=== PATIENT | female | born 1950 | race Caucasian/White ===

== ENCOUNTER 2016-09-15 14:55 | Inpatient (IN) ==
[2016-09-15 16:11] LABS: Basophils % 0.4 %; Eosinophils # 0.4 K/mcL (0.0-0.6); Eosinophils % 5.5 %; Hematocrit 28.3 % (35.3-44.9); Hemoglobin 8.9 g/dL (11.5-15.4); Immature Granulocytes % 0.3 % (0-4); Lymphocytes # 0.9 K/mcL (0.6-4.6); Lymphocytes % 12.8 %; Mean Corpuscular HGB Conc 31.4 g/dL (31.6-35.5); Mean Corpuscular Hemoglobin 27.2 pg (28.0-33.3); Mean Corpuscular Volume 86.5 fL (83.0-100.0); Mean Platelet Volume 11.2 fL (9.4-12.4); Monocytes # 0.7 K/mcL (0.0-1.3); Monocytes % 10.1 %; Platelet Count 203 K/mcL (140-400); Red Blood Count 3.27 M/mcL (3.82-4.97); Red Cell Distribution Width 15.4 % (11.5-14.5); Segmented Neutrophils % 70.9 %
[2016-09-15 16:25] LABS: Albumin 3.4 g/dL (3.5-5.0); Bilirubin,Total 0.7 mg/dL (0.2-1.2); Calcium 9.6 mg/dL (8.6-10.8); Globulin 3.4 g/dL (2.4-3.5); Potassium 5.5 mEq/L (3.5-4.5); Total Protein 6.8 g/dL (6.0-8.3)
--- NOTE | 2016-09-15 17:26 | Emergency Department Note ---
Disposition Clinical Impression: Acute renal insufficiency CHF (congestive heart failure) Qualifiers: Congestive heart failure type: diastolic Congestive heart failure chronicity: acute Qualified Code(s): I50.31 - Acute diastolic (congestive) heart failure Disposition: Admitted As Inpatient Condition: Fair Referrals: NO,PCP [Primary Care Provider] - Forms: ED Satisfaction Letter Time of Disposition: 17:54 Recheck wound or abnormal lab - General Chief Complaint: ED Recheck/Abnormal Lab/Rx Stated Complaint: pcp sent abnormal labs Time Seen by Provider: 09/15/16 16:42 Source: patient Limitations: no limitations Nursing Notes Reviewed: Yes Vital Signs Reviewed: Yes - Related Data Home Medications Medication Instructions Recorded Confirmed Aspirin 81 mg PO DAILY 08/02/15 08/02/15 Furosemide [Lasix] 20 mg PO DAILY PRN 08/02/15 08/02/15 Insulin ASPART [NovoLOG] 32 unit SQ TIDWM 08/02/15 08/02/15 Insulin Glargine,Hum.rec.anlog 45 unit SQ DAILY 08/02/15 08/02/15 [Lantus Solostar] Previous Rx's Medication Instructions Recorded Carvedilol [Coreg] 6.25 mg PO BIDWM #60 tablet 08/02/15 Losartan [Cozaar] 50 mg PO DAILY #30 tablet 08/02/15 Potassium Chloride [K-Tab ER] 10 meq PO DAILY #30 tablet.er 08/02/15 Allergies Allergy/AdvReac Type Severity Reaction Status Date / Time No Known Allergies Allergy Unverified 09/15/16 15:28 Past Medical History - Past Medical History Medical history: Reports: diabetes, hyperlipidemia, hypertension, kidney stones , renal disease Surgical history: Reports: cataract, cholecystectomy Psychiatric history: Reports: no psych history NURSING PROGRAM DIRECTOR history: Reports: no NURSING PROGRAM DIRECTOR history - Social History Smoking Status: Never smoker Smokeless Tobacco Status: No Alcohol use: Reports: none Drug use: Reports: none Physical Exam - General Limitations: no limitations General appearance: alert Course - Reevaluation(s) Reevaluation #1: 66-year-old female who comes in for abnormal labs. Patient's had exertional dyspnea. Workup included a worsening creatinine up to the mid fours. Potassium is 5.5. Her chest x-ray did show CHF. Consultation obtained with nephrology who recommends Lasix and possibly dialysis. Patient will be admitted for further evaluation. Time: 17:53 - Consultations Consultation #1: Discussed with , admit. Time: 17:49 Consultation #2: Discussed with Frieda Sage nurse practitioner, admit Time: 17:50 Vital Signs Temperature 98.2 F 09/15/16 15:28 Pulse Rate 58 09/15/16 15:28 Respiratory Rate 20 09/15/16 15:28 Blood Pressure 138/77 09/15/16 15:28 O2 Sat by Pulse Oximetry 95 09/15/16 15:28 Temperature 98.2 F 09/15/16 15:28 Pulse Rate 58 09/15/16 15:28 Respiratory Rate 20 09/15/16 15:28 Blood Pressure 138/77 09/15/16 15:28 O2 Sat by Pulse Oximetry 95 09/15/16 15:28 Oxygen Delivery Oxygen Delivery Room Air Recheck wound or abnormal lab - Lab Data Result diagrams: 09/15/16 16:03 09/15/16 16:03 Lab Results 09/15/16 09/15/16 Range/Units 16:03 16:03 WBC 7.1 (4.3-11.1) K/mcL RBC 3.27 L (3.82-4.97) M/mcL Hgb 8.9 L (11.5-15.4) g/dL Hct 28.3 L (35.3-44.9) % MCV 86.5 (83.0-100.0) fL MCH 27.2 L (28.0-33.3) pg MCHC 31.4 L (31.6-35.5) g/dL RDW 15.4 H (11.5-14.5) % Plt Count 203 (140-400) K/mcL MPV 11.2 (9.4-12.4) fL Immature Gran % 0.3 (0-4) % Seg Neutrophils % 70.9 % Lymphocytes % 12.8 % Monocytes % 10.1 % Eosinophils % 5.5 % Basophils % 0.4 % Neutrophils # 5.0 (1.6-8.9) K/mcL Lymphocytes # 0.9 (0.6-4.6) K/mcL Monocytes # 0.7 (0.0-1.3) K/mcL Eosinophils # 0.4 (0.0-0.6) K/mcL Basophils # 0.0 (0.0-0.2) K/mcL Sodium 139 (136-145) mEq/L Potassium 5.5 H (3.5-4.5) mEq/L Chloride 112 H (98-109) mEq/L Carbon Dioxide 20 (19-29) mEq/L BUN 71 H (7-20) mg/dL Creatinine 4.52 H (0.57-1.11) mg/dL Est GFR ( Amer) 12 L (> 60) Est GFR (Non-Af Amer) 10 L (> 60) BUN/Creatinine Ratio 16 (6-26) Glucose 173 H (70-99) mg/dL Calculated Osmolality 313 H (280-300) Calcium 9.6 (8.6-10.8) mg/dL Total Bilirubin 0.7 (0.2-1.2) mg/dL AST 12 (5-34) Units/L ALT 8 (0-55) Units/L Alkaline Phosphatase 109 (38-126) Units/L Serum Total Protein 6.8 (6.0-8.3) g/dL Albumin 3.4 L (3.5-5.0) g/dL Globulin 3.4 (2.4-3.5) g/dL Albumin/Globulin Ratio 1.0 L (1.1-2.2) Amylase 43 (25-125) Units/L Lipase 34 (8-78) Units/L
[2016-09-15] MEDS ORDERED: Furosemide 40 MG/4 ML VIAL IVP ONE ×2 (17:28→20:31)
[2016-09-15 17:57] LABS: Bilirubin,Urine Negative (Negative); Blood,Urine Negative (Negative); Clarity,Urine Clear (Clear); Color,Urine Yellow (Yellow); Glucose,Urine (UA) Normal (Normal); Ketones,Urine Negative (Negative); Leukocyte Esterase,Urine Small (Negative); Nitrite,Urine Negative (Negative); PH,Urine 5.5 pH Units (5.0-8.0); Protein,Urine >=300 mg/dL (Neg-Trace); Specific Gravity,Urine 1.016 (1.010-1.025); Urobilinogen,Urine Normal (Normal)
[2016-09-15 17:59] LABS: Bacteria,Urine None Seen per hpf (None-Few); Hyaline Casts,Urine None Seen per lpf (None-Few); Squamous Epithelial Cell,Urine Many per lpf (None-Few)
--- NOTE | 2016-09-15 19:50 | Internal Med History&Physical ---
Date of Encounter: 09/15/16 Time of Encounter: 19:48 Assessment and Plan (1) Acute on chronic congestive heart failure Current visit: Yes Status: Acute Patient has known diastolic heart failure with preserved ejection fraction. Last echocardiogram demonstrated LVEF of 55%, mild diastolic dysfunction, mild pulmonary hypertension mild mitral regurg. Patient clinically presents with diastolic heart failure exacerbation with pulmonary edema, bilateral lower extremity 2+ edema, cough, mild JVD. Supporting factor BNP of over 400. Chest x-ray with bilateral pulmonary congestion - Despite the patient increasing her home Lasix dose the patient presents with acute congestive heart failure in the setting of worsening renal function. This exacerbation is likely secondary to worsening of her end-stage renal disease. Plan: - 80 mg IV Lasix once tonight - 40 mg IV Lasix twice a day - Strict intake and output monitoring - Daily weights - 1.5 L fluid restrictions - 2 g sodium restriction - Discontinue patient's home potassium. Qualifiers: Qualified Code(s): I50.9 - Heart failure, unspecified (2) Scwks-sv-hrjszmy renal failure Current visit: Yes Status: Acute Patient presents with acute on chronic stage for kidney disease. Patient's creatinine is 4.52 with a GFR 10. Patient's GFR has steadily decreased over the past 3 months after chart review. Concerning factors: Hypertension, heart failure, diabetes. - Patient was taking 40 mg Lasix twice a day, fluid restricting and sodium restricting at home. - Presents with congestive heart failure exacerbation, hyperkalemia and acute on chronic any disease Plan: - 80 mg IV Lasix once this evening - 40 mg IV Lasix twice a day - As discussed above. - Consult to nephrology Qualifiers: Chronic kidney disease stage: stage 5, not on chronic dialysis Qualified Code(s): N17.9 - Acute kidney failure, unspecified; N18.5 - Chronic kidney disease, stage 5 (3) Hyperkalemia Current visit: Yes Status: Acute Patient presents with a potassium of 5.5, this is roughly her potassium for the past 3 months. She also has been taking oral potassium at home. EKG stable. Plan: - Hold oral potassium - Should improve with IV Lasix - No improvement with a.m. labs may require Kayexalate - Patient clinically stable. (4) Normocytic anemia Current visit: Yes Status: Acute Normocytic anemia with hemoglobin of 8.9, this has been her hemoglobin since May and appears to be stable. Likely secondary to chronic stage IV renal failure. Plan: - Monitor with a.m. labs (5) Diabetes Current visit: Yes Status: Acute Patient is insulin-dependent diabetic, glucose is slightly elevated. Plan: -Before meals at bedtime glucose checks - Subcutaneous insulin low-dose sliding scale and adjust up as necessary. Qualifiers: Qualified Code(s): E11.9 - Type 2 diabetes mellitus without complications (6) DVT prophylaxis Current visit: Yes Status: Acute Subcutaneous heparin Internal Medicine - H&P: HPI Chief complaint: abnormal labs Admitted From: Emergency Dept Plans for Post Hospital Care: Home History of present illness: Ms. Becerril is a 66 year old female with endstage renal disease, diastolic heart failure and chronic normocytic anemia was sent to the emergency department by her radial saw operator for worsening of laboratory results. Mrs. Becerril so that she has been treated for declining renal function for multiple years now and in the last several weeks has had a drop in her renal function. She says that she has been fatigued, very short of breath with light activity and sleepy. She is also had a cough more recently without production. She denies any fevers, chills, sweating, nausea vomiting diarrhea constipation. She does have feeling of GERD. She is also had increased swelling in bilateral lower extremities despite increasing her Lasix dose. She mentions that she has been taking 40 of Lasix twice a day up from her previous 60 of Lasix daily. She has also been taking oral potassium with the Lasix. In further discussion she understands that she may need dialysis was told she may require dialysis in the next 6 months. She understands that if she cannot diuresis enough fluid off she may require dialysis. She has no other questions at this time. Past Med Surg Social Fam HX - Past Medical History Medical history: diabetes, hyperlipidemia, hypertension, kidney stones, renal disease Psychiatric history: no psych history - Past Surgical History Surgical History: cataract, cholecystectomy - Social History Smoking Status: Never smoker Smokeless Tobacco Status: No Alcohol use: none Drug use: none Internal Medicine - H&P: Meds Aspirin 81 mg PO DAILY 08/02/15 [History] Carvedilol [Coreg] 6.25 mg PO BIDWM #60 tablet 08/02/15 [Rx] Furosemide [Lasix] 20 mg PO BID PRN 08/02/15 [History] Insulin ASPART [NovoLOG] 15 unit SQ TIDWM 08/02/15 [History] Insulin Glargine,Hum.rec.anlog [Lantus Solostar] 38 unit SQ HS 08/02/15 [History ] Losartan [Cozaar] 50 mg PO DAILY #30 tablet 08/02/15 [Rx] Brimonidine 0.2% [Alphagan] 1 drop OP BID 09/15/16 [History] Ergocalciferol (VITAMIN D2) [Vitamin D2] 50,000 unit PO QWEEK 09/15/16 [History] NIFEdipine [Nifedipine ER] 60 mg PO DAILY 09/15/16 [History] Potassium Chloride [K-Tab ER] 10 meq PO BID 09/15/16 [History] Timolol Maleate 0.5% [Timolol Maleate 0.5%] 1 drop OP BID 09/15/16 [History] Allergies No Known Allergies Allergy (Unverified 09/15/16 15:28) All Systems PM: A 10-system review of systems was performed and is negative for pertinent findings except as documented above in the HPI. - Constitutional Constitutional: fatigue, lethargy, no chills, no excessive sweating, no fever(s) , no night sweats - EENT Eyes: no change in vision, no discharge, no pain, no photophobia Ears: no ear discharge, no ear pain, no tinnitus Nose, mouth and throat: no dysphagia, no nasal discharge, no neck pain, no sore throat - Cardiovascular Cardiovascular ROS IM: dyspnea, dyspnea on exertion, edema, orthopnea, no chest pain, no diaphoresis, no lightheadedness, no palpitations, no syncope - Respiratory Respiratory: cough (Nonproductive), dyspnea, dyspnea on exertion, no wheezing, no excessive phlegm production - Gastrointestinal Gastrointestinal: no abdominal pain, no diarrhea, no hematemesis, no hematochezia, no melena, no nausea, no vomiting - Genitourinary Genitourinary: no change in urinary stream, no dysuria, no flank pain, no hematuria - Musculoskeletal Musculoskeletal ROS IM: no numbness, no tingling - Integumentary Integumentary IM: no rash, no unusual bruising - Neurological Neurological ROS: no confusion, no convulsions, no focal weakness, no numbness, no tingling, no tremor(s) - Hematologic/Lymphatic Hematologic/Lymphatic: no easy bruising - Constitutional Vitals: Temp Pulse Resp BP Pulse Ox 97.4 F L 62 15 136/67 93 09/15/16 19:40 09/15/16 19:40 09/15/16 19:40 09/15/16 19:40 09/15/16 19:40 General appearance: Present: A&O X 3 Exam: General: Patient alert, awake, oriented 3, interactive, in no acute distress HEENT: Normocephalic, atraumatic, pupils equal reactive to light, nasal cavity patent and open septum median position, oral mucosa moist, uvula midline, neck supple trachea midline no palpable lymphadenopathy, no thyromegaly. Mild JVD. Chest: Symmetric bilateral correlating with respiratory effort, effort nonlabored. Cardiac: Regular rate and rhythm, positive S1 and S2. no bruits appreciated bilateral carotids, Radial pulses 2+ bilateral, posterior tibial and dorsal pedal pulses 2+ bilateral. Respiratory: Inspiratory and expiratory crackles in the bilateral lung bases, clear to auscultation all lung awan. Abdomen: Soft, nontender, positive bowel sounds, no palpable masses appreciated on examination Extremities: Symmetric bilateral, bilateral lower extremities with 2+ pitting edema patient moving all 4 extremities spontaneously. Neurologic: No focal deficits appreciated on examination. Face symmetric, muscle strength symmetric bilateral upper and lower extremities. Internal Med - H&P Results - Labs CBC & Chem 7: 09/15/16 16:03 09/15/16 16:03
[2016-09-15] MEDS ORDERED: Ondansetron ODT 4 MG TAB.RAPDIS SL PRN (20:31)
[2016-09-15] MEDS ORDERED: Naloxone 0.4 MG/ML INJ IVP PRN (20:31)
[2016-09-15] MEDS ORDERED: *HR* Dextrose 50 % in Water (Syg) 50 ML SYRINGE IVP PRN (20:35)
[2016-09-15] MEDS ORDERED: Dextrose Gel 15 GM PO PRN ×2 (20:35)
[2016-09-15] MEDS ORDERED: D5% in Water 1,000 ML IVC PRN (20:35)
[2016-09-15] MEDS: Insulin LISPRO 300 UNITS/3 ML VIAL SQ SCH (21:18)
[2016-09-16 06:25] LABS: Basophils % 0.5 %; Eosinophils # 0.4 K/mcL (0.0-0.6); Eosinophils % 7.1 %; Hematocrit 25.5 % (35.3-44.9); Hemoglobin 7.8 g/dL (11.5-15.4); Immature Granulocytes % 0.4 % (0-4); Lymphocytes # 0.7 K/mcL (0.6-4.6); Lymphocytes % 12.9 %; Mean Corpuscular HGB Conc 30.6 g/dL (31.6-35.5); Mean Corpuscular Hemoglobin 26.5 pg (28.0-33.3); Mean Corpuscular Volume 86.7 fL (83.0-100.0); Mean Platelet Volume 11.3 fL (9.4-12.4); Monocytes # 0.5 K/mcL (0.0-1.3); Monocytes % 9.2 %; Platelet Count 174 K/mcL (140-400); Red Blood Count 2.94 M/mcL (3.82-4.97); Red Cell Distribution Width 15.4 % (11.5-14.5); Segmented Neutrophils % 69.9 %
[2016-09-16] MEDS: *HR* Heparin 5,000 UNIT/ML VIAL SQ SCH ×2 (06:35→17:25)
[2016-09-16 06:38] LABS: Calcium 8.9 mg/dL (8.6-10.8); Magnesium 1.7 mg/dL (1.6-2.6); Potassium 4.5 mEq/L (3.5-4.5)
[2016-09-16] MEDS: Insulin LISPRO 300 UNITS/3 ML VIAL SQ SCH ×4 (08:05→21:51)
[2016-09-16] MEDS: Aspirin 81 MG TAB.CHEW PO SCH (08:35)
[2016-09-16] MEDS: Furosemide 40 MG/4 ML VIAL IVP SCH ×2 (08:35→21:52)
[2016-09-16] MEDS: NIFEdipine XL (24 HR) 60 MG TAB.ER.24 PO SCH (08:36)
[2016-09-16 12:25] LABS: Creatinine,Urine 31 mg/dL; Microalbum/Creatinine Ratio,Ur 1039 (0-30); Microalbumin,Urine 322 mg/L
--- NOTE | 2016-09-16 19:55 | Internal Med Progress Note ---
Date of Encounter: 09/16/16 Time of Encounter: 10:45 - Assessment and plan (1) Acute respiratory failure with hypoxia Current Visit: Yes Status: Acute Assessment and plan: Secondary to acute diastolic heart failure exacerbation in the setting of CkD stage V. Chest x-ray showed pulmonary vascular congestion. 1+ lower extremity edema bilateral. Continue IV Lasix. Fluid restriction. close monitor of urine output. (2) Acute on chronic congestive heart failure Current Visit: Yes Status: Acute Assessment and plan: Acute diastolic heart failure. Plan as above. Qualifiers: Congestive heart failure type: diastolic Qualified Code(s): I50.33 - Acute on chronic diastolic (congestive) heart failure (3) Uglve-hp-wmjafcj renal failure Current Visit: Yes Status: Acute Assessment and plan: Appreciate nephrology input. Continue IV Lasix. Avoid nephrotoxic agents as possible. Qualifiers: Chronic kidney disease stage: stage 5, not on chronic dialysis Qualified Code(s): N17.9 - Acute kidney failure, unspecified; N18.5 - Chronic kidney disease, stage 5 (4) Diabetes Current Visit: Yes Status: Acute Assessment and plan: Glucose leves are adequate. Continue iss Diabetic diet. 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 Dry cough. - Constitutional Vitals: Temp Pulse Resp BP Pulse Ox 97.5 F L 65 17 124/64 93 09/16/16 19:21 09/16/16 19:21 09/16/16 19:21 09/16/16 19:21 09/16/16 19:21 General appearance: Present: cooperative, A&O X 3, pleasant, no acute distress, answers questions appropriately - Neck Neck exam general surgery: Present: supple, trachea midline. Absent: lymphadenopathy - Respiratory Respiratory exam: Present: wheezes - Cardiovascular Cardiovascular exam: Present: RRR - GI/Abdominal GI/Abdominal exam: Present: normal bowel sounds, soft. Absent: distended, tenderness - Extremities Exam Extremities exam: Present: pedal edema (1+ Le edema) - Back Exam Back exam: Absent: CVA tenderness (L), CVA tenderness (R) - Neurological Exam Neurological exam: Present: alert, oriented X3, no focal deficits, strengths equal and symetr throughout. Absent: facial droop, speech deficit - Skin Skin exam: Absent: rash Internal Medicine: Result - Labs CBC & Chem 7: 09/16/16 06:01 09/16/16 06:01 Labs: Short CBC 09/16/16 Range/Units 06:01 WBC 5.7 (4.3-11.1) K/mcL Hgb 7.8 L (11.5-15.4) g/dL Hct 25.5 L (35.3-44.9) % Plt Count 174 (140-400) K/mcL Neutrophils # 4.0 (1.6-8.9) K/mcL BMP 09/16/16 06:01 Sodium 139 Potassium 4.5 D Chloride 112 H Carbon Dioxide 20 BUN 70 H Creatinine 4.10 H Glucose 115 H Calcium 8.9 Consult Discharge Plan - Plan Referrals: NO,PCP [Primary Care Provider] -
[2016-09-17 06:22] LABS: Calcium 9.1 mg/dL (8.6-10.8); Potassium 4.3 mEq/L (3.5-4.5)
[2016-09-17 06:52] LABS: Hematocrit 28.2 % (35.3-44.9); Hemoglobin 8.9 g/dL (11.5-15.4); Mean Corpuscular HGB Conc 31.6 g/dL (31.6-35.5); Mean Corpuscular Hemoglobin 27.5 pg (28.0-33.3); Platelet Count 205 K/mcL (140-400); Red Blood Count 3.24 M/mcL (3.82-4.97); Red Cell Distribution Width 15.5 % (11.5-14.5)
[2016-09-17] MEDS: NIFEdipine XL (24 HR) 60 MG TAB.ER.24 PO SCH (08:14)
[2016-09-17] MEDS: Aspirin 81 MG TAB.CHEW PO SCH (08:14)
[2016-09-17] MEDS: Furosemide 40 MG/4 ML VIAL IVP SCH ×2 (08:15→20:48)
[2016-09-17] MEDS: Insulin LISPRO 300 UNITS/3 ML VIAL SQ SCH ×4 (08:24→20:48)
--- NOTE | 2016-09-17 08:35 | Nephrology Consult Note ---
Date of Encounter: 09/16/16 Time of Encounter: 10:28 Assessment and Plan (1) [id number] renal failure Current Visit: Yes Status: Acute Baseline scr 2.99 with gfr 16. presented with scr 4.52 and gfr 10. Reported decreased urine production. hx of diabetes and diastolic congestive HF K+ 5.5 on admission HgA1c 7.3 Patient is fluid overloaded but appears to have low intravascular volume. This is likely due to acute diastolic CHF. Patient is third spacing fluid which is refractory to home dose of lasix. SHe had a good response overnight with lasix with improvement in urinary frequency and Scr. She also has proteinuria. Potassium improved as well to 4.5. Plan: Continue lasix which will improve renal perfusion and therfore renal function and increase urinary output. If fluid overload, renal function does not improve she will need dialysis. Will order urine microalbumin, urine protein, and urine creatinine to identify if she has nephrotic syndrome. Urine sodium and urine urea. Strict I/O Continue renal conservative and protective strategy Avoid nephrotoxins: NSAIDs and contrast discontinue potassium. Qualifiers: Acute renal failure type: unspecified Chronic kidney disease stage: stage 5 , not on chronic dialysis Qualified Code(s): N17.9 - Acute kidney failure, unspecified; N18.5 - Chronic kidney disease, stage 5 (2) Acute on chronic congestive heart failure Current Visit: Yes Status: Acute as per primary. 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 Bourne that her kidney function is worsening. Baseline GFR 16. Patient presented with GFR 11. COmpained of worsening lower extremity edema refractory to lasix. SHe tried to increase her lasix dose from 40mg to 60mg but this did not help. This was accompanied by hyperkalemia as well. SHe also had sob with exertion, and nonproductive cough. Patient was given 40mg of IV lasix in ER and 80mg lasix on admission which overnight improve her sob, cough, hyperkalemia, renal function and lower extremity edema. Urinalysis showed signification protienuria. She did indicate decrease in urinary frequency but denies dysuria. Past Med Surg Social Fam HX - Past Medical History Medical history: diabetes, hyperlipidemia, hypertension, kidney stones, renal disease Psychiatric history: no psych history - Past Surgical History Surgical History: cataract, cholecystectomy - Social History Smoking Status: Never smoker Smokeless Tobacco Status: No Alcohol use: none Drug use: none Medications and Allergies Aspirin 81 mg PO DAILY 08/02/15 [History] Carvedilol [Coreg] 6.25 mg PO BIDWM #60 tablet 08/02/15 [Rx] Furosemide [Lasix] 20 mg PO BID PRN 08/02/15 [History] Insulin ASPART [NovoLOG] 15 unit SQ TIDWM 08/02/15 [History] Insulin Glargine,Hum.rec.anlog [Lantus Solostar] 38 unit SQ HS 08/02/15 [History ] Losartan [Cozaar] 50 mg PO DAILY #30 tablet 08/02/15 [Rx] Brimonidine 0.2% [Alphagan] 1 drop OP BID 09/15/16 [History] Ergocalciferol (VITAMIN D2) [Vitamin D2] 50,000 unit PO QWEEK 09/15/16 [History] NIFEdipine [Nifedipine ER] 60 mg PO DAILY 09/15/16 [History] Potassium Chloride [K-Tab ER] 10 meq PO BID 09/15/16 [History] Timolol Maleate 0.5% [Timolol Maleate 0.5%] 1 drop OP BID 09/15/16 [History] Allergies No Known Allergies Allergy (Unverified 09/15/16 15:28) Review of Systems All Systems review (narrative): Constitutional: Denies fever, chills HEENT: Denies headache, vision changes, neck pain, sore throat, rhinorrhea Heart: Denies chest pain palpitations Lungs: Reprots sob and cough Abdomen: Denies abdominal pain nausea vomiting. reports diarrhea. Back: Denies back pain Kidney: Denies dysuria, hematuria. reports decreased urinary frequency Extremities: significant lower extremity swelling Neuro: Denies numbness, and tingling Exam - Vital Signs Vital signs: Initial Vital Signs Temp Pulse Resp BP Pulse Ox 98.2 F 58 20 138/77 95 09/15/16 15:28 09/15/16 15:28 09/15/16 15:28 09/15/16 15:28 09/15/16 15:28 Vital Signs - Last 8 Hours Temp Pulse Resp BP Pulse Ox 09/17/16 07:56 97.9 F 67 18 142/78 90 Intake and Output 09/16/16 09/17/16 09/17/16 23:59 07:59 15:59 Output Total 400 / 400 400 / 400 Balance -400 / -400 -400 / -400 Output: Urine 400 / 400 400 / 400 Other: # Voids 1 Weight 87.3 kg Blood Glucose* 203 151 Patient Weight 09/17/16 23:59 Weight 87.3 kg - General Appearance General appearance: appears started age, moderate distress EENT: PERRL, mucous membranes moist Neck: no JVD, supple Additional Comments: b/l basilar crackles. Cardiology: edema (2+), regular rate, normal S1, normal S2 Gastrointestinal: normoactive bowel sounds, no tenderness Integumentary: no rash, warm and dry Neurologic: no focal deficit, no asterixis, alert and oriented x3 Musculoskeletal: no deformities, no erythema, no cyanosis, no clubbing Psychiatric: mood/affect appropriate, cooperative Results - Lab Results 09/17/16 04:35 09/17/16 04:35 Most recent lab results Calcium 9.1 mg/dL (8.6-10.8) 09/17/16 04:35 Phosphorus 5.0 mg/dL (2.3-4.7) H 09/16/16 06:01 Magnesium 1.7 mg/dL (1.6-2.6) 09/16/16 06:01 Urine Creatinine 31 mg/dL 09/16/16 11:46 Urine Sodium 83.0 mEq/L 09/16/16 11:46 Urine Total Protein 45 mg/dL (1-14) H 09/16/16 11:46 Consult Discharge Plan - Plan Referrals: NO,PCP [Primary Care Provider] -
--- NOTE | 2016-09-17 09:01 | Nephrology Progress Note ---
Date of Encounter: 09/17/16 Time of Encounter: 08:59 - Assessment and Plan (1) Hcvhc-zd-amsybut renal failure Current Visit: Yes Status: Acute Renal function improving. Scr 4.52>>4.1>>3.74 UOP 1500 cc in last 24 hours Urine microalbumin to creatinine ratio elevated FeUrea 38.4% 07/23 renal labs: LOREN not detected, C3 and C4 WNL, immunoelectropheresis WNL. albumin 3.4 Plan: Patients renal function is improving with lasix, with improved urine output. Continue lasix Cause of renal function multifactorial: CHF, DM II but she also has elevated urine microalbumin and FEUrea of 38.4 that points toward intrinsic renal disease. Protienuria is primarity albumin. as her urine protein is 24. She also has RBC casts in her urinalysis. However, glomerulonephritis was ruled out previously. This is likkley 2nd to acute diastolic CHF and diabetic nephropathy. In the last two years patient's diabetes was not controlled. Qualifiers: Acute renal failure type: unspecified Chronic kidney disease stage: stage 5 , not on chronic dialysis Qualified Code(s): N17.9 - Acute kidney failure, unspecified; N18.5 - Chronic kidney disease, stage 5 (2) Acute on chronic congestive heart failure Current Visit: Yes Status: Acute Qualifiers: Congestive heart failure type: diastolic Qualified Code(s): I50.33 - Acute on chronic diastolic (congestive) heart failure (3) Diabetes Current Visit: Yes Status: Acute Qualifiers: Diabetes mellitus type: type 2 Diabetes mellitus complication status: with hyperglycemia Diabetes mellitus mcc insulin use: with ad terminal makeup operator use Qualified Code(s): E11.65 - Type 2 diabetes mellitus with hyperglycemia; 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 Denies N/ V. Patient states she has chronic diarrhea/IBS that has been going on for about 4 years. Objective - Vital Signs Vital signs: Vital Signs Temp Pulse Resp BP Pulse Ox 09/17/16 07:56 97.9 F 67 18 142/78 90 09/16/16 23:14 97.6 F 67 19 125/69 92 09/16/16 19:21 97.5 F L 65 17 124/64 93 09/16/16 17:02 97.4 F L 64 18 152/79 92 09/16/16 11:29 97.3 F L 65 18 144/74 90 Intake and Output 09/16/16 09/17/16 09/17/16 23:59 07:59 15:59 Output Total 400 / 400 400 / 400 Balance -400 / -400 -400 / -400 Output: Urine 400 / 400 400 / 400 Other: # Voids 1 Weight 87.3 kg Blood Glucose* 203 151 Patient Weight 09/17/16 23:59 Weight 87.3 kg - General Appearance General appearance: Present: appears started age, obese EENT: Present: mucous membranes moist Neck: Present: no JVD, supple Additional Comments: bibasilar crackles Cardiology: Present: edema (2+), normal S1, normal S2 Gastrointestinal: Present: normoactive bowel sounds, no tenderness Integumentary: Present: no rash, warm and dry Neurologic: Present: no focal deficit, no asterixis, alert and oriented x3 Musculoskeletal: Present: no deformities, no erythema, no cyanosis, no clubbing Psychiatric: Present: mood/affect appropriate, cooperative - Lab 09/17/16 04:35 09/17/16 04:35 Most recent lab results Calcium 9.1 mg/dL (8.6-10.8) 09/17/16 04:35 Phosphorus 5.0 mg/dL (2.3-4.7) H 09/16/16 06:01 Magnesium 1.7 mg/dL (1.6-2.6) 09/16/16 06:01 Urine Creatinine 31 mg/dL 09/16/16 11:46 Urine Sodium 83.0 mEq/L 09/16/16 11:46 Urine Total Protein 45 mg/dL (1-14) H 09/16/16 11:46 Consult Discharge Plan - Plan Referrals: Abelardo Bowen MD [Partnered Physician] - NO,PCP [Primary Care Provider] -
[2016-09-17] MEDS: *HR* Heparin 5,000 UNIT/ML VIAL SQ SCH ×2 (12:23→17:09)
--- NOTE | 2016-09-17 17:47 | Internal Med Progress Note ---
Date of Encounter: 09/17/16 Time of Encounter: 14:00 - Assessment and plan (1) Acute respiratory failure with hypoxia Current Visit: Yes Status: Acute Assessment and plan: Secondary to acute diastolic heart failure exacerbation in the setting of CkD stage V. Chest x-ray showed pulmonary vascular congestion. clinically slowly improving. Continue IV Lasix. Fluid restriction. close monitor of urine output. (2) Acute on chronic congestive heart failure Current Visit: Yes Status: Acute Assessment and plan: Acute diastolic heart failure. Plan as above. Qualifiers: Congestive heart failure type: diastolic Qualified Code(s): I50.33 - Acute on chronic diastolic (congestive) heart failure (3) Czuwg-sc-qdfhfyz renal failure Current Visit: Yes Status: Acute Assessment and plan: Appreciate nephrology input. Continue IV Lasix. Avoid nephrotoxic agents as possible. Qualifiers: Acute renal failure type: unspecified Chronic kidney disease stage: stage 5 , not on chronic dialysis Qualified Code(s): N17.9 - Acute kidney failure, unspecified; N18.5 - Chronic kidney disease, stage 5 (4) Diabetes Current Visit: Yes Status: Acute Assessment and plan: Glucose leves are adequate. Continue iss Diabetic diet. 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 Dry cough. - Constitutional Vitals: Temp Pulse Resp BP Pulse Ox 97.5 F L 64 18 166/74 92 09/17/16 16:21 09/17/16 16:21 09/17/16 16:21 09/17/16 16:21 09/17/16 16:21 General appearance: Present: cooperative, A&O X 3, pleasant, no acute distress, answers questions appropriately - Neck Neck exam general surgery: Present: supple, trachea midline. Absent: lymphadenopathy - Respiratory Respiratory exam: Present: CTAB - Cardiovascular Cardiovascular exam: Present: RRR - GI/Abdominal GI/Abdominal exam: Present: normal bowel sounds, soft. Absent: distended, tenderness - Extremities Exam Extremities exam: Present: pedal edema - Neurological Exam Neurological exam: Present: alert, oriented X3, no focal deficits, strengths equal and symetr throughout. Absent: facial droop, speech deficit - Skin Skin exam: Absent: rash Internal Medicine: Result - Labs CBC & Chem 7: 09/17/16 04:35 09/17/16 04:35 Labs: Short CBC 09/17/16 Range/Units 04:35 WBC 7.3 (4.3-11.1) K/mcL Hgb 8.9 L (11.5-15.4) g/dL Hct 28.2 L (35.3-44.9) % Plt Count 205 (140-400) K/mcL [facility] 09/17/16 04:35 Sodium 140 Potassium 4.3 Chloride 110 H Carbon Dioxide 19 BUN 68 H Creatinine 3.74 H Glucose 153 H Calcium 9.1 Consult Discharge Plan - Plan Referrals: Abelardo Bowen MD [Partnered Physician] - NO,PCP [Primary Care Provider] -
[2016-09-17] MEDS: Acetaminophen 325 MG TABLET PO PRN (20:48)
[2016-09-18] MEDS: *HR* Heparin 5,000 UNIT/ML VIAL SQ SCH ×2 (06:00→17:13)
[2016-09-18 06:50] LABS: Basophils % 0.6 %; Eosinophils # 0.3 K/mcL (0.0-0.6); Eosinophils % 6.2 %; Hematocrit 26.2 % (35.3-44.9); Hemoglobin 8.1 g/dL (11.5-15.4); Immature Granulocytes % 0.2 % (0-4); Lymphocytes # 0.6 K/mcL (0.6-4.6); Lymphocytes % 12.2 %; Mean Corpuscular HGB Conc 30.9 g/dL (31.6-35.5); Mean Corpuscular Hemoglobin 26.7 pg (28.0-33.3); Mean Corpuscular Volume 86.5 fL (83.0-100.0); Mean Platelet Volume 11.2 fL (9.4-12.4); Monocytes # 0.6 K/mcL (0.0-1.3); Monocytes % 11.1 %; Neutrophils # 3.6 K/mcL (1.6-8.9); Platelet Count 178 K/mcL (140-400); Red Blood Count 3.03 M/mcL (3.82-4.97); Red Cell Distribution Width 15.4 % (11.5-14.5); Segmented Neutrophils % 69.7 %
[2016-09-18 06:51] LABS: Calcium 8.8 mg/dL (8.6-10.8); Magnesium 1.5 mg/dL (1.6-2.6); Potassium 4.1 mEq/L (3.5-4.5)
--- NOTE | 2016-09-18 07:11 | Nephrology Progress Note ---
Date of Encounter: 09/18/16 Time of Encounter: 08:51 - Assessment and Plan (1) Nexgt-us-ewkgshr renal failure Current Visit: Yes Status: Acute Renal function continues to improve Scr 4.52>>4.1>>3.74>>3.43 UOP 1025 cc in last 24 hours Plan: Cause of renal function multifactorial: CHF, DM II but she also has elevated urine microalbumin and FEUrea of 38.4 that points toward intrinsic renal disease. Protienuria is primarily albumin. as her urine protein is 24. She also has RBC casts in her urinalysis. However, glomerulonephritis was ruled out previously. This is likely 2nd to acute diastolic CHF and diabetic nephropathy. In the last two years patient's diabetes was not controlled. Patients renal function is improving with lasix, with improved urine output. Continue lasix Important patient on renal and diabetic diet and fluid restriction. Will need to follow up with Dr. Bourne outpatient one week after discharge. Also discharge on lasixs 40mg BID. Qualifiers: Acute renal failure type: unspecified Chronic kidney disease stage: stage 5 , not on chronic dialysis Qualified Code(s): N17.9 - Acute kidney failure, unspecified; N18.5 - Chronic kidney disease, stage 5 (2) Acute on chronic congestive heart failure Current Visit: Yes Status: Acute Qualifiers: Congestive heart failure type: diastolic Qualified Code(s): I50.33 - Acute on chronic diastolic (congestive) heart failure (3) Diabetes Current Visit: Yes Status: Acute Qualifiers: Diabetes mellitus type: type 2 Diabetes mellitus complication status: with hyperglycemia Diabetes mellitus nursing home insulin use: with nursing home use Qualified Code(s): E11.65 - Type 2 diabetes mellitus with hyperglycemia; Z79.4 - [facility] (current) use of insulin (4) Hyperkalemia Current Visit: Yes Status: Resolved Subjective Principal diagnosis: acute CHF/acute on chronic renal failure Interval history: sob continues. Requiring increase O2, up from 2.5L to 3.5. However, states she feels much better. Denies N/V. Had extensive conversation yesterday on low potassium, low-sodium, diabetic diet. Objective - Vital Signs Vital signs: Vital Signs Temp Pulse Resp BP Pulse Ox 09/18/16 05:21 97.5 F L 67 16 131/64 89 09/17/16 23:25 97.7 F 98 16 125/72 88 09/17/16 20:50 94 09/17/16 20:44 97.5 F L 57 16 136/90 90 09/17/16 16:21 97.5 F L 64 18 166/74 92 09/17/16 16:19 97.5 F L 64 18 125/75 91 09/17/16 12:09 97.4 F L 64 20 166/74 91 09/17/16 10:49 90 09/17/16 08:15 97.9 F 67 18 142/78 90 09/17/16 07:56 97.9 F 67 18 142/78 90 Intake and Output 09/17/16 09/17/16 09/18/16 15:59 23:59 07:59 Intake Total 250 / 250 140 / 140 Output Total 900 / 900 125 / 125 Balance -650 / -650 Intake: Oral 250 / 250 0 / 0 Tube Feeding 140 / 140 Output: Urine 900 / 900 125 / 125 Other: Meal Breakfast Lunch Percent of Meal Consumed 95% 100% Weight 85.956 kg Blood Glucose* 231 128 Patient Weight 09/18/16 23:59 Weight 85.956 kg - General Appearance General appearance: Present: well-developed, well-nourished, appears started age Neck: Present: no JVD, supple Additional Comments: Diminished breath sounds, fine crackles at the bases. Cardiology: Present: no murmurs, no rub, no gallops, edema (3+), regular rate, regular rhythm, normal S1, normal S2 Gastrointestinal: Present: normoactive bowel sounds, no tenderness Integumentary: Present: no rash, warm and dry Neurologic: Present: no focal deficit, no asterixis, alert and oriented x3 Musculoskeletal: Present: no deformities, no erythema, no cyanosis, no clubbing Psychiatric: Present: mood/affect appropriate, cooperative - Lab 09/18/16 06:12 09/18/16 06:12 Most recent lab results Calcium 8.8 mg/dL (8.6-10.8) 09/18/16 06:12 Phosphorus 5.0 mg/dL (2.3-4.7) H 09/16/16 06:01 Magnesium 1.5 mg/dL (1.6-2.6) L 09/18/16 06:12 Urine Creatinine 31 mg/dL 09/16/16 11:46 Urine Sodium 83.0 mEq/L 09/16/16 11:46 Urine Total Protein 45 mg/dL (1-14) H 09/16/16 11:46 Consult Discharge Plan - Plan Referrals: Abelardo Bowen MD [Partnered Physician] - NO,PCP [Primary Care Provider] -
[2016-09-18] MEDS: Furosemide 40 MG/4 ML VIAL IVP SCH ×2 (09:25→20:57)
[2016-09-18] MEDS: Aspirin 81 MG TAB.CHEW PO SCH (09:25)
[2016-09-18] MEDS: NIFEdipine XL (24 HR) 60 MG TAB.ER.24 PO SCH (09:25)
[2016-09-18] MEDS: Insulin LISPRO 300 UNITS/3 ML VIAL SQ SCH ×4 (09:26→20:46)
--- NOTE | 2016-09-18 11:37 | Internal Med Progress Note ---
Date of Encounter: 09/18/16 Time of Encounter: 11:37 - Assessment and plan (1) Acute respiratory failure with hypoxia Current Visit: Yes Status: Acute Assessment and plan: Secondary to acute diastolic heart failure exacerbation in the setting of CkD stage V. 09/15: Chest x-ray showed pulmonary vascular congestion. Oxygen supplementation was increased overnight, she is now requiring 3.5 L NC. Upon questioning to the patient, she is not aware of any fluid limitation. I explained to her that she is on fluid restriction 1.5 liters per day, she understood. Continue IV Lasix. repeat CXR. (2) Acute on chronic congestive heart failure Current Visit: Yes Status: Acute Assessment and plan: Acute diastolic heart failure. Plan as above. Qualifiers: Congestive heart failure type: diastolic Qualified Code(s): I50.33 - Acute on chronic diastolic (congestive) heart failure (3) Zjnub-iq-yrzylrz renal failure Current Visit: Yes Status: Acute Assessment and plan: Appreciate nephrology input. Continue IV Lasix. Avoid nephrotoxic agents as possible. Qualifiers: Acute renal failure type: unspecified Chronic kidney disease stage: stage 5 , not on chronic dialysis Qualified Code(s): N17.9 - Acute kidney failure, unspecified; N18.5 - Chronic kidney disease, stage 5 (4) Diabetes Current Visit: Yes Status: Acute Assessment and plan: Glucose levels are adequate. Continue is Diabetic diet. 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 positive dry cough and leg swelling - Constitutional Vitals: Temp Pulse Resp BP Pulse Ox 97.8 F 66 20 145/63 92 09/18/16 08:27 09/18/16 08:27 09/18/16 08:27 09/18/16 08:27 09/18/16 08:27 General appearance: Present: cooperative, A&O X 3, pleasant, no acute distress, answers questions appropriately - Neck Neck exam general surgery: Present: supple, trachea midline. Absent: lymphadenopathy - Respiratory Respiratory exam: Present: CTAB - Cardiovascular Cardiovascular exam: Present: RRR - GI/Abdominal GI/Abdominal exam: Present: normal bowel sounds, soft. Absent: distended, tenderness - Extremities Exam Extremities exam: Present: pedal edema (1+Le edema) - Back Exam Back exam: Absent: CVA tenderness (L), CVA tenderness (R) - Neurological Exam Neurological exam: Present: alert, oriented X3, no focal deficits, strengths equal and symetr throughout. Absent: facial droop, speech deficit - Skin Skin exam: Absent: rash Internal Medicine: Result - Labs CBC & Chem 7: 09/18/16 06:12 09/18/16 06:12 Labs: Short CBC 09/18/16 Range/Units 06:12 WBC 5.2 (4.3-11.1) K/mcL Hgb 8.1 L (11.5-15.4) g/dL Hct 26.2 L (35.3-44.9) % Plt Count 178 (140-400) K/mcL Neutrophils # 3.6 (1.6-8.9) K/mcL BMP 09/18/16 06:12 Sodium 140 Potassium 4.1 Chloride 110 H Carbon Dioxide 20 BUN 62 H Creatinine 3.43 H Glucose 149 H Calcium 8.8 Consult Discharge Plan - Plan Referrals: Abelardo Bowen MD [Partnered Physician] - NO,PCP [Primary Care Provider] -
[2016-09-18] MEDS ORDERED: Magnesium Sulfate 1 GM in D5% in Water 100 ML IVPB ONE (15:23)
[2016-09-18] MEDS: Acetaminophen 325 MG TABLET PO PRN (20:56)
[2016-09-18] MEDS: Magnesium Oxide 400 MG TABLET PO SCH (20:56)
[2016-09-19] MEDS: *HR* Heparin 5,000 UNIT/ML VIAL SQ SCH ×2 (05:55→17:14)
[2016-09-19 07:00] LABS: Basophils % 0.5 %; Eosinophils # 0.3 K/mcL (0.0-0.6); Hematocrit 26.7 % (35.3-44.9); Hemoglobin 8.4 g/dL (11.5-15.4); Immature Granulocytes % 0.2 % (0-4); Lymphocytes # 0.7 K/mcL (0.6-4.6); Lymphocytes % 13.4 %; Mean Corpuscular HGB Conc 31.5 g/dL (31.6-35.5); Mean Corpuscular Hemoglobin 27.1 pg (28.0-33.3); Mean Corpuscular Volume 86.1 fL (83.0-100.0); Mean Platelet Volume 11.2 fL (9.4-12.4); Monocytes # 0.7 K/mcL (0.0-1.3); Neutrophils # 3.7 K/mcL (1.6-8.9); Platelet Count 184 K/mcL (140-400); Red Cell Distribution Width 15.7 % (11.5-14.5); Segmented Neutrophils % 67.9 %
[2016-09-19 07:03] LABS: Calcium 8.9 mg/dL (8.6-10.8); Magnesium 1.9 mg/dL (1.6-2.6); Phosphorous 5.7 mg/dL (2.3-4.7)
[2016-09-19] MEDS: NIFEdipine XL (24 HR) 60 MG TAB.ER.24 PO SCH (09:34)
[2016-09-19] MEDS: Furosemide 40 MG/4 ML VIAL IVP SCH ×3 (09:34→17:15)
[2016-09-19] MEDS: Aspirin 81 MG TAB.CHEW PO SCH (09:34)
[2016-09-19] MEDS: Magnesium Oxide 400 MG TABLET PO SCH ×2 (09:34→21:41)
[2016-09-19] MEDS: Insulin LISPRO 300 UNITS/3 ML VIAL SQ SCH ×4 (09:35→21:41)
--- NOTE | 2016-09-19 10:02 | Nephrology Progress Note ---
Date of Encounter: 09/19/16 Time of Encounter: 10:00 - Assessment and Plan (1) Acute on chronic congestive heart failure Current Visit: Yes Status: Acute Continue with iv furosemide. Need accurate Is and Os. Qualifiers: Congestive heart failure type: diastolic Qualified Code(s): I50.33 - Acute on chronic diastolic (congestive) heart failure (2) Ldwnf-av-coufkzb renal failure Current Visit: Yes Status: Acute Renal function improving in the face of diuresis. Consult python engineer for DASH diet. Qualifiers: Acute renal failure type: unspecified Chronic kidney disease stage: stage 5 , not on chronic dialysis Qualified Code(s): N17.9 - Acute kidney failure, unspecified; N18.5 - Chronic kidney disease, stage 5 (3) Normocytic anemia Current Visit: Yes Status: Acute Monitor hemoglobin. (4) Hyperphosphatemia Current Visit: Yes Status: Acute Mild. Follow. May need a phosphate binder. Subjective Principal diagnosis: acute CHF/acute on chronic renal failure Interval history: Patient feeling better overnight with increase in furosemide. She has no new complaints, but lots of questions. She and her want to know about a CKD friendly diet. Objective - Vital Signs Vital signs: Vital Signs Temp Pulse Resp BP Pulse Ox 09/19/16 09:25 94 09/19/16 06:43 97.4 F L 63 20 160/87 94 09/19/16 03:39 97.6 F 60 20 146/63 93 09/19/16 00:02 98.4 F 63 20 144/71 90 09/18/16 20:08 97.6 F 64 22 144/76 93 09/18/16 16:50 97.4 F L 60 18 140/62 93 09/18/16 15:58 93 09/18/16 12:25 97.4 F L 61 22 131/73 93 Intake and Output 09/18/16 09/19/16 09/19/16 23:59 07:59 15:59 Intake Total 100 / 100 100 / 100 240 / 240 Output Total 100 / 100 300 / 300 Balance 0 / 0 -200 / -200 240 / 240 Intake: Oral 100 / 100 100 / 100 240 / 240 Output: Urine 100 / 100 300 / 300 Other: Meal Breakfast Percent of Meal Consumed 90% Weight 86.001 kg Blood Glucose* 189 139 Patient Weight 09/19/16 23:59 Weight 86.001 kg - General Appearance General appearance: Present: well-developed, well-nourished EENT: Present: ATNC Neck: Present: supple Additional Comments: respirations are unlabored. Cardiology: Present: edema (2-3+ bilateral lower extremities. ), regular rate Neurologic: Present: alert and oriented x3 Psychiatric: Present: mood/affect appropriate - Lab 09/19/16 06:27 09/19/16 06:27 Most recent lab results Calcium 8.9 mg/dL (8.6-10.8) 09/19/16 06:27 Phosphorus 5.7 mg/dL (2.3-4.7) H 09/19/16 06:27 Magnesium 1.9 mg/dL (1.6-2.6) 09/19/16 06:27 Urine Creatinine 31 mg/dL 09/16/16 11:46 Urine Sodium 83.0 mEq/L 09/16/16 11:46 Urine Total Protein 45 mg/dL (1-14) H 09/16/16 11:46 Consult Discharge Plan - Plan Referrals: Abelardo Bowen MD [Partnered Physician] - 09/29/16 1:15 pm (web request 2016)
--- NOTE | 2016-09-19 13:07 | Internal Med Progress Note ---
Date of Encounter: 09/19/16 Time of Encounter: 10:00 - Assessment and plan (1) Acute respiratory failure with hypoxia Current Visit: Yes Status: Acute Assessment and plan: Secondary to acute diastolic heart failure exacerbation in the setting of CkD stage V. 09/15: Chest x-ray showed pulmonary vascular congestion. 09/18: cxr showed persistent pulmonary vascular congestion. patient continues to require 3.5 L of oxygen via NC and feel short of breath on exertion. Increase IV lasix to tid. continue fluid restriction 1.5 liters per day, low salt diet. (2) Acute on chronic congestive heart failure Current Visit: Yes Status: Acute Assessment and plan: Acute diastolic heart failure. Plan as above. Qualifiers: Congestive heart failure type: diastolic Qualified Code(s): I50.33 - Acute on chronic diastolic (congestive) heart failure (3) Rmebq-pe-bssfvru renal failure Current Visit: Yes Status: Acute Assessment and plan: cardiorenal due to CHF. Appreciate nephrology input. kidney function at baseline now. Continue IV Lasix. close monitor. Avoid nephrotoxic agents as possible. Qualifiers: Acute renal failure type: unspecified Chronic kidney disease stage: stage 5 , not on chronic dialysis Qualified Code(s): N17.9 - Acute kidney failure, unspecified; N18.5 - Chronic kidney disease, stage 5 (4) Diabetes Current Visit: Yes Status: Acute Assessment and plan: Glucose levels are adequate. fasting glucose is 139. Continue ISS and Diabetic diet. Qualifiers: Diabetes mellitus type: type 2 Diabetes mellitus complication status: with hyperglycemia Diabetes mellitus buttermaker insulin use: with buttermaker use Qualified Code(s): E11.65 - Type 2 diabetes mellitus with hyperglycemia; Z79.4 - group home (current) use of insulin (5) Hyperkalemia Current Visit: Yes Status: Resolved - Subjective Interval history: patient reports her shortness of breath has slightly improved compared to admission. - Constitutional Vitals: Temp Pulse Resp BP Pulse Ox 97.5 F L 64 18 152/70 96 09/19/16 10:53 09/19/16 10:53 09/19/16 10:53 09/19/16 10:53 09/19/16 10:53 General appearance: Present: cooperative, A&O X 3, pleasant, no acute distress, answers questions appropriately - Neck Neck exam general surgery: Present: supple, trachea midline. Absent: lymphadenopathy - Respiratory Respiratory exam: Present: rales (bibasal crackles L>R) - Cardiovascular Cardiovascular exam: Present: RRR - GI/Abdominal GI/Abdominal exam: Present: normal bowel sounds, soft. Absent: distended, tenderness - Extremities Exam Extremities exam: Present: pedal edema (2+ Le edema) - Back Exam Back exam: Absent: CVA tenderness (L), CVA tenderness (R) - Neurological Exam Neurological exam: Present: alert, oriented X3, no focal deficits, strengths equal and symetr throughout. Absent: facial droop, speech deficit - Skin Skin exam: Absent: rash Internal Medicine: Result - Labs CBC & Chem 7: 09/19/16 06:27 09/19/16 06:27 Labs: Short CBC 09/19/16 Range/Units 06:27 WBC 5.5 (4.3-11.1) K/mcL Hgb 8.4 L (11.5-15.4) g/dL Hct 26.7 L (35.3-44.9) % Plt Count 184 (140-400) K/mcL Neutrophils # 3.7 (1.6-8.9) K/mcL BMP 09/19/16 06:27 Sodium 141 Potassium 4.0 Chloride 109 Carbon Dioxide 21 BUN 59 H Creatinine 3.21 H Glucose 148 H Calcium 8.9 - Impressions Impressions Chest X-Ray 09/18/16 11:41 IMPRESSION: Findings suggest congestive heart failure. The findings were sent to the [facility]iology Results [facility] at 3:09 pm on 09/18/2016to be communicated to a licensed caregiver. D/ / 09/18/2016 15:43:44 Jean Carlos Villalpando MD / [email or web address] Interpreting Provider: Jean Carlos Villalpando MD Consult Discharge Plan - Plan Referrals: Abelardo Bowen MD [Partnered Physician] - 09/29/16 1:15 pm (web request 2016)
[2016-09-19 17:49] LABS: Protein/Creatinine Ratio,Urine 2.2 mg/mg (0-0.20)
[2016-09-19] MEDS: Acetaminophen 325 MG TABLET PO PRN (21:41)
[2016-09-20 06:14] LABS: Basophils % 0.6 %; Eosinophils # 0.3 K/mcL (0.0-0.6); Hematocrit 25.3 % (35.3-44.9); Immature Granulocytes % 0.2 % (0-4); Lymphocytes # 0.7 K/mcL (0.6-4.6); Lymphocytes % 13.8 %; Mean Corpuscular HGB Conc 31.6 g/dL (31.6-35.5); Mean Corpuscular Hemoglobin 27.3 pg (28.0-33.3); Mean Corpuscular Volume 86.3 fL (83.0-100.0); Mean Platelet Volume 11.9 fL (9.4-12.4); Monocytes # 0.7 K/mcL (0.0-1.3); Monocytes % 12.7 %; Neutrophils # 3.5 K/mcL (1.6-8.9); Platelet Count 164 K/mcL (140-400); Red Blood Count 2.93 M/mcL (3.82-4.97); Red Cell Distribution Width 15.7 % (11.5-14.5); Segmented Neutrophils % 67.7 %
[2016-09-20] MEDS: *HR* Heparin 5,000 UNIT/ML VIAL SQ SCH ×2 (06:15→17:28)
[2016-09-20 06:32] LABS: Calcium 8.8 mg/dL (8.6-10.8); Phosphorous 5.5 mg/dL (2.3-4.7)
[2016-09-20] MEDS ORDERED: Furosemide 40 MG/4 ML VIAL IVP ONE (09:44)
[2016-09-20] MEDS: Insulin LISPRO 300 UNITS/3 ML VIAL SQ SCH ×4 (10:00→21:08)
--- NOTE | 2016-09-20 10:19 | Nephrology Progress Note ---
Date of Encounter: 09/20/16 Time of Encounter: 10:16 - Assessment and Plan (1) Acute on chronic congestive heart failure Current Visit: Yes Status: Acute Continue with iv furosemide. Need accurate Is and Os. Will increase her AM lasix to 80mg and assess for improved diuresis and decreased oxygen requirement. May need repeat limited echocardiogram. Qualifiers: Congestive heart failure type: diastolic Qualified Code(s): I50.33 - Acute on chronic diastolic (congestive) heart failure (2) Hovgc-yu-iosmlzn renal failure Current Visit: Yes Status: Acute Renal function improving in the face of diuresis. Consult dba manager for DASH diet. Qualifiers: Acute renal failure type: unspecified Chronic kidney disease stage: stage 5 , not on chronic dialysis Qualified Code(s): N17.9 - Acute kidney failure, unspecified; N18.5 - Chronic kidney disease, stage 5 (3) Normocytic anemia Current Visit: Yes Status: Acute Monitor hemoglobin. (4) Hyperphosphatemia Current Visit: Yes Status: Acute Mild. Follow. May need a phosphate binder. Subjective Principal diagnosis: acute CHF/acute on chronic renal failure Interval history: Patient with no complaint. She has no new complaints, but lots of questions. No change in dyspnea. Objective - Vital Signs Vital signs: Vital Signs Temp Pulse Resp BP Pulse Ox 09/20/16 06:53 97.6 F 57 18 159/81 91 09/20/16 03:48 97.4 F L 60 18 124/75 90 09/20/16 00:24 97.6 F 63 16 134/57 90 09/19/16 19:28 97.4 F L 61 20 131/79 94 09/19/16 15:56 97.6 F 64 18 148/78 93 09/19/16 10:53 97.5 F L 64 18 152/70 96 Intake and Output 09/19/16 09/20/16 09/20/16 23:59 07:59 15:59 Intake Total 120 / 120 240 / 240 Output Total 325 / 325 250 / 250 Balance -205 / -205 -250 / -250 240 / 240 Intake: Oral 120 / 120 240 / 240 Output: Urine 325 / 325 250 / 250 Other: Meal Breakfast Percent of Meal Consumed 100% # Voids 1 1 Weight 85.7 kg Blood Glucose* 146 140 Patient Weight 09/20/16 23:59 Weight 85.7 kg - General Appearance General appearance: Present: well-developed, well-nourished Neck: Present: supple Respiratory: Present: rales (mostly in right base.) Cardiology: Present: edema (2-3+ bilateral lower extremities), regular rate, regular rhythm Integumentary: Present: warm and dry Neurologic: Present: alert and oriented x3 Musculoskeletal: Present: no cyanosis Psychiatric: Present: mood/affect appropriate - Lab 09/20/16 05:35 09/20/16 05:35 Most recent lab results Calcium 8.8 mg/dL (8.6-10.8) 09/20/16 05:35 Phosphorus 5.5 mg/dL (2.3-4.7) H 09/20/16 05:35 Magnesium 2.0 mg/dL (1.6-2.6) 09/20/16 05:35 Urine Creatinine 51 mg/dL 09/19/16 17:28 Urine Sodium 83.0 mEq/L 09/16/16 11:46 Urine Total Protein 112 mg/dL (1-14) H 09/19/16 17:28 Consult Discharge Plan - Plan Referrals: Abelardo Bowen MD [Partnered Physician] - 09/29/16 1:15 pm (web request 2016)
[2016-09-20] MEDS: Magnesium Oxide 400 MG TABLET PO SCH ×2 (11:10→20:36)
[2016-09-20] MEDS: NIFEdipine XL (24 HR) 60 MG TAB.ER.24 PO SCH (11:10)
[2016-09-20] MEDS: Furosemide 40 MG/4 ML VIAL IVP SCH ×3 (11:10→17:29)
[2016-09-20] MEDS: Aspirin 81 MG TAB.CHEW PO SCH (11:10)
--- NOTE | 2016-09-20 12:29 | Internal Med Progress Note ---
Date of Encounter: 09/20/16 Time of Encounter: 12:25 - Assessment and plan (1) Acute respiratory failure with hypoxia Current Visit: Yes Status: Acute Assessment and plan: Secondary to acute diastolic heart failure exacerbation in the setting of CkD stage V. 09/15: Chest x-ray showed pulmonary vascular congestion. 09/18: cxr showed persistent pulmonary vascular congestion. patient is requiring 2.5 L of oxygen via NC and feels short of breath on exertion. bnp up to 600s. minimal clinical improvement. Appreciate nephrology input, I discussed case with dr bonilla, will Increase IV lasix to 80 and decrease fluid restriction 1.2 liters per day. continue low salt diet. (2) Acute on chronic congestive heart failure Current Visit: Yes Status: Acute Assessment and plan: Acute diastolic heart failure. Plan as above. Qualifiers: Congestive heart failure type: diastolic Qualified Code(s): I50.33 - Acute on chronic diastolic (congestive) heart failure (3) Uisai-cc-xzfhrsd renal failure Current Visit: Yes Status: Acute Assessment and plan: cardiorenal due to CHF. improved. Appreciate nephrology input. kidney function at baseline now. close monitor. Avoid nephrotoxic agents as possible. Qualifiers: Acute renal failure type: unspecified Chronic kidney disease stage: stage 5 , not on chronic dialysis Qualified Code(s): N17.9 - Acute kidney failure, unspecified; N18.5 - Chronic kidney disease, stage 5 (4) Diabetes Current Visit: Yes Status: Acute Assessment and plan: fasting glucose is 140. Continue ISS and Diabetic diet. Qualifiers: Diabetes mellitus type: type 2 Diabetes mellitus complication status: with hyperglycemia Diabetes mellitus group home insulin use: with group home use Qualified Code(s): E11.65 - Type 2 diabetes mellitus with hyperglycemia; Z79.4 - [facility] (current) use of insulin (5) Hyperkalemia Current Visit: Yes Status: Resolved - Subjective Interval history: still short of breath on exertion. - Constitutional Vitals: Temp Pulse Resp BP Pulse Ox 97.6 F 65 18 145/76 94 09/20/16 10:50 09/20/16 10:50 09/20/16 10:50 09/20/16 10:50 09/20/16 12:12 General appearance: Present: cooperative, A&O X 3, pleasant, no acute distress, answers questions appropriately - Eye Eye exam: Present: PERRL, sclera anicteric - Neck Neck exam general surgery: Present: supple, trachea midline. Absent: lymphadenopathy - Respiratory Respiratory exam: Present: rales (at lung bases) - Cardiovascular Cardiovascular exam: Present: RRR - GI/Abdominal GI/Abdominal exam: Present: normal bowel sounds, soft. Absent: distended, tenderness - Extremities Exam Extremities exam: Present: pedal edema (2+ Le edema) - Back Exam Back exam: Absent: CVA tenderness (L), CVA tenderness (R) - Neurological Exam Neurological exam: Present: alert, oriented X3, no focal deficits, strengths equal and symetr throughout. Absent: facial droop, speech deficit - Skin Skin exam: Absent: rash Internal Medicine: Result - Labs CBC & Chem 7: 09/20/16 05:35 09/20/16 05:35 Labs: Short CBC 09/20/16 Range/Units 05:35 WBC 5.2 (4.3-11.1) K/mcL Hgb 8.0 L (11.5-15.4) g/dL Hct 25.3 L (35.3-44.9) % Plt Count 164 (140-400) K/mcL Neutrophils # 3.5 (1.6-8.9) K/mcL BMP 09/20/16 05:35 Sodium 141 Potassium 4.0 Chloride 110 H Carbon Dioxide 24 BUN 61 H Creatinine 3.05 H Glucose 146 H Calcium 8.8 Consult Discharge Plan - Plan Referrals: Abelardo Bowen MD [Partnered Physician] - 09/29/16 1:15 pm (web request 2016)
[2016-09-20] MEDS: Acetaminophen 325 MG TABLET PO PRN (20:35)
[2016-09-21] MEDS: *HR* Heparin 5,000 UNIT/ML VIAL SQ SCH ×2 (06:38→17:03)
[2016-09-21] MEDS: Aspirin 81 MG TAB.CHEW PO SCH (07:45)
[2016-09-21] MEDS: NIFEdipine XL (24 HR) 60 MG TAB.ER.24 PO SCH (07:45)
[2016-09-21] MEDS: Furosemide 40 MG/4 ML VIAL IVP SCH ×2 (07:45→17:03)
[2016-09-21] MEDS: Magnesium Oxide 400 MG TABLET PO SCH ×2 (07:45→21:13)
[2016-09-21] MEDS: Insulin LISPRO 300 UNITS/3 ML VIAL SQ SCH ×4 (07:45→21:12)
--- NOTE | 2016-09-21 09:13 | Nephrology Progress Note ---
Date of Encounter: 09/21/16 Time of Encounter: 09:08 - Assessment and Plan (1) Avwow-sz-tblifjf renal failure Current Visit: Yes Status: Acute Renal function continues to improve Scr increased from yesterday. Decrease O2 from 4L to 3L Lung exam: improved. Less crackles This is likely 2nd to acute diastolic CHF and diabetic nephropathy. In the last two years patient's diabetes was not controlled. Plan: Decrease lasix dose to 40mg BID. Patient states she is making less urine. Kidney function worse. Improved respiratory status. requiring less O2. Strict I/Os Continue fluid restriction diet, low salt, diabetic diet Avoid nephrotoxins: nsaids and contrast. Qualifiers: Acute renal failure type: unspecified Chronic kidney disease stage: stage 5 , not on chronic dialysis Qualified Code(s): N17.9 - Acute kidney failure, unspecified; N18.5 - Chronic kidney disease, stage 5 (2) Acute on chronic congestive heart failure Current Visit: Yes Status: Acute Qualifiers: Congestive heart failure type: diastolic Qualified Code(s): I50.33 - Acute on chronic diastolic (congestive) heart failure (3) Diabetes Current Visit: Yes Status: Acute Qualifiers: Diabetes mellitus type: type 2 Diabetes mellitus complication status: with hyperglycemia Diabetes mellitus terminal superintendent insulin use: with terminal superintendent use Qualified Code(s): E11.65 - Type 2 diabetes mellitus with hyperglycemia; Z79.4 - [facility] (current) use of insulin (4) Hyperkalemia Current Visit: Yes Status: Resolved Subjective Principal diagnosis: acute CHF/acute on chronic renal failure Interval history: no problems overnight. Denies N/V/D. Continues to use 4L O2 with some improvement in sob. States urine output has decreased over the weekend and lasix is not working as well. Objective - Vital Signs Vital signs: Vital Signs Temp Pulse Resp BP Pulse Ox 09/21/16 08:10 92 09/21/16 07:00 97.4 F L 64 22 127/65 92 09/21/16 03:47 97.5 F L 65 18 129/81 93 09/21/16 00:11 97.6 F 60 20 131/84 89 09/20/16 21:06 97.3 F L 67 18 155/69 91 09/20/16 16:17 97.6 F 67 18 150/76 92 09/20/16 12:12 94 09/20/16 10:50 97.6 F 65 18 145/76 94 Intake and Output 09/20/16 09/21/16 09/21/16 23:59 07:59 15:59 Intake Total 360 / 360 Output Total 250 / 250 250 / 250 Balance 110 / 110 -250 / -250 Intake: Oral 360 / 360 Output: Urine 250 / 250 250 / 250 Other: Meal Dinner Percent of Meal Consumed 50% # Voids 1 1 Weight 85.8 kg Blood Glucose* 221 148 Patient Weight 09/21/16 23:59 Weight 85.8 kg - General Appearance General appearance: Present: well-developed, well-nourished, appears started age Neck: Present: no JVD, supple Additional Comments: mild bibasilar crackles. Cardiology: Present: no murmurs, no rub, no gallops, edema (2+), regular rate, regular rhythm, normal S1, normal S2 Gastrointestinal: Present: normoactive bowel sounds, no tenderness Integumentary: Present: no rash, warm and dry Neurologic: Present: no focal deficit, no asterixis, alert and oriented x3 Musculoskeletal: Present: no deformities, no erythema, no cyanosis, no clubbing Psychiatric: Present: mood/affect appropriate, cooperative - Lab 09/20/16 05:35 09/21/16 09:51 Most recent lab results Calcium 8.8 mg/dL (8.6-10.8) 09/20/16 05:35 Phosphorus 5.5 mg/dL (2.3-4.7) H 09/20/16 05:35 Magnesium 2.0 mg/dL (1.6-2.6) 09/20/16 05:35 Urine Creatinine 51 mg/dL 09/19/16 17:28 Urine Sodium 83.0 mEq/L 09/16/16 11:46 Urine Total Protein 112 mg/dL (1-14) H 09/19/16 17:28 Consult Discharge Plan - Plan Referrals: Abelardo Bowen MD [Partnered Physician] - 09/29/16 1:15 pm (web request 2016)
[2016-09-21 10:20] LABS: Calcium 9.1 mg/dL (8.6-10.8); Potassium 4.2 mEq/L (3.5-4.5)
[2016-09-21] MEDS ORDERED: Furosemide 40 MG/4 ML VIAL IVP ONE (10:55)
[2016-09-21] MEDS ORDERED: Furosemide 80 MG in 0.9 % Sodium Chloride 50 ML IVPB SCH (17:00)
--- NOTE | 2016-09-21 17:40 | Internal Med Progress Note ---
Date of Encounter: 09/21/16 Time of Encounter: 13:30 - Assessment and plan (1) Acute respiratory failure with hypoxia Current Visit: Yes Status: Acute Assessment and plan: Secondary to acute diastolic heart failure exacerbation in the setting of CkD stage V. 09/15: Chest x-ray showed pulmonary vascular congestion. 09/18: cxr showed persistent pulmonary vascular congestion. patient is requiring 3 L of oxygen via NC and feels short of breath on exertion. bnp up to 600s. minimal clinical improvement. Appreciate nephrology input. Patient received an extra dose of 80 mg IV Lasix yesterday at 11 AM with no significant improvement of urine output and worsening of kidney function. Continue 40 mg IV Lasix twice a day. Fluid restriction. (2) Acute on chronic congestive heart failure Current Visit: Yes Status: Acute Assessment and plan: Acute diastolic heart failure. Plan as above. Qualifiers: Congestive heart failure type: diastolic Qualified Code(s): I50.33 - Acute on chronic diastolic (congestive) heart failure (3) Hildo-zx-mltqxkr renal failure Current Visit: Yes Status: Acute Assessment and plan: cardiorenal due to CHF. sLight increase in creatinine and BUN. Appreciate nephrology input. Will continue Lasix at 40 mg IV twice a day. close monitor. Avoid nephrotoxic agents as possible. Qualifiers: Acute renal failure type: unspecified Chronic kidney disease stage: stage 5 , not on chronic dialysis Qualified Code(s): N17.9 - Acute kidney failure, unspecified; N18.5 - Chronic kidney disease, stage 5 (4) Diabetes Current Visit: Yes Status: Acute Assessment and plan: fasting glucose is 148. Continue ISS and Diabetic diet. 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 No chest pain. - Constitutional Vitals: Temp Pulse Resp BP Pulse Ox 97.7 F 68 18 137/83 95 09/21/16 17:16 09/21/16 17:16 09/21/16 17:16 09/21/16 17:16 09/21/16 17:16 General appearance: Present: cooperative, A&O X 3, pleasant, no acute distress, answers questions appropriately - Neck Neck exam general surgery: Present: supple, trachea midline. Absent: lymphadenopathy - Respiratory Respiratory exam: Present: CTAB - Cardiovascular Cardiovascular exam: Present: RRR - GI/Abdominal GI/Abdominal exam: Present: normal bowel sounds, soft. Absent: distended, tenderness - Extremities Exam Extremities exam: Present: pedal edema (2+ lower extremity edema) - Back Exam Back exam: Absent: CVA tenderness (L), CVA tenderness (R) - Neurological Exam Neurological exam: Present: alert, oriented X3, no focal deficits, strengths equal and symetr throughout. Absent: facial droop, speech deficit - Skin Skin exam: Absent: rash Internal Medicine: Result - Labs CBC & Chem 7: 09/20/16 05:35 09/21/16 09:51 Labs: BMP 09/21/16 09:51 Sodium 140 Potassium 4.2 Chloride 108 Carbon Dioxide 22 BUN 66 H Creatinine 3.43 H Glucose 173 H Calcium 9.1 Consult Discharge Plan - Plan Referrals: Abelardo Bowen MD [Partnered Physician] - 09/29/16 1:15 pm (web request 2016)
[2016-09-21] MEDS ORDERED: metOLazone 2.5 MG TABLET PO SCH (18:00)
[2016-09-21] MEDS ORDERED: Furosemide 40 MG in 0.9 % Sodium Chloride 50 ML IVPB SCH (18:00)
[2016-09-22 05:07] LABS: Basophils % 0.4 %; Eosinophils # 0.3 K/mcL (0.0-0.6); Eosinophils % 4.6 %; Hematocrit 24.9 % (35.3-44.9); Hemoglobin 7.8 g/dL (11.5-15.4); Immature Granulocytes % 0.6 % (0-4); Lymphocytes # 0.7 K/mcL (0.6-4.6); Lymphocytes % 12.1 %; Mean Corpuscular HGB Conc 31.3 g/dL (31.6-35.5); Mean Corpuscular Volume 86.2 fL (83.0-100.0); Mean Platelet Volume 10.7 fL (9.4-12.4); Monocytes # 0.7 K/mcL (0.0-1.3); Monocytes % 11.9 %; Neutrophils # 3.8 K/mcL (1.6-8.9); Platelet Count 156 K/mcL (140-400); Red Blood Count 2.89 M/mcL (3.82-4.97); Red Cell Distribution Width 15.5 % (11.5-14.5); Segmented Neutrophils % 70.4 %
[2016-09-22 05:20] LABS: Magnesium 2.2 mg/dL (1.6-2.6)
[2016-09-22] MEDS: *HR* Heparin 5,000 UNIT/ML VIAL SQ SCH ×2 (06:14→17:51)
[2016-09-22] MEDS: Furosemide 40 MG/4 ML VIAL IVP SCH ×2 (08:17→16:27)
[2016-09-22] MEDS: Aspirin 81 MG TAB.CHEW PO SCH (08:18)
[2016-09-22] MEDS: NIFEdipine XL (24 HR) 60 MG TAB.ER.24 PO SCH (08:18)
[2016-09-22] MEDS: Magnesium Oxide 400 MG TABLET PO SCH ×2 (08:18→21:06)
[2016-09-22] MEDS: Insulin LISPRO 300 UNITS/3 ML VIAL SQ SCH ×4 (08:19→21:07)
[2016-09-22] MEDS ORDERED: Furosemide 80 MG in 0.9 % Sodium Chloride 50 ML IVPB SCH (09:00)
--- NOTE | 2016-09-22 12:46 | Nephrology Progress Note ---
Date of Encounter: 09/22/16 Time of Encounter: 12:44 - Assessment and Plan (1) Acute on chronic congestive heart failure Current Visit: Yes Status: Acute Continue with iv furosemide. Need accurate Is and Os. Added metolazone with increased UOP. Will continue bid metolazone. May need repeat limited echocardiogram. Qualifiers: Congestive heart failure type: diastolic Qualified Code(s): I50.33 - Acute on chronic diastolic (congestive) heart failure (2) Sszvu-hh-akpbulp renal failure Current Visit: Yes Status: Acute Renal function improving in the face of diuresis. Qualifiers: Acute renal failure type: unspecified Chronic kidney disease stage: stage 5 , not on chronic dialysis Qualified Code(s): N17.9 - Acute kidney failure, unspecified; N18.5 - Chronic kidney disease, stage 5 (3) Normocytic anemia Current Visit: Yes Status: Acute Monitor hemoglobin. (4) Hyperphosphatemia Current Visit: Yes Status: Acute Mild. Follow. May need a phosphate binder. Subjective Principal diagnosis: acute CHF/acute on chronic renal failure Interval history: Patient with no complaint. She has no new complaints, No change in dyspnea. She is preparing to shower at the time I enter the room. Objective - Vital Signs Vital signs: Vital Signs Temp Pulse Resp BP Pulse Ox 09/22/16 07:21 97.5 F L 67 18 138/80 92 09/22/16 03:08 97.5 F L 68 18 147/63 94 09/21/16 23:15 97.8 F 75 18 135/74 91 09/21/16 21:15 93 09/21/16 20:36 97.7 F 67 15 118/66 93 09/21/16 17:16 97.7 F 68 18 137/83 95 Intake and Output 09/21/16 09/22/16 09/22/16 23:59 07:59 15:59 Intake Total 120 / 120 220 / 220 Output Total 900 / 900 Balance 120 / 120 -900 / -900 220 / 220 Intake: Oral 120 / 120 220 / 220 Output: Urine 900 / 900 Other: Meal Dinner Breakfast Percent of Meal Consumed 100% 50% Weight 85.3 kg Blood Glucose* 191 174 Patient Weight 09/22/16 23:59 Weight 85.3 kg - General Appearance General appearance: Present: well-developed, well-nourished EENT: Present: ATNC Neck: Present: supple Cardiology: Present: regular rate Neurologic: Present: alert and oriented x3 - Lab 09/22/16 04:57 09/22/16 04:57 Most recent lab results Calcium 9.0 mg/dL (8.6-10.8) 09/22/16 04:57 Phosphorus 5.5 mg/dL (2.3-4.7) H 09/20/16 05:35 Magnesium 2.2 mg/dL (1.6-2.6) 09/22/16 04:57 Urine Creatinine 51 mg/dL 09/19/16 17:28 Urine Sodium 83.0 mEq/L 09/16/16 11:46 Urine Total Protein 112 mg/dL (1-14) H 09/19/16 17:28 Consult Discharge Plan - Plan Referrals: Abelardo Bowen MD [Partnered Physician] - 09/29/16 1:15 pm (web request 2016)
--- NOTE | 2016-09-22 16:23 | Internal Med Progress Note ---
Date of Encounter: 09/22/16 Time of Encounter: 15:00 - Assessment and plan (1) Acute respiratory failure with hypoxia Current Visit: Yes Status: Acute Assessment and plan: Secondary to acute diastolic heart failure exacerbation in the setting of CkD stage V. 09/15: Chest x-ray showed pulmonary vascular congestion. 09/18: cxr showed persistent pulmonary vascular congestion. patient is still requiring 3 L of oxygen via NC and feels short of breath on exertion. bnp up to 600s. minimal clinical improvement. Appreciate nephrology input. Urine output has increased after starting Zaroxolyn. Continue IV Lasix and Zaroxolyn. (2) Acute on chronic congestive heart failure Current Visit: Yes Status: Acute Assessment and plan: Acute diastolic heart failure. Plan as above. Qualifiers: Congestive heart failure type: diastolic Qualified Code(s): I50.33 - Acute on chronic diastolic (congestive) heart failure (3) Osddt-og-ctiulyb renal failure Current Visit: Yes Status: Acute Assessment and plan: cardiorenal due to CHF. Creatinine and BUN has trended down mildly. Appreciate nephrology input. Will continue Lasix at 40 mg IV twice a day. close monitor. Avoid nephrotoxic agents as possible. Qualifiers: Acute renal failure type: unspecified Chronic kidney disease stage: stage 5 , not on chronic dialysis Qualified Code(s): N17.9 - Acute kidney failure, unspecified; N18.5 - Chronic kidney disease, stage 5 (4) Diabetes Current Visit: Yes Status: Acute Assessment and plan: fasting glucose is 148. Continue ISS and Diabetic diet. Qualifiers: Diabetes mellitus type: type 2 Diabetes mellitus complication status: with hyperglycemia Diabetes mellitus residential insulin use: with residential use Qualified Code(s): E11.65 - Type 2 diabetes mellitus with hyperglycemia; Z79.4 - nursing home (current) use of insulin (5) Hyperkalemia Current Visit: Yes Status: Resolved - Subjective Interval history: Patient denies any chest pain. She has shortness of breath only on exertion. - Constitutional Vitals: Temp Pulse Resp BP Pulse Ox 97.5 F L 59 16 144/65 96 09/22/16 13:09 09/22/16 13:09 09/22/16 13:09 09/22/16 13:09 09/22/16 13:09 General appearance: Present: cooperative, A&O X 3, pleasant, no acute distress, answers questions appropriately - Neck Neck exam general surgery: Present: supple, trachea midline. Absent: lymphadenopathy - Respiratory Respiratory exam: Present: rales (At the lower lung bases.) - Cardiovascular Cardiovascular exam: Present: RRR - GI/Abdominal GI/Abdominal exam: Present: normal bowel sounds, soft. Absent: distended, tenderness - Extremities Exam Extremities exam: Present: pedal edema (2+ lower extremity edema) - Neurological Exam Neurological exam: Present: alert, oriented X3, no focal deficits, strengths equal and symetr throughout. Absent: facial droop, speech deficit Internal Medicine: Result - Labs CBC & Chem 7: 09/22/16 04:57 09/22/16 04:57 Labs: Short CBC 09/22/16 Range/Units 04:57 WBC 5.5 (4.3-11.1) K/mcL Hgb 7.8 L (11.5-15.4) g/dL Hct 24.9 L (35.3-44.9) % Plt Count 156 (140-400) K/mcL Neutrophils # 3.8 (1.6-8.9) K/mcL BMP 09/22/16 04:57 Sodium 140 Potassium 4.0 Chloride 107 Carbon Dioxide 25 BUN 64 H Creatinine 3.06 H Glucose 179 H Calcium 9.0 Consult Discharge Plan - Plan Referrals: Abelardo Bowen MD [Partnered Physician] - 09/29/16 1:15 pm (web request 2016)
[2016-09-22] MEDS: metOLazone 2.5 MG TABLET PO SCH (16:27)
[2016-09-22] MEDS ORDERED: metOLazone 2.5 MG TABLET PO SCH ×2 (16:30→21:00)
[2016-09-23 04:26] LABS: Basophils % 0.4 %; Eosinophils # 0.2 K/mcL (0.0-0.6); Eosinophils % 4.7 %; Hematocrit 20.4 % (35.3-44.9); Hemoglobin 6.4 g/dL (11.5-15.4); Immature Granulocytes % 0.4 % (0-4); Lymphocytes # 0.5 K/mcL (0.6-4.6); Lymphocytes % 10.3 %; Mean Corpuscular HGB Conc 31.4 g/dL (31.6-35.5); Mean Corpuscular Hemoglobin 27.2 pg (28.0-33.3); Mean Corpuscular Volume 86.8 fL (83.0-100.0); Mean Platelet Volume 11.2 fL (9.4-12.4); Monocytes # 0.6 K/mcL (0.0-1.3); Monocytes % 13.4 %; Neutrophils # 3.2 K/mcL (1.6-8.9); Platelet Count 128 K/mcL (140-400); Red Blood Count 2.35 M/mcL (3.82-4.97); Red Cell Distribution Width 15.5 % (11.5-14.5); Segmented Neutrophils % 70.8 %
[2016-09-23 04:40] LABS: Calcium 8.9 mg/dL (8.6-10.8); Magnesium 2.2 mg/dL (1.6-2.6); Potassium 3.8 mEq/L (3.5-4.5)
[2016-09-23] MEDS: *HR* Heparin 5,000 UNIT/ML VIAL SQ SCH ×2 (05:40→17:14)
[2016-09-23] MEDS: metOLazone 2.5 MG TABLET PO SCH ×2 (08:26→17:14)
[2016-09-23] MEDS: Magnesium Oxide 400 MG TABLET PO SCH ×2 (08:26→20:27)
[2016-09-23] MEDS: Insulin LISPRO 300 UNITS/3 ML VIAL SQ SCH ×4 (08:26→20:29)
[2016-09-23] MEDS: Furosemide 40 MG/4 ML VIAL IVP SCH ×2 (08:26→17:13)
[2016-09-23] MEDS: Aspirin 81 MG TAB.CHEW PO SCH (08:27)
[2016-09-23] MEDS: NIFEdipine XL (24 HR) 60 MG TAB.ER.24 PO SCH (08:27)
--- NOTE | 2016-09-23 09:18 | Nephrology Progress Note ---
Date of Encounter: 09/23/16 Time of Encounter: 09:18 - Assessment and Plan (1) Ndnin-ac-wypsbon renal failure Current Visit: Yes Status: Acute Renal function stable at scr 3.03 which is her baseline Lung exam: still has bibasilar crackles This is likely 2nd to acute diastolic CHF and diabetic nephropathy. In the last two years patient's diabetes was not controlled. volume overloaded: 2+ LE pitting edema improved UOp of 1300/24hr drop in hgb was noted this morning but repeat was 7.8 (lab error?) Plan: continue metalozone and lasix continue hgb monitoring Strict I/Os Continue fluid restriction diet, low salt, diabetic diet Avoid nephrotoxins: nsaids and contrast. Qualifiers: Acute renal failure type: unspecified Chronic kidney disease stage: stage 5 , not on chronic dialysis Qualified Code(s): N17.9 - Acute kidney failure, unspecified; N18.5 - Chronic kidney disease, stage 5 (2) Acute on chronic congestive heart failure Current Visit: Yes Status: Acute Qualifiers: Congestive heart failure type: diastolic Qualified Code(s): I50.33 - Acute on chronic diastolic (congestive) heart failure (3) Diabetes Current Visit: Yes Status: Acute Qualifiers: Diabetes mellitus type: type 2 Diabetes mellitus complication status: with hyperglycemia Diabetes mellitus fdc insulin use: with fdc use Qualified Code(s): E11.65 - Type 2 diabetes mellitus with hyperglycemia; Z79.4 - skilled nursing (current) use of insulin (4) Hyperkalemia Current Visit: Yes Status: Resolved Subjective Principal diagnosis: acute CHF/acute on chronic renal failure Interval history: no problems overnight. Denies N/V. Has diarrhea yesterday. On 3L O2 with improvement in sob. Reports increased urination. Objective - Vital Signs Vital signs: Vital Signs Temp Pulse Resp BP Pulse Ox 09/23/16 06:59 97.8 F 67 20 137/70 92 09/23/16 04:46 97.8 F 67 16 135/73 94 09/23/16 01:20 97.8 F 68 16 123/77 85 09/22/16 20:52 97.6 F 53 16 144/85 93 09/22/16 16:39 97.4 F L 68 16 134/72 95 09/22/16 13:09 97.5 F L 59 16 144/65 96 Intake and Output 07/18/17 07/19/17 07/19/17 23:59 07:59 15:59 Intake Total 200 / 200 Output Total 400 / 400 400 / 400 Balance -400 / -400 -200 / -200 Intake: Oral 200 / 200 Output: Urine 400 / 400 400 / 400 Other: Weight 86.4 kg Blood Glucose* 195 183 Patient Weight 09/23/16 23:59 Weight 86.4 kg - General Appearance General appearance: Present: obese EENT: Present: mucous membranes moist Neck: Present: no JVD Additional Comments: fine bibasilar crackles. Cardiology: Present: edema (2+), regular rate, regular rhythm, normal S1, normal S2 Gastrointestinal: Present: normoactive bowel sounds, no tenderness Integumentary: Present: no rash, warm and dry Neurologic: Present: no focal deficit, no asterixis, alert and oriented x3 Musculoskeletal: Present: no deformities, no erythema, no cyanosis, no clubbing Psychiatric: Present: mood/affect appropriate, cooperative - Lab 09/23/16 10:10 09/23/16 04:00 Most recent lab results Calcium 8.9 mg/dL (8.6-10.8) 09/23/16 04:00 Phosphorus 5.5 mg/dL (2.3-4.7) H 09/20/16 05:35 Magnesium 2.2 mg/dL (1.6-2.6) 09/23/16 04:00 Urine Creatinine 51 mg/dL 09/19/16 17:28 Urine Sodium 83.0 mEq/L 09/16/16 11:46 Urine Total Protein 112 mg/dL (1-14) H 09/19/16 17:28 Consult Discharge Plan - Plan Referrals: Abelardo Bowen MD [Partnered Physician] - 09/29/16 1:15 pm (web request 2016)
[2016-09-23] MEDS: Pantoprazole 40 MG VIAL IVP SCH (10:25)
[2016-09-23 10:40] LABS: Hemoglobin 7.8 g/dL (11.5-15.4)
[2016-09-23 17:37] LABS: Hematocrit 23.8 % (35.3-44.9); Hemoglobin 7.8 g/dL (11.5-15.4)
--- NOTE | 2016-09-23 18:41 | Internal Med Progress Note ---
Date of Encounter: 09/23/16 Time of Encounter: 13:00 - Assessment and plan (1) Anemia Current Visit: Yes Status: Acute Assessment and plan: acute drop in hgb to 6.7. repeat hgb is 7.8. never had a colonoscopy. repeat hgb at 5pm. close monitor. patient denies any bleeding. check FOBT. Qualifiers: Anemia type: unspecified type Qualified Code(s): D64.9 - Anemia, unspecified (2) Acute respiratory failure with hypoxia Current Visit: Yes Status: Acute Assessment and plan: Secondary to acute diastolic heart failure exacerbation in the setting of CkD stage V. 09/15: Chest x-ray showed pulmonary vascular congestion. 09/18: cxr showed persistent pulmonary vascular congestion. patient is still requiring 3 L of oxygen via NC and feels short of breath on exertion. minimal clinical improvement. Appreciate nephrology input. Urine output has increased after starting Zaroxolyn. Continue IV Lasix and Zaroxolyn. strict FR. (3) Acute on chronic congestive heart failure Current Visit: Yes Status: Acute Assessment and plan: Acute diastolic heart failure. Plan as above. Qualifiers: Congestive heart failure type: diastolic Qualified Code(s): I50.33 - Acute on chronic diastolic (congestive) heart failure (4) Blaab-ld-hcjdnsa renal failure Current Visit: Yes Status: Acute Assessment and plan: cardiorenal due to CHF. Creatinine and BUN has trended down mildly. Appreciate nephrology input. Will continue Lasix at 40 mg IV twice a day and zaroxolyn. close monitor. Avoid nephrotoxic agents as possible. Qualifiers: Acute renal failure type: unspecified Chronic kidney disease stage: stage 5 , not on chronic dialysis Qualified Code(s): N17.9 - Acute kidney failure, unspecified; N18.5 - Chronic kidney disease, stage 5 (5) Diabetes Current Visit: Yes Status: Acute Assessment and plan: fasting glucose is 201. Continue ISS and Diabetic diet. Qualifiers: Diabetes mellitus type: type 2 Diabetes mellitus complication status: with hyperglycemia Diabetes mellitus intermodal customer service insulin use: with intermodal customer service use Qualified Code(s): E11.65 - Type 2 diabetes mellitus with hyperglycemia; Z79.4 - [facility] (current) use of insulin (6) Hyperkalemia Current Visit: Yes Status: Resolved - Subjective Interval history: no bleeding. never had a colonoscopy. no chest pain. She has shortness of breath only on exertion. - Constitutional Vitals: Temp Pulse Resp BP Pulse Ox 97.6 F 72 16 148/79 95 09/23/16 16:51 09/23/16 16:51 09/23/16 16:51 09/23/16 16:51 09/23/16 16:51 General appearance: Present: cooperative, A&O X 3, pleasant, no acute distress, answers questions appropriately - Neck Neck exam general surgery: Present: supple, trachea midline. Absent: lymphadenopathy - Respiratory Respiratory exam: Present: rales - Cardiovascular Cardiovascular exam: Present: RRR - GI/Abdominal GI/Abdominal exam: Present: normal bowel sounds, soft. Absent: distended, tenderness - Extremities Exam Extremities exam: Present: pedal edema (1+ le edema) - Back Exam Back exam: Absent: CVA tenderness (L), CVA tenderness (R) - Neurological Exam Neurological exam: Present: alert, oriented X3, no focal deficits, strengths equal and symetr throughout. Absent: facial droop, speech deficit Internal Medicine: Result - Labs CBC & Chem 7: 09/23/16 17:15 09/23/16 04:00 Labs: Short CBC 09/23/16 09/23/16 09/23/16 Range/Units 04:00 10:10 17:15 WBC 4.5 (4.3-11.1) K/mcL Hgb 6.4 L 7.8 L 7.8 L (11.5-15.4) g/dL Hct 20.4 L 25.0 L 23.8 L (35.3-44.9) % Plt Count 128 L (140-400) K/mcL Neutrophils # 3.2 (1.6-8.9) K/mcL BMP 09/23/16 04:00 Sodium 138 Potassium 3.8 Chloride 106 Carbon Dioxide 26 BUN 68 H Creatinine 3.03 H Glucose 201 H Calcium 8.9 Consult Discharge Plan - Plan Referrals: Abelardo Bowen MD [Partnered Physician] - 09/29/16 1:15 pm (web request 2016)
[2016-09-24] MEDS: *HR* Heparin 5,000 UNIT/ML VIAL SQ SCH (05:26)
[2016-09-24 05:57] LABS: Basophils % 0.5 %; Calcium 8.9 mg/dL (8.6-10.8); Eosinophils # 0.3 K/mcL (0.0-0.6); Eosinophils % 4.9 %; Hemoglobin 7.6 g/dL (11.5-15.4); Immature Granulocytes % 0.2 % (0-4); Lymphocytes # 0.7 K/mcL (0.6-4.6); Lymphocytes % 12.3 %; Magnesium 2.4 mg/dL (1.6-2.6); Mean Corpuscular HGB Conc 31.7 g/dL (31.6-35.5); Mean Corpuscular Hemoglobin 27.4 pg (28.0-33.3); Mean Corpuscular Volume 86.6 fL (83.0-100.0); Mean Platelet Volume 11.7 fL (9.4-12.4); Monocytes # 0.7 K/mcL (0.0-1.3); Monocytes % 12.7 %; Phosphorous 4.9 mg/dL (2.3-4.7); Platelet Count 158 K/mcL (140-400); Red Blood Count 2.77 M/mcL (3.82-4.97); Red Cell Distribution Width 15.4 % (11.5-14.5); Segmented Neutrophils % 69.4 %
[2016-09-24] MEDS: Aspirin 81 MG TAB.CHEW PO SCH (08:17)
[2016-09-24] MEDS: NIFEdipine XL (24 HR) 60 MG TAB.ER.24 PO SCH (08:17)
[2016-09-24] MEDS: Magnesium Oxide 400 MG TABLET PO SCH (08:17)
[2016-09-24] MEDS: Insulin LISPRO 300 UNITS/3 ML VIAL SQ SCH ×2 (08:18→12:40)
[2016-09-24] MEDS: Pantoprazole 40 MG VIAL IVP SCH (08:19)
[2016-09-24] MEDS: metOLazone 2.5 MG TABLET PO SCH (08:19)
--- NOTE | 2016-09-24 09:49 | Nephrology Progress Note ---
Date of Encounter: 09/24/16 Time of Encounter: 09:45 - Assessment and Plan (1) Gtanz-io-veuxkbm renal failure Current Visit: Yes Status: Acute Renal function stable Lung exam: still has bibasilar crackles This is likely 2nd to acute diastolic CHF and diabetic nephropathy. In the last two years patient's diabetes was not controlled. volume overloaded: 2+ LE pitting edema improved UOp of 1700/24hr drop in hgb was noted this morning but repeat was 7.8 (lab error?) Plan: continue metalozone and change IV lasix to 40mg PO BID. If needed this can be titrated up to 80mg BID. hgb stable Strict I/Os Continue fluid restriction diet, low salt, diabetic diet Avoid nephrotoxins: nsaids and contrast. Renal function stable with adequate UOP. Will sign off. OK to be discharged from Kidney standpoint. Follow up with Dr. Bourne 1 week post discharge. 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 Denies N/V. On 3L O2 with improvement in sob. Objective - Vital Signs Vital signs: Vital Signs Temp Pulse Resp BP Pulse Ox 09/24/16 07:30 98.2 F 68 24 136/75 94 09/24/16 05:19 98.3 F 75 16 137/65 93 09/24/16 00:37 98.2 F 71 16 135/62 94 09/23/16 20:12 98.4 F 70 16 147/72 92 09/23/16 16:51 97.6 F 72 16 148/79 95 09/23/16 11:56 97.5 F L 61 20 137/69 95 Intake and Output 09/23/16 09/24/16 09/24/16 23:59 07:59 15:59 Intake Total 240 / 240 Output Total 1000 / 1000 700 / 700 Balance 240 / 240 -1000 / -1000 -700 / -700 Intake: Oral 240 / 240 Output: Urine 1000 / 1000 700 / 700 Other: Meal Dinner Percent of Meal Consumed 90% # Voids 2 Weight 87.5 kg Blood Glucose* 229 167 Patient Weight 09/24/16 23:59 Weight 87.5 kg - General Appearance General appearance: Present: well-developed, well-nourished, appears started age EENT: Present: mucous membranes moist Neck: Present: no JVD, supple Additional Comments: Fine bibasilar crackles. Cardiology: Present: no murmurs, no rub, no gallops, edema (2+), regular rate, regular rhythm, normal S1, normal S2 Gastrointestinal: Present: normoactive bowel sounds, no tenderness Integumentary: Present: no rash, warm and dry Neurologic: Present: no focal deficit, no asterixis, alert and oriented x3 Musculoskeletal: Present: no deformities, no erythema, no cyanosis, no clubbing Psychiatric: Present: mood/affect appropriate, cooperative - Lab 09/24/16 05:33 09/24/16 05:33 Most recent lab results Calcium 8.9 mg/dL (8.6-10.8) 09/24/16 05:33 Phosphorus 4.9 mg/dL (2.3-4.7) H 09/24/16 05:33 Magnesium 2.4 mg/dL (1.6-2.6) 09/24/16 05:33 Urine Creatinine 51 mg/dL 09/19/16 17:28 Urine Sodium 83.0 mEq/L 09/16/16 11:46 Urine Total Protein 112 mg/dL (1-14) H 09/19/16 17:28 Consult Discharge Plan - Plan Referrals: Abelardo Bowen MD [Partnered Physician] - 09/29/16 1:15 pm (web request 2016)
--- NOTE | 2016-09-24 11:33 | Discharge Summary ---
Date of Encounter: 09/24/16 Time of Encounter: 11:31 - Discharge Diagnosis (1) Acute respiratory failure with hypoxia Priority: Primary Status: Acute (2) Acute on chronic congestive heart failure Priority: Primary Status: Acute Qualifiers: Congestive heart failure type: diastolic Qualified Code(s): I50.33 - Acute on chronic diastolic (congestive) heart failure (3) Kfops-vy-vguvket renal failure Priority: Primary Status: Acute Qualifiers: Acute renal failure type: unspecified Chronic kidney disease stage: stage 5 , not on chronic dialysis Qualified Code(s): N17.9 - Acute kidney failure, unspecified; N18.5 - Chronic kidney disease, stage 5 (4) Diabetes Priority: Secondary Status: Chronic Qualifiers: Diabetes mellitus type: type 2 Diabetes mellitus complication status: with hyperglycemia 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: with vermin 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 use Qualified Code(s): E11.65 - Type 2 diabetes mellitus with hyperglycemia; 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 (5) Hyperkalemia Priority: Primary Status: Resolved (6) Anemia Priority: Secondary Status: Chronic Qualifiers: Anemia type: unspecified type Qualified Code(s): D64.9 - Anemia, unspecified - Discharge Medications Prescriptions: Furosemide [Lasix] 40 mg PO BIDDIURETIC #60 tab Magnesium Oxide [Mag-Ox] 400 mg PO BID #60 tab metOLazone [Zaroxolyn] 2.5 mg PO 0730,1630 #60 tab Oxygen 1 each .ROUTE AD #1 each Home Medications: Aspirin 81 mg PO DAILY 08/02/15 [History] Carvedilol [Coreg] 6.25 mg PO BIDWM #60 tablet 08/02/15 [Rx] Insulin ASPART [NovoLOG] 15 unit SQ TIDWM 08/02/15 [History] Brimonidine 0.2% [Alphagan] 1 drop OP BID 09/15/16 [History] Ergocalciferol (VITAMIN D2) [Vitamin D2] 50,000 unit PO QWEEK 09/15/16 [History] NIFEdipine [Nifedipine ER] 60 mg PO DAILY 09/15/16 [History] Timolol Maleate 0.5% 1 drop OP BID 09/15/16 [History] Furosemide [Lasix] 40 mg PO BIDDIURETIC #60 tab 09/24/16 [Rx] Insulin Glargine,Hum.rec.anlog [Lantus Solostar] 15 unit SQ HS #0 09/24/16 [Rx] Magnesium Oxide [Mag-Ox] 400 mg PO BID #60 tab 09/24/16 [Rx] Oxygen 1 each .ROUTE AD #1 each 09/24/16 [Rx] metOLazone [Zaroxolyn] 2.5 mg PO 0730,1630 #60 tab 09/24/16 [Rx] Allergies/Adverse Reactions: Allergies No Known Allergies Allergy (Unverified 09/15/16 15:28) Date of admission: 09/15/16 21:25 Primary care physician: PCP NO Consults: 09/19/16 10:05 dietary consult [Consult to Nutrition] [CONS] Routine Comment: DASH diet education Consulting Provider: NUTRITION Reason for Dietary Consult: Diet Education - Patient Status Disposition: Home, Self-Care Condition: Good Functional capacity at discharge: independent ambulation Overall status at discharge: patient is progressing back to baseline - Discharge Instructions Instructions: Metolazone (By mouth), Furosemide (By mouth), Magnesium Oxide ( By mouth) Follow Up With: Abelardo Bowen MD [Partnered Physician] - 09/29/16 1:15 pm (web request 2016) Yovani Bourne DO [Partnered Physician] - 10/16/16 2:10 pm ( ) Additional Instructions: check your blood sugars before meals and at bedtime, write down numbers and bring record to doctor's appointment. weight yourself daily. if more than 2 pounds call your doctor. - Diet and Activity Activity: resume usual activities as tolerated Diet: low fat, low cholesterol, low salt diet, other (renal) Interval History: Patient reports her shortness of breath is improved. Hospital course: Ms. Becerril is a 66 year old female with past medical history of chronic kidney disease stage V, diastolic heart failure, chronic anemia and diabetes who presented with chief complaint of progressive shortness of breath. She was treated for acute on chronic diastolic heart failure with fluid restriction, oxygen supplementation and diuretics. Her Lasix home dose was increased to 40 mg twice a day and she was started on metolazone with good diuresis. PLAN: Oxygen was set up home. She was instructed to follow a strict fluid restriction diet and to weight herself daily. - Time Spent with Patient Total time spent providing and/or coordinating discharge services: - Constitutional Vitals: Temp Pulse Resp BP Pulse Ox 98.2 F 68 24 136/75 94 09/24/16 07:30 09/24/16 07:30 09/24/16 07:30 09/24/16 07:30 09/24/16 11:12 General appearance: Present: cooperative, A&O X 3, pleasant, no acute distress, answers questions appropriately - Neck Neck exam general surgery: Present: supple, trachea midline. Absent: lymphadenopathy - Respiratory Respiratory exam: Present: CTAB - Cardiovascular Cardiovascular exam: Present: RRR - GI/Abdominal GI/Abdominal exam: Present: normal bowel sounds, soft. Absent: distended, tenderness - Extremities Exam Extremities exam: Absent: pedal edema - Back Exam Back exam: Absent: CVA tenderness (L), CVA tenderness (R) - Neurological Exam Neurological exam: Present: alert, oriented X3, no focal deficits, strengths equal and symetr throughout. Absent: facial droop, speech deficit - Skin Skin exam: Absent: rash
[2016-09-24 12:03] VITALS: BP 143/82
[2016-09-24] MEDS ORDERED: Furosemide 40 MG TABLET PO SCH (17:00)
== END 2016-09-24 13:36 | disposition home or self-care (01) | DRG 291 ==
LOC: 2ANU 14:55 → EMEROO 14:55 → 2ANU 19:15 → SUATTDRO 21:25
PROVIDERS: ADMIT Internal Medicine; ATTEND Internal Medicine

== ENCOUNTER 2016-09-27 15:00 | Inpatient (IN) ==
[2016-09-27] MEDS ORDERED: Furosemide 40 MG/4 ML VIAL IVP ONE ×2 (15:15→22:00)
[2016-09-27] MEDS ORDERED: Nitroglycerin 1 INCH/GM PACKET TP ONE (15:20)
[2016-09-27] MEDS ORDERED: Ondansetron 4 MG/2 ML VIAL IVP ONE (15:27)
--- NOTE | 2016-09-27 15:27 | Emergency Department Note ---
Disposition Clinical Impression: Respiratory distress, Hypoxia, Renal insufficiency CHF exacerbation Qualifiers: Congestive heart failure type: unspecified congestive heart failure type Qualified Code(s): I50.9 - Heart failure, unspecified Anemia Qualifiers: Anemia type: unspecified type Qualified Code(s): D64.9 - Anemia, unspecified Disposition: Admitted As Inpatient Condition: Good Referrals: NO,PCP [Non-Partnered Physician] - Forms: ED Satisfaction Letter Time of Disposition: 17:20 SOB HPI - General Chief Complaint: ED Shortness of Breath/Dyspnea Stated Complaint: CP/SOB Time Seen by Provider: 09/27/16 15:12 Source: patient Limitations: no limitations Nursing Notes Reviewed: Yes Vital Signs Reviewed: Yes - History of Present Illness This is a 66-year-old female with a past medical history of CHF, CKD, diabetes, hyperkalemia, hypertension, and was just discharged from the hospital on with an exacerbation of her CHF and renal failure. She presents to the emergency department today because of increased shortness of breath, fatigue , and increased swelling of the lower extremities. Her states that she is normally on 3 L of oxygen at home, as her shortness of breath increased, he bumped it up to 4 L and this did not help. She states that she is only uncomfortable and has shortness of breath. - Related Data Home Medications Medication Instructions Recorded Confirmed Aspirin 81 mg PO DAILY 08/02/15 09/27/16 Insulin ASPART [NovoLOG] 15 unit SQ TIDWM 08/02/15 09/27/16 Ergocalciferol (VITAMIN D2) 50,000 unit PO QWEEK 09/15/16 09/27/16 [Vitamin D2] NIFEdipine [Nifedipine ER] 60 mg PO DAILY 09/15/16 09/27/16 Atorvastatin [Lipitor] 40 mg PO HS 09/27/16 09/27/16 Carvedilol [Coreg] 12.5 mg PO BIDWM 09/27/16 09/27/16 Cyclosporine [Restasis] 1 drop OP BID 09/27/16 09/27/16 Losartan Potassium [Cozaar] 50 mg PO DAILY 09/27/16 09/27/16 Potassium Chloride [K-Tab ER] 10 meq PO BID 09/27/16 09/27/16 Previous Rx's Medication Instructions Recorded Furosemide [Lasix] 40 mg PO BIDDIURETIC #60 tab 09/24/16 Insulin Glargine,Hum.rec.anlog 15 unit SQ HS #0 09/24/16 [Lantus Solostar] Magnesium Oxide [Mag-Ox] 400 mg PO BID #60 tab 09/24/16 Oxygen 1 each .ROUTE AD #1 each 09/24/16 metOLazone [Zaroxolyn] 2.5 mg PO 0730,1630 #60 tab 09/24/16 Allergies Allergy/AdvReac Type Severity Reaction Status Date / Time No Known Allergies Allergy Unverified 09/15/16 15:28 Constitutional: Reports: weakness. Denies: fever, chills Eyes: Denies: eye pain, eye discharge Cardiovascular: Reports: dyspnea on exertion, edema. Denies: chest pain, palpitations, syncope Respiratory: Reports: dyspnea. Denies: cough, wheezes Gastrointestinal: Reports: nausea, vomiting. Denies: diarrhea, constipation Genitourinary: Denies: urgency, dysuria, frequency Musculoskeletal: Denies: back pain, neck pain Integumentary: Denies: rash, abrasion Neurological: Reports: weakness. Denies: headache, numbness, paresthesias, confusion Psychiatric: Denies: anxiety, depression Endocrine: Reports: fatigue Past Medical History - Past Medical History Medical history: Reports: CHF, COPD, diabetes, hyperlipidemia, hypertension, kidney stones, renal disease Surgical history: Reports: cataract, cholecystectomy Psychiatric history: Reports: no psych history LOBBY PORTER history: Reports: no LOBBY PORTER history - Social History Smoking Status: Never smoker Smokeless Tobacco Status: No Alcohol use: Reports: none Drug use: Reports: none Physical Exam This is a 66-year-old female who appears to be in respiratory distress. She is hunched over forward and appears to be struggling to breathe. - General Limitations: no limitations General appearance: alert, in distress - Head Head exam: normocephalic - Eye Eye exam: Present: normal appearance, EOMI. Absent: scleral icterus, conjunctival injection - ENT ENT exam: normal oropharynx, mucous membranes moist - Neck Neck exam: Present: full ROM, trachea midline - Chest Chest inspection: Present: symmetric chest wall rise. Absent: tenderness - Respiratory Respiratory exam: Present: respiratory distress, other (Rales throughout) - Cardiovascular Cardiovascular exam: Present: regular rate, normal rhythm, other (Distant heart sounds) - Abdominal Exam Abdominal exam: Present: soft, Non-Tender. Absent: tenderness, distention, guarding, rebound, rigidity - Expanded Lower Extremity Exam Lower leg exam: Present: swelling (2+ pitting edema bilaterally) Foot/toe exam: Present: swelling (Edematous bilaterally) - Neurological Exam Neurological exam: Present: alert, oriented X3 - Psychiatric Psychiatric exam: Present: normal affect, normal mood - Skin Skin exam: Present: warm, dry, intact Course - Reevaluation(s) Reevaluation #1: Patient is on BiPAP but still appears to be slightly uncomfortable. Her blood pressure now is 191/95. Her O2 sat is now 91. Time: 16:20 Vital Signs Temperature 97.7 F 09/27/16 15:05 Pulse Rate 87 09/27/16 15:05 Respiratory Rate 25 09/27/16 15:05 Blood Pressure 208/88 09/27/16 15:05 O2 Sat by Pulse Oximetry 83 09/27/16 15:05 Temperature 97.7 F 09/27/16 15:05 Pulse Rate 71 09/27/16 17:14 Respiratory Rate 16 09/27/16 17:14 Blood Pressure 200/89 09/27/16 17:14 O2 Sat by Pulse Oximetry 97 09/27/16 17:14 Oxygen Delivery Oxygen Delivery Bipap Shortness of Breath/Dyspnea - [facility] Narrative Medical decision making narrative: This is a 66-year-old female who presented to the emergency department in respiratory distress. EMS stated she had an O2 sat of 81% at home on 3 L. This was most concerning for myocardial infarction, pneumothorax, pulmonary embolism, CHF exacerbation, pneumonia. Her chest x-ray shows pulmonary edema, which has worsened significantly from her last chest x-ray. She had 2+ pitting edema bilaterally. She has a known history of congestive heart failure and she was recently admitted for. Myocardial infarction was ruled out due to no new EKG changes, chest pain, or an elevation in her troponin. Pulmonary embolism was less likely, as she had a Wells criteria score of 1.5. She does not have a previous history of DVT, denies pleuritic chest pain, and does not have unilateral calf swelling and tenderness. Pneumothorax and pneumonia was ruled out by chest x-ray only revealing pulmonary edema. Due to her previous history of CHF, shortness of breath, chest x-ray revealing pulmonary edema, BNP of 811, I think it is reasonable that the leading diagnosis is a CHF exacerbation. She was given 40 of Lasix, Nitropaste, BiPAP to help with her symptoms and condition. It was then decided to place her on a nitro drip to give her further it assistance as she was still short of breath and her blood pressures were still elevated. This patient is currently on BiPAP and still appears to be uncomfortable, however she does appear to be in less distress as she was when she arrived. I think it is reasonable to admit this patient at this time with a diagnosis of CHF exacerbation. - Differential Diagnosis Likely: congestive heart failure - Medical Records Medical records reviewed: Yes I reviewed the patient's medical records. - Lab Data Lab results reviewed: Yes I reviewed the patient's lab results. Result diagrams: 09/27/16 15:44 09/27/16 15:44 Lab Results 09/27/16 09/27/16 09/27/16 Range/Units 15:44 15:44 15:44 WBC 6.7 (4.3-11.1) K/mcL RBC 3.32 L (3.82-4.97) M/mcL Hgb 9.2 L D (11.5-15.4) g/dL Hct 30.3 L (35.3-44.9) % MCV 91.3 (83.0-100.0) fL MCH 27.7 L (28.0-33.3) pg MCHC 30.4 L (31.6-35.5) g/dL RDW 15.4 H (11.5-14.5) % Plt Count 138 L (140-400) K/mcL MPV 11.5 (9.4-12.4) fL Immature Gran % 0.3 (0-4) % Seg Neutrophils % 86.4 % Lymphocytes % 3.9 % Monocytes % 8.1 % Eosinophils % 1.0 % Basophils % 0.3 % Neutrophils # 5.8 (1.6-8.9) K/mcL Lymphocytes # 0.3 L (0.6-4.6) K/mcL Monocytes # 0.5 (0.0-1.3) K/mcL Eosinophils # 0.1 (0.0-0.6) K/mcL Basophils # 0.0 (0.0-0.2) K/mcL Sodium 142 (136-145) mEq/L Potassium 3.9 (3.5-4.5) mEq/L Chloride 105 (98-109) mEq/L Carbon Dioxide 29 (19-29) mEq/L BUN 58 H (7-20) mg/dL Creatinine 2.20 H (0.57-1.11) mg/dL Est GFR ( Amer) 27 L (> 60) Est GFR (Non-Af Amer) 22 L (> 60) BUN/Creatinine Ratio 26 (6-26) Glucose 258 H (70-99) mg/dL Calculated Osmolality 319 H (280-300) Lactic Acid (0.5-2.2) mmol/L Calcium 9.4 (8.6-10.8) mg/dL Troponin I 0.00 (0-0.03) ng/mL B-Natriuretic Peptide (0-100) pg/mL 09/27/16 09/27/16 Range/Units 15:44 15:44 WBC (4.3-11.1) K/mcL RBC (3.82-4.97) M/mcL Hgb (11.5-15.4) g/dL Hct (35.3-44.9) % MCV (83.0-100.0) fL MCH (28.0-33.3) pg MCHC (31.6-35.5) g/dL RDW (11.5-14.5) % Plt Count (140-400) K/mcL MPV (9.4-12.4) fL Immature Gran % (0-4) % Seg Neutrophils % % Lymphocytes % % Monocytes % % Eosinophils % % Basophils % % Neutrophils # (1.6-8.9) K/mcL Lymphocytes # (0.6-4.6) K/mcL Monocytes # (0.0-1.3) K/mcL Eosinophils # (0.0-0.6) K/mcL Basophils # (0.0-0.2) K/mcL Sodium (136-145) mEq/L Potassium (3.5-4.5) mEq/L Chloride (98-109) mEq/L Carbon Dioxide (19-29) mEq/L BUN (7-20) mg/dL Creatinine (0.57-1.11) mg/dL Est GFR ( Amer) (> 60) Est GFR (Non-Af Amer) (> 60) BUN/Creatinine Ratio (6-26) Glucose (70-99) mg/dL Calculated Osmolality (280-300) Lactic Acid 0.7 (0.5-2.2) mmol/L Calcium (8.6-10.8) mg/dL Troponin I (0-0.03) ng/mL B-Natriuretic Peptide 895 H (0-100) pg/mL - Radiology Data Radiology results reviewed: Yes I reviewed the patient's radiology results. - EKG Data EKG attestation: Yes I reviewed and interpreted this EKG. EKG results narrative: 09/28/1999 17 15:11 Ventricular rate 84 bpm, CO interval 191 ms, QRS duration 94 ms, QT 369 ms, QTC 410 ms, normal axis. Sinus rhythm with a ventricular rate of 84 bpm. There are no ST changes. Critical Care Time Critical Care Time: Yes Total Critical Care Time: 35 Attestation: The high probability of a clinically significant, sudden or life threatening deterioration of the [resp] system(s) required my full and direct attention, intervention and personal management. The aggregate critical care time was [35] minutes. This time is in addition to time spent performing reported procedures but includes the following: [X] Data Review and interpretation [X] Patient assessment and monitoring of vital signs [X] Documentation [X] Medication orders and management Attestation Statement - Attestation Attestation: I personally interviewed and examined this patient and my medical decision- making was reviewed with the Resident Physician, Dr. Felton. I agree with the documented findings, disposition and treatment plan as described except to the extent set forth below. Patient is a 66-year-old white female who presents to the emergency room in respiratory distress. Patient was recently discharged for acute respiratory failure with hypoxia secondary to an exacerbation of her diastolic CHF. Patient returns stating that her medication changes were a bit confusing thoughts unclear if she was compliant with the increase in her Lasix as well as some new medications or added. Patient is leaning forward with conversational dyspnea and tachypnea as well as hypoxia on room air on arrival. Patient is on supplemental O2 at home. Patient was initially placed on nasal cannula but was significantly mouth breathing so this was changed to a Ventimask at 9 increased to a nonrebreather. Patient is denying any form of chest pain pressure or heaviness, no fevers or chills, no production or cough, no abdominal pain, patient is complaining of some mild nausea and did have one episode of emesis shortly after arrival to the ED. I agree with patient's physical exam findings as documented. On arrival to the ED patient was hypoxic with increased work of breathing, hypertensive and afebrile. And clinically seems to be having another exacerbation of her CHF with some respiratory distress. Portal chest x-ray showed worsening pulmonary edema. We decided to place the patient on BiPAP to help decrease her work of breathing. Patient had also received a dose of IV Lasix as well as nitro paste. On reevaluation patient is improved but still remains hypertensive with some baseline shortness of breath. We are currently changing her nitroglycerin paste over to a nitro drip to titrate to effect. While we were evaluating the patient the patient's design assembler was in the emergency department when ahead and assessed her and agreed to consult on her as she will need to be readmitted for her respiratory distress. They have been contemplating initiating dialysis on the patient she states she is going to revisit this issue with her while she is an inpatient. Dr. Kenny was consult from the ED. Patient with a negative troponin on her lab work, her hemoglobin is 9.2 which is improved for her and does have a baseline history of anemia secondary to her chronic renal disease. Her creatinine today is much improved for her. Her electrolytes are stable. At this time we will readmit the patient for acute exacerbation of CHF causing respiratory distress and hypoxia. Clinically patient at this time is improved her blood pressure is responding nicely to the nitro drip and she reports feeling much improved on BiPAP from respiratory status. Case was discussed with the hospitalist who will resume care for further evaluation and management.
[2016-09-27 15:52] LABS: Basophils % 0.3 %; Eosinophils # 0.1 K/mcL (0.0-0.6); Hematocrit 30.3 % (35.3-44.9); Immature Granulocytes % 0.3 % (0-4); Lymphocytes # 0.3 K/mcL (0.6-4.6); Lymphocytes % 3.9 %; Mean Corpuscular HGB Conc 30.4 g/dL (31.6-35.5); Mean Corpuscular Hemoglobin 27.7 pg (28.0-33.3); Mean Corpuscular Volume 91.3 fL (83.0-100.0); Mean Platelet Volume 11.5 fL (9.4-12.4); Monocytes # 0.5 K/mcL (0.0-1.3); Monocytes % 8.1 %; Neutrophils # 5.8 K/mcL (1.6-8.9); Platelet Count 138 K/mcL (140-400); Red Blood Count 3.32 M/mcL (3.82-4.97); Red Cell Distribution Width 15.4 % (11.5-14.5); Segmented Neutrophils % 86.4 %
[2016-09-27 15:53] LABS: Hemoglobin 9.2 g/dL (11.5-15.4)
[2016-09-27 16:04] LABS: Calcium 9.4 mg/dL (8.6-10.8); Potassium 3.9 mEq/L (3.5-4.5)
[2016-09-27] MEDS ORDERED: Nitroglycerin 25 MG/250 ML INFUS..BTL IVC SCH (16:30)
[2016-09-27] MEDS ORDERED: 0.9 % Sodium Chloride 500 ML ONE (17:12)
[2016-09-27] MEDS ORDERED: Naloxone 0.4 MG/ML INJ IVP PRN (21:56)
[2016-09-27] MEDS ORDERED: Ondansetron ODT 4 MG TAB.RAPDIS SL PRN (21:56)
--- NOTE | 2016-09-27 22:05 | Internal Med History&Physical ---
<PerlaTiago Bowen - Last Filed: 09/27/16 22:49> Date of Encounter: 09/27/16 Time of Encounter: 22:02 Assessment and Plan (1) Acute respiratory failure with hypoxia Current visit: Yes Status: Acute Acute respiratory failure in the setting of CHF exacerbation. Patient presented with hypoxia with diffuse pulmonary edema and increased oxygen demand requiring BiPAP. Plan: - 80mg Lasix to reduce pulmonary edema and improve volume status. If patient has continued diminished respiratory status she may need to be evaluated for symptomatic pleural effusions. - Wean BiPAP and oxygen requirements as tolerated. (2) Acute on chronic congestive heart failure Current visit: Yes Status: Acute Patient has known diastolic heart failure with preserved ejection fraction. Last echocardiogram demonstrated LVEF of 55%, mild diastolic dysfunction, mild pulmonary hypertension mild mitral regurg. Patient clinically presents with diastolic heart failure exacerbation with pulmonary edema, bilateral lower extremity 2+ edema, cough, mild JVD currently on BiPAP. Supporting factor BNP of over 800. Chest x-ray with bilateral pulmonary congestion - Despite the patient increasing her home Lasix dose the patient presents with acute congestive heart failure in the setting of worsening renal function. This exacerbation is likely secondary to worsening of her end-stage renal disease. Plan: - 80 mg IV Lasix once tonight - 40 mg IV Lasix twice a day - Strict intake and output monitoring - Daily weights Currently NPO After initiation of diet: - 1.5 L fluid restrictions - 2 g sodium restriction - Discontinue patient's home potassium. Qualifiers: Congestive heart failure type: diastolic Qualified Code(s): I50.33 - Acute on chronic diastolic (congestive) heart failure (3) [id number] renal failure Current visit: Yes Status: Acute Patient presents with acute on chronic stageIV kidney disease. Patient's creatinine is 2.20 with a GFR 20. Concerning factors: Hypertension, heart failure, diabetes. - Patient was taking 40 mg Lasix twice a day, fluid restricting and sodium restricting at home. - Presents with congestive heart failure exacerbation, in the setting of ESRD Plan: - 80 mg IV Lasix once this evening - 40 mg IV Lasix twice a day - As discussed above. - Consult to nephrology Qualifiers: Acute renal failure type: unspecified Chronic kidney disease stage: stage 5 , not on chronic dialysis Qualified Code(s): N17.9 - Acute kidney failure, unspecified; N18.5 - Chronic kidney disease, stage 5 (4) Diabetes Current visit: Yes Status: Chronic Patient is insulin-dependent diabetic, glucose is elevated. Plan: -Before meals at bedtime glucose checks - Subcutaneous insulin low-dose sliding scale and adjust up as necessary. 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 Likely secondary to chronic stage IV renal failure. Plan: - Monitor with a.m. labs Qualifiers: Anemia type: unspecified type Qualified Code(s): D64.9 - Anemia, unspecified (6) DVT prophylaxis Current visit: Yes Status: Acute Subcutaneous heparin Internal Medicine - H&P: HPI Chief complaint: Short of breath Admitted From: Emergency Dept Plans for Post Hospital Care: Home History of present illness: Ms. Becerril is a 66 year old female with endstage renal disease, diastolic heart failure and chronic normocytic anemia and recently discharged from our facility was admitted to the general medical floor with shortness of breath. Ms. Becerril says that she has had progressive shortness of breath over the past several days since discharge. She says her symptoms are bad a rest and exacerbated with activity. She normally requires 2L NC oxygen but was so short of breath today that she was not improving on 4L NC and her brought her to the emergency department. She denies any fevers,chills, chest pain, palpitations, N/ V/D but has been constipated. She has been taking her medications as prescribed. She was supposed to follow up with her senior civil engineer soon. She is tolerating the BiPAP but would like her breathing to improve so she does not have to continue wearing it. Past Med Surg Social Fam HX - Past Medical History Medical history: CHF, diabetes, hyperlipidemia, hypertension, kidney stones, renal disease Psychiatric history: no psych history - Past Surgical History Surgical History: cataract, cholecystectomy - Social History Smoking Status: Never smoker Smokeless Tobacco Status: No Alcohol use: none Drug use: none - Family History Mother Age: 71 Living Status: Hx Family Cardiac Disorders: Yes Hx Family Respiratory Disorders: No Hx Family Cancer: Yes Hx Family GI Disorders: No Hx Family Genitourinary Disorders: No Hx Family Endocrine Disorder: Yes Hx Family Musculoskeletal Disorders: No Hx Family Neuromuscular Disorders: No Hx Family Neurologic Disorders: Yes Hx Family HEENT Disorders: No Hx Family Autoimmune Disorders: No Hx Family Reproductive Disorders: No Hx Family Psychosocial Disorders: No Hx Family Medical Disorders: No Father Age: 68 Living Status: Cause of : Lung Cancer Internal Medicine - H&P: Meds Aspirin 81 mg PO DAILY 08/02/15 [History] Insulin ASPART [NovoLOG] 15 unit SQ TIDWM 08/02/15 [History] Ergocalciferol (VITAMIN D2) [Vitamin D2] 50,000 unit PO QWEEK 09/15/16 [History] NIFEdipine [Nifedipine ER] 60 mg PO DAILY 09/15/16 [History] Furosemide [Lasix] 40 mg PO BIDDIURETIC #60 tab 09/24/16 [Rx] Insulin Glargine,Hum.rec.anlog [Lantus Solostar] 15 unit SQ HS #0 09/24/16 [Rx] Magnesium Oxide [Mag-Ox] 400 mg PO BID #60 tab 09/24/16 [Rx] Oxygen 1 each .ROUTE AD #1 each 09/24/16 [Rx] metOLazone [Zaroxolyn] 2.5 mg PO 0730,1630 #60 tab 09/24/16 [Rx] Atorvastatin [Lipitor] 40 mg PO HS 09/27/16 [History] Carvedilol [Coreg] 12.5 mg PO BIDWM 09/27/16 [History] Cyclosporine [Restasis] 1 drop OP BID 09/27/16 [History] Losartan Potassium [Cozaar] 50 mg PO DAILY 09/27/16 [History] Potassium Chloride [K-Tab ER] 10 meq PO BID 09/27/16 [History] Allergies No Known Allergies Allergy (Unverified 09/15/16 15:28) All Systems PM: A 10-system review of systems was performed and is negative for pertinent findings except as documented above in the HPI. - Constitutional Constitutional: no chills, no fever(s), no night sweats - EENT Eyes: no change in vision, no discharge, no pain, no photophobia Ears: no ear discharge, no ear pain, no tinnitus Nose, mouth and throat: no dysphagia, no nasal discharge, no neck pain, no sore throat - Cardiovascular Cardiovascular ROS IM: dyspnea, orthopnea, no chest pain, no diaphoresis, no lightheadedness, no palpitations, no syncope - Respiratory Respiratory: cough, dyspnea, dyspnea on exertion, no wheezing, no excessive phlegm production - Gastrointestinal Gastrointestinal: constipation, no abdominal pain, no diarrhea, no hematemesis, no hematochezia, no melena, no nausea, no vomiting - Genitourinary Genitourinary: no change in urinary stream, no dysuria, no flank pain, no hematuria - Musculoskeletal Musculoskeletal ROS IM: no numbness, no tingling - Integumentary Integumentary IM: no rash, no unusual bruising - Neurological Neurological ROS: no confusion, no convulsions, no focal weakness, no numbness, no tingling, no tremor(s) - Hematologic/Lymphatic Hematologic/Lymphatic: no easy bruising - Constitutional Vitals: Temp Pulse Resp BP Pulse Ox 97.4 F L 71 26 189/91 97 09/27/16 19:22 09/27/16 19:22 09/27/16 19:50 09/27/16 19:22 09/27/16 19:50 Exam: General: Patient alert, awake, oriented 3, interactive on BiPAP in mild distress. HEENT: Normocephalic, atraumatic, pupils equal reactive to light, nasal cavity patent and open septum median position, oral mucosa moist, uvula midline, neck supple trachea midline no palpable lymphadenopathy, no thyromegaly. JVD. Chest: Symmetric bilateral correlating with respiratory effort, effort nonlabored. Cardiac: Regular rate and rhythm, positive S1 and S2. no bruits appreciated bilateral carotids, Radial pulses 2+ bilateral, posterior tibial and dorsal pedal pulses 2+ bilateral. Respiratory: Inspiratory and expiratory crackles in the bilateral lung bases, clear to auscultation all lung awan. Abdomen: Soft, nontender, positive bowel sounds, no palpable masses appreciated on examination Extremities: Symmetric bilateral, bilateral lower extremities with 2+ pitting edema patient moving all 4 extremities spontaneously. Neurologic: No focal deficits appreciated on examination. Face symmetric, muscle strength symmetric bilateral upper and lower extremities. Internal Med - H&P Results - Labs CBC & Chem 7: 09/27/16 15:44 09/27/16 15:44 <Jose Raul Machuca - Last Filed: 09/28/16 00:42> Date of Encounter: 09/28/16 Internal Medicine - H&P: HPI History of present illness: Ms. Becerril is a 66 year old female All Systems PM: A 10-system review of systems was performed and is negative for pertinent findings except as documented above in the HPI. - Constitutional Vitals: Temp Pulse Resp BP Pulse Ox 97.4 F L 74 20 147/66 91 09/27/16 23:57 09/27/16 23:57 09/27/16 23:57 09/27/16 23:57 09/27/16 23:57 Internal Med - H&P Results - Labs CBC & Chem 7: 09/27/16 15:44 09/27/16 15:44 - Attending Attestation I have seen and examined the patient. I have discussed with . I have reviewed the orders and the note. Patient is a 58-year-old female with past history of CHF diastolic dysfunction, diabetes, hyperlipidemia, hypertension, chronic kidney disease and chronic anemia. She presented to the ED with complaints of shortness of breath. Patient states symptoms started about 2 days ago. Symptoms seem to have gradually worsened. She was discharged about 3 days ago after being treated for CHF and respiratory failure. Patient states she felt slightly better but her symptoms came back. Initial evaluation in the ED revealed elevated BNP peptide at 895 and chest x-ray shows pulmonary edema. Troponin is negative. EKG shows sinus rhythm with no acute ST-T changes. Patient also has acute kidney injury on CKD. On examination patient is awake and alert. She is on BiPAP. Able to provide history. States she feels better at this time. Denies chest pain or palpitations. She will be continued on IV Lasix, continue home meds and continue BiPAP. She will also be on fluid restriction and strict I's and O's will be maintained. Patient has been explained about her condition and plan of care. She understood and agreed. No unanswered questions. CODE STATUS full code. Heart rate 74, blood pressure 147/66, O2 sat 93% on BiPAP. Lungs bilateral good entry mild rales bilaterally. Heart S1-S2 positive no murmurs or rubs. Extremities all pulses strong and regular bilateral lower leg edema 2+ pitting.
[2016-09-27] MEDS ORDERED: Dextrose Gel 15 GM PO PRN ×2 (22:55)
[2016-09-27] MEDS ORDERED: *HR* Dextrose 50 % in Water (Syg) 50 ML SYRINGE IVP PRN (22:55)
[2016-09-27] MEDS ORDERED: D5% in Water 1,000 ML IVC PRN (22:55)
[2016-09-28 04:01] LABS: Basophils % 0.3 %; Eosinophils # 0.1 K/mcL (0.0-0.6); Eosinophils % 2.2 %; Hematocrit 24.5 % (35.3-44.9); Immature Granulocytes % 0.3 % (0-4); Lymphocytes # 0.5 K/mcL (0.6-4.6); Mean Corpuscular Hemoglobin 27.3 pg (28.0-33.3); Mean Corpuscular Volume 88.1 fL (83.0-100.0); Mean Platelet Volume 11.3 fL (9.4-12.4); Monocytes # 0.8 K/mcL (0.0-1.3); Monocytes % 12.8 %; Neutrophils # 4.5 K/mcL (1.6-8.9); Platelet Count 145 K/mcL (140-400); Red Blood Count 2.78 M/mcL (3.82-4.97); Red Cell Distribution Width 15.2 % (11.5-14.5); Segmented Neutrophils % 76.4 %
[2016-09-28 04:10] LABS: Hemoglobin 7.6 g/dL (11.5-15.4)
[2016-09-28 04:19] LABS: Albumin 3.1 g/dL (3.5-5.0); Bilirubin,Total 0.7 mg/dL (0.2-1.2); Calcium 9.1 mg/dL (8.6-10.8); Globulin 3.1 g/dL (2.4-3.5); Potassium 3.8 mEq/L (3.5-4.5); Total Protein 6.2 g/dL (6.0-8.3)
[2016-09-28] MEDS ORDERED: *HR* Heparin 5,000 UNIT/ML VIAL SQ SCH (06:00)
[2016-09-28] MEDS ORDERED: Insulin LISPRO 300 UNITS/3 ML VIAL SQ SCH ×2 (07:30→21:00)
[2016-09-28] MEDS: metOLazone 2.5 MG TABLET PO SCH ×2 (08:30→17:04)
[2016-09-28] MEDS: NIFEdipine XL (24 HR) 60 MG TAB.ER.24 PO SCH (08:30)
[2016-09-28] MEDS: Pantoprazole 40 MG VIAL IVP SCH (08:30)
[2016-09-28] MEDS: Magnesium Oxide 400 MG TABLET PO SCH ×2 (08:31→21:20)
[2016-09-28] MEDS: Aspirin 81 MG TAB.CHEW PO SCH (08:31)
[2016-09-28] MEDS ORDERED: Furosemide 40 MG/4 ML VIAL IVP SCH (09:00)
--- NOTE | 2016-09-28 10:03 | Nephrology Consult Note ---
<Jakub Lechuga - Last Filed: 09/28/16 13:07> Date of Encounter: 09/28/16 Time of Encounter: 13:07 Assessment and Plan (1) Acute respiratory failure with hypoxia Status: Acute 66 F hx of HTN, CKD 4, DM II presented respiratory status poor on admission Consult placed due to fluid overload. 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 Strict BP control (2) Anemia Status: Chronic Drop in hgb from 9.2 to 7.6 acute vs anemia of chronic disease? NO eivdence of bleeding on exam and patient denies melena, hematochezia, hematemesis, hemoptysis Continue to monitor at risk or worsening renal function due to decreased perfusion. Will order iron studies and fobt Qualifiers: Anemia type: unspecified type Qualified Code(s): D64.9 - Anemia, unspecified (3) Chronic kidney disease, stage 4 (severe) Status: Acute stable. adequate UOP continue to monitor patient at risk for cardiorenal syndrome. 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 She was discharged last wednesday for acute respiratory failure 2nd to acute diastolic HF and KELLY. At discharge patient's renal function had returned to baseline. Patient was discharged on Lasix 40mg BID and metalazone. Patient says these medications were not picked up immediately after discharge and she missed doses. [facility] were consulted due to volume overload and CKD. On admission patient was started on nitro gtt, started on lasix, metalazone and due to worsening respiratory failure started on BIPAP. Her renal function is at baseline. She is producing urine. Denies N/V/D, fever, chills. Patient is awake and conversing. Past Med Surg Social Fam HX - Past Medical History Medical history: CHF, diabetes, hyperlipidemia, hypertension, kidney stones, renal disease Psychiatric history: no psych history - Past Surgical History Surgical History: cataract, cholecystectomy - Social History Smoking Status: Never smoker Smokeless Tobacco Status: No Alcohol use: none Drug use: none - Family History Mother Age: 71 Living Status: Hx Family Cardiac Disorders: Yes Hx Family Respiratory Disorders: No Hx Family Cancer: Yes Hx Family GI Disorders: No Hx Family Genitourinary Disorders: No Hx Family Endocrine Disorder: Yes Hx Family Musculoskeletal Disorders: No Hx Family Neuromuscular Disorders: No Hx Family Neurologic Disorders: Yes Hx Family HEENT Disorders: No Hx Family Autoimmune Disorders: No Hx Family Reproductive Disorders: No Hx Family Psychosocial Disorders: No Hx Family Medical Disorders: No Father Age: 68 Living Status: Cause of : Lung Cancer Medications and Allergies Aspirin 81 mg PO DAILY 08/02/15 [History] Insulin ASPART [NovoLOG] 15 unit SQ TIDWM 08/02/15 [History] Ergocalciferol (VITAMIN D2) [Vitamin D2] 50,000 unit PO QWEEK 09/15/16 [History] Insulin Glargine,Hum.rec.anlog [Lantus Solostar] 15 unit SQ HS #0 09/24/16 [Rx] Magnesium Oxide [Mag-Ox] 400 mg PO BID #60 tab 09/24/16 [Rx] Oxygen 1 each .ROUTE AD #1 each 09/24/16 [Rx] metOLazone [Zaroxolyn] 2.5 mg PO 0730,1630 #60 tab 09/24/16 [Rx] Atorvastatin [Lipitor] 40 mg PO HS 09/27/16 [History] Carvedilol [Coreg] 12.5 mg PO BIDWM 09/27/16 [History] Cyclosporine [Restasis] 1 drop OP BID 09/27/16 [History] Losartan Potassium [Cozaar] 50 mg PO DAILY 09/27/16 [History] Potassium Chloride [K-Tab ER] 10 meq PO BID 09/27/16 [History] Acetaminophen [Tylenol] 650 mg PO Q6HR PRN tab 10/06/16 [Rx] Docusate [Colace] 100 mg PO BID PRN 10/06/16 [Rx] Furosemide [Lasix] 80 mg PO BIDDIURETIC #60 tab 10/06/16 [Rx] NIFEdipine XL (24 HR) [Procardia XL] 60 mg PO DAILY #30 tab 10/06/16 [Rx] Omeprazole [PriLOSEC] 20 mg PO DAILY #30 mg 10/06/16 [Rx] Allergies No Known Allergies Allergy (Unverified 09/15/16 15:28) Review of Systems Constitutional: fatigue, no chills, no fever(s) Nose, mouth and throat: no dry mouth Cardiovascular: dyspnea, leg edema, orthopnea, no chest pain Respiratory: cough, dyspnea, dyspnea on exertion Gastrointestinal: no abdominal pain, no change in bowel habits Integumentary: no rash Psychiatric: depression Exam - Vital Signs Vital signs: Initial Vital Signs Temp Pulse Resp BP Pulse Ox 97.7 F 87 25 208/88 83 09/27/16 15:05 09/27/16 15:05 09/27/16 15:05 09/27/16 15:05 09/27/16 15:05 Vital Signs - Last 8 Hours Temp Pulse Resp BP Pulse Ox 09/28/16 07:05 97.5 F L 66 21 150/73 95 09/28/16 03:58 97.9 F 68 20 134/83 93 09/28/16 03:49 14 93 Intake and Output 09/27/16 09/28/16 09/28/16 23:59 07:59 15:59 Intake Total 0 / 0 0 / 0 Output Total 600 / 600 325 / 325 Balance -600 / -100 -325 / -325 0 / 0 Intake: Oral 0 / 0 0 / 0 Output: Catheter 600 / 600 325 / 325 Other: Weight 82.599 kg Blood Glucose* 254 228 Patient Weight 09/28/16 23:59 Weight 82.599 kg - General Appearance General appearance: obese, chronically ill, frail EENT: PERRL, mucous membranes moist Neck: JVD, supple Additional Comments: diminshed lung sounds, b/l basilar crackles. tacypnic Cardiology: edema (3+), regular rate, regular rhythm, normal S1, normal S2 Gastrointestinal: normoactive bowel sounds, no tenderness Integumentary: no rash, warm and dry Neurologic: no focal deficit, alert and oriented x3 Musculoskeletal: no deformities, no erythema, no cyanosis, no clubbing Psychiatric: depressed Results - Lab Results 09/28/16 11:48 09/28/16 02:55 Most recent lab results Calcium 9.1 mg/dL (8.6-10.8) 09/28/16 02:55 Consult Discharge Plan - Plan Instructions: Heart Failure (DC), Chronic Kidney Disease (DC), Chronic Kidney Disease (GEN), Hemodialysis (DC), Hemodialysis (GEN), Dialysis Diet (DC), Dialysis Diet (GEN), Anemia (GEN) Referrals: Abelardo Bowen MD [Primary Care Provider] - 10/07/16 9:45 am Renetta Reilly MD [Partnered Physician] - 11/05/16 1:45 pm Noé Reyes MD [Partnered Physician] - 11/03/16 11:30 am Yovani Bourne DO [Partnered Physician] - 10/16/16 2:10 pm Jean Carlos Prabhakar MD [Partnered Physician] - 10/14/16 1:45 pm Prescriptions: Furosemide [Lasix] 80 mg PO BIDDIURETIC #60 tab NIFEdipine XL (24 HR) [Procardia XL] 60 mg PO DAILY #30 tab Omeprazole [PriLOSEC] 20 mg PO DAILY #30 mg <Carlnie Dotson - Last Filed: 10/12/16 00:23> Date of Encounter: 09/28/16 Exam - Vital Signs Vital signs: Initial Vital Signs Temp Pulse Resp BP Pulse Ox 97.7 F 87 25 208/88 83 09/27/16 15:05 09/27/16 15:05 09/27/16 15:05 09/27/16 15:05 09/27/16 15:05 Results - Lab Results 10/06/16 04:58 10/06/16 04:58 Most recent lab results Calcium 9.0 mg/dL (8.6-10.8) 10/06/16 04:58 Phosphorus 3.3 mg/dL (2.3-4.7) 10/05/16 04:37 Magnesium 1.9 mg/dL (1.6-2.6) 10/05/16 04:37 - Attending Attestation I examined this patient and my medical decision-making was reviewed with the Resident Physician. I agree with the documented findings, disposition and treatment plan as described except to the extent set forth below. Pt seen and examined with PMH of DM, HTN and stage 4 CKD reent discharged with KELLY and CHF exacerbation returning with SOB after she failed to pickup her new lasix dose on discharge. She was seen requiring biPAP with CXR showing congestion and visible signs of exam of worsening LE edema. 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 WIll continue iv lasix and metalozone today. Transfusion parameters per primary team regarding hgb of 7.6. SCr actually better than baseline at this time.
--- NOTE | 2016-09-28 11:38 | Internal Med Progress Note ---
Date of Encounter: 09/28/16 Time of Encounter: 11:34 - Assessment and plan (1) Acute respiratory failure with hypoxia Current Visit: Yes Status: Acute Assessment and plan: Secondary to CHF decompensation continue aggressive diuresis fluid restriction diet monitor I/Os monitor daily weights cardiology input appreciated will continue bipap support with breaks for meals O2 supplementation closely monitor O2 saturation and respiratory status Patient reports of her being an every day smoker and he smokes in the house. Pt may have underlying lung disease given exposure history. Will start bronchodilator support as needed. Noted to have expiratory wheezing on auscultation. Pt will benefit from outpatient pulmonary evaluation. (2) Acute on chronic diastolic (congestive) heart failure Current Visit: Yes Status: Acute Assessment and plan: as listed above (3) Chronic kidney disease, stage 4 (severe) Current Visit: Yes Status: Acute Assessment and plan: Renal function improved from her recent hospitalization and patient having urine output Dr. Kenny aware of the patient. Nephrology consultation appreciated continue IV diuresis and Metolazone will closely monitor renal function no need for [employer] at this time given improvement in her renal function from her recent hospitalization (4) Anemia Current Visit: Yes Status: Chronic Assessment and plan: Noted to have drop in H&H no acute bleeding reported no epigastric discomfort reported will obtain stool occult and obtain iron studies will closely monitor at this time patient hemodynamically stable at this time Qualifiers: Anemia type: unspecified type Qualified Code(s): D64.9 - Anemia, unspecified (5) CAD (coronary artery disease) Current Visit: Yes Status: Chronic Assessment and plan: continue home meds (ASA, lipitor, BB) Qualifiers: Coronary Disease-Associated Artery/Lesion type: [place] artery [place] vs. transplanted heart: ruby heart Associated angina: without angina Qualified Code(s): I25.10 - Atherosclerotic heart disease of [place] coronary artery without angina pectoris (6) Diabetes Current Visit: Yes Status: Chronic Assessment and plan: continue ss insulin algorithm monitor fingerstick and blood glucose ADA diet Qualifiers: Diabetes mellitus type: type 2 Diabetes mellitus complication status: with hyperglycemia Diabetes mellitus senior care insulin use: with senior care use Qualified Code(s): E11.65 - Type 2 diabetes mellitus with hyperglycemia; Z79.4 - long-term (current) use of insulin (7) Hypertensive urgency Current Visit: Yes Status: Resolved Assessment and plan: BP better controlled titrate off nitroglycerin gtt added Hydralazine 10mg IV q6h prn SBP>150 continue home medications (nifedipine, Losartan, BB) will closely monitor BP (8) DVT prophylaxis Current Visit: Yes Status: Acute Assessment and plan: SCD - Time Spent With Patient Greater than 35 minutes - Subjective Interval history: Patient seen and examined at bedside. Currently saturating well on bipap however becomes hypoxic off bipap support. Noted to have improvement in renal function from her prior hospitalization and having urine output. Currently states she is breathing easier than she did at home. - Constitutional Vitals: Temp Pulse Resp BP Pulse Ox 97.5 F L 66 21 150/73 95 09/28/16 07:05 09/28/16 07:05 09/28/16 07:05 09/28/16 07:05 09/28/16 07:05 General appearance: Present: A&O X 3, no acute distress (on bipap support), answers questions appropriately - Eye Eye exam: Present: conjuntiva pink, sclera anicteric - Respiratory Respiratory exam: Present: wheezes (b/l expiratory wheezing, bibasilar crackles) . Absent: respiratory distress - Cardiovascular Cardiovascular exam: Present: RRR, +S1, +S2. Absent: diastolic murmur, gallop, rubs, systolic murmur - GI/Abdominal GI/Abdominal exam: Present: normal bowel sounds, soft, no peritoneal signs. Absent: distended, tenderness - Extremities Exam Extremities exam: Present: pedal edema, warm, radial pulses palpable and symetrical. Absent: calf tenderness - Neurological Exam Neurological exam: Present: alert, oriented X3 - Psychiatric Psychiatric exam: Present: normal affect, normal mood Internal Medicine: Result - Labs CBC & Chem 7: 09/28/16 11:48 09/28/16 02:55 Labs: Short CBC 09/28/16 Range/Units 02:55 WBC 5.8 (4.3-11.1) K/mcL Hgb 7.6 L D (11.5-15.4) g/dL Hct 24.5 L (35.3-44.9) % Plt Count 145 (140-400) K/mcL Neutrophils # 4.5 (1.6-8.9) K/mcL BMP 09/28/16 02:55 Sodium 141 Potassium 3.8 Chloride 105 Carbon Dioxide 27 BUN 59 H Creatinine 2.27 H Glucose 228 H Calcium 9.1 Liver Function 09/28/16 Range/Units 02:55 Total Bilirubin 0.7 (0.2-1.2) mg/dL AST 12 (5-34) Units/L ALT 11 (0-55) Units/L Alkaline Phosphatase 88 (38-126) Units/L Albumin 3.1 L (3.5-5.0) g/dL Consult Discharge Plan - Plan Referrals: Abelardo Bowen MD [Primary Care Provider] -
[2016-09-28] MEDS ORDERED: Ipratropium/Albuterol Neb 3 ML IH PRN (11:40)
[2016-09-28 11:56] LABS: Hematocrit 23.4 % (35.3-44.9); Hemoglobin 7.2 g/dL (11.5-15.4)
--- NOTE | 2016-09-28 13:17 | Cardiology Consult Note ---
Date of Encounter: 09/28/16 Time of Encounter: 13:16 Assessment and Plan (1) Acute on chronic diastolic (congestive) heart failure Current Visit: Yes Status: Acute Acute on chronic diastolic CHF--states she did not cloth picker her diuretic medications including lasix and metalazone day of discharge and missed doses. BNP 895, CXR with pulmonary edema. Pt's O2 was 81% on arrival to ED, was on BiPAP, now on venturi mask. Reports symptoms are improving with IV diuresis. Still with significant lower extremity edema. Agree with IV Lasix 40mg BID and PO Metalazone 2.5mg BID. Renal function currently improved/at baseline. Recommend strict I/Os, Na and fluid restriction, daily weights. Suspect underlying [place]. Recommend outpt sleep study. (2) Hypertensive urgency Current Visit: Yes Status: Acute BP was 208/88 on presentation. Most recent reading 110/92. On nitro gtt at 12ml/hr. Recommend weaning off nitro gtt. Continue current antihypertensives and adjust as necessary. BP at recent office visits well controlled. (3) Anemia Current Visit: Yes Status: Chronic Pt with known chronic normocytic anemia. HGB dropped today from 9.2 to 7.2. Pt denies active bleeding. Iron panel ordered by nephrology. Qualifiers: Anemia type: unspecified type Qualified Code(s): D64.9 - Anemia, unspecified (4) CAD (coronary artery disease) Current Visit: Yes Status: Chronic [facility] 08/02/15: 99% stenosis of mid-RCA (small vessel not amenable to PCI), 30% prox LAD, 25% mid LCx, LVEF 60%, mild pulmonary hypertension. Continue ASA, Statin, BB. Qualifiers: Coronary Disease-Associated Artery/Lesion type: [place] artery [place] vs. transplanted heart: [place] heart Associated angina: without angina Qualified Code(s): I25.10 - Atherosclerotic heart disease of [place] coronary artery without angina pectoris Discussion w patient/family: The assessment and plan as outlined above was discussed with the patient and/or family members who expressed understanding and agreement. All questions were answered. Thank you for involving us in the care of your patient. Please call with any questions. I will discuss all the above with Dr. Cuello and make changes as necessary. History of Present Illness Consult date: 09/28/16 Requesting physician: Summer Caraballo Consult reason: on nitro gtt Chief complaint: dyspnea, lower extremity edema History of present illness: Ms. Becerril is a 66 year old female with PMH of stage IV CKD, Type 2 DM, diastolic heart failure, CAD, pulmonary htn, and chronic normocytic anemia and recently discharged from [facility], now re-admitted for CC of shortness of breath and lower extremity edema. Ms. Becerril says that she has had progressive shortness of breath over the past several days since discharge. She says her symptoms are at rest and exacerbated with activity. She normally requires 2L NC oxygen but was so short of breath todaythat she was not improving on 4L NC and her brought her to the emergency department. Pt states she did not cloth picker her diuretic medications including lasix and metalazone day of discharge and missed doses. She reports she had chest pressure when she felt like she was unable to breath, now resolved. Troponin negative. BP was 208/88 on presentation and pt was started on nitro gtt. Most recent BP 110/93. She reports symptoms have improved, but is on O2 via mask and still has lower extremity edema. BNP 895, HGB 7.2, Creatinine 2.27, CXR with pulmonary edema. Recent CV testing: Nuclear stress 07/11/15: LVEF 59%, small area of mild-moderate ischemia in the basal anterolateral wall. TTE 07/15/15: LVEF 55-60%, mild diastolic dysfunction, normal RV, moderate-severe pulmonary hypertension (RVSP 56). [facility] 08/02/15: 99% stenosis of mid-RCA (small vessel not amenable to PCI), 30% prox LAD, 25% mid LCx, LVEF 60%, mild pulmonary hypertension TTE 06/02/16: LVEF 55%, moderate diastolic dysfunction, mildly dilated RV with normal function, mild-moderate MR, moderate TR, moderate pulmonary hypertension (RVSP 52). Past Med Surg Social Fam HX - Past Medical History Medical history: CHF, coronary artery disease, diabetes, hyperlipidemia, hypertension, kidney stones, renal disease Psychiatric history: no psych history - Past Surgical History Surgical History: cataract, cholecystectomy - Social History Smoking Status: Never smoker Smokeless Tobacco Status: No Alcohol use: none Drug use: none - Family History Mother Age: 71 Living Status: Hx Family Cardiac Disorders: Yes Hx Family Respiratory Disorders: No Hx Family Cancer: Yes Hx Family GI Disorders: No Hx Family Genitourinary Disorders: No Hx Family Endocrine Disorder: Yes Hx Family Musculoskeletal Disorders: No Hx Family Neuromuscular Disorders: No Hx Family Neurologic Disorders: Yes Hx Family HEENT Disorders: No Hx Family Autoimmune Disorders: No Hx Family Reproductive Disorders: No Hx Family Psychosocial Disorders: No Hx Family Medical Disorders: No Father Age: 68 Living Status: Cause of : Lung Cancer Medications and Allergies Aspirin 81 mg PO DAILY 08/02/15 [History] Insulin ASPART [NovoLOG] 15 unit SQ TIDWM 08/02/15 [History] Ergocalciferol (VITAMIN D2) [Vitamin D2] 50,000 unit PO QWEEK 09/15/16 [History] NIFEdipine [Nifedipine ER] 60 mg PO DAILY 09/15/16 [History] Furosemide [Lasix] 40 mg PO BIDDIURETIC #60 tab 09/24/16 [Rx] Insulin Glargine,Hum.rec.anlog [Lantus Solostar] 15 unit SQ HS #0 09/24/16 [Rx] Magnesium Oxide [Mag-Ox] 400 mg PO BID #60 tab 09/24/16 [Rx] Oxygen 1 each .ROUTE AD #1 each 09/24/16 [Rx] metOLazone [Zaroxolyn] 2.5 mg PO 0730,1630 #60 tab 09/24/16 [Rx] Atorvastatin [Lipitor] 40 mg PO HS 09/27/16 [History] Carvedilol [Coreg] 12.5 mg PO BIDWM 09/27/16 [History] Cyclosporine [Restasis] 1 drop OP BID 09/27/16 [History] Losartan Potassium [Cozaar] 50 mg PO DAILY 09/27/16 [History] Potassium Chloride [K-Tab ER] 10 meq PO BID 09/27/16 [History] Allergies No Known Allergies Allergy (Unverified 09/15/16 15:28) All Systems Review: A 10-system review of systems was performed and is negative for pertinent findings except as documented above in the HPI. - Cardiovascular Cardiovascular: as per HPI, chest pain at rest, dyspnea at rest, dyspnea on exertion, leg edema, orthopnea - Respiratory Respiratory: dyspnea Physical Examination Vital Signs, Last 4 Hours Temp Pulse Resp BP Pulse Ox 09/28/16 12:01 97.7 F 66 29 110/93 96 Vital Signs Temp Pulse Resp BP Pulse Ox 09/28/16 12:01 97.7 F 66 29 110/93 96 09/28/16 07:05 97.5 F L 66 21 150/73 95 09/28/16 03:58 97.9 F 68 20 134/83 93 09/28/16 03:49 14 93 09/27/16 23:57 97.4 F L 74 20 147/66 91 09/27/16 23:22 21 93 09/27/16 19:50 26 97 09/27/16 19:22 97.4 F L 71 22 189/91 97 09/27/16 18:58 60 16 187/97 98 09/27/16 17:59 16 189/95 09/27/16 17:54 67 188/94 96 09/27/16 17:14 71 16 200/89 97 09/27/16 16:45 75 16 196/89 96 09/27/16 16:22 25 201/99 94 09/27/16 16:11 79 28 198/106 95 09/27/16 15:40 81 16 175/88 88 09/27/16 15:17 88 09/27/16 15:05 97.7 F 87 25 208/88 83 Intake and Output 09/27/16 09/28/16 09/28/16 23:59 07:59 15:59 Intake Total 500 / 500 0 / 0 0 / 0 Output Total 600 / 600 325 / 325 550 / 550 Balance -100 / -100 -325 / -325 -550 / -550 Intake: IV Fluids 500 / 500 0.9 % Sodium Chloride 500 500 / 500 ML As .ROUTE .[facility] Rx#:[id number] Oral 0 / 0 0 / 0 0 / 0 Output: Catheter 600 / 600 325 / 325 550 / 550 Other: Weight 81.7 kg 82.599 kg 82.599 kg Blood Glucose* 254 228 213 Patient Weight 09/28/16 23:59 Weight 82.599 kg General: Conversant, No Apparent Distress HEENT: Atraumatic, Normocephaly, Mucus Membranes Moist Neck: Normal carotid pulses Cardiac: Reg Rate and Rhythm, Normal S1 and S2, No Murmur Lungs: Other (mild bibasilar crackles) Neuro: Alert and responsive, No focal deficits noted Abdomen: Soft, Non-Tender Skin: No rashes noted on visualized skin Musculoskeletal: No Chest Wall Tenderness Extremities: Other (+2 BLE edema) Results 09/28/16 11:48 09/28/16 02:55 Lab Results 09/28/16 09/28/16 09/28/16 02:55 02:55 11:48 WBC 5.8 Hgb 7.6 L D 7.2 L Hct 24.5 L 23.4 L Plt Count 145 Sodium 141 Potassium 3.8 Chloride 105 Carbon Dioxide 27 BUN 59 H Creatinine 2.27 H Glucose 228 H Calcium 9.1 Total Bilirubin 0.7 AST 12 ALT 11 Alkaline Phosphatase 88 Short CBC 09/28/16 09/28/16 09/28/16 Range/Units 11:48 02:55 02:55 WBC 5.8 (4.3-11.1) K/mcL RBC 2.78 L (3.82-4.97) M/mcL Hgb 7.2 L 7.6 L D (11.5-15.4) g/dL Hct 23.4 L 24.5 L (35.3-44.9) % MCV 88.1 (83.0-100.0) fL MCH 27.3 L (28.0-33.3) pg MCHC 31.0 L (31.6-35.5) g/dL RDW 15.2 H (11.5-14.5) % Plt Count 145 (140-400) K/mcL MPV 11.3 (9.4-12.4) fL Immature Gran % 0.3 (0-4) % Seg Neutrophils % 76.4 % Lymphocytes % 8.0 % Monocytes % 12.8 % Eosinophils % 2.2 % Basophils % 0.3 % Neutrophils # 4.5 (1.6-8.9) K/mcL Lymphocytes # 0.5 L (0.6-4.6) K/mcL Monocytes # 0.8 (0.0-1.3) K/mcL Eosinophils # 0.1 (0.0-0.6) K/mcL Basophils # 0.0 (0.0-0.2) K/mcL Sodium 141 (136-145) mEq/L Potassium 3.8 (3.5-4.5) mEq/L Chloride 105 (98-109) mEq/L Carbon Dioxide 27 (19-29) mEq/L BUN 59 H (7-20) mg/dL Creatinine 2.27 H (0.57-1.11) mg/dL Est GFR ( Amer) 26 L (> 60) Est GFR (Non-Af Amer) 21 L (> 60) BUN/Creatinine Ratio 26 (6-26) Glucose 228 H (70-99) mg/dL POC Glucose (58-89) Calculated Osmolality 316 H (280-300) Lactic Acid (0.5-2.2) mmol/L Calcium 9.1 (8.6-10.8) mg/dL Total Bilirubin 0.7 (0.2-1.2) mg/dL AST 12 (5-34) Units/L ALT 11 (0-55) Units/L Alkaline Phosphatase 88 (38-126) Units/L Troponin I (0-0.03) ng/mL B-Natriuretic Peptide (0-100) pg/mL Serum Total Protein 6.2 (6.0-8.3) g/dL Albumin 3.1 L (3.5-5.0) g/dL Globulin 3.1 (2.4-3.5) g/dL Albumin/Globulin Ratio 1.0 L (1.1-2.2) 09/27/16 09/27/16 09/27/16 Range/Units 19:44 15:44 15:44 WBC (4.3-11.1) K/mcL RBC (3.82-4.97) M/mcL Hgb (11.5-15.4) g/dL Hct (35.3-44.9) % MCV (83.0-100.0) fL MCH (28.0-33.3) pg MCHC (31.6-35.5) g/dL RDW (11.5-14.5) % Plt Count (140-400) K/mcL MPV (9.4-12.4) fL Immature Gran % (0-4) % Seg Neutrophils % % Lymphocytes % % Monocytes % % Eosinophils % % Basophils % % Neutrophils # (1.6-8.9) K/mcL Lymphocytes # (0.6-4.6) K/mcL Monocytes # (0.0-1.3) K/mcL Eosinophils # (0.0-0.6) K/mcL Basophils # (0.0-0.2) K/mcL Sodium (136-145) mEq/L Potassium (3.5-4.5) mEq/L Chloride (98-109) mEq/L Carbon Dioxide (19-29) mEq/L BUN (7-20) mg/dL Creatinine (0.57-1.11) mg/dL Est GFR ( Amer) (> 60) Est GFR (Non-Af Amer) (> 60) BUN/Creatinine Ratio (6-26) Glucose (70-99) mg/dL POC Glucose 254 H (58-89) Calculated Osmolality (280-300) Lactic Acid 0.7 (0.5-2.2) mmol/L Calcium (8.6-10.8) mg/dL Total Bilirubin (0.2-1.2) mg/dL AST (5-34) Units/L ALT (0-55) Units/L Alkaline Phosphatase (38-126) Units/L Troponin I (0-0.03) ng/mL B-Natriuretic Peptide 895 H (0-100) pg/mL Serum Total Protein (6.0-8.3) g/dL Albumin (3.5-5.0) g/dL Globulin (2.4-3.5) g/dL Albumin/Globulin Ratio (1.1-2.2) 09/27/16 09/27/16 09/27/16 Range/Units 15:44 15:44 15:44 WBC 6.7 (4.3-11.1) K/mcL RBC 3.32 L (3.82-4.97) M/mcL Hgb 9.2 L D (11.5-15.4) g/dL Hct 30.3 L (35.3-44.9) % MCV 91.3 (83.0-100.0) fL MCH 27.7 L (28.0-33.3) pg MCHC 30.4 L (31.6-35.5) g/dL RDW 15.4 H (11.5-14.5) % Plt Count 138 L (140-400) K/mcL MPV 11.5 (9.4-12.4) fL Immature Gran % 0.3 (0-4) % Seg Neutrophils % 86.4 % Lymphocytes % 3.9 % Monocytes % 8.1 % Eosinophils % 1.0 % Basophils % 0.3 % Neutrophils # 5.8 (1.6-8.9) K/mcL Lymphocytes # 0.3 L (0.6-4.6) K/mcL Monocytes # 0.5 (0.0-1.3) K/mcL Eosinophils # 0.1 (0.0-0.6) K/mcL Basophils # 0.0 (0.0-0.2) K/mcL Sodium 142 (136-145) mEq/L Potassium 3.9 (3.5-4.5) mEq/L Chloride 105 (98-109) mEq/L Carbon Dioxide 29 (19-29) mEq/L BUN 58 H (7-20) mg/dL Creatinine 2.20 H (0.57-1.11) mg/dL Est GFR ( Amer) 27 L (> 60) Est GFR (Non-Af Amer) 22 L (> 60) BUN/Creatinine Ratio 26 (6-26) Glucose 258 H (70-99) mg/dL POC Glucose (58-89) Calculated Osmolality 319 H (280-300) Lactic Acid (0.5-2.2) mmol/L Calcium 9.4 (8.6-10.8) mg/dL Total Bilirubin (0.2-1.2) mg/dL AST (5-34) Units/L ALT (0-55) Units/L Alkaline Phosphatase (38-126) Units/L Troponin I 0.00 (0-0.03) ng/mL B-Natriuretic Peptide (0-100) pg/mL Serum Total Protein (6.0-8.3) g/dL Albumin (3.5-5.0) g/dL Globulin (2.4-3.5) g/dL Albumin/Globulin Ratio (1.1-2.2) [facility] 09/28/16 09/27/16 Range/Units 02:55 15:44 Sodium 141 142 (136-145) mEq/L Potassium 3.8 3.9 (3.5-4.5) mEq/L Chloride 105 105 (98-109) mEq/L Carbon Dioxide 27 29 (19-29) mEq/L BUN 59 H 58 H (7-20) mg/dL Creatinine 2.27 H 2.20 H (0.57-1.11) mg/dL Glucose 228 H 258 H (70-99) mg/dL Calcium 9.1 9.4 (8.6-10.8) mg/dL Cardiac Enzymes 09/27/16 Range/Units 15:44 Troponin I 0.00 (0-0.03) ng/mL Liver Function 09/28/16 Range/Units 02:55 Total Bilirubin 0.7 (0.2-1.2) mg/dL AST 12 (5-34) Units/L ALT 11 (0-55) Units/L Alkaline Phosphatase 88 (38-126) Units/L Albumin 3.1 L (3.5-5.0) g/dL Impressions Chest X-Ray 09/27/16 15:15 IMPRESSION: 1. Pulmonary edema. D/ / Owen Casillas MD / Owen Casillas MD Interpreting Provider: Owen Casillas MD Active Medications Acetaminophen (Tylenol) 650 mg PO Q6HR PRN PRN Reason: Mild Pain (1-3) Stop: 03/29/17 21:57 Albuterol/Ipratropium (Duoneb) 3 ml IH [id number] PRN; Protocol PRN Reason: Shortness Of Breath/Wheezing Stop: 03/30/17 11:41 Aspirin (Aspirin) 81 mg PO DAILY [facility] Stop: 03/30/17 09:01 Last Admin: 09/28/16 08:31 Dose: 81 mg Carvedilol (Coreg) 12.5 mg PO BIDWM [facility] PRN Reason: Protocol Stop: 03/30/17 08:01 Last Admin: 09/28/16 08:31 Dose: 12.5 mg Dextrose/Water (Dextrose 50% (Syg)) 25 ml IVP AD PRN PRN Reason: Hypoglycemia Stop: 03/29/17 22:56 Docusate Sodium (Colace) 100 mg PO BID PRN PRN Reason: Constipation Stop: 03/29/17 21:57 Furosemide (Lasix) 40 mg IVP BID [facility] Stop: 03/30/17 09:01 Last Admin: 09/28/16 08:30 Dose: 40 mg Glucagon (Glucagen) 1 mg IM ONCE PRN PRN Reason: Hypoglycemia Stop: 03/29/17 22:56 Glucose (Gluctose) 15 gm PO ONCE PRN PRN Reason: Hypoglycemia Stop: 03/29/17 22:56 Glucose (Gluctose) 30 gm PO ONCE PRN PRN Reason: Hypoglycemia Stop: 03/29/17 22:56 Hydralazine HCl (Hydralazine) 10 mg IVP Q6H PRN PRN Reason: Hypertension SBP>150 Stop: 03/30/17 11:40 Nitroglycerin (Nitroglycerin) 25 mg in 250 mls @ 12 mls/hr IVC .[id number] CLARE; 20 MCG/MIN PRN Reason: Protocol Stop: 03/29/17 16:31 Last Admin: 09/27/16 17:13 Dose: 20 mcg/min, 12 mls/hr Dextrose (Dextrose 5%) 1,000 mls @ 100 mls/hr IVC .Q10H PRN PRN Reason: HYPOGLYCEMIA Stop: 03/29/17 22:56 Insulin Human Lispro (Humalog) 0 units SQ HS [facility] PRN Reason: Protocol Stop: 03/30/17 21:01 Insulin Human Lispro (Humalog) 0 units SQ TIDAC [facility] PRN Reason: Protocol Stop: 03/30/17 07:31 Losartan Potassium (Cozaar) 50 mg PO DAILY [facility] Stop: 03/30/17 09:01 Last Admin: 09/28/16 08:30 Dose: 50 mg Magnesium Oxide (Mag-Ox) 400 mg PO BID [facility] PRN Reason: Protocol Stop: 03/30/17 09:01 Last Admin: 09/28/16 08:31 Dose: 400 mg Metolazone (Zaroxolyn) 2.5 mg PO 0730,1630 [facility] Stop: 03/30/17 07:31 Last Admin: 09/28/16 08:30 Dose: 2.5 mg Naloxone HCl (Narcan) 0.4 mg IVP Q2MIN PRN PRN Reason: Opioid Reversal Stop: 03/29/17 21:57 Nifedipine (Procardia Xl) 60 mg PO DAILY [facility] Stop: 03/30/17 09:01 Last Admin: 09/28/16 08:30 Dose: 60 mg Ondansetron HCl (Zofran Odt) 4 mg SL Q8HR PRN PRN Reason: Nausea And Vomiting Stop: 03/29/17 21:57 Pantoprazole Sodium (Protonix) 40 mg IVP DAILY [facility] Stop: 03/30/17 09:01 Last Admin: 09/28/16 08:30 Dose: 40 mg Simvastatin (Zocor) 40 mg PO HS [facility] Stop: 03/30/17 21:01 - Imaging and Cardiology Stress Test: report reviewed Echo: report reviewed Cardiac cath: report reviewed - EKG Interpretation EKG results cardiology: personally reviewed (SR), other (12 hr tele AVG HR 66, SR, no significant pauses or arrhythmias.) Consult Discharge Plan - Plan Referrals: Abelardo Bowen MD [Primary Care Provider] -
--- NOTE | 2016-09-28 15:56 | Electrocardiograph Report ---
[place] [id number] Test Date: 2016-09-27 Pat Name: Alida Becerril Department: 104 Room: 2NE21 Gender: F Certified Coding Specialist: [facility] : 1950 Requested By: Ethan Felton Order Number: [id number] Reading MD: Nawaf Carpenter MD Measurements Intervals [place] Rate: 84 P: 14 IA: 191 QRS: 38 QRSD: 94 T: 49 QT: 369 QTc: 410 Interpretive Statements SINUS RHYTHM Poor R wave progression BASELINE ARTIFACT Electronically Signed On 09-28-2016 15:54:53 EDT by Nawaf Carpenter MD
[2016-09-28] MEDS: Furosemide 40 MG/4 ML VIAL IVP SCH (17:03)
[2016-09-28] MEDS: Insulin LISPRO 300 UNITS/3 ML VIAL SQ SCH ×2 (17:03→21:21)
[2016-09-29 06:46] LABS: Basophils % 0.2 %; Eosinophils # 0.4 K/mcL (0.0-0.6); Eosinophils % 6.9 %; Hematocrit 25.1 % (35.3-44.9); Hemoglobin 7.5 g/dL (11.5-15.4); Immature Granulocytes % 0.3 % (0-4); Lymphocytes # 0.7 K/mcL (0.6-4.6); Lymphocytes % 11.1 %; Mean Corpuscular HGB Conc 29.9 g/dL (31.6-35.5); Mean Corpuscular Hemoglobin 26.8 pg (28.0-33.3); Mean Corpuscular Volume 89.6 fL (83.0-100.0); Monocytes # 0.7 K/mcL (0.0-1.3); Monocytes % 12.4 %; Neutrophils # 4.1 K/mcL (1.6-8.9); Platelet Count 147 K/mcL (140-400); Red Cell Distribution Width 15.4 % (11.5-14.5); Segmented Neutrophils % 69.1 %
[2016-09-29 07:14] LABS: Phosphorous 3.9 mg/dL (2.3-4.7); Potassium 3.5 mEq/L (3.5-4.5)
[2016-09-29] MEDS: Insulin LISPRO 300 UNITS/3 ML VIAL SQ SCH ×4 (08:37→22:08)
[2016-09-29] MEDS: Furosemide 40 MG/4 ML VIAL IVP SCH ×2 (08:40→17:48)
[2016-09-29] MEDS: Pantoprazole 40 MG VIAL IVP SCH (08:40)
[2016-09-29] MEDS: NIFEdipine XL (24 HR) 60 MG TAB.ER.24 PO SCH (08:41)
[2016-09-29] MEDS: metOLazone 2.5 MG TABLET PO SCH ×2 (08:41→17:48)
[2016-09-29] MEDS: Magnesium Oxide 400 MG TABLET PO SCH ×2 (08:41→22:01)
[2016-09-29] MEDS: Aspirin 81 MG TAB.CHEW PO SCH (08:41)
--- NOTE | 2016-09-29 08:57 | Nephrology Progress Note ---
Date of Encounter: 09/29/16 Time of Encounter: 08:55 - Assessment and Plan (1) Acute respiratory failure with hypoxia Current Visit: Yes Status: Acute improving with diuresis. UOP 1300/24 hr worsening renal function: scr 2.64 LE edema improved now 2+ On 12L nonrebreather BP 146/69 Plan: I/O not net negative continue fluid restriction/salt restriction increase lasix to 80 BID and continue metalazone add albumin to regimen to increase intravascular volume If fluid status does not improve with diuresis then HD will be discussed with patient. (2) Acute on chronic congestive heart failure Current Visit: Yes Status: Acute Qualifiers: Congestive heart failure type: diastolic Qualified Code(s): I50.33 - Acute on chronic diastolic (congestive) heart failure (3) Anemia Current Visit: Yes Status: Chronic Qualifiers: Anemia type: unspecified type Qualified Code(s): D64.9 - Anemia, unspecified (4) Chronic kidney disease, stage 4 (severe) Current Visit: Yes Status: Acute (5) Diabetes Current Visit: Yes Status: Chronic Qualifiers: Diabetes mellitus type: type 2 Diabetes mellitus complication status: with hyperglycemia Diabetes mellitus mcfp insulin use: with termite helper use Qualified Code(s): E11.65 - Type 2 diabetes mellitus with hyperglycemia; Z79.4 - termite helper (current) use of insulin (6) Lower extremity edema Current Visit: Yes Status: Acute Subjective Principal diagnosis: ADHF Interval history: Improved sob overnight. Patient more awake, conversing and can speak full sentences. Denies N/V/D chest pain. Objective - Vital Signs Vital signs: Vital Signs Temp Pulse Resp BP Pulse Ox 09/29/16 07:00 72 17 147/69 96 09/29/16 04:49 17 133/71 97 09/29/16 00:43 23 133/71 97 09/28/16 23:32 18 133/71 91 09/28/16 23:07 98.3 F 64 18 133/71 64 09/28/16 19:47 91 09/28/16 18:56 97.7 F 66 17 136/64 91 09/28/16 14:00 97.7 F 68 18 164/73 95 09/28/16 12:01 97.7 F 66 29 110/93 96 Intake and Output 09/28/16 09/29/16 09/29/16 23:59 07:59 15:59 Intake Total 1100 / 1100 Output Total 425 / 425 Balance 675 / 675 Intake: Oral 1100 / 1100 Output: Catheter 425 / 425 Other: Weight 81.4 kg Blood Glucose* 269 141 Patient Weight 09/29/16 23:59 Weight 81.4 kg - General Appearance General appearance: Present: frail EENT: Present: mucous membranes moist Neck: Present: no JVD, supple Additional Comments: b/l basilar crackles Cardiology: Present: edema (2+), regular rate, regular rhythm Gastrointestinal: Present: normoactive bowel sounds, no tenderness Integumentary: Present: no rash, warm and dry Neurologic: Present: no focal deficit, alert and oriented x3 Musculoskeletal: Present: no deformities, no erythema, no cyanosis, no clubbing Psychiatric: Present: mood/affect appropriate - Lab 09/29/16 05:38 09/29/16 05:38 Most recent lab results Calcium 9.0 mg/dL (8.6-10.8) 09/29/16 05:38 Phosphorus 3.9 mg/dL (2.3-4.7) 09/29/16 05:38 Magnesium 2.0 mg/dL (1.6-2.6) 09/29/16 05:38 - VTE Documentation of Mechanical Device: Intermittent pneumatic compression device Consult Discharge Plan - Plan Referrals: Abelardo Bowen MD [Primary Care Provider] -
--- NOTE | 2016-09-29 10:00 | Cardiology Progress Note ---
Date of Encounter: 09/29/16 Time of Encounter: 09:57 Assessment and Plan (1) Acute on chronic diastolic (congestive) heart failure Current Visit: Yes Status: Acute Acute on chronic diastolic CHF--states she did not pick up attendant her diuretic medications including lasix and metalazone day of discharge and missed doses. BNP 895, CXR with pulmonary edema. Pt's O2 was 81% on arrival to ED, was on BiPAP, now on venturi mask. Reports symptoms are improving with IV diuresis. LE edema and breathing improved , although still on high flow O2 10L via venturi mask. Agree with IV Lasix 40mg BID and PO Metalazone 2.5mg BID. Renal function mildly worsened today 2.64, but still within her baseline range. Recommend strict I/Os, Na and fluid restriction, daily weights. Suspect underlying [place]. Recommend outpt sleep study. Anticipate sign off once seen and evaluated by Dr. Cuello. (2) Hypertensive urgency Current Visit: Yes Status: Resolved BP was 208/88 on presentation and was started on nitro gtt. Nitro gtt stopped yesterday. BP now 130s/032p-[id number]-20a. Continue current antihypertensives and adjust as necessary. (3) Anemia Current Visit: Yes Status: Chronic Pt with known chronic normocytic anemia. HGB dropped today from 9.2 to 7.2, now 7.5 today. Pt denies active bleeding. Management per primary team. Qualifiers: Anemia type: unspecified type Qualified Code(s): D64.9 - Anemia, unspecified (4) CAD (coronary artery disease) Current Visit: Yes Status: Chronic [facility] 08/02/15: 99% stenosis of mid-RCA (small vessel not amenable to PCI), 30% prox LAD, 25% mid LCx, LVEF 60%, mild pulmonary hypertension. Continue ASA, Statin, BB. Qualifiers: Coronary Disease-Associated Artery/Lesion type: [place] artery [place] vs. transplanted heart: [place] heart Associated angina: without angina Qualified Code(s): I25.10 - Atherosclerotic heart disease of [place] coronary artery without angina pectoris Discussion w patient/family: The assessment and plan as outlined above was discussed with the patient and/or family members who expressed understanding and agreement. All questions were answered. Thank you for involving us in the care of your patient. Please call with any questions. I will discuss all the above with Dr. Cuello and make changes as necessary. Subjective Principal diagnosis: ADHF Interval history: Breathing and lower extremity edema appear improved, although still on high flow O2--10L via venturi mask. Pt denies chest pain. Objective Vital Signs, Last 4 Hours Pulse Resp BP Pulse Ox 09/29/16 07:00 72 17 147/69 96 Vital Signs Temp Pulse Resp BP Pulse Ox 09/29/16 07:00 72 17 147/69 96 09/29/16 04:49 17 133/71 97 09/29/16 00:43 23 133/71 97 09/28/16 23:32 18 133/71 91 09/28/16 23:07 98.3 F 64 18 133/71 64 09/28/16 19:47 91 09/28/16 18:56 97.7 F 66 17 136/64 91 09/28/16 14:00 97.7 F 68 18 164/73 95 09/28/16 12:01 97.7 F 66 29 110/93 96 Intake and Output 09/28/16 09/29/16 09/29/16 23:59 07:59 15:59 Intake Total 1100 / 1100 240 / 240 Output Total 425 / 425 Balance 675 / 675 240 / 240 Intake: Oral 1100 / 1100 240 / 240 Output: Catheter 425 / 425 Other: Meal Breakfast Percent of Meal Consumed 75% Weight 81.4 kg Blood Glucose* 269 141 Patient Weight 09/29/16 23:59 Weight 81.4 kg General: Conversant, No Apparent Distress HEENT: Atraumatic, Normocephaly, Mucus Membranes Moist Neck: Normal carotid pulses Cardiac: Reg Rate and Rhythm, Normal S1 and S2, No Murmur Lungs: Normal Breath Sounds, No Wheeze, Rales, Rhonchi Neuro: Alert and responsive, No focal deficits noted Abdomen: Soft, Non-Tender Skin: No rashes noted on visualized skin Musculoskeletal: No Chest Wall Tenderness Extremities: Other (2+ BLE edema) Results 09/29/16 05:38 09/29/16 05:38 Lab Results 09/28/16 09/29/16 09/29/16 11:48 05:38 05:38 WBC 6.0 Hgb 7.2 L 7.5 L Hct 23.4 L 25.1 L Plt Count 147 Sodium 143 Potassium 3.5 Chloride 105 Carbon Dioxide 30 H BUN 61 H Creatinine 2.64 H Glucose 130 H Calcium 9.0 Magnesium 2.0 Short CBC 09/29/16 09/28/16 Range/Units 05:38 11:48 WBC 6.0 (4.3-11.1) K/mcL Hgb 7.5 L 7.2 L (11.5-15.4) g/dL Hct 25.1 L 23.4 L (35.3-44.9) % Plt Count 147 (140-400) K/mcL Neutrophils # 4.1 (1.6-8.9) K/mcL BMP 09/29/16 Range/Units 05:38 Sodium 143 (136-145) mEq/L Potassium 3.5 (3.5-4.5) mEq/L Chloride 105 (98-109) mEq/L Carbon Dioxide 30 H (19-29) mEq/L BUN 61 H (7-20) mg/dL Creatinine 2.64 H (0.57-1.11) mg/dL Glucose 130 H (70-99) mg/dL Calcium 9.0 (8.6-10.8) mg/dL Active Medications Acetaminophen (Tylenol) 650 mg PO Q6HR PRN PRN Reason: Mild Pain (1-3) Stop: 03/29/17 21:57 Albuterol/Ipratropium (Duoneb) 3 ml IH [id number] PRN; Protocol PRN Reason: Shortness Of Breath/Wheezing Stop: 03/30/17 11:41 Aspirin (Aspirin) 81 mg PO DAILY [facility] Stop: 03/30/17 09:01 Last Admin: 09/29/16 08:41 Dose: 81 mg Atorvastatin Calcium (Lipitor) 40 mg PO HS [facility] Stop: 03/30/17 21:01 Last Admin: 09/28/16 21:20 Dose: 40 mg Carvedilol (Coreg) 12.5 mg PO BIDWM [facility] PRN Reason: Protocol Stop: 03/30/17 08:01 Last Admin: 09/29/16 08:40 Dose: 12.5 mg Dextrose/Water (Dextrose 50% (Syg)) 25 ml IVP AD PRN PRN Reason: Hypoglycemia Stop: 03/29/17 22:56 Docusate Sodium (Colace) 100 mg PO BID PRN PRN Reason: Constipation Stop: 03/29/17 21:57 Furosemide (Lasix) 40 mg IVP BIDDIURETIC [facility] Stop: 03/30/17 09:01 Last Admin: 09/29/16 08:40 Dose: 40 mg Glucagon (Glucagen) 1 mg IM ONCE PRN PRN Reason: Hypoglycemia Stop: 03/29/17 22:56 Glucose (Gluctose) 15 gm PO ONCE PRN PRN Reason: Hypoglycemia Stop: 03/29/17 22:56 Glucose (Gluctose) 30 gm PO ONCE PRN PRN Reason: Hypoglycemia Stop: 03/29/17 22:56 Hydralazine HCl (Hydralazine) 10 mg IVP Q6H PRN PRN Reason: Hypertension SBP>150 Stop: 03/30/17 11:40 Dextrose (Dextrose 5%) 1,000 mls @ 100 mls/hr IVC .Q10H PRN PRN Reason: HYPOGLYCEMIA Stop: 03/29/17 22:56 Insulin Human Lispro (Humalog) 0 units SQ HS [facility] PRN Reason: Protocol Stop: 03/30/17 21:01 Last Admin: 09/28/16 21:21 Dose: 6 units Insulin Human Lispro (Humalog) 0 units SQ TIDAC [facility] PRN Reason: Protocol Stop: 03/30/17 07:31 Last Admin: 09/29/16 08:37 Dose: Not Given Losartan Potassium (Cozaar) 50 mg PO DAILY [facility] Stop: 03/30/17 09:01 Last Admin: 09/29/16 08:41 Dose: 50 mg Magnesium Oxide (Mag-Ox) 400 mg PO BID [facility] PRN Reason: Protocol Stop: 03/30/17 09:01 Last Admin: 09/29/16 08:41 Dose: 400 mg Metolazone (Zaroxolyn) 2.5 mg PO 0730,1630 [facility] Stop: 03/30/17 07:31 Last Admin: 09/29/16 08:41 Dose: 2.5 mg Naloxone HCl (Narcan) 0.4 mg IVP Q2MIN PRN PRN Reason: Opioid Reversal Stop: 03/29/17 21:57 Nifedipine (Procardia Xl) 60 mg PO DAILY [facility] Stop: 03/30/17 09:01 Last Admin: 09/29/16 08:41 Dose: 60 mg Ondansetron HCl (Zofran Odt) 4 mg SL Q8HR PRN PRN Reason: Nausea And Vomiting Stop: 03/29/17 21:57 Pantoprazole Sodium (Protonix) 40 mg IVP DAILY [facility] Stop: 03/30/17 09:01 Last Admin: 09/29/16 08:40 Dose: 40 mg - Imaging and Cardiology Echo: report reviewed - EKG Interpretation EKG results cardiology: other (12 hr tele AVG HR 67, SR, no significant pauses or arrhythmias) - VTE Documentation of Mechanical Device: Intermittent pneumatic compression device Consult Discharge Plan - Plan Referrals: Abelardo Bowen MD [Primary Care Provider] -
[2016-09-29] MEDS ORDERED: Furosemide 40 MG/4 ML VIAL IVP ONE (10:46)
--- NOTE | 2016-09-29 11:49 | Internal Med Progress Note ---
Date of Encounter: 09/29/16 Time of Encounter: 11:47 - Assessment and plan (1) Acute respiratory failure with hypoxia Current Visit: Yes Status: Acute Assessment and plan: Secondary to CHF decompensation continue aggressive diuresis Despite increase diuretic dose, patient continues to have minimal urine output. Will follow up with nephrology.Patient may need temporary PATIENT FINANCIAL COUNSELOR for fluid removal. Pt remains high risk for intubation given current respiratory status fluid restriction diet monitor I/Os monitor daily weights cardiology input appreciated will continue bipap support with breaks for meals O2 supplementation closely monitor O2 saturation and respiratory status Patient reports of her being an every day smoker and he smokes in the house. Pt may have underlying lung disease given exposure history. continue bronchodilator support as needed. Noted to have expiratory wheezing on auscultation. Pt will benefit from outpatient pulmonary evaluation. (2) Acute on chronic diastolic (congestive) heart failure Current Visit: Yes Status: Acute Assessment and plan: as listed above (3) Chronic kidney disease, stage 4 (severe) Current Visit: Yes Status: Acute Assessment and plan: Renal function improved from her recent hospitalization and patient having urine output Dr. Kenny aware of the patient. Nephrology consultation appreciated continue IV diuresis and Metolazone will closely monitor renal function may need PATIENT FINANCIAL COUNSELOR given current urine output with worsening renal function (4) Anemia Current Visit: Yes Status: Chronic Assessment and plan: Noted to have drop in H&H no acute bleeding reported no epigastric discomfort reported stool occult negative iron studies consistent with anemia of chronic disease will closely monitor at this time patient hemodynamically stable at this time Qualifiers: Anemia type: unspecified type Qualified Code(s): D64.9 - Anemia, unspecified (5) CAD (coronary artery disease) Current Visit: Yes Status: Chronic Assessment and plan: continue home meds (ASA, lipitor, BB) Qualifiers: Coronary Disease-Associated Artery/Lesion type: [place] artery [place] vs. transplanted heart: [place] heart Associated angina: without angina Qualified Code(s): I25.10 - Atherosclerotic heart disease of [place] coronary artery without angina pectoris (6) Diabetes Current Visit: Yes Status: Chronic Assessment and plan: continue ss insulin algorithm monitor fingerstick and blood glucose ADA diet Qualifiers: Diabetes mellitus type: type 2 Diabetes mellitus complication status: with hyperglycemia Diabetes mellitus joint terminal attack controller insulin use: with joint terminal attack controller use Qualified Code(s): E11.65 - Type 2 diabetes mellitus with hyperglycemia; Z79.4 - parts counterman (current) use of insulin (7) Hypertensive urgency Current Visit: Yes Status: Resolved Assessment and plan: BP better controlled Off nitroglycerin Gtt Hydralazine 10mg IV q6h prn SBP>150 continue home medications (nifedipine, Losartan, BB) will closely monitor BP (8) DVT prophylaxis Current Visit: Yes Status: Acute Assessment and plan: SCD - Subjective Interval history: Patient seen and examined at bedside. Currently saturating well on bipap. Remains bipap depended and does not have expected urine output. Nephrology on board. Plan is to increased diuretic dose along with albumin supplementation. - Constitutional Vitals: Temp Pulse Resp BP Pulse Ox 98.3 F 72 17 147/69 96 09/28/16 23:07 09/29/16 07:00 09/29/16 07:00 09/29/16 07:00 09/29/16 07:00 General appearance: Present: A&O X 3, no acute distress (on bipap support), answers questions appropriately - Head Head exam: Present: atraumatic, normocephalic - Eye Eye exam: Present: conjuntiva pink, sclera anicteric - Respiratory Respiratory exam: Present: decreased breath sounds. Absent: respiratory distress, wheezes (bibasilar crackles) - Cardiovascular Cardiovascular exam: Present: RRR, +S1, +S2. Absent: diastolic murmur, gallop, rubs, systolic murmur - GI/Abdominal GI/Abdominal exam: Present: normal bowel sounds, soft, no peritoneal signs. Absent: distended, tenderness - Extremities Exam Extremities exam: Present: pedal edema, warm, radial pulses palpable and symetrical. Absent: calf tenderness - Neurological Exam Neurological exam: Present: alert, oriented X3, no focal deficits - Psychiatric Psychiatric exam: Present: normal affect, normal mood Internal Medicine: Result - Labs CBC & Chem 7: 09/29/16 05:38 09/29/16 05:38 Labs: Short CBC 09/28/16 09/29/16 Range/Units 11:48 05:38 WBC 6.0 (4.3-11.1) K/mcL Hgb 7.2 L 7.5 L (11.5-15.4) g/dL Hct 23.4 L 25.1 L (35.3-44.9) % Plt Count 147 (140-400) K/mcL Neutrophils # 4.1 (1.6-8.9) K/mcL [facility] 09/29/16 05:38 Sodium 143 Potassium 3.5 Chloride 105 Carbon Dioxide 30 H BUN 61 H Creatinine 2.64 H Glucose 130 H Calcium 9.0 - VTE Documentation of Mechanical Device: Intermittent pneumatic compression device Consult Discharge Plan - Plan Referrals: Abelardo Bowen MD [Primary Care Provider] -
[2016-09-29] MEDS: Albumin 25% 25gram/100mL 25 GM/100 ML IV.SOLN IVPB SCH ×2 (12:06→23:20)
[2016-09-30 03:39] LABS: Basophils % 0.3 %; Eosinophils # 0.3 K/mcL (0.0-0.6); Eosinophils % 5.2 %; Hematocrit 21.5 % (35.3-44.9); Hemoglobin 6.6 g/dL (11.5-15.4); Immature Granulocytes % 0.2 % (0-4); Lymphocytes # 0.7 K/mcL (0.6-4.6); Lymphocytes % 11.7 %; Mean Corpuscular HGB Conc 30.7 g/dL (31.6-35.5); Mean Corpuscular Hemoglobin 27.4 pg (28.0-33.3); Mean Corpuscular Volume 89.2 fL (83.0-100.0); Mean Platelet Volume 11.5 fL (9.4-12.4); Monocytes # 0.7 K/mcL (0.0-1.3); Monocytes % 11.7 %; Neutrophils # 4.1 K/mcL (1.6-8.9); Platelet Count 135 K/mcL (140-400); Red Blood Count 2.41 M/mcL (3.82-4.97); Segmented Neutrophils % 70.9 %
[2016-09-30 03:59] LABS: Calcium 8.9 mg/dL (8.6-10.8); Magnesium 2.2 mg/dL (1.6-2.6); Phosphorous 3.7 mg/dL (2.3-4.7)
[2016-09-30 04:04] LABS: Potassium 3.9 mEq/L (3.5-4.5)
[2016-09-30] MEDS: Pantoprazole 40 MG VIAL IVP SCH (08:15)
[2016-09-30] MEDS: Furosemide 40 MG/4 ML VIAL IVP SCH ×2 (08:15→17:21)
[2016-09-30] MEDS: Aspirin 81 MG TAB.CHEW PO SCH (08:16)
[2016-09-30] MEDS: NIFEdipine XL (24 HR) 60 MG TAB.ER.24 PO SCH (08:16)
[2016-09-30] MEDS: Insulin LISPRO 300 UNITS/3 ML VIAL SQ SCH ×4 (08:16→23:31)
[2016-09-30] MEDS: metOLazone 2.5 MG TABLET PO SCH ×2 (08:16→17:21)
[2016-09-30] MEDS: Magnesium Oxide 400 MG TABLET PO SCH ×2 (08:16→23:31)
[2016-09-30 08:21] LABS: Hematocrit 23.3 % (35.3-44.9); Hemoglobin 7.3 g/dL (11.5-15.4)
--- NOTE | 2016-09-30 09:17 | Nephrology Progress Note ---
Date of Encounter: 09/30/16 Time of Encounter: 09:13 - Assessment and Plan (1) Acute respiratory failure with hypoxia Current Visit: Yes Status: Acute With increase of lasix dose, and addition of albumin there was no response in increase of UOP net UOP yesterday 400 Scr worsening to 3.17 BP stable 133/58 on 10L nonrebreather Plan: I/O still net positive. with worsening urine output patient will have to undergo dialysis due to fluid overload refractory to diuretics. continue fluid restriction/salt restriction continue albumin to regimen to increase intravascular volume (2) Acute on chronic congestive heart failure Current Visit: Yes Status: Acute Qualifiers: Congestive heart failure type: diastolic Qualified Code(s): I50.33 - Acute on chronic diastolic (congestive) heart failure (3) Anemia Current Visit: Yes Status: Chronic Qualifiers: Anemia type: unspecified type Qualified Code(s): D64.9 - Anemia, unspecified (4) Chronic kidney disease, stage 4 (severe) Current Visit: Yes Status: Acute (5) Diabetes Current Visit: Yes Status: Chronic Qualifiers: Diabetes mellitus type: type 2 Diabetes mellitus complication status: with hyperglycemia Diabetes mellitus nursing home insulin use: with long term care social worker use Qualified Code(s): E11.65 - Type 2 diabetes mellitus with hyperglycemia; Z79.4 - assistant terminal manager (current) use of insulin (6) Lower extremity edema Current Visit: Yes Status: Acute Subjective Principal diagnosis: ADHF Interval history: sob stable. on 10L O2. Urine output decreased. Denies N/V/D. Objective - Vital Signs Vital signs: Vital Signs Temp Pulse Resp BP Pulse Ox 09/30/16 07:06 98.2 F 80 16 133/58 98 09/30/16 03:56 97.1 F L 67 17 121/89 95 09/30/16 03:45 94 09/30/16 03:44 27 94 09/29/16 23:19 97.7 F 64 19 134/86 91 09/29/16 15:00 97.5 F L 67 23 146/68 96 Intake and Output 09/29/16 09/30/16 09/30/16 23:59 07:59 15:59 Intake Total 100 / 100 Output Total 200 / 200 Balance 100 / 100 -200 / -200 Intake: IV Fluids 100 / 100 Flexbumin 25 gm In 100 ml 100 / 100 @ 60 mls/hr IVPB Q12H [facility] Rx#:[id number] Output: Catheter 200 / 200 Other: Weight 84.9 kg 85.1 kg Blood Glucose* 192 206 Patient Weight 09/30/16 23:59 Weight 85.1 kg - General Appearance General appearance: Present: obese EENT: Present: PERRL Neck: Present: no JVD, supple Additional Comments: basilar crackles b/l Cardiology: Present: edema (2+), regular rate, normal S1, normal S2 Gastrointestinal: Present: normoactive bowel sounds, no tenderness Integumentary: Present: no rash, warm and dry Neurologic: Present: alert and oriented x3 Musculoskeletal: Present: no erythema, no cyanosis, no clubbing Psychiatric: Present: mood/affect appropriate - Lab 09/30/16 08:05 09/30/16 03:17 Most recent lab results Calcium 8.9 mg/dL (8.6-10.8) 09/30/16 03:17 Phosphorus 3.7 mg/dL (2.3-4.7) 09/30/16 03:17 Magnesium 2.2 mg/dL (1.6-2.6) 09/30/16 03:17 - VTE Documentation of Mechanical Device: Intermittent pneumatic compression device Consult Discharge Plan - Plan Referrals: Abelardo Bowen MD [Primary Care Provider] - 10/07/16 9:45 am Renetta Reilly MD [Partnered Physician] - 11/05/16 1:45 pm Noé Reyes MD [Partnered Physician] - 11/03/16 11:30 am Yovani Bourne DO [Partnered Physician] - 10/16/16 2:10 pm Jean Carlos Prabhakar MD [Partnered Physician] - 10/14/16 1:45 pm
[2016-09-30] MEDS: Albumin 25% 25gram/100mL 25 GM/100 ML IV.SOLN IVPB SCH ×2 (10:57→23:54)
--- NOTE | 2016-09-30 11:23 | Internal Med Progress Note ---
Date of Encounter: 09/30/16 Time of Encounter: 11:23 - Assessment and plan (1) Acute respiratory failure with hypoxia Current Visit: Yes Status: Acute Assessment and plan: Secondary to CHF decompensation Remains volume overloaded given worsening renal function patient to start HVAC SALES REPRESENTATIVE therapy today for fluid removal Pt remains high risk for intubation given current respiratory status fluid restriction diet monitor I/Os monitor daily weights cardiology input appreciated will continue bipap support with breaks for meals O2 supplementation closely monitor O2 saturation and respiratory status Patient reports of her being an every day smoker and he smokes in the house. Pt may have underlying lung disease given exposure history. continue bronchodilator support as needed. Noted to have expiratory wheezing on auscultation. Pt will benefit from outpatient pulmonary evaluation. (2) Acute on chronic diastolic (congestive) heart failure Current Visit: Yes Status: Acute Assessment and plan: as listed above (3) Chronic kidney disease, stage 4 (severe) Current Visit: Yes Status: Acute Assessment and plan: given worsening renal function and minimal urine output, patient to undergo HVAC SALES REPRESENTATIVE today nephrology input appreciated (4) Anemia Current Visit: Yes Status: Chronic Assessment and plan: Noted to have drop in H&H no acute bleeding reported no epigastric discomfort reported stool occult negative iron studies consistent with anemia of chronic disease will closely monitor at this time patient hemodynamically stable at this time Qualifiers: Anemia type: unspecified type Qualified Code(s): D64.9 - Anemia, unspecified (5) CAD (coronary artery disease) Current Visit: Yes Status: Chronic Assessment and plan: continue home meds (ASA, lipitor, BB) Qualifiers: Coronary Disease-Associated Artery/Lesion type: [place] artery [place] vs. transplanted heart: [place] heart Associated angina: without angina Qualified Code(s): I25.10 - Atherosclerotic heart disease of [place] coronary artery without angina pectoris (6) Diabetes Current Visit: Yes Status: Chronic Assessment and plan: Started home dose of levemir continue ss insulin algorithm monitor fingerstick and blood glucose ADA diet Qualifiers: Diabetes mellitus type: type 2 Diabetes mellitus complication status: with hyperglycemia Diabetes mellitus snf insulin use: with dedicated intermodal truck driver use Qualified Code(s): E11.65 - Type 2 diabetes mellitus with hyperglycemia; Z79.4 - 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 termite (current) use of insulin (7) Hypertensive urgency Current Visit: Yes Status: Resolved Assessment and plan: BP better controlled Hydralazine 10mg IV q6h prn SBP>150 continue home medications (nifedipine, Losartan, BB) will closely monitor BP (8) DVT prophylaxis Current Visit: Yes Status: Acute Assessment and plan: SCD - Subjective Interval history: Patient seen and examined at bedside. continues to require 8-10 high flow oxygen therapy but does better with bipap. Noted to have significant decrease in urine output and remains in volume overload state. - Constitutional Vitals: Temp Pulse Resp BP Pulse Ox 98.2 F 80 16 133/58 98 09/30/16 07:06 09/30/16 07:06 09/30/16 07:06 09/30/16 07:06 09/30/16 07:06 General appearance: Present: A&O X 3, no acute distress, answers questions appropriately - Head Head exam: Present: atraumatic, normocephalic - Eye Eye exam: Present: conjuntiva pink, sclera anicteric - Respiratory Respiratory exam: Absent: respiratory distress, wheezes (bibasilar crackles) - Cardiovascular Cardiovascular exam: Present: RRR, +S1, +S2. Absent: diastolic murmur, gallop, rubs, systolic murmur - GI/Abdominal GI/Abdominal exam: Present: normal bowel sounds, soft, no peritoneal signs. Absent: distended, tenderness - Extremities Exam Extremities exam: Present: pedal edema, warm, radial pulses palpable and symetrical. Absent: calf tenderness - Neurological Exam Neurological exam: Present: alert, oriented X3 - Psychiatric Psychiatric exam: Present: normal affect, normal mood Internal Medicine: Result - Labs CBC & Chem 7: 09/30/16 08:05 09/30/16 03:17 Labs: Short CBC 09/30/16 09/30/16 Range/Units 03:17 08:05 WBC 5.8 (4.3-11.1) K/mcL Hgb 6.6 L 7.3 L (11.5-15.4) g/dL Hct 21.5 L 23.3 L (35.3-44.9) % Plt Count 135 L (140-400) K/mcL Neutrophils # 4.1 (1.6-8.9) K/mcL BMP 09/30/16 03:17 Sodium 141 Potassium 3.9 Chloride 103 Carbon Dioxide 28 BUN 67 H Creatinine 3.17 H Glucose 183 H Calcium 8.9 - VTE Documentation of Mechanical Device: Intermittent pneumatic compression device Consult Discharge Plan - Plan Referrals: Abelardo Bowen MD [Primary Care Provider] - 10/07/16 9:45 am Renetta Reilly MD [Partnered Physician] - 11/05/16 1:45 pm Noé Reyes MD [Partnered Physician] - 11/03/16 11:30 am Yovani Buorne DO [Partnered Physician] - 10/16/16 2:10 pm Jean Carlos Prabhakar MD [Partnered Physician] - 10/14/16 1:45 pm
[2016-09-30 13:00] LABS: Hepatitis B Surface Antibody 0.33 mIU/mL; Hepatitis B Surface Antigen Nonreactive (Nonreactive)
[2016-09-30] MEDS ORDERED: *HR* Heparin 5,000 UNIT/ML VIAL ONE ×2 (13:36→13:37)
--- NOTE | 2016-09-30 13:46 | IR Procedure Note ---
Date of procedure: 09/30/16 Consent Obtained: Written consent Timeout: Correct patient and procedure verified, Correct site verified, Time out performed, Skin prep completed Local anesthetic: Lidocaine 1% Indications: Renal insufficiency Procedure Performed: Temp HD catheter placement Site/Technique: RIJV used Results/Findings: 15cm catheter placed Estimated blood loss (cc): 2 Complications: None; Tolerated procedure well Post Procedure Treatment Plan: Monitoring in pts room. CXR ordered.
[2016-09-30] MEDS: Insulin DETEMIR 100 UNIT/ML X5UNITS SQ SCH (14:53)
[2016-09-30 15:17] LABS: Bilirubin,Urine Small (Negative); Blood,Urine Large (Negative); Clarity,Urine Cloudy (Clear); Color,Urine Yellow (Yellow); Glucose,Urine (UA) Normal (Normal); Ketones,Urine Negative (Negative); Leukocyte Esterase,Urine Large (Negative); Nitrite,Urine Negative (Negative); PH,Urine 5.5 pH Units (5.0-8.0); Protein,Urine >=300 mg/dL (Neg-Trace); Specific Gravity,Urine 1.018 (1.010-1.025); Urobilinogen,Urine Normal (Normal)
[2016-09-30 15:20] LABS: Bacteria,Urine Few per hpf (None-Few); Hyaline Casts,Urine None Seen per lpf (None-Few); RBC,Urine TNTC per hpf (0-3); Squamous Epithelial Cell,Urine Moderate per lpf (None-Few); WBC,Urine 50-100 per hpf (0-3)
[2016-09-30] MEDS ORDERED: *HR* Heparin 10,000 UNIT/10 ML VIAL IV PRN (18:37)
[2016-09-30] MEDS ORDERED: 0.9 % Sodium Chloride 250 ML IVC PRN (18:37)
[2016-09-30] MEDS ORDERED: 0.9 % Sodium Chloride 1,000 ML PRIME SCH (18:45)
[2016-10-01 04:50] LABS: Basophils % 0.2 %; Eosinophils # 0.3 K/mcL (0.0-0.6); Eosinophils % 4.8 %; Hematocrit 21.3 % (35.3-44.9); Hemoglobin 6.7 g/dL (11.5-15.4); Immature Granulocytes % 0.2 % (0-4); Lymphocytes # 0.7 K/mcL (0.6-4.6); Lymphocytes % 11.2 %; Mean Corpuscular HGB Conc 31.5 g/dL (31.6-35.5); Mean Corpuscular Hemoglobin 27.8 pg (28.0-33.3); Mean Corpuscular Volume 88.4 fL (83.0-100.0); Mean Platelet Volume 11.6 fL (9.4-12.4); Monocytes # 0.7 K/mcL (0.0-1.3); Monocytes % 12.2 %; Neutrophils # 4.2 K/mcL (1.6-8.9); Platelet Count 134 K/mcL (140-400); Red Blood Count 2.41 M/mcL (3.82-4.97); Segmented Neutrophils % 71.4 %
[2016-10-01 05:07] LABS: Calcium 9.1 mg/dL (8.6-10.8); Magnesium 2.1 mg/dL (1.6-2.6); Phosphorous 2.8 mg/dL (2.3-4.7); Potassium 3.6 mEq/L (3.5-4.5)
[2016-10-01] MEDS: Magnesium Oxide 400 MG TABLET PO SCH ×2 (07:59→20:30)
[2016-10-01] MEDS: metOLazone 2.5 MG TABLET PO SCH ×2 (07:59→16:30)
[2016-10-01] MEDS: Aspirin 81 MG TAB.CHEW PO SCH (07:59)
[2016-10-01] MEDS: Insulin DETEMIR 100 UNIT/ML X5UNITS SQ SCH (07:59)
[2016-10-01] MEDS: Insulin LISPRO 300 UNITS/3 ML VIAL SQ SCH ×4 (08:00→20:29)
[2016-10-01] MEDS: NIFEdipine XL (24 HR) 60 MG TAB.ER.24 PO SCH (10:47)
--- NOTE | 2016-10-01 10:48 | Internal Med Progress Note ---
Date of Encounter: 10/01/16 Time of Encounter: 10:47 - Assessment and plan (1) Acute respiratory failure with hypoxia Current Visit: Yes Status: Acute Assessment and plan: Secondary to CHF decompensation Remains volume overloaded given worsening renal function Started MANAGER FUND yesterday (09/30/16), patient to undergo MANAGER FUND again today for fluid removal respiratory status improving will continue bipap support at bedtime fluid restriction diet monitor I/Os monitor daily weights cardiology input appreciated O2 supplementation closely monitor O2 saturation and respiratory status Patient reports of her being an every day smoker and he smokes in the house. Pt may have underlying lung disease given exposure history. continue bronchodilator support as needed. Pt will benefit from outpatient pulmonary evaluation. (2) Acute on chronic diastolic (congestive) heart failure Current Visit: Yes Status: Acute Assessment and plan: as listed above (3) Chronic kidney disease, stage 4 (severe) Current Visit: Yes Status: Acute Assessment and plan: given worsening renal function and minimal urine output, patient to undergo MANAGER FUND today nephrology input appreciated (4) Anemia Current Visit: Yes Status: Chronic Assessment and plan: Noted to have drop in H&H no acute bleeding reported no epigastric discomfort reported stool occult negative iron studies consistent with anemia of chronic disease will transfuse 2 units PRBC during hemodialysis today will closely monitor at this time patient hemodynamically stable at this time Qualifiers: Qualified Code(s): D64.9 - Anemia, unspecified (5) CAD (coronary artery disease) Current Visit: Yes Status: Chronic Assessment and plan: continue home meds (ASA, lipitor, BB) Qualifiers: Qualified Code(s): I25.10 - Atherosclerotic heart disease of [place] coronary artery without angina pectoris (6) Diabetes Current Visit: Yes Status: Chronic Assessment and plan: continue home dose of levemir continue ss insulin algorithm monitor fingerstick and blood glucose ADA diet Qualifiers: Qualified Code(s): E11.65 - Type 2 diabetes mellitus with hyperglycemia; Z79.4 - shelter (current) use of insulin (7) Hypertensive urgency Current Visit: Yes Status: Resolved Assessment and plan: BP better controlled Hydralazine 10mg IV q6h prn SBP>150 continue home medications (nifedipine, Losartan, BB) will closely monitor BP (8) DVT prophylaxis Current Visit: Yes Status: Acute Assessment and plan: SCD - Subjective Interval history: Patient seen and examined with family present at bedside. Patient reports of feeling better compared to previous day. Started HD and tolerated it well. Noted to have drop in H&H and will be transfused two units PRBC during hemodialysis. Pt's UA was positive for leukocyte esterase and patient remains clinically asymptomatic with no clinical signs of infection. Will monitor off abx at this time. - Constitutional Vitals: Temp Pulse Resp BP Pulse Ox 98.3 F 71 18 140/58 98 10/01/16 07:52 10/01/16 07:52 10/01/16 07:52 10/01/16 07:52 10/01/16 08:14 General appearance: Present: cooperative, A&O X 3, no acute distress, obese, answers questions appropriately - Head Head exam: Present: atraumatic, normocephalic - Eye Eye exam: Present: conjuntiva pink, sclera anicteric - Respiratory Respiratory exam: Absent: respiratory distress, wheezes (bibasilar crackles) - Cardiovascular Cardiovascular exam: Present: RRR, +S1, +S2. Absent: diastolic murmur, gallop, rubs, systolic murmur - GI/Abdominal GI/Abdominal exam: Present: normal bowel sounds, soft, no peritoneal signs. Absent: distended, tenderness - Extremities Exam Extremities exam: Present: warm, radial pulses palpable and symetrical. Absent : calf tenderness, pedal edema - Neurological Exam Neurological exam: Present: alert, oriented X3 - Psychiatric Psychiatric exam: Present: normal affect, normal mood Internal Medicine: Result - Labs CBC & Chem 7: 10/01/16 04:30 10/01/16 04:30 Labs: Short CBC 10/01/16 Range/Units 04:30 WBC 5.8 (4.3-11.1) K/mcL Hgb 6.7 L (11.5-15.4) g/dL Hct 21.3 L (35.3-44.9) % Plt Count 134 L (140-400) K/mcL Neutrophils # 4.2 (1.6-8.9) K/mcL BMP 10/01/16 04:30 Sodium 140 Potassium 3.6 Chloride 102 Carbon Dioxide 31 H BUN 41 H D Creatinine 2.47 H Glucose 113 H Calcium 9.1 Urine 09/30/16 Range/Units 15:00 Urine Color Yellow (Yellow) Urine Clarity Cloudy A (Clear) Urine pH 5.5 (5.0-8.0) pH Units Ur Specific [place] 1.018 (1.010-1.025) Urine Protein >=300 H (Neg-Trace) mg/dL Urine Glucose (UA) Normal (Normal) mg/dL - Impressions Impressions Guidance Needle Placement Ultrasound 09/30/16 00:00 IMPRESSION: Successful ultrasound-guided placement of a triple-lumen temporary hemodialysis catheter as described above. D/ / Mak Loera MD / Mak Loera MD Interpreting Provider: Mak Loera MD Insertion Non-Tunneled Catheter 09/30/16 00:00 IMPRESSION: Successful ultrasound-guided placement of a triple-lumen temporary hemodialysis catheter as described above. D/ / Mak Loera MD / Mak Loera MD Interpreting Provider: Mak oLera MD Chest X-Ray 09/30/16 13:40 IMPRESSION: Unchanged appearance of cardiomegaly and pulmonary edema, suspected to be on the basis of fluid overload/CHF. D/ / Stalin Saunders / Stalin Saunders Interpreting Provider: Stalin Saunders - VTE Documentation of Mechanical Device: Intermittent pneumatic compression device Consult Discharge Plan - Plan Referrals: Abelardo Bowen MD [Primary Care Provider] - 10/07/16 9:45 am Renetta Reilly MD [Partnered Physician] - 11/05/16 1:45 pm Noé Reyes MD [Partnered Physician] - 11/03/16 11:30 am Yovani Bourne DO [Partnered Physician] - 10/16/16 2:10 pm Jean Carlos Prabhakar MD [Partnered Physician] - 10/14/16 1:45 pm
[2016-10-01] MEDS ORDERED: 0.9 % Sodium Chloride 250 ML IVC PRN (11:12)
[2016-10-01] MEDS ORDERED: 0.9 % Sodium Chloride 1,000 ML PRIME SCH (11:15)
[2016-10-01] MEDS: Albumin 25% 25gram/100mL 25 GM/100 ML IV.SOLN IVPB SCH (11:56)
[2016-10-01] MEDS: Furosemide 40 MG/4 ML VIAL IVP SCH (11:59)
--- NOTE | 2016-10-01 13:27 | Nephrology Progress Note ---
Date of Encounter: 10/01/16 Time of Encounter: 13:28 - Assessment and Plan (1) Acute respiratory failure with hypoxia Current Visit: Yes Status: Acute sob and LE edema improved with ultrafiltration reduced O2 demand now on 6L BP stable oligouric with UOP 350 Plan: greatly improved LE edema now 1+ and O2 requirement. will undergo UF again today. Strict I/O continue fluid restriction/salt restriction avoid nephrotoxins: NSAID and contrast. (2) Anemia Current Visit: Yes Status: Chronic hgb dropped to 6.7 there are no signs of bleeding on exam. 2 PBRC transfusing during dialysis. Qualifiers: Anemia type: unspecified type Qualified Code(s): D64.9 - Anemia, unspecified (3) Acute on chronic congestive heart failure Current Visit: Yes Status: Acute Qualifiers: Congestive heart failure type: diastolic Qualified Code(s): I50.33 - Acute on chronic diastolic (congestive) heart failure (4) Chronic kidney disease, stage 4 (severe) Current Visit: Yes Status: Acute (5) Diabetes Current Visit: Yes Status: Chronic Qualifiers: Diabetes mellitus type: type 2 Diabetes mellitus complication status: with hyperglycemia Diabetes mellitus fci insulin use: with intermodal dispatcher use Qualified Code(s): E11.65 - Type 2 diabetes mellitus with hyperglycemia; Z79.4 - intermediate accountant (current) use of insulin (6) Lower extremity edema Current Visit: Yes Status: Acute Subjective Principal diagnosis: ADHF Interval history: sob stable. on 6L O2. oligouric. Denies N/V/D. reports improvement in sob and LE edema. Objective - Vital Signs Vital signs: Vital Signs Temp Pulse Resp BP Pulse Ox 10/01/16 13:05 98.4 F 66 18 118/62 10/01/16 12:50 97.4 F L 66 18 119/53 10/01/16 11:39 18 134/59 97 10/01/16 08:14 98 10/01/16 07:52 98.3 F 71 18 140/58 98 10/01/16 05:19 98.3 F 70 19 154/63 97 09/30/16 23:30 97 09/30/16 22:35 97.8 F 18 122/62 09/30/16 22:20 124/60 09/30/16 22:05 124/62 09/30/16 21:50 120/59 09/30/16 21:35 115/55 09/30/16 21:20 115/59 09/30/16 21:05 127/58 09/30/16 20:50 125/64 09/30/16 20:35 122/61 09/30/16 20:20 97.1 F L 18 139/67 09/30/16 16:24 97.9 F 68 18 142/60 92 Intake and Output 09/30/16 10/01/16 10/01/16 23:59 07:59 15:59 Intake Total 840 / 840 470 / 470 Output Total 2600 / 2600 350 / 350 Balance -1760 / -1760 -350 / -350 470 / 470 Intake: Oral 240 / 240 120 / 120 Blood Product 350 / 350 Rbcs Leuko Poor As-1 350 / 350 Unit [id number] Intake, Rinseback and 600 / 600 Flushes Output: Urine 0 / 0 Total Dialysis (HD) 2600 / 2600 Output Catheter 350 / 350 Other: Meal Dinner Breakfast Percent of Meal Consumed 50% 100% Blood Glucose* 228 130 233 Hemodialysis Net Fluid 2000 Removed (mL) - General Appearance General appearance: Present: obese EENT: Present: mucous membranes moist Neck: Present: no JVD, supple Additional Comments: diminished. mild basilar carckles b/l. Cardiology: Present: edema (1+), regular rate, regular rhythm Gastrointestinal: Present: normoactive bowel sounds, no tenderness Integumentary: Present: warm and dry Neurologic: Present: alert and oriented x3 Musculoskeletal: Present: no erythema, no cyanosis Psychiatric: Present: mood/affect appropriate - Lab 10/01/16 04:30 10/01/16 04:30 Most recent lab results Calcium 9.1 mg/dL (8.6-10.8) 10/01/16 04:30 Phosphorus 2.8 mg/dL (2.3-4.7) 10/01/16 04:30 Magnesium 2.1 mg/dL (1.6-2.6) 10/01/16 04:30 - VTE Documentation of Mechanical Device: Intermittent pneumatic compression device Consult Discharge Plan - Plan Referrals: Abelardo Bowen MD [Primary Care Provider] - 10/07/16 9:45 am Renetta Reilly MD [Partnered Physician] - 11/05/16 1:45 pm Noé Reyes MD [Partnered Physician] - 11/03/16 11:30 am Yovani Bourne DO [Partnered Physician] - 10/16/16 2:10 pm Jean Carlos Prabhakar MD [Partnered Physician] - 10/14/16 1:45 pm
[2016-10-01] MEDS ORDERED: 0.9 % Sodium Chloride 1,000 ML ONE (14:41)
[2016-10-01] MEDS: Acetaminophen 325 MG TABLET PO PRN (20:30)
[2016-10-02 05:19] LABS: Basophils % 0.3 %; Eosinophils # 0.3 K/mcL (0.0-0.6); Eosinophils % 4.8 %; Hematocrit 28.2 % (35.3-44.9); Immature Granulocytes % 0.2 % (0-4); Lymphocytes # 0.5 K/mcL (0.6-4.6); Lymphocytes % 7.3 %; Mean Corpuscular HGB Conc 31.2 g/dL (31.6-35.5); Mean Corpuscular Hemoglobin 26.7 pg (28.0-33.3); Mean Corpuscular Volume 85.5 fL (83.0-100.0); Mean Platelet Volume 11.4 fL (9.4-12.4); Monocytes # 0.8 K/mcL (0.0-1.3); Monocytes % 11.8 %; Platelet Count 144 K/mcL (140-400); Red Cell Distribution Width 15.7 % (11.5-14.5); Segmented Neutrophils % 75.6 %
[2016-10-02 05:30] LABS: Hemoglobin 8.8 g/dL (11.5-15.4)
[2016-10-02 05:37] LABS: Calcium 9.2 mg/dL (8.6-10.8); Phosphorous 2.6 mg/dL (2.3-4.7); Potassium 3.5 mEq/L (3.5-4.5)
[2016-10-02] MEDS: Magnesium Oxide 400 MG TABLET PO SCH ×2 (08:00→23:36)
[2016-10-02] MEDS: Aspirin 81 MG TAB.CHEW PO SCH (08:00)
[2016-10-02] MEDS: Insulin LISPRO 300 UNITS/3 ML VIAL SQ SCH ×5 (08:01→17:05)
[2016-10-02] MEDS ORDERED: 0.9 % Sodium Chloride 250 ML IVC PRN (09:52)
--- NOTE | 2016-10-02 11:16 | Internal Med Progress Note ---
Date of Encounter: 10/02/16 Time of Encounter: 11:12 - Assessment and plan (1) Acute respiratory failure with hypoxia Current Visit: Yes Status: Acute Assessment and plan: Secondary to CHF decompensation Clinically improving continue RAILROAD SIGNAL OPERATOR for fluid removal nephrology on board and consultation appreciated respiratory status improving-currently saturating well on 3L NC will continue bipap support at bedtime fluid restriction diet monitor I/Os monitor daily weights cardiology input appreciated O2 supplementation closely monitor O2 saturation and respiratory status Patient reports of her being an every day smoker and he smokes in the house. Pt may have underlying lung disease given exposure history. continue bronchodilator support as needed. Pt will benefit from outpatient pulmonary evaluation. (2) Acute on chronic diastolic (congestive) heart failure Current Visit: Yes Status: Acute Assessment and plan: as listed above (3) Chronic kidney disease, stage 4 (severe) Current Visit: Yes Status: Acute Assessment and plan: patient to undergo RAILROAD SIGNAL OPERATOR today nephrology input appreciated (4) Anemia Current Visit: Yes Status: Chronic Assessment and plan: s/p PRBC transfusion (10/01/16) repeat H&H within acceptable range no acute bleeding reported no epigastric discomfort reported stool occult negative iron studies consistent with anemia of chronic disease will transfuse 2 units PRBC during hemodialysis today will closely monitor at this time patient hemodynamically stable at this time Qualifiers: Anemia type: unspecified type Qualified Code(s): D64.9 - Anemia, unspecified (5) CAD (coronary artery disease) Current Visit: Yes Status: Chronic Assessment and plan: continue home meds (ASA, lipitor, BB) Qualifiers: Coronary Disease-Associated Artery/Lesion type: [place] artery [place] vs. transplanted heart: [place] heart Associated angina: without angina Qualified Code(s): I25.10 - Atherosclerotic heart disease of [place] coronary artery without angina pectoris (6) Diabetes Current Visit: Yes Status: Chronic Assessment and plan: continue home dose of levemir restarted premeal insulin given current BG readings continue ss insulin algorithm monitor fingerstick and blood glucose ADA diet Qualifiers: Diabetes mellitus type: type 2 Diabetes mellitus complication status: with hyperglycemia Diabetes mellitus equipment operator intermodal yard insulin use: with equipment operator intermodal yard use Qualified Code(s): E11.65 - Type 2 diabetes mellitus with hyperglycemia; Z79.4 - long term care phlebotomist (current) use of insulin (7) Hypertensive urgency Current Visit: Yes Status: Resolved Assessment and plan: BP better controlled Hydralazine 10mg IV q6h prn SBP>150 continue home medications (nifedipine, Losartan, BB) will closely monitor BP (8) DVT prophylaxis Current Visit: Yes Status: Acute Assessment and plan: SCD - Subjective Interval history: Patient seen and examined with family present at bedside. Sitting in chair and saturating well on 3L NC. REports of feeling significantly better compared to previous day. Denies any discomfort at this time. No overnight issues reported. Noted to be hyperglycemic, will restart humalog premeal - Constitutional Vitals: Temp Pulse Resp BP Pulse Ox 98.3 F 71 16 140/66 95 10/02/16 06:57 10/02/16 06:57 10/02/16 06:57 10/02/16 06:57 10/02/16 07:39 General appearance: Present: cooperative, A&O X 3, no acute distress, obese, answers questions appropriately - Head Head exam: Present: atraumatic, normocephalic - Eye Eye exam: Present: conjuntiva pink, sclera anicteric - Respiratory Respiratory exam: Absent: respiratory distress, wheezes (minimal bibasilar crackles-significantly improved from previous day ) - Cardiovascular Cardiovascular exam: Present: RRR, +S1, +S2. Absent: diastolic murmur, gallop, rubs, systolic murmur - GI/Abdominal GI/Abdominal exam: Present: normal bowel sounds, soft, no peritoneal signs. Absent: distended, tenderness - Extremities Exam Extremities exam: Present: pedal edema (1+pitting edema ), warm, radial pulses palpable and symetrical. Absent: calf tenderness - Neurological Exam Neurological exam: Present: alert, oriented X3 - Psychiatric Psychiatric exam: Present: normal affect, normal mood Internal Medicine: Result - Labs CBC & Chem 7: 10/02/16 04:17 10/02/16 04:17 Labs: Short CBC 10/02/16 Range/Units 04:17 WBC 6.6 (4.3-11.1) K/mcL Hgb 8.8 L D (11.5-15.4) g/dL Hct 28.2 L (35.3-44.9) % Plt Count 144 (140-400) K/mcL Neutrophils # 5.0 (1.6-8.9) K/mcL BMP 10/02/16 04:17 Sodium 136 Potassium 3.5 Chloride 99 Carbon Dioxide 29 BUN 23 H D Creatinine 2.23 H Glucose 203 H Calcium 9.2 - VTE Documentation of Mechanical Device: Intermittent pneumatic compression device Consult Discharge Plan - Plan Referrals: Abelardo Bowen MD [Primary Care Provider] - 10/07/16 9:45 am Renetta Reilly MD [Partnered Physician] - 11/05/16 1:45 pm Noé Reyes MD [Partnered Physician] - 11/03/16 11:30 am Yovani Bourne DO [Partnered Physician] - 10/16/16 2:10 pm Jean Carlos Prabhakar MD [Partnered Physician] - 10/14/16 1:45 pm
[2016-10-02] MEDS: metOLazone 2.5 MG TABLET PO SCH ×2 (11:41→17:06)
[2016-10-02] MEDS: NIFEdipine XL (24 HR) 60 MG TAB.ER.24 PO SCH (11:41)
[2016-10-02] MEDS: Insulin DETEMIR 100 UNIT/ML X5UNITS SQ SCH (11:53)
--- NOTE | 2016-10-02 12:57 | Nephrology Progress Note ---
Date of Encounter: 10/02/16 Time of Encounter: 12:55 - Assessment and Plan (1) Acute respiratory failure with hypoxia Current Visit: Yes Status: Acute sob and LE edema improved with dialysis UOP: oligouric reduced O2 demand now on 3L BP stable Plan: greatly improved LE edema now 1+ and O2 requirement. will undergo thrid day of dialysis today. Plan will then be to restart diuretics : Lasix 80mg IV BID +5mg metalazone BID and also continue losartan. If patient's urine output increases with this regimen and she does not become fluid overloaded then she may go home on this regimen likely Wednesday. If not, patient may need permanent dialysis. Patient informed of this. Strict I/O continue fluid restriction/salt restriction avoid nephrotoxins: NSAID and contrast. (2) Anemia Current Visit: Yes Status: Chronic hgb stable there are no signs of bleeding on exam. s/p 2 PBRC transfusion. Qualifiers: Anemia type: unspecified type Qualified Code(s): D64.9 - Anemia, unspecified (3) Chronic kidney disease, stage 4 (severe) Current Visit: Yes Status: Acute renal function improved with dialysis patient oligouric Dialysis dependent KELLY (4) Acute on chronic congestive heart failure Current Visit: Yes Status: Acute continue sodium and fluid restriction volume overload improved with dialysis will restart diuretics and monitor Strict I/O Qualifiers: Congestive heart failure type: diastolic Qualified Code(s): I50.33 - Acute on chronic diastolic (congestive) heart failure (5) Diabetes Current Visit: Yes Status: Chronic controlled Qualifiers: Diabetes mellitus type: type 2 Diabetes mellitus complication status: with hyperglycemia Diabetes mellitus penitentiary insulin use: with penitentiary use Qualified Code(s): E11.65 - Type 2 diabetes mellitus with hyperglycemia; Z79.4 - assisted (current) use of insulin (6) Lower extremity edema Current Visit: Yes Status: Acute improving with dialysis Subjective Principal diagnosis: ADHF Interval history: sob improved. Patient is able to walk to bathroom and back with minimal sob. O2 supplementation down to 3L. Denies N/V/D. States LE edema also improved. Objective - Vital Signs Vital signs: Vital Signs Temp Pulse Resp BP Pulse Ox 10/02/16 10:00 98.2 F 64 16 129/51 96 10/02/16 07:39 95 10/02/16 06:57 98.3 F 71 16 140/66 95 07/28/17 04:29 98.8 F 69 15 130/53 92 10/01/16 20:30 98.1 F 71 16 148/68 95 10/01/16 16:09 98.1 F 73 17 138/61 97 10/01/16 15:20 97.9 F 18 140/85 10/01/16 15:00 131/56 10/01/16 14:45 128/54 10/01/16 14:30 122/40 10/01/16 14:20 98 F 66 18 119/51 10/01/16 14:15 117/63 10/01/16 14:05 98.4 F 66 18 121/56 10/01/16 14:00 122/51 10/01/16 13:50 98.4 F 66 18 119/62 10/01/16 13:45 120/43 10/01/16 13:40 98.2 F 66 18 117/41 10/01/16 13:30 121/45 10/01/16 13:15 110/54 10/01/16 13:05 98.4 F 66 18 118/62 10/01/16 13:00 125/54 Intake and Output 10/01/16 10/02/16 10/02/16 23:59 07:59 15:59 Intake Total 240 / 240 Balance 240 / 240 Intake: Oral 240 / 240 Other: Meal Breakfast Percent of Meal Consumed 100% Weight 85.1 kg 80 kg Blood Glucose* 270 223 205 Patient Weight 10/02/16 23:59 Weight 80 kg - General Appearance General appearance: Present: obese EENT: Present: mucous membranes moist Neck: Present: no JVD, supple Respiratory: Present: clear (but diminished) Cardiology: Present: edema (1+), regular rate, regular rhythm Gastrointestinal: Present: normoactive bowel sounds, no tenderness Integumentary: Present: no rash, warm and dry Neurologic: Present: alert and oriented x3 Musculoskeletal: Present: no erythema, no cyanosis, no clubbing Psychiatric: Present: mood/affect appropriate - Lab 10/02/16 04:17 10/02/16 04:17 Most recent lab results Calcium 9.2 mg/dL (8.6-10.8) 10/02/16 04:17 Phosphorus 2.6 mg/dL (2.3-4.7) 10/02/16 04:17 Magnesium 2.0 mg/dL (1.6-2.6) 10/02/16 04:17 - VTE Documentation of Mechanical Device: Intermittent pneumatic compression device Consult Discharge Plan - Plan Referrals: Abelardo Bowen MD [Primary Care Provider] - 10/07/16 9:45 am Renetta Reilly MD [Partnered Physician] - 11/05/16 1:45 pm Noé Reyes MD [Partnered Physician] - 11/03/16 11:30 am Yovani Bourne DO [Partnered Physician] - 10/16/16 2:10 pm Jean Carlos Prabhakar MD [Partnered Physician] - 10/14/16 1:45 pm
[2016-10-02] MEDS: Furosemide 40 MG/4 ML VIAL IVP SCH (17:06)
[2016-10-02] MEDS ORDERED: 0.9 % Sodium Chloride 1,000 ML ONE (22:16)
[2016-10-03] MEDS: Insulin LISPRO 300 UNITS/3 ML VIAL SQ SCH ×8 (00:02→21:41)
[2016-10-03 05:01] LABS: Basophils % 0.3 %; Eosinophils # 0.2 K/mcL (0.0-0.6); Eosinophils % 3.6 %; Hematocrit 29.5 % (35.3-44.9); Hemoglobin 9.4 g/dL (11.5-15.4); Immature Granulocytes % 0.3 % (0-4); Lymphocytes # 0.5 K/mcL (0.6-4.6); Lymphocytes % 6.9 %; Mean Corpuscular HGB Conc 31.9 g/dL (31.6-35.5); Mean Corpuscular Hemoglobin 27.3 pg (28.0-33.3); Mean Corpuscular Volume 85.8 fL (83.0-100.0); Mean Platelet Volume 11.3 fL (9.4-12.4); Monocytes % 14.8 %; Neutrophils # 4.9 K/mcL (1.6-8.9); Platelet Count 158 K/mcL (140-400); Red Blood Count 3.44 M/mcL (3.82-4.97); Red Cell Distribution Width 15.6 % (11.5-14.5); Segmented Neutrophils % 74.1 %
[2016-10-03 05:15] LABS: Calcium 9.2 mg/dL (8.6-10.8); Magnesium 2.2 mg/dL (1.6-2.6); Phosphorous 1.9 mg/dL (2.3-4.7)
[2016-10-03 05:16] LABS: Potassium 4.2 mEq/L (3.5-4.5)
[2016-10-03] MEDS: Aspirin 81 MG TAB.CHEW PO SCH (09:04)
[2016-10-03] MEDS: metOLazone 2.5 MG TABLET PO SCH ×2 (09:05→16:36)
[2016-10-03] MEDS: NIFEdipine XL (24 HR) 60 MG TAB.ER.24 PO SCH (09:05)
[2016-10-03] MEDS: Magnesium Oxide 400 MG TABLET PO SCH ×2 (09:05→21:40)
[2016-10-03] MEDS: Furosemide 40 MG/4 ML VIAL IVP SCH (09:13)
--- NOTE | 2016-10-03 10:12 | Nephrology Progress Note ---
Date of Encounter: 10/03/16 Time of Encounter: 10:15 - Assessment and Plan (1) [id number] renal failure Current Visit: Yes Status: Acute Nonoliguric KELLY on CKD stage IV s/p 3 consecutive HD treatments primarily for volume status correction, which has also cleared SCr. Will monitor SCr this weekend after having resumed Lasix, metolazone and ARB. Anemia, likely multifactorial in etiology. Goal Hgb is 10-11 in the setting of CKD. Replete with oral Iron but may need at some point IV iron and/or EPO I recommend discontinuing the Krishnamurthy catheter, if not needed. I do not need it or recommend a Krishnamurthy catheter for strict I/Os. I see that it has already been removed: perfect. She affirmed being able to pass urine without problems. HTN/Volume status/Edema: has improved with the HD, and also the BNP has trended down from 895 to 381. Continue to follow a renal protective strategy. Renal diet. Low sodium diet with fluid restriction d/t her Hx of CHF. Daily weights. Strict I/Os Will continue to follow with you this weekend and reassess for HD on a daily basis. Thank you. Qualifiers: Acute renal failure type: unspecified Chronic kidney disease stage: stage 4 (severe) Qualified Code(s): N17.9 - Acute kidney failure, unspecified; N18.4 - Chronic kidney disease, stage 4 (severe) (2) Chronic kidney disease, stage 4 (severe) Current Visit: Yes Status: Chronic (3) Acute on chronic diastolic (congestive) heart failure Current Visit: Yes Status: Acute (4) Anemia Current Visit: Yes Status: Acute Qualifiers: Anemia type: unspecified type Qualified Code(s): D64.9 - Anemia, unspecified (5) Lower extremity edema Current Visit: Yes Status: Chronic Subjective Principal diagnosis: ADHF Interval history: Pt was s/e. She did not affirm N/V/D and affirmed having a good appetite. Her was present and we discussed her SCr which appear better after 3 days of HD, and tentatively the plan for using oral diuretics this weekend including metolazone: I answered all their questions, and they voiced appreciation. Objective - Vital Signs Vital signs: Vital Signs Temp Pulse Resp BP Pulse Ox 10/03/16 06:51 98.8 F 80 18 153/55 96 10/03/16 03:16 98.1 F 75 16 178/93 95 10/02/16 23:28 98.1 F 70 16 148/85 93 10/02/16 22:40 98.5 F 16 146/73 10/02/16 22:30 132/65 10/02/16 22:15 137/65 10/02/16 22:00 138/64 10/02/16 21:45 144/66 10/02/16 21:30 116/56 10/02/16 21:15 119/56 10/02/16 21:00 118/60 10/02/16 20:45 126/60 10/02/16 20:30 131/64 10/02/16 20:15 138/66 10/02/16 20:00 127/68 10/02/16 19:45 132/66 10/02/16 19:30 98.5 F 18 132/71 10/02/16 19:10 98.2 F 66 18 136/74 95 10/02/16 16:07 65 16 144/76 95 Intake and Output 10/02/16 10/03/16 10/03/16 23:59 07:59 15:59 Intake Total 840 / 840 240 / 240 Output Total 3900 / 3900 50 / 50 Balance -3060 / -3060 190 / 190 Intake: Oral 240 / 240 240 / 240 Intake, Rinseback and 600 / 600 Flushes Output: Urine 0 / 0 Total Dialysis (HD) 3600 / 3600 Output Catheter 300 / 300 50 / 50 Other: Meal Breakfast Percent of Meal Consumed 100% Weight 75.614 kg Blood Glucose* 114 134 Hemodialysis Net Fluid 3000 Removed (mL) Patient Weight 10/03/16 23:59 Weight 75.614 kg - General Appearance General appearance: Present: well-developed, well-nourished, appears started age EENT: Present: ATNC, PERRL, mucous membranes moist Neck: Present: supple Respiratory: Present: clear Cardiology: Present: edema (trace to 1+ pedal edema b/l), regular rate, normal S1, normal S2 Dialysis Vascular Access: Venous Catheter (RIJ temporary HD catheter was C/D/I.) Gastrointestinal: Present: normoactive bowel sounds, no tenderness, no guarding Integumentary: Present: no rash, warm and dry Neurologic: Present: no focal deficit, no asterixis, alert and oriented x3 Musculoskeletal: Present: no deformities, no erythema, no cyanosis Psychiatric: Present: mood/affect appropriate, cooperative - Lab 10/03/16 04:47 10/03/16 04:47 Most recent lab results Calcium 9.2 mg/dL (8.6-10.8) 10/03/16 04:47 Phosphorus 1.9 mg/dL (2.3-4.7) L 10/03/16 04:47 Magnesium 2.2 mg/dL (1.6-2.6) 10/03/16 04:47 - VTE Documentation of Mechanical Device: Intermittent pneumatic compression device Consult Discharge Plan - Plan Referrals: Abelardo Bowen MD [Primary Care Provider] - 10/07/16 9:45 am Renetta Reilly MD [Partnered Physician] - 11/05/16 1:45 pm Noé Reyes MD [Partnered Physician] - 11/03/16 11:30 am Yovani Bourne DO [Partnered Physician] - 10/16/16 2:10 pm Jean Carlos Prabhakar MD [Partnered Physician] - 10/14/16 1:45 pm
--- NOTE | 2016-10-03 12:10 | Internal Med Progress Note ---
Date of Encounter: 10/03/16 Time of Encounter: 11:20 - Assessment and plan (1) Acute respiratory failure with hypoxia Current Visit: Yes Status: Acute Assessment and plan: Secondary to CHF decompensation Clinically improving s/p 3 sessions of REPAIR MECHANIC restarted on diuretic support nephrology on board and consultation appreciated respiratory status improving-currently saturating well on 2L NC will continue bipap support at bedtime/as needed fluid restriction diet monitor I/Os monitor daily weights cardiology input appreciated O2 supplementation closely monitor O2 saturation and respiratory status Patient reports of her being an every day smoker and he smokes in the house. Pt may have underlying lung disease given exposure history. continue bronchodilator support as needed. Pt will benefit from outpatient pulmonary evaluation. (2) Acute on chronic diastolic (congestive) heart failure Current Visit: Yes Status: Acute Assessment and plan: as listed above (3) Chronic kidney disease, stage 4 (severe) Current Visit: Yes Status: Chronic Assessment and plan: s/p 3 sessions of REPAIR MECHANIC for fluid removal nephrology input appreciated restart diuretic support today, will closely monitor (4) Anemia Current Visit: Yes Status: Chronic Assessment and plan: s/p PRBC transfusion (10/01/16) repeat H&H within acceptable range no acute bleeding reported no epigastric discomfort reported stool occult negative iron studies consistent with anemia of chronic disease will closely monitor at this time Qualifiers: Anemia type: unspecified type Qualified Code(s): D64.9 - Anemia, unspecified (5) CAD (coronary artery disease) Current Visit: Yes Status: Chronic Assessment and plan: continue home meds (ASA, lipitor, BB) Qualifiers: Coronary Disease-Associated Artery/Lesion type: [place] artery [place] vs. transplanted heart: [place] heart Associated angina: without angina Qualified Code(s): I25.10 - Atherosclerotic heart disease of [place] coronary artery without angina pectoris (6) Diabetes Current Visit: Yes Status: Chronic Assessment and plan: continue home dose of levemir continue premeal insulin continue ss insulin algorithm monitor fingerstick and blood glucose ADA diet Qualifiers: Diabetes mellitus type: type 2 Diabetes mellitus complication status: with hyperglycemia Diabetes mellitus terminal operations manager insulin use: with terminal operations manager use Qualified Code(s): E11.65 - Type 2 diabetes mellitus with hyperglycemia; Z79.4 - penitentiary (current) use of insulin (7) Hypertensive urgency Current Visit: Yes Status: Resolved Assessment and plan: BP better controlled Hydralazine 10mg IV q6h prn SBP>150 continue home medications (nifedipine, Losartan, BB) will closely monitor BP (8) DVT prophylaxis Current Visit: Yes Status: Acute Assessment and plan: SCD - Subjective Interval history: Patient seen and examined with family present at bedside. sitting in chair and saturating well on 2L NC. Reports of feeling significantly better. Krishnamurthy cath removed and patient has been able to void. No overnight issues reported. - Constitutional Vitals: Temp Pulse Resp BP Pulse Ox 98.2 F 64 18 158/68 96 10/03/16 11:40 10/03/16 11:40 10/03/16 11:40 10/03/16 11:40 10/03/16 11:40 General appearance: Present: cooperative, A&O X 3, no acute distress, obese, answers questions appropriately - Head Head exam: Present: atraumatic, normocephalic - Eye Eye exam: Present: conjuntiva pink, sclera anicteric - Respiratory Respiratory exam: Absent: respiratory distress, wheezes - Cardiovascular Cardiovascular exam: Present: RRR, +S1, +S2. Absent: diastolic murmur, gallop, rubs, systolic murmur - GI/Abdominal GI/Abdominal exam: Present: normal bowel sounds, soft, no peritoneal signs. Absent: distended, tenderness - Extremities Exam Extremities exam: Present: pedal edema, warm, radial pulses palpable and symetrical. Absent: calf tenderness - Neurological Exam Neurological exam: Present: alert, oriented X3 - Psychiatric Psychiatric exam: Present: normal affect, normal mood Internal Medicine: Result - Labs CBC & Chem 7: 10/03/16 04:47 10/03/16 04:47 Labs: Short CBC 10/03/16 Range/Units 04:47 WBC 6.6 (4.3-11.1) K/mcL Hgb 9.4 L (11.5-15.4) g/dL Hct 29.5 L (35.3-44.9) % Plt Count 158 (140-400) K/mcL Neutrophils # 4.9 (1.6-8.9) K/mcL BMP 10/03/16 04:47 Sodium 139 Potassium 4.2 Chloride 104 Carbon Dioxide 28 BUN 11 D Creatinine 1.62 H Glucose 134 H Calcium 9.2 - VTE Documentation of Mechanical Device: Intermittent pneumatic compression device Consult Discharge Plan - Plan Referrals: Abelardo Bowen MD [Primary Care Provider] - 10/07/16 9:45 am Renetta Reilly MD [Partnered Physician] - 11/05/16 1:45 pm Noé Reyes MD [Partnered Physician] - 11/03/16 11:30 am Yovani Bourne DO [Partnered Physician] - 10/16/16 2:10 pm Jean Carlos Prabhakar MD [Partnered Physician] - 10/14/16 1:45 pm
[2016-10-03] MEDS: Insulin DETEMIR 100 UNIT/ML X5UNITS SQ SCH (12:33)
[2016-10-03] MEDS: Furosemide 40 MG TABLET PO SCH (16:36)
[2016-10-04 04:45] LABS: Basophils % 0.4 %; Eosinophils # 0.4 K/mcL (0.0-0.6); Eosinophils % 5.4 %; Hematocrit 29.3 % (35.3-44.9); Hemoglobin 9.2 g/dL (11.5-15.4); Immature Granulocytes % 0.1 % (0-4); Lymphocytes # 0.8 K/mcL (0.6-4.6); Lymphocytes % 11.5 %; Mean Corpuscular HGB Conc 31.4 g/dL (31.6-35.5); Mean Corpuscular Hemoglobin 27.3 pg (28.0-33.3); Mean Corpuscular Volume 86.9 fL (83.0-100.0); Mean Platelet Volume 11.6 fL (9.4-12.4); Monocytes # 0.9 K/mcL (0.0-1.3); Monocytes % 12.8 %; Platelet Count 164 K/mcL (140-400); Red Blood Count 3.37 M/mcL (3.82-4.97); Red Cell Distribution Width 15.5 % (11.5-14.5); Segmented Neutrophils % 69.8 %
[2016-10-04 04:59] LABS: Calcium 9.3 mg/dL (8.6-10.8)
[2016-10-04 05:00] LABS: Phosphorous 2.2 mg/dL (2.3-4.7)
[2016-10-04 05:01] LABS: Potassium 4.2 mEq/L (3.5-4.5)
[2016-10-04] MEDS: metOLazone 2.5 MG TABLET PO SCH ×2 (08:39→16:51)
[2016-10-04] MEDS: Furosemide 40 MG TABLET PO SCH ×2 (08:39→16:51)
[2016-10-04] MEDS: Aspirin 81 MG TAB.CHEW PO SCH (08:39)
[2016-10-04] MEDS: NIFEdipine XL (24 HR) 60 MG TAB.ER.24 PO SCH (08:39)
[2016-10-04] MEDS: Magnesium Oxide 400 MG TABLET PO SCH ×2 (08:39→20:34)
[2016-10-04] MEDS: Insulin LISPRO 300 UNITS/3 ML VIAL SQ SCH ×7 (08:40→20:35)
--- NOTE | 2016-10-04 09:31 | Nephrology Progress Note ---
Date of Encounter: 10/04/16 Time of Encounter: 09:00 - Assessment and Plan (1) Uigod-nc-sfvnnli renal failure Current Visit: Yes Status: Acute Nonoliguric KELLY on CKD stage IV s/p 3 consecutive HD treatments primarily for volume status correction, and now on Lasix 80mg po bid with metolazone 2.5mg po bid plus Losartan 50mg daily. SCr did rise some as expected, plus her weight increased. I suspect the I/Os are not accurately recorded as the pt did affirming making lots of urine. Nevertheless, if the pt's renal function and UOP are sufficiently worse by tomorrow (Wednesday), then I'll request a Permacath and arrange for HD on Wednesday as well as request an outpt HD chair. Anemia, likely multifactorial in etiology. Goal Hgb is 10-11 in the setting of CKD. Replete with oral Iron for now, but may need at some point IV iron and/or EPO HTN/Volume status/Edema: continue to monitor BPs, but continue the ARB for now. Diuretics at high doses often are necessary to control edema which indirectly controls BP. Need strict I/Os. Continue to follow a renal protective strategy. Renal diet. Low sodium diet with fluid restriction d/t her Hx of CHF. Daily weights. Strict I/Os Will continue to follow with you this and reassess for HD on a daily basis. Thank you. Qualifiers: Acute renal failure type: unspecified Chronic kidney disease stage: stage 4 (severe) Qualified Code(s): N17.9 - Acute kidney failure, unspecified; N18.4 - Chronic kidney disease, stage 4 (severe) (2) Chronic kidney disease, stage 4 (severe) Current Visit: Yes Status: Chronic Prior baseline level of CKD, but depending upon subsequent labs, she may have worsened (3) Acute on chronic diastolic (congestive) heart failure Current Visit: Yes Status: Acute As per primary (4) Anemia Current Visit: Yes Status: Acute See above Qualifiers: Anemia type: unspecified type Qualified Code(s): D64.9 - Anemia, unspecified (5) Lower extremity edema Current Visit: Yes Status: Chronic See above Subjective Principal diagnosis: ADHF Interval history: Pt was s/e. She did not affirm N/V/D and affirmed having a good appetite. Her was present and we discussed the plan. He showed me a Pulse Ox finger monitor by [employer], which appears to be a good device I told him. Objective - Vital Signs Vital signs: Vital Signs Temp Pulse Resp BP Pulse Ox 10/04/16 07:18 98.6 F 81 18 158/68 92 10/04/16 00:00 98.2 F 72 18 126/51 95 10/03/16 19:20 97.9 F 63 17 121/59 97 10/03/16 16:03 97.3 F L 62 18 158/81 98 10/03/16 11:40 98.2 F 64 18 158/68 96 Intake and Output 10/03/16 10/04/16 10/04/16 23:59 07:59 15:59 Intake Total 120 / 120 650 / 650 Output Total 100 / 100 0 / 0 Balance 20 / 20 650 / 650 Intake: Oral 120 / 120 650 / 650 Output: Urine 100 / 100 0 / 0 Other: Meal Dinner Percent of Meal Consumed 100% # Voids 1 Weight 78.7 kg Blood Glucose* 117 173 Patient Weight 10/04/16 23:59 Weight 78.7 kg - General Appearance General appearance: Present: well-developed, well-nourished, appears started age , obese EENT: Present: ATNC, PERRL, mucous membranes moist Neck: Present: supple Respiratory: Present: course breath sounds (with diminished breath sounds in the bases, R > L bases) Cardiology: Present: holosystolic murmur, edema (trace pretibial pitting edema b /l), regular rate Dialysis Vascular Access: Venous Catheter (Rt IJ temporary HD catheter with dressing that is C/D/I) Gastrointestinal: Present: normoactive bowel sounds, no tenderness Integumentary: Present: no rash, warm and dry Neurologic: Present: no focal deficit, no asterixis, alert and oriented x3 Musculoskeletal: Present: no deformities, no erythema, no cyanosis Psychiatric: Present: mood/affect appropriate, cooperative - Lab 10/04/16 03:33 10/04/16 03:33 Most recent lab results Calcium 9.3 mg/dL (8.6-10.8) 10/04/16 03:33 Phosphorus 2.2 mg/dL (2.3-4.7) L 10/04/16 03:33 Magnesium 2.0 mg/dL (1.6-2.6) 10/04/16 03:33 - VTE Documentation of Mechanical Device: Intermittent pneumatic compression device Consult Discharge Plan - Plan Referrals: Abelardo Bowen MD [Primary Care Provider] - 10/07/16 9:45 am Renetta Reilly MD [Partnered Physician] - 11/05/16 1:45 pm Noé Reyes MD [Partnered Physician] - 11/03/16 11:30 am Yovani Bourne DO [Partnered Physician] - 10/16/16 2:10 pm Jean Carlos Prabhakar MD [Partnered Physician] - 10/14/16 1:45 pm
[2016-10-04] MEDS: Insulin DETEMIR 100 UNIT/ML X5UNITS SQ SCH (12:17)
--- NOTE | 2016-10-04 12:34 | Internal Med Progress Note ---
Date of Encounter: 10/04/16 Time of Encounter: 12:32 - Assessment and plan (1) Acute respiratory failure with hypoxia Current Visit: Yes Status: Acute Assessment and plan: Secondary to CHF decompensation Clinically improving s/p 3 sessions of SLATE PICKER continue diuretic support nephrology on board and consultation appreciated respiratory status improving-currently saturating well on 3L NC will continue bipap support at bedtime/as needed fluid restriction diet monitor I/Os monitor daily weights cardiology input appreciated O2 supplementation closely monitor O2 saturation and respiratory status Patient reports of her being an every day smoker and he smokes in the house. Pt may have underlying lung disease given exposure history. continue bronchodilator support as needed. Pt will benefit from outpatient pulmonary evaluation. (2) Acute on chronic diastolic (congestive) heart failure Current Visit: Yes Status: Acute Assessment and plan: as listed above (3) Chronic kidney disease, stage 4 (severe) Current Visit: Yes Status: Chronic Assessment and plan: s/p 3 sessions of SLATE PICKER for fluid removal nephrology input appreciated continue diuretic support today, will closely monitor If urine output remains minimal with worsening of renal function in am, patient will likely get permacath placement in am and will continue HD hypophosphatemia: Phos supplemented, will continue to monitor electrolytes and replace as needed (4) Anemia Current Visit: Yes Status: Chronic Assessment and plan: s/p PRBC transfusion (10/01/16) repeat H&H within acceptable range no acute bleeding reported no epigastric discomfort reported stool occult negative iron studies consistent with anemia of chronic disease will closely monitor at this time Qualifiers: Anemia type: unspecified type Qualified Code(s): D64.9 - Anemia, unspecified (5) CAD (coronary artery disease) Current Visit: Yes Status: Chronic Assessment and plan: continue home meds (ASA, lipitor, BB) Qualifiers: Coronary Disease-Associated Artery/Lesion type: [place] artery [place] vs. transplanted heart: [place] heart Associated angina: without angina Qualified Code(s): I25.10 - Atherosclerotic heart disease of [place] coronary artery without angina pectoris (6) Diabetes Current Visit: Yes Status: Chronic Assessment and plan: continue home dose of levemir continue premeal insulin continue ss insulin algorithm monitor fingerstick and blood glucose ADA diet Qualifiers: Diabetes mellitus type: type 2 Diabetes mellitus complication status: with hyperglycemia Diabetes mellitus mcc insulin use: with mcc use Qualified Code(s): E11.65 - Type 2 diabetes mellitus with hyperglycemia; Z79.4 - intermodal customer service (current) use of insulin (7) Hypertensive urgency Current Visit: Yes Status: Resolved Assessment and plan: BP better controlled Hydralazine 10mg IV q6h prn SBP>150 continue home medications (nifedipine, Losartan, BB) will closely monitor BP (8) DVT prophylaxis Current Visit: Yes Status: Acute Assessment and plan: SCD - Subjective Interval history: Patient seen and examined at bedside. sitting in chair and saturating well on 3L NC. Reports of feeling significantly better. No overnight issues reported. - Constitutional Vitals: Temp Pulse Resp BP Pulse Ox 97.7 F 72 18 145/69 93 10/04/16 11:03 10/04/16 11:03 10/04/16 11:03 10/04/16 11:03 10/04/16 11:03 General appearance: Present: cooperative, A&O X 3, no acute distress, obese, answers questions appropriately - Head Head exam: Present: atraumatic, normocephalic - Eye Eye exam: Present: conjuntiva pink, sclera anicteric - Respiratory Respiratory exam: Absent: respiratory distress, wheezes - Cardiovascular Cardiovascular exam: Present: RRR, +S1, +S2. Absent: diastolic murmur, gallop, rubs, systolic murmur - GI/Abdominal GI/Abdominal exam: Present: normal bowel sounds, soft, no peritoneal signs. Absent: distended, tenderness - Extremities Exam Extremities exam: Present: pedal edema, warm, radial pulses palpable and symetrical. Absent: calf tenderness - Neurological Exam Neurological exam: Present: alert, oriented X3 - Psychiatric Psychiatric exam: Present: normal affect, normal mood Internal Medicine: Result - Labs CBC & Chem 7: 10/04/16 03:33 10/04/16 03:33 Labs: Short CBC 10/04/16 Range/Units 03:33 WBC 7.1 (4.3-11.1) K/mcL Hgb 9.2 L (11.5-15.4) g/dL Hct 29.3 L (35.3-44.9) % Plt Count 164 (140-400) K/mcL Neutrophils # 5.0 (1.6-8.9) K/mcL BMP 10/04/16 03:33 Sodium 137 Potassium 4.2 Chloride 101 Carbon Dioxide 29 BUN 21 H D Creatinine 2.41 H Glucose 132 H Calcium 9.3 - VTE Documentation of Mechanical Device: Intermittent pneumatic compression device Consult Discharge Plan - Plan Referrals: Abelardo Bowen MD [Primary Care Provider] - 10/07/16 9:45 am Renetta Reilly MD [Partnered Physician] - 11/05/16 1:45 pm Noé Reyes MD [Partnered Physician] - 11/03/16 11:30 am oYvani Bourne DO [Partnered Physician] - 10/16/16 2:10 pm Jean Carlos Prabhakar MD [Partnered Physician] - 10/14/16 1:45 pm
[2016-10-05 05:13] LABS: Basophils % 0.4 %; Eosinophils # 0.4 K/mcL (0.0-0.6); Eosinophils % 5.1 %; Hematocrit 28.3 % (35.3-44.9); Hemoglobin 8.9 g/dL (11.5-15.4); Immature Granulocytes % 0.1 % (0-4); Lymphocytes # 0.7 K/mcL (0.6-4.6); Mean Corpuscular HGB Conc 31.4 g/dL (31.6-35.5); Mean Corpuscular Hemoglobin 27.1 pg (28.0-33.3); Mean Corpuscular Volume 86.3 fL (83.0-100.0); Mean Platelet Volume 11.5 fL (9.4-12.4); Neutrophils # 4.8 K/mcL (1.6-8.9); Platelet Count 169 K/mcL (140-400); Red Blood Count 3.28 M/mcL (3.82-4.97); Segmented Neutrophils % 70.4 %
[2016-10-05 05:25] LABS: Magnesium 1.9 mg/dL (1.6-2.6); Phosphorous 3.3 mg/dL (2.3-4.7)
[2016-10-05 05:26] LABS: Calcium 9.3 mg/dL (8.6-10.8); Potassium 4.1 mEq/L (3.5-4.5)
[2016-10-05] MEDS ORDERED: 0.9 % Sodium Chloride 250 ML IVC PRN (08:11)
[2016-10-05 08:48] LABS: INR 1.1; Prothrombin Time 11.8 Seconds (9.4-12.1)
[2016-10-05] MEDS: metOLazone 2.5 MG TABLET PO SCH ×2 (08:59→18:19)
[2016-10-05] MEDS: Furosemide 40 MG TABLET PO SCH ×2 (08:59→18:19)
[2016-10-05] MEDS: Aspirin 81 MG TAB.CHEW PO SCH (08:59)
[2016-10-05] MEDS: Magnesium Oxide 400 MG TABLET PO SCH ×2 (08:59→20:02)
[2016-10-05] MEDS: Insulin LISPRO 300 UNITS/3 ML VIAL SQ SCH ×7 (09:01→21:16)
--- NOTE | 2016-10-05 09:15 | Nephrology Progress Note ---
Date of Encounter: 10/05/16 Time of Encounter: 08:45 - Assessment and Plan (1) Hkcjx-et-hrgthpw renal failure Current Visit: Yes Status: Acute Dialysis dependent KELLY on CKD stage IV. Her UOP is not robust even on the Lasix 80mg po bid with metolazone 2.5mg po bid plus Losartan 50mg daily over the weekend. Last HD was on Wednesday, and since then her SCr has declined to pre-dialysis levels, so she has demonstrated no improvement in renal function. Therefore, I recommend she be arranged for outpatient HD and should receive a Permacath. I've consulted and spoke with IR as well as the floor RN. JONG. She is not receiving antiplatelet or anticoagulants in the last few days. Will arrange for HD today for clearance and fluid removal. Okay to use the Rt IJ temporary HD catheter while awaiting the placement of the Permacath. I've also consulted the SW to help request an outpt HD chair. Anemia, likely multifactorial in etiology. Goal Hgb is 10-11 in the setting of CKD. Replete with oral Iron for now, but may need at some point IV iron and/or EPO HTN/Volume status/Edema: continue to monitor BPs, but continue the ARB for now. Diuretics at high doses often are necessary to control edema which indirectly controls BP. Continue to follow a renal protective strategy. Renal diet. Low sodium diet with fluid restriction d/t her Hx of CHF. Daily weights. Strict I/Os Will continue to follow with you Thank you. Qualifiers: Acute renal failure type: unspecified Chronic kidney disease stage: stage 4 (severe) Qualified Code(s): N17.9 - Acute kidney failure, unspecified; N18.4 - Chronic kidney disease, stage 4 (severe) (2) Chronic kidney disease, stage 4 (severe) Current Visit: Yes Status: Chronic Prior baseline level of CKD IV, but she appears to have progressively worsened. (3) Acute on chronic diastolic (congestive) heart failure Current Visit: Yes Status: Acute As per primary (4) Anemia Current Visit: Yes Status: Acute See above Qualifiers: Anemia type: unspecified type Qualified Code(s): D64.9 - Anemia, unspecified (5) Lower extremity edema Current Visit: Yes Status: Chronic See above Subjective Principal diagnosis: ADHF Interval history: Pt was s/e. She did not affirm N/V/D and affirmed having a good appetite. She voiced consent to proceed with the Permacath. She said she lives in [place], [place]. We talked about the R/B/I and SE potential for chronic dialysis and the Permacath including some basics on caring for the Permacath. She already ate breakfast today. Objective - Vital Signs Vital signs: Vital Signs Temp Pulse Resp BP Pulse Ox 10/05/16 07:00 97.8 F 79 17 156/75 97 10/04/16 23:07 97.8 F 67 122/54 96 10/04/16 19:48 97.9 F 67 18 122/68 100 10/04/16 16:44 98.1 F 67 18 138/80 97 10/04/16 11:03 97.7 F 72 18 145/69 93 Intake and Output 10/04/16 10/05/16 10/05/16 23:59 07:59 15:59 Intake Total 1040 / 1040 0 / 0 Output Total 200 / 200 100 / 100 Balance 840 / 840 -100 / -100 Intake: Oral 1040 / 1040 0 / 0 Output: Urine 200 / 200 100 / 100 Other: Meal Dinner Percent of Meal Consumed 95% # Voids 1 Weight 79.7 kg Blood Glucose* 186 Patient Weight 10/05/16 23:59 Weight 79.7 kg - General Appearance Exam: General appearance: Present: well-developed, well-nourished, appears started age , obese EENT: Present: ATNC, PERRL, mucous membranes moist Neck: Present: supple Respiratory: Present: course breath sounds (with diminished breath sounds in the bases, R > L bases) Cardiology: Present: holosystolic murmur, edema (trace pretibial pitting edema b /l), regular rate Dialysis Vascular Access: Venous Catheter (Rt IJ temporary HD catheter with dressing that is C/D/I) Gastrointestinal: Present: normoactive bowel sounds, no tenderness Integumentary: Present: no rash, warm and dry Neurologic: Present: no focal deficit, no asterixis, alert and oriented x3 Musculoskeletal: Present: no deformities, no erythema, no cyanosis Psychiatric: Present: mood/affect appropriate, cooperative - Lab 10/05/16 04:37 10/05/16 04:37 Most recent lab results Calcium 9.3 mg/dL (8.6-10.8) 10/05/16 04:37 Phosphorus 3.3 mg/dL (2.3-4.7) 10/05/16 04:37 Magnesium 1.9 mg/dL (1.6-2.6) 10/05/16 04:37 - VTE Documentation of Mechanical Device: Intermittent pneumatic compression device Consult Discharge Plan - Plan Referrals: Abelardo Bowen MD [Primary Care Provider] - 10/07/16 9:45 am Renetta Reilly MD [Partnered Physician] - 11/05/16 1:45 pm Noé Reyes MD [Partnered Physician] - 11/03/16 11:30 am Yovani Bourne DO [Partnered Physician] - 10/16/16 2:10 pm Jean Carlos Prabhakar MD [Partnered Physician] - 10/14/16 1:45 pm
[2016-10-05] MEDS ORDERED: Heparin 1,000 UNITS/500 mL NS 500 ML ONE (10:08)
--- NOTE | 2016-10-05 10:32 | Internal Med Progress Note ---
Date of Encounter: 10/05/16 Time of Encounter: 09:45 - Assessment and plan (1) Acute respiratory failure with hypoxia Current Visit: Yes Status: Acute Assessment and plan: Secondary to CHF decompensation Clinically improving s/p 3 sessions of RESTROOMS OR LOUNGES MAID will resume HD today and have permacath placement (10/05/16) continue diuretic support nephrology on board and consultation appreciated respiratory status improving-currently saturating well on 3L NC will continue bipap support at bedtime/as needed fluid restriction diet monitor I/Os monitor daily weights cardiology input appreciated O2 supplementation closely monitor O2 saturation and respiratory status Patient reports of her being an every day smoker and he smokes in the house. Pt may have underlying lung disease given exposure history. continue bronchodilator support as needed. Pt will benefit from outpatient pulmonary evaluation. (2) Acute on chronic diastolic (congestive) heart failure Current Visit: Yes Status: Acute Assessment and plan: as listed above (3) Chronic kidney disease, stage 4 (severe) Current Visit: Yes Status: Chronic Assessment and plan: s/p 3 sessions of RESTROOMS OR LOUNGES MAID for fluid removal nephrology input appreciated Pt to have HD today and permacath placement (10/05/16) (4) Anemia Current Visit: Yes Status: Chronic Assessment and plan: s/p PRBC transfusion (10/01/16) repeat H&H within acceptable range no acute bleeding reported no epigastric discomfort reported stool occult negative iron studies consistent with anemia of chronic disease will closely monitor at this time iron supplementation to be started by nephrology Qualifiers: Anemia type: unspecified type Qualified Code(s): D64.9 - Anemia, unspecified (5) CAD (coronary artery disease) Current Visit: Yes Status: Chronic Assessment and plan: continue home meds (ASA, lipitor, BB) Qualifiers: Coronary Disease-Associated Artery/Lesion type: [place] artery [place] vs. transplanted heart: [place] heart Associated angina: without angina Qualified Code(s): I25.10 - Atherosclerotic heart disease of [place] coronary artery without angina pectoris (6) Diabetes Current Visit: Yes Status: Chronic Assessment and plan: continue home dose of levemir continue premeal insulin continue ss insulin algorithm monitor fingerstick and blood glucose ADA diet Qualifiers: Diabetes mellitus type: type 2 Diabetes mellitus complication status: with hyperglycemia Diabetes mellitus floodplain manager insulin use: with floodplain manager use Qualified Code(s): E11.65 - Type 2 diabetes mellitus with hyperglycemia; Z79.4 - assisted (current) use of insulin (7) Hypertensive urgency Current Visit: Yes Status: Resolved Assessment and plan: BP better controlled Hydralazine 10mg IV q6h prn SBP>150 continue home medications (nifedipine, Losartan, BB) will closely monitor BP (8) DVT prophylaxis Current Visit: Yes Status: Acute Assessment and plan: SCD - Subjective Interval history: Patient seen and examined at bedside. sitting in chair and saturating well on 3L NC. Reports of feeling significantly better. No overnight issues reported. Scheduled for Permacath placement and continuation of HD today - Constitutional Vitals: Temp Pulse Resp BP Pulse Ox 97.8 F 79 17 156/75 97 10/05/16 07:00 10/05/16 07:00 10/05/16 07:00 10/05/16 07:00 10/05/16 07:00 General appearance: Present: cooperative, A&O X 3, no acute distress, obese, answers questions appropriately - Head Head exam: Present: atraumatic, normocephalic - Eye Eye exam: Present: conjuntiva pink, sclera anicteric - Respiratory Respiratory exam: Absent: respiratory distress, wheezes - Cardiovascular Cardiovascular exam: Present: RRR, +S1, +S2. Absent: diastolic murmur, gallop, rubs, systolic murmur - GI/Abdominal GI/Abdominal exam: Present: normal bowel sounds, soft, no peritoneal signs. Absent: distended, tenderness - Extremities Exam Extremities exam: Present: pedal edema, warm, radial pulses palpable and symetrical. Absent: calf tenderness - Neurological Exam Neurological exam: Present: alert, oriented X3 - Psychiatric Psychiatric exam: Present: normal affect, normal mood Internal Medicine: Result - Labs CBC & Chem 7: 10/05/16 04:37 10/05/16 04:37 Labs: Short CBC 10/05/16 Range/Units 04:37 WBC 6.9 (4.3-11.1) K/mcL Hgb 8.9 L (11.5-15.4) g/dL Hct 28.3 L (35.3-44.9) % Plt Count 169 (140-400) K/mcL Neutrophils # 4.8 (1.6-8.9) K/mcL BMP 10/05/16 04:37 Sodium 135 L Potassium 4.1 Chloride 99 Carbon Dioxide 30 H BUN 33 H D Creatinine 3.24 H Glucose 174 H Calcium 9.3 - ABG Interpretation ABG results: PT/INR, D-dimer PT 11.8 Seconds (9.4-12.1) 10/05/16 08:27 - VTE Documentation of Mechanical Device: Intermittent pneumatic compression device Consult Discharge Plan - Plan Referrals: Abelardo Bowen MD [Primary Care Provider] - 10/07/16 9:45 am Renetta Reilly MD [Partnered Physician] - 11/05/16 1:45 pm Noé Reyes MD [Partnered Physician] - 11/03/16 11:30 am Yovani Bourne DO [Partnered Physician] - 10/16/16 2:10 pm Jean Carlos Prabhakar MD [Partnered Physician] - 10/14/16 1:45 pm
[2016-10-05] MEDS ORDERED: ceFAZolin 2,000 MG in D5% in Water (Mini-Bag+) 100 ML IVPB ONE (11:21)
[2016-10-05] MEDS ORDERED: 0.9 % Sodium Chloride 2,000 ML ONE (14:48)
[2016-10-05] MEDS: NIFEdipine XL (24 HR) 60 MG TAB.ER.24 PO SCH (18:19)
[2016-10-05] MEDS: Acetaminophen 325 MG TABLET PO PRN (18:19)
[2016-10-05] MEDS: Insulin DETEMIR 100 UNIT/ML X5UNITS SQ SCH (18:24)
[2016-10-06 06:52] LABS: Potassium 3.8 mEq/L (3.5-4.5)
[2016-10-06 07:03] LABS: Hematocrit 29.5 % (35.3-44.9); Hemoglobin 9.2 g/dL (11.5-15.4); Mean Corpuscular HGB Conc 31.2 g/dL (31.6-35.5); Mean Corpuscular Hemoglobin 26.5 pg (28.0-33.3); Mean Platelet Volume 11.2 fL (9.4-12.4); Platelet Count 163 K/mcL (140-400); Red Blood Count 3.47 M/mcL (3.82-4.97); Red Cell Distribution Width 14.7 % (11.5-14.5)
[2016-10-06] MEDS: Acetaminophen 325 MG TABLET PO PRN (08:46)
[2016-10-06] MEDS: Aspirin 81 MG TAB.CHEW PO SCH (08:46)
[2016-10-06] MEDS: Furosemide 40 MG TABLET PO SCH (08:46)
[2016-10-06] MEDS: Magnesium Oxide 400 MG TABLET PO SCH (08:46)
[2016-10-06] MEDS: metOLazone 2.5 MG TABLET PO SCH (08:46)
[2016-10-06] MEDS: NIFEdipine XL (24 HR) 60 MG TAB.ER.24 PO SCH (08:47)
[2016-10-06] MEDS: Insulin DETEMIR 100 UNIT/ML X5UNITS SQ SCH (08:49)
[2016-10-06] MEDS: Insulin LISPRO 300 UNITS/3 ML VIAL SQ SCH ×4 (08:50→12:13)
--- NOTE | 2016-10-06 08:50 | Nephrology Progress Note ---
Date of Encounter: 10/06/16 Time of Encounter: 08:47 - Assessment and Plan (1) [id number] renal failure Current Visit: Yes Status: Acute Dialysis dependent KELLY on CKD stage 4. Plan for HD tomorrow Waiting on chair time at [facility] unit Answered lots of questions patient had re: dialysis Placed on a renal diet with a 2000mg sodium restriction Placed on a 2L/day fluid restriction Avoid nephrotoxins if possible. Qualifiers: Acute renal failure type: unspecified Chronic kidney disease stage: stage 4 (severe) Qualified Code(s): N17.9 - Acute kidney failure, unspecified; N18.4 - Chronic kidney disease, stage 4 (severe) (2) Acute on chronic diastolic (congestive) heart failure Current Visit: Yes Status: Acute per primary team (3) Chronic kidney disease, stage 4 (severe) Current Visit: Yes Status: Chronic Subjective Principal diagnosis: ADHF Interval history: Patient seen and examined. Sitting up on side of bed eating breakfast. Feeling well today Objective - Vital Signs Vital signs: Vital Signs Temp Pulse Resp BP Pulse Ox 10/06/16 07:44 98.0 F 70 18 142/69 93 10/05/16 21:00 98.4 F 70 15 130/76 97 10/05/16 16:10 98.1 F 18 141/65 10/05/16 16:00 98.4 F 72 17 151/64 93 10/05/16 15:55 146/63 10/05/16 15:40 146/67 10/05/16 15:25 137/73 10/05/16 15:10 137/66 10/05/16 15:00 96.8 F L 64 17 156/101 95 10/05/16 14:55 146/76 10/05/16 14:40 143/71 10/05/16 14:25 149/82 10/05/16 14:10 135/62 10/05/16 13:55 143/65 10/05/16 13:40 146/69 10/05/16 13:25 135/67 10/05/16 13:10 130/65 10/05/16 12:55 144/68 10/05/16 12:40 156/66 10/05/16 12:25 97.3 F L 19 161/76 10/05/16 11:28 71 18 134/61 97 10/05/16 11:19 73 16 135/71 95 Intake and Output 10/05/16 10/06/16 10/06/16 23:59 07:59 15:59 Output Total 3600 / 3600 Balance -3600 / -3600 Output: Total Dialysis (HD) 3600 / 3600 Output Other: Weight 75 kg Blood Glucose* 193 137 Hemodialysis Net Fluid 3000 Removed (mL) Patient Weight 10/06/16 23:59 Weight 75 kg - General Appearance General appearance: Present: well-developed, well-nourished EENT: Present: ATNC, mucous membranes moist, hearing intact, vision intact Neck: Present: supple Respiratory: Present: clear Cardiology: Present: no edema, normal S1, normal S2 Dialysis Vascular Access: Venous Catheter Gastrointestinal: Present: no tenderness, no guarding Integumentary: Present: warm and dry Neurologic: Present: alert and oriented x3 Psychiatric: Present: mood/affect appropriate, cooperative - Lab 10/06/16 04:58 10/06/16 04:58 Most recent lab results Calcium 9.0 mg/dL (8.6-10.8) 10/06/16 04:58 Phosphorus 3.3 mg/dL (2.3-4.7) 10/05/16 04:37 Magnesium 1.9 mg/dL (1.6-2.6) 10/05/16 04:37 - VTE Documentation of Mechanical Device: Intermittent pneumatic compression device Consult Discharge Plan - Plan Referrals: Abelardo Bowen MD [Primary Care Provider] - 10/07/16 9:45 am Renetta Reilly MD [Partnered Physician] - 11/05/16 1:45 pm Noé Reyes MD [Partnered Physician] - 11/03/16 11:30 am Yovani Bourne DO [Partnered Physician] - 10/16/16 2:10 pm Jean Carlos Prabhakar MD [Partnered Physician] - 10/14/16 1:45 pm
--- NOTE | 2016-10-06 10:47 | Internal Med Progress Note ---
Date of Encounter: 10/06/16 Time of Encounter: 10:45 - Assessment and plan (1) CHF (congestive heart failure) Current Visit: No Status: Acute Qualifiers: Congestive heart failure type: diastolic Congestive heart failure chronicity: acute Qualified Code(s): I50.31 - Acute diastolic (congestive) heart failure (2) Dkuwn-[id number] renal failure Current Visit: Yes Status: Acute Qualifiers: Acute renal failure type: unspecified Chronic kidney disease stage: stage 4 (severe) Qualified Code(s): N17.9 - Acute kidney failure, unspecified; N18.4 - Chronic kidney disease, stage 4 (severe) (3) Normocytic anemia Current Visit: No Status: Acute (4) Diabetes Current Visit: Yes Status: Chronic Qualifiers: Diabetes mellitus type: type 2 Diabetes mellitus complication status: with hyperglycemia Diabetes mellitus termite helper insulin use: with assisted use Qualified Code(s): E11.65 - Type 2 diabetes mellitus with hyperglycemia; Z79.4 - termite helper (current) use of insulin (5) Anemia Current Visit: Yes Status: Acute Qualifiers: Anemia type: unspecified type Qualified Code(s): D64.9 - Anemia, unspecified (6) Chronic kidney disease, stage 4 (severe) Current Visit: Yes Status: Chronic - Subjective Interval history: Mrs. Alida Becerril is a 66-year-old female admitted for stage IV chronic kidney disease contributing to acute diastolic congestive heart failure. She underwent multiple hemodialysis help in resolving CHF and has also brought urea and creatinine down. She is awaiting chair time for her outpatient dialysis. Once is arranged she can be discharged. She also has COPD diabetes and hypertension reasonably well controlled. She has chronic anemia and received 2 units PRBC during this admission. According to previous hospitalist Hemoccult test was negative. She has iron deficiency and can be given iron dextran while she is here. - Constitutional Vitals: Temp Pulse Resp BP Pulse Ox 98.0 F 70 18 142/69 93 10/06/16 07:44 10/06/16 07:44 10/06/16 07:44 10/06/16 07:44 10/06/16 07:44 General appearance: Present: cooperative, A&O X 3, no acute distress, obese, answers questions appropriately - Head Head exam: Present: atraumatic, normocephalic - Eye Eye exam: Present: PERRL, conjuntiva pink, sclera anicteric Pupils: Present: PERRL - Neck Neck exam general surgery: Present: supple, trachea midline. Absent: lymphadenopathy - Respiratory Respiratory exam: Present: CTAB. Absent: accessory muscle use, rales, rhonchi, wheezes - Cardiovascular Cardiovascular exam: Present: RRR, +S1, +S2. Absent: diastolic murmur, gallop, rubs, systolic murmur - GI/Abdominal GI/Abdominal exam: Present: normal bowel sounds, soft, no peritoneal signs. Absent: distended, tenderness - Extremities Exam Extremities exam: Present: warm, radial pulses palpable and symetrical. Absent : calf tenderness, cyanotic, pedal edema - Neurological Exam Neurological exam: Present: CN II-XII intact, oriented X3, no focal deficits. Absent: pronater drift, facial droop, speech deficit - Skin Skin exam: Present: dry, intact Internal Medicine: Result - Labs CBC & Chem 7: 10/06/16 04:58 10/06/16 04:58 Labs: Short CBC 10/06/16 Range/Units 04:58 WBC 6.3 (4.3-11.1) K/mcL Hgb 9.2 L (11.5-15.4) g/dL Hct 29.5 L (35.3-44.9) % Plt Count 163 (140-400) K/mcL BMP 10/06/16 04:58 Sodium 135 L Potassium 3.8 Chloride 98 Carbon Dioxide 28 BUN 17 D Creatinine 1.82 H Glucose 144 H Calcium 9.0 - ABG Interpretation ABG results: PT/INR, D-dimer PT 11.8 Seconds (9.4-12.1) 10/05/16 08:27 - Impressions Impressions Guidance Needle Placement Ultrasound 10/05/16 00:00 IMPRESSION: Successful ultrasound and fluoroscopy guided tunneled catheter placement . D/ / Son Rosario MD / Son Rosario MD Interpreting Provider: Son Rosario MD Insertion Tunneled Catheter 10/05/16 00:00 IMPRESSION: Successful ultrasound and fluoroscopy guided tunneled catheter placement . D/ / Son Rosario MD / Son Rosario MD Interpreting Provider: Son Rosario MD - VTE Documentation of Mechanical Device: Intermittent pneumatic compression device Consult Discharge Plan - Plan Instructions: Heart Failure (DC), Hemodialysis (DC), Hemodialysis (GEN), Dialysis Diet (DC), Dialysis Diet (GEN), Anemia (GEN) Referrals: Abelardo Bowen MD [Primary Care Provider] - 10/07/16 9:45 am Renetta Reilly MD [Partnered Physician] - 11/05/16 1:45 pm Noé Reyes MD [Partnered Physician] - 11/03/16 11:30 am Yovani Bourne DO [Partnered Physician] - 10/16/16 2:10 pm Jean Carlos Prabhakar MD [Partnered Physician] - 10/14/16 1:45 pm
[2016-10-06] MEDS ORDERED: Ferumoxytol 510 MG in 0.9 % Sodium Chloride 100 ML IVPB ONE (10:56)
[2016-10-06 16:27] VITALS: BP 143/69
--- NOTE | 2016-10-06 16:46 | Discharge Summary ---
Date of Encounter: 10/06/16 Time of Encounter: 16:37 - Discharge Diagnosis (1) CHF (congestive heart failure) Priority: Primary Status: Acute Qualifiers: Congestive heart failure type: diastolic Congestive heart failure chronicity: acute Qualified Code(s): I50.31 - Acute diastolic (congestive) heart failure (2) Qchdy-id-mmkxpvr renal failure Priority: Secondary Status: Acute Qualifiers: Acute renal failure type: unspecified Chronic kidney disease stage: stage 4 (severe) Qualified Code(s): N17.9 - Acute kidney failure, unspecified; N18.4 - Chronic kidney disease, stage 4 (severe) (3) Normocytic anemia Priority: Secondary Status: Acute (4) Diabetes Priority: Secondary Status: Chronic Qualifiers: Diabetes mellitus type: type 2 Diabetes mellitus complication status: with hyperglycemia Diabetes mellitus machinist brake insulin use: with machinist brake use Qualified Code(s): E11.65 - Type 2 diabetes mellitus with hyperglycemia; Z79.4 - bilingual medical assistant (current) use of insulin (5) Anemia Priority: Primary Status: Acute Qualifiers: Anemia type: unspecified type Qualified Code(s): D64.9 - Anemia, unspecified (6) Chronic kidney disease, stage 4 (severe) Priority: Secondary Status: Chronic - Discharge Medications Prescriptions: Furosemide [Lasix] 80 mg PO BIDDIURETIC #60 tab NIFEdipine XL (24 HR) [Procardia XL] 60 mg PO DAILY #30 tab Omeprazole [PriLOSEC] 20 mg PO DAILY #30 mg Home Medications: Aspirin 81 mg PO DAILY 08/02/15 [History] Insulin ASPART [NovoLOG] 15 unit SQ TIDWM 08/02/15 [History] Ergocalciferol (VITAMIN D2) [Vitamin D2] 50,000 unit PO QWEEK 09/15/16 [History] Insulin Glargine,Hum.rec.anlog [Lantus Solostar] 15 unit SQ HS #0 09/24/16 [Rx] Magnesium Oxide [Mag-Ox] 400 mg PO BID #60 tab 09/24/16 [Rx] Oxygen 1 each .ROUTE AD #1 each 09/24/16 [Rx] metOLazone [Zaroxolyn] 2.5 mg PO 0730,1630 #60 tab 09/24/16 [Rx] Atorvastatin [Lipitor] 40 mg PO HS 09/27/16 [History] Carvedilol [Coreg] 12.5 mg PO BIDWM 09/27/16 [History] Cyclosporine [Restasis] 1 drop OP BID 09/27/16 [History] Losartan Potassium [Cozaar] 50 mg PO DAILY 09/27/16 [History] Potassium Chloride [K-Tab ER] 10 meq PO BID 09/27/16 [History] Acetaminophen [Tylenol] 650 mg PO Q6HR PRN tab 10/06/16 [Rx] Docusate [Colace] 100 mg PO BID PRN 10/06/16 [Rx] Furosemide [Lasix] 80 mg PO BIDDIURETIC #60 tab 10/06/16 [Rx] NIFEdipine XL (24 HR) [Procardia XL] 60 mg PO DAILY #30 tab 10/06/16 [Rx] Omeprazole [PriLOSEC] 20 mg PO DAILY #30 mg 10/06/16 [Rx] Allergies/Adverse Reactions: Allergies No Known Allergies Allergy (Unverified 09/15/16 15:28) Procedures/tests Complete & Pending: Procedures Performed prior 72 hours Category Date Time Status IR cvc insrt tunnel wo prt/supervisor tree trimming [IR] Routine IR 10/05/16 Completed IR us guide needle place [IR] Routine IR 10/05/16 Completed Date of admission: 09/27/16 19:24 Primary care physician: Abelardo Bowen MD Consults: 09/27/16 22:01 Consult to Nephrology [CONS] Routine Consulting Provider: Kidney Aura/QASIM/DARION/FELIPE Reason for Consult: recurrent fluid overload with ESRD Call Completed: No 09/28/16 11:38 Consult to Cardiology [CONS] Routine Comment: Consulting Provider: Cardiology Aura Reason for Consult: nitro gtt Call Completed: No 09/30/16 12:13 Consult to Interventional Radiology [CONS] Routine Consulting Provider: Radiology Interventional Cols Reason for Consult: temporary IJ HD catheter plcement Call Completed: No 09/30/16 18:45 Consult to Dialysis [CONS] ONCE 10/01/16 11:15 Consult to Dialysis [CONS] ONCE 10/02/16 10:00 Consult to Dialysis [CONS] ONCE 10/05/16 08:10 Consult to Interventional Radiology [CONS] Routine Consulting Provider: Radiology Interventional Cols Reason for Consult: Please evaluate for placement of a Permacath and removeal of the temporary HD catheter. Thank you. Call Completed: Yes 10/05/16 08:13 Consult to Jewel Bearing Grinder [CONS] Routine Reason for SW Consult: Please start the dialysis chair arrangements, re: dialysis dependent KELLY on CKD stage IV. Thank you. 10/05/16 08:15 Consult to Dialysis [CONS] ONCE Discharging clinician: Cyndi Del Cid Anticipated date of discharge: 10/06/16 - Patient Status Disposition: Home, Self-Care Condition: Good Functional capacity at discharge: independent ambulation - Discharge Instructions Instructions: Heart Failure (DC), Chronic Kidney Disease (DC), Chronic Kidney Disease (GEN), Hemodialysis (DC), Hemodialysis (GEN), Dialysis Diet (DC), Dialysis Diet (GEN), Anemia (GEN) Follow Up With: Abelardo Bowen MD [Primary Care Provider] - 10/07/16 9:45 am Renetta Reilly MD [Partnered Physician] - 11/05/16 1:45 pm Noé Reyes MD [Partnered Physician] - 11/03/16 11:30 am Yovani Bourne DO [Partnered Physician] - 10/16/16 2:10 pm Jean Carlos Prabhakar MD [Partnered Physician] - 10/14/16 1:45 pm - Diet and Activity Activity: resume usual activities as tolerated Interval History: Mrs. Alida Becerril is a 66-year-old female admitted for stage IV chronic kidney disease contributing to acute diastolic congestive heart failure. She underwent multiple hemodialysis which help in resolving CHF and has also brought urea and creatinine down. She is awaiting chair time for her outpatient dialysis. Once is arranged she can be discharged. She also has COPD diabetes and hypertension reasonably well controlled. She has chronic anemia and received 2 units PRBC during this admission. According to previous hospitalist Hemoccult test was negative. She has iron deficiency and supplemented with iron pill Hospital course: Ms. Becerril is a 66 year old female - Time Spent with Patient Total time spent providing and/or coordinating discharge services: Greater than 30 minutes - Constitutional Vitals: Temp Pulse Resp BP Pulse Ox 98.1 F 67 18 143/69 94 10/06/16 16:21 10/06/16 16:21 10/06/16 16:21 10/06/16 16:21 10/06/16 16:21 General appearance: Present: cooperative, A&O X 3, no acute distress, obese, answers questions appropriately - Head Head exam: Present: atraumatic, normocephalic - Eye Eye exam: Present: PERRL, conjuntiva pink, sclera anicteric Pupils: Present: PERRL - Neck Neck exam general surgery: Present: supple, trachea midline. Absent: lymphadenopathy - Respiratory Respiratory exam: Present: CTAB. Absent: accessory muscle use, rales, rhonchi, wheezes - Cardiovascular Cardiovascular exam: Present: RRR, +S1, +S2. Absent: diastolic murmur, gallop, rubs, systolic murmur - GI/Abdominal GI/Abdominal exam: Present: normal bowel sounds, soft, no peritoneal signs. Absent: distended, tenderness - Extremities Exam Extremities exam: Present: warm, radial pulses palpable and symetrical. Absent : calf tenderness, cyanotic, pedal edema - Neurological Exam Neurological exam: Present: CN II-XII intact, oriented X3, no focal deficits. Absent: pronater drift, facial droop, speech deficit - Skin Skin exam: Present: dry, intact - VTE Documentation of Mechanical Device: Intermittent pneumatic compression device
== END 2016-10-06 17:48 | disposition home or self-care (01) | DRG 286 ==
LOC: 2NENU 15:00 → EMEROO 15:00 → 2NENU 19:18
PROVIDERS: ADMIT Internal Medicine; ATTEND Internal Medicine
PROC: IRPERMA (2016-10-05 14:00)

== ENCOUNTER 2018-07-01 14:45 | Inpatient (IN) ==
[2018-07-01] MEDS ORDERED: Ipratropium/Albuterol Neb 3 ML IH ONE (15:02)
--- NOTE | 2018-07-01 15:04 | Emergency Department Note ---
Disposition Clinical Impression: Acute exacerbation of chronic obstructive airways disease Disposition: Still a Patient General Adult HPI - General Chief complaint: ED Shortness of Breath/Dyspnea Stated complaint: sadie Time Seen by Provider: 07/01/18 14:48 Source: patient, EMS Limitations: no limitations Nursing Notes Reviewed: Yes Vital Signs Reviewed: Yes - History of Present Illness HPI Narrative: ED attending attestation note: I examined this patient and my medical decision-making was reviewed with the emergency medicine resident Lázaro Li. I agree with the documented findings, disposition and treatment plan as described except to the extent set forth below. Briefly: 67-year-old female end-stage renal disease just came from dialysis this of the nurse's her lungs sounded "terrible". Patient been having increased shortness breath and fatigue for the past several days of fever chills or contacts. Bilateral respiratory wheezing or rhonchi. No rales. Patient can EKG shows no acute ischemic changes. A sharp chest x-ray PA and lateral and screening labs. Disposition pending. Patient getting duo nebs. Pain Scale: 0 - Related Data Home Medications Medication Instructions Recorded Confirmed Aspirin 81 mg PO DAILY 08/02/15 09/27/16 Insulin ASPART [NovoLOG] 15 unit SQ TIDWM 08/02/15 09/27/16 Ergocalciferol (VITAMIN D2) 50,000 unit PO QWEEK 09/15/16 09/27/16 [Vitamin D2] Atorvastatin [Lipitor] 40 mg PO HS 09/27/16 09/27/16 Carvedilol [Coreg] 12.5 mg PO BIDWM 09/27/16 09/27/16 Cyclosporine [Restasis] 1 drop OP BID 09/27/16 09/27/16 Losartan Potassium [Cozaar] 50 mg PO DAILY 09/27/16 09/27/16 Potassium Chloride [K-Tab ER] 10 meq PO BID 09/27/16 09/27/16 Previous Rx's Medication Instructions Recorded Insulin Glargine,Hum.rec.anlog 15 unit SQ HS #0 09/24/16 [Lantus Solostar] Magnesium Oxide [Mag-Ox] 400 mg PO BID #60 tab 09/24/16 Oxygen 1 each .ROUTE AD #1 each 09/24/16 metOLazone [Zaroxolyn] 2.5 mg PO 0730,1630 #60 tab 09/24/16 Acetaminophen [Tylenol] 650 mg PO Q6HR PRN tab 10/06/16 Docusate [Colace] 100 mg PO BID PRN 10/06/16 Furosemide [Lasix] 80 mg PO BIDDIURETIC #60 tab 10/06/16 NIFEdipine XL (24 HR) [Procardia 60 mg PO DAILY #30 tab 10/06/16 XL] Omeprazole [PriLOSEC] 20 mg PO DAILY #30 mg 10/06/16 Allergies Allergy/AdvReac Type Severity Reaction Status Date / Time No Known Allergies Allergy Verified 07/01/18 13:54 Past Medical History - Past Medical History Medical history: Reports: CHF, diabetes, hyperlipidemia, hypertension, renal disease Surgical history: Reports: cataract, cholecystectomy Psychiatric history: Reports: no psych history VIDEOGAME DESIGNER history: Reports: no VIDEOGAME DESIGNER history - Social History Smoking Status: Never smoker Smokeless Tobacco Status: No Alcohol use: Reports: none Drug use: Reports: none Physical Exam - General Limitations: no limitations General appearance: alert, in no apparent distress Course Vital Signs Temperature 98.3 F 07/01/18 14:48 Pulse Rate 78 07/01/18 14:48 Respiratory Rate 20 07/01/18 14:48 Blood Pressure 130/88 07/01/18 14:48 O2 Sat by Pulse Oximetry 84 07/01/18 14:48 Temperature 98.3 F 07/01/18 14:48 Pulse Rate 78 07/01/18 14:48 Respiratory Rate 20 07/01/18 14:48 Blood Pressure 130/88 07/01/18 14:48 O2 Sat by Pulse Oximetry 84 07/01/18 14:48 Oxygen Delivery Oxygen Delivery Room Air
--- NOTE | 2018-07-01 15:07 | Emergency Department Note ---
Disposition Clinical Impression: Acute exacerbation of chronic obstructive airways disease Disposition: Still a Patient Referrals: Abelardo Bowen MD [Primary Care Provider] - Forms: ED Satisfaction Letter SOB HPI - General Chief Complaint: ED Shortness of Breath/Dyspnea Stated Complaint: sadie Time Seen by Provider: 07/01/18 14:48 Source: patient, EMS Limitations: no limitations Nursing Notes Reviewed: Yes Vital Signs Reviewed: Yes - History of Present Illness 67-year-old female past medical history of CHF presenting for one week symptoms of weakness, nasal congestion. Patient states she believed that she had a cold for the past week. Has noticed difficulty with ambulation says that she has been "stumbling like a drunk around her house". Patient was at dialysis today, completed her therapy when dialysis nurses noticed that her lungs "sounded terrible" and wanted her to come to the ED to be checked for pneumonia. In addition the symptoms mentioned above patient admits to cough of yellow sputum as well as nausea. Patient denies lightheadedness, dizziness, no chest pain or shortness of breath at this time, no neck or back pain, no abdominal pain, vomiting. - Related Data Home Medications Medication Instructions Recorded Confirmed RX: Aspirin 81 mg PO DAILY 08/02/15 07/01/18 RX: Insulin ASPART [NovoLOG] 15 unit SQ TIDWM 08/02/15 07/01/18 RX: Ergocalciferol (VITAMIN D2) 50,000 unit PO WE 09/15/16 07/01/18 [Vitamin D2] RX: Atorvastatin [Lipitor] 40 mg PO DAILY 09/27/16 07/01/18 RX: Carvedilol [Coreg] 12.5 mg PO BIDWM 09/27/16 07/01/18 RX: Cyclosporine [Restasis] 1 drop OP BID 09/27/16 07/01/18 Folic Acid/Vit B Complex and C 1 each PO DAILY 07/01/18 07/01/18 [Dialyvite Tablet] Furosemide [Lasix] 40 mg PO QPM 07/01/18 07/01/18 Insulin Glargine,Hum.rec.anlog 30 unit SQ HS 07/01/18 07/01/18 [Basaglar Kwikpen U-100] RX: Furosemide [Lasix] 80 mg PO QAM 07/01/18 07/01/18 Previous Rx's Medication Instructions Recorded RX: Magnesium Oxide [Mag-Ox] 400 mg PO BID #60 tab 09/24/16 RX: NIFEdipine XL (24 HR) 60 mg PO DAILY #30 tab 10/06/16 [Procardia XL] Allergies Allergy/AdvReac Type Severity Reaction Status Date / Time No Known Allergies Allergy Verified 07/01/18 13:54 Past Medical History - Past Medical History Medical history: Reports: CHF, diabetes, hyperlipidemia, hypertension, renal disease Surgical history: Reports: cataract, cholecystectomy Psychiatric history: Reports: no psych history 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 Absent: scleral icterus - Neck Neck exam: Present: normal inspection, trachea midline. Absent: thyromegaly - Chest Chest inspection: Present: normal inspection, symmetric chest wall rise - Respiratory Respiratory exam: Present: wheezes, other (Patient is diffuse rhonchi bilaterally with inspiratory and expiratory wheezes). Absent: respiratory distress, stridor, accessory muscle use, prolonged expiratory phase - Cardiovascular Cardiovascular exam: Present: regular rate, normal rhythm, normal heart sounds, +S1, +S2. Absent: systolic murmur, diastolic murmur, JVD, +S3, +S4 - Abdominal Exam Abdominal exam: Present: soft, Non-Tender, normal bowel sounds. Absent: distention, guarding, rebound, rigidity, organomegaly - Extremities Exam Extremities exam: Present: normal inspection. Absent: pedal edema - Neurological Exam Neurological exam: Present: alert, oriented X3 - Psychiatric Psychiatric exam: Present: normal affect, normal mood - Skin Skin exam: Present: warm, dry, intact, normal color. Absent: rash, cyanosis, diaphoresis, erythema, pallor, mottled Course Vital Signs Temperature 98.3 F 07/01/18 14:48 Pulse Rate 78 07/01/18 14:48 Respiratory Rate 20 07/01/18 14:48 Blood Pressure 130/88 07/01/18 14:48 O2 Sat by Pulse Oximetry 84 07/01/18 14:48 Temperature 98.3 F 07/01/18 14:48 Pulse Rate 69 07/01/18 16:47 Respiratory Rate 18 07/01/18 16:47 Blood Pressure 105/49 07/01/18 16:47 O2 Sat by Pulse Oximetry 94 07/01/18 16:47 Oxygen Delivery Oxygen Delivery Nasal Cannula Shortness of Breath/Dyspnea - MDM Narrative Medical decision making narrative: Upon ambulation patient desaturated into the 80% range. Patient will be admitted to hospital medicine service for further evaluation and management of CHF exacerbation. - Lab Data Lab results reviewed: Yes I reviewed the patient's lab results. Result diagrams: 07/01/18 15:00 07/01/18 15:00 Lab Results 07/01/18 07/01/18 Range/Units 15:00 15:00 WBC 8.1 (4.3-11.1) K/mcL RBC 3.32 L (3.82-4.97) M/mcL Hgb 10.3 L (11.5-15.4) g/dL Hct 30.0 L (35.3-44.9) % MCV 90.4 (83.0-100.0) fL MCH 31.0 (28.0-33.3) pg MCHC 34.3 (31.6-35.5) g/dL RDW 13.2 (11.5-14.5) % Plt Count 191 (140-400) K/mcL MPV 10.1 (9.4-12.4) fL Immature Gran % 0.6 (0-4) % Seg Neutrophils % 75.0 % Lymphocytes % 12.3 % Monocytes % 10.9 % Eosinophils % 1.1 % Basophils % 0.1 % Neutrophils # 6.0 (1.6-8.9) K/mcL Lymphocytes # 1.0 (0.6-4.6) K/mcL Monocytes # 0.9 (0.0-1.3) K/mcL Eosinophils # 0.1 (0.0-0.6) K/mcL Basophils # 0.0 (0.0-0.2) K/mcL Sodium 134 L (136-145) mEq/L Potassium 3.1 L (3.5-5.1) mEq/L Chloride 97 L (98-107) mEq/L Carbon Dioxide 25 (23-29) mEq/L BUN 21 (8-23) mg/dL Creatinine 2.77 H (0.60-1.20) mg/dL Est GFR ( Amer) 21 L (> 60) Est GFR (Non-Af Amer) 17 L (> 60) BUN/Creatinine Ratio 8 (6-26) Glucose 238 H (70-105) mg/dL Calculated Osmolality 289 (280-300) Calcium 7.9 L (8.6-10.3) mg/dL - Radiology Data Radiology results reviewed: Yes I reviewed the patient's radiology results. Chest X-Ray 07/01/18 15:01 IMPRESSION: Vascular congestion with suggestion of mild interstitial edema and trace amount of pleural fluid. Along with the cardiac enlargement CHF is considered. No focal consolidation D/ / Dharmesh Ponce MD / Dharmesh Ponce MD Interpreting Provider: Dharmesh Ponce MD - EKG Data EKG attestation: Yes I reviewed and interpreted this EKG. EKG results narrative: Patient's EKG shows an ectopic atrial rhythm with inverted P waves diffusely with a heart rate of 74 bpm MS interval of 145 ms, QRS duration 90 ms, QT/QTc interval 45/for some 2 ms respectively. There are no significant ST segment elevations, depressions, pathologic Q waves, nor any other signs of acute ischemic change. This EKG performed today is generally consistent with prior EKG performed on 11/28/2016.
[2018-07-01 15:27] LABS: Basophils % 0.1 %; Eosinophils # 0.1 K/mcL (0.0-0.6); Eosinophils % 1.1 %; Hemoglobin 10.3 g/dL (11.5-15.4); Immature Granulocytes % 0.6 % (0-4); Lymphocytes % 12.3 %; Mean Corpuscular HGB Conc 34.3 g/dL (31.6-35.5); Mean Corpuscular Volume 90.4 fL (83.0-100.0); Mean Platelet Volume 10.1 fL (9.4-12.4); Monocytes # 0.9 K/mcL (0.0-1.3); Monocytes % 10.9 %; Platelet Count 191 K/mcL (140-400); Red Blood Count 3.32 M/mcL (3.82-4.97); Red Cell Distribution Width 13.2 % (11.5-14.5)
[2018-07-01 15:31] LABS: Calcium 7.9 mg/dL (8.6-10.3); Potassium 3.1 mEq/L (3.5-5.1)
[2018-07-01] MEDS ORDERED: methylPREDNISolone 125 MG/2 ML VIAL IVP ONE (17:04)
[2018-07-01] MEDS ORDERED: Isovue-370 500 ML BOTTLE IVP ONE (17:09)
--- NOTE | 2018-07-01 18:23 | Internal Med History&Physical ---
Date of Encounter: 07/01/18 Time of Encounter: 11:00 Internal Medicine - H&P: HPI Chief complaint: Hypoxia with cough and wheezing Admitted From: Home Plans for Post Hospital Care: Home History of present illness: Patient is a 67-year-old female with past medical history significant for ischemic cardiomyopathy, end-stage renal disease on hemodialysis and chronic anemia who presents from nephrology office due to productive cough and wheezing. Patient reports a one-week history of productive cough of yellow sputum in addition to wheezes. Patient states that at nephrology office today, she was noted to have diffuse wheezes on lung exam and was sent to urgent care. Patient states that at urgent care she was found to be hypoxic and was sent to [facility] ER by EMS for further evaluation. In the ER, patient was found to be afebrile without leukocytosis and chest x-ray showed vascular congestion without any focal consolidation. Patient was given a dose of Solu-Medrol and DuoNeb will be admitted to the observation unit for further observation and management. Past Med Surg Social Fam HX - Past Medical History Medical history: CHF, diabetes, hyperlipidemia, hypertension, renal disease Additional medical history: Acute respiratory failure. Home O2 3 LPM Psychiatric history: no psych history - Past Surgical History Surgical History: cataract, cholecystectomy Additional surgical history: Left foot compound fracture. Bilateral cataract surgery - Social History Smoking Status: Never smoker Smokeless Tobacco Status: No Alcohol use: none Drug use: none - Family History Mother Living Status: Hx Family Cardiac Disorders: Yes Hx Family Respiratory Disorders: No Hx Family Cancer: Yes Hx Family GI Disorders: No Hx Family Endocrine Disorder: Yes Hx Family Neuromuscular Disorders: No Hx Family Neurologic Disorders: Yes Hx Family HEENT Disorders: No Hx Family Autoimmune Disorders: No Father Living Status: Internal Medicine - H&P: Meds Aspirin 81 mg PO DAILY 08/02/15 [History] Insulin ASPART [NovoLOG] 15 unit SQ TIDWM 08/02/15 [History] Ergocalciferol (VITAMIN D2) [Vitamin D2] 50,000 unit PO WE 09/15/16 [History] Magnesium Oxide [Mag-Ox] 400 mg PO BID #60 tab 09/24/16 [Rx] Atorvastatin [Lipitor] 40 mg PO DAILY 09/27/16 [History] Carvedilol [Coreg] 12.5 mg PO BIDWM 09/27/16 [History] Cyclosporine [Restasis] 1 drop OP BID 09/27/16 [History] NIFEdipine XL (24 HR) [Procardia XL] 60 mg PO DAILY #30 tab 10/06/16 [Rx] Folic Acid/Vit B Complex and C [Dialyvite Tablet] 1 each PO DAILY 07/01/18 [History] Furosemide [Lasix] 40 mg PO QPM 07/01/18 [History] Furosemide [Lasix] 80 mg PO QAM 07/01/18 [History] Insulin Glargine,Hum.rec.anlog [Basaglar Kwikpen U-100] 30 unit SQ HS 07/01/18 [History] Allergy/AdvReac Type Severity Reaction Status Date / Time No Known Allergies Allergy Verified 07/01/18 13:54 All Systems PM: A 10-system review of systems was performed and is negative for pertinent findings except as documented above in the HPI. - Constitutional Vitals: Temp Pulse Resp BP Pulse Ox 98.3 F 69 18 105/49 94 07/01/18 14:48 07/01/18 16:47 07/01/18 16:47 07/01/18 16:47 07/01/18 16:47 Exam: General appearance: Present: A&O X 3, no acute distress - Head Head exam: Present: normocephalic - Eye Eye exam: Present: normal appearance - ENT ENT exam: Present: mucous membranes moist - Respiratory Respiratory exam: Present: Diffuse bilateral expiratory wheezes - Cardiovascular Cardiovascular exam: Present: RRR, +S1, +S2. Absent: diastolic murmur, gallop, rubs, systolic murmur - GI/Abdominal GI/Abdominal exam: Present: normal bowel sounds, soft, no peritoneal signs. Absent: distended, tenderness - Extremities Exam Extremities exam: Absent: pedal edema - Neurological Exam Neurological exam: Present: alert, oriented X3, no focal deficits. Absent: altered - Psychiatric Psychiatric exam: -normal mood Skin exam: -normal color Internal Med - H&P Results - Labs CBC & Chem 7: 07/01/18 15:00 07/01/18 15:00 Labs: Short CBC 07/01/18 Range/Units 15:00 WBC 8.1 (4.3-11.1) K/mcL Hgb 10.3 L (11.5-15.4) g/dL Hct 30.0 L (35.3-44.9) % Plt Count 191 (140-400) K/mcL Neutrophils # 6.0 (1.6-8.9) K/mcL BMP 07/01/18 15:00 Sodium 134 L Potassium 3.1 L Chloride 97 L Carbon Dioxide 25 BUN 21 Creatinine 2.77 H Glucose 238 H Calcium 7.9 L - Impressions ITS Impressions Chest X-Ray 07/01/18 15:01 IMPRESSION: Vascular congestion with suggestion of mild interstitial edema and trace amount of pleural fluid. Along with the cardiac enlargement CHF is considered. No focal consolidation D/ / Dharmesh Ponce MD / Dharmesh Ponce MD Interpreting Provider: Dharmesh Ponce MD - Assessment and Plan (1) Acute respiratory failure with hypoxia Current Visit: No Status: Acute Assessment and plan: Patient was found to be hypoxic at urgent care with O2 saturation in the 80s Chest x-ray negative for any focal consolidation but vascular congestion present. Patient afebrile and without leukocytosis but diffuse expiratory wheezes on exam. Will order ABG and respiratory infection panel Will continue scheduled DuoNeb nebs and IV Solu-Medrol (2) CHF (congestive heart failure) Current Visit: No Status: Acute Assessment and plan: Patient with acute hypoxic respiratory failure as above and vascular congested noted on chest x-ray above. Patient without any signs of by him overloaded on exam Echocardiogram on 05/2016 showed LVEF of 55% with moderate left ventricular diastolic dysfunction in addition to moderate pulmonary hypertension. Will repeat echocardiogram and order BNP for further evaluation. Qualifiers: Heart failure chronicity: unspecified Qualified Code(s): I50.9 - Heart failure, unspecified (3) CAD (coronary artery disease) Current Visit: No Status: Chronic Assessment and plan: [facility] 08/02/15: 99% stenosis of mid-RCA (small vessel not amenable to PCI), 30% prox LAD, 25% mid LCx, LVEF 60% Will continue home medications Qualifiers: Coronary Disease-Associated Artery/Lesion type: [place] artery [place] vs. transplanted heart: [place] heart Associated angina: without angina Qualified Code(s): I25.10 - Atherosclerotic heart disease of [place] coronary artery without angina pectoris (4) Chronic kidney disease, stage 4 (severe) Current Visit: No Status: Chronic Assessment and plan: Patient on hemodialysis Wednesday and Wednesday managed by nephrology as an outpatient. Consult nephrology in case patient here on Wednesday for hemodialysis. (5) HTN (hypertension), benign Current Visit: Yes Status: Acute Assessment and plan: Continue home medications (6) Anemia Current Visit: No Status: Acute Assessment and plan: Stable; continue to monitor Qualifiers: Qualified Code(s): D64.9 - Anemia, unspecified (7) HLD (hyperlipidemia) Current Visit: Yes Status: Acute Assessment and plan: Continue statin Qualifiers: Hyperlipidemia type: unspecified Qualified Code(s): E78.5 - Hyperlipidemia, unspecified (8) Diabetes Current Visit: No Status: Chronic Assessment and plan: Continue home dose of basal insulin Qualifiers: Diabetes mellitus type: type 2 Diabetes mellitus mcfp insulin use: with mcfp use Diabetes mellitus complication status: with hyperglycemia Qualified Code(s): E11.65 - Type 2 diabetes mellitus with hyperglycemia; 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
[2018-07-01] MEDS ORDERED: Naloxone 0.4 MG/ML INJ IVP PRN (18:33)
[2018-07-01 19:17] LABS: ABG Base Excess 1 mEq/L (-2 to 3); ABG HCO3 25 mEq/L (21-27); ABG Oxygen Saturation 91 % (95-98); ABG PCO2 37 mmHg (35-45); ABG PH 7.45 pH Units (7.32-7.45); ABG PO2 58 mmHg (85-104); ABG TCO2 27 mEq/L (20-26)
[2018-07-01] MEDS: Ipratropium/Albuterol Neb 3 ML IH SCH ×2 (20:24→23:49)
[2018-07-01] MEDS: Insulin DETEMIR 100 UNIT/ML X5UNITS SQ SCH (21:22)
[2018-07-01] MEDS: Magnesium Oxide 400 MG TABLET PO SCH (21:22)
[2018-07-01] MEDS: Artificial Tears SOLN 15 ML BOTTLE OP SCH (21:23)
[2018-07-02] MEDS: methylPREDNISolone 125 MG/2 ML VIAL IVP SCH ×3 (00:15→16:48)
[2018-07-02] MEDS: Ipratropium/Albuterol Neb 3 ML IH SCH ×6 (03:43→23:34)
[2018-07-02 05:39] LABS: Adenovirus Not Detected (Not Detect); Bordetella Pertussis Not Detected (Not Detect); Chlamydophila pneumoniae Not Detected (Not Detect); Coronavirus 229E Not Detected (Not Detect); Coronavirus HKU1 Not Detected (Not Detect); Coronavirus NL63 Not Detected (Not Detect); Coronavirus OC43 Not Detected (Not Detect); Human Metapneumovirus DETECTED (Not Detect); Human Rhinovirus/Enterovirus Not Detected (Not Detect); Influenza A Subtype 2009 H1 Not Detected (Not Detect); Influenza A Untypeable Not Detected (Not Detect); Influenza B Not Detected (Not Detect); Mycoplasma pneumoniae Not Detected (Not Detect); Parainfluenza Virus 1 Not Detected (Not Detect); Parainfluenza Virus 2 Not Detected (Not Detect); Parainfluenza Virus 3 Not Detected (Not Detect); Parainfluenza Virus 4 Not Detected (Not Detect); Respiratory Syncytial Virus Not Detected (Not Detect)
[2018-07-02] MEDS: *HR* Heparin 5,000 UNIT/ML VIAL SQ SCH ×2 (07:12→16:50)
[2018-07-02 07:59] LABS: Calcium 8.7 mg/dL (8.6-10.3); Potassium 3.7 mEq/L (3.5-5.1)
[2018-07-02] MEDS: Insulin LISPRO 300 UNITS/3 ML VIAL SQ SCH ×6 (08:05→20:39)
[2018-07-02] MEDS: Renal Vitamin 1 CAP CAPSULE PO SCH (08:06)
[2018-07-02] MEDS: Magnesium Oxide 400 MG TABLET PO SCH ×2 (08:06→20:54)
[2018-07-02] MEDS: Aspirin 81 MG TAB.CHEW PO SCH (08:07)
[2018-07-02] MEDS: Furosemide 40 MG TABLET PO SCH ×2 (08:07→16:50)
[2018-07-02] MEDS: NIFEdipine XL (24 HR) 60 MG TAB.ER.24 PO SCH (08:07)
--- NOTE | 2018-07-02 08:09 | Nephrology Consult Note ---
Date of Encounter: 07/02/18 Time of Encounter: 10:10 Assessment and Plan (1) ESRD (end stage renal disease) on dialysis Current Visit: Yes Status: Chronic ESRD on HD M/F. I reviewed the outpt [facility] notes and she completed her dialysis yesterday (Wednesday). Next HD is planned for Wednesday, and in the interim, I will be available if needed. Please feel free to call or page me with any questions. Thank you. (2) Acute exacerbation of chronic obstructive airways disease Current Visit: Yes Status: Acute As per the primary team. (3) Anemia Current Visit: No Status: Chronic Goal Hgb is 10-11. Will monitor need for IV iron and / or ANIBAL. Qualifiers: Anemia type: due to chronic kidney disease Chronic kidney disease stage: on chronic dialysis Qualified Code(s): N18.6 - End stage renal disease; D63.1 - Anemia in chronic kidney disease; Z99.2 - Dependence on renal dialysis (4) Hyponatremia Current Visit: Yes Status: Acute Recommend a fluid restriction of <1.5L per day. Should avoid thiazide type diuretics. (5) Acute on chronic congestive heart failure Current Visit: No Status: Acute Rec fluid restriction. Okay to use diuretics as she still makes some urine Qualifiers: Qualified Code(s): I50.33 - Acute on chronic diastolic (congestive) heart failure History of Present Illness - Reason for Consult Consult date: 07/02/18 end stage renal disease Requesting physician: Jed Shah - Chief Complaint ESRD - History of Present Illness The patient is a 67-year-old extremely pleasant female with a past m edical history of CHF, diabetes, end-stage renal disease on hemodialysis every Wednesday/Wednesday who presented with worsening shortness of breath. Nephrology was consult it due to her history of dialysis. She affirmed that she has had a cold, with wheezing, cough, and sputum production. She did not affirm fevers, chest pain, palpitations, nausea, vomiting, diarrhea, abdominal pain, or worsening swelling. She affirmed that she completed all of her dialysis yesterday (Wednesday). I logged into the outpatient dialysis notes, and reviewed her labs, vital signs and lab trends. She was accompanied in her 2A room by her . They asked about the transplant evaluation process, and we discussed t his in detail. Past Med Surg Social Fam HX - Past Medical History Medical history: CHF, diabetes, hyperlipidemia, hypertension, renal disease Additional medical history: Acute respiratory failure. Home O2 3 LPM Psychiatric history: no psych history - Past Surgical History Surgical History: cataract, cholecystectomy Additional surgical history: Left foot compound fracture. Bilateral cataract surgery - Social History Smoking Status: Never smoker Smokeless Tobacco Status: No Alcohol use: none Drug use: none - Family History Mother Living Status: Hx Family Cardiac Disorders: Yes Hx Family Respiratory Disorders: No Hx Family Cancer: Yes Hx Family GI Disorders: No Hx Family Endocrine Disorder: Yes Hx Family Neuromuscular Disorders: No Hx Family Neurologic Disorders: Yes Hx Family HEENT Disorders: No Hx Family Autoimmune Disorders: No Father Living Status: Medications and Allergies Aspirin 81 mg PO DAILY 08/02/15 [History] Insulin ASPART [NovoLOG] 15 unit SQ TIDWM 08/02/15 [History] Ergocalciferol (VITAMIN D2) [Vitamin D2] 50,000 unit PO WE 09/15/16 [History] Magnesium Oxide [Mag-Ox] 400 mg PO BID #60 tab 09/24/16 [Rx] Atorvastatin [Lipitor] 40 mg PO DAILY 09/27/16 [History] Carvedilol [Coreg] 12.5 mg PO BIDWM 09/27/16 [History] Cyclosporine [Restasis] 1 drop OP BID 09/27/16 [History] NIFEdipine XL (24 HR) [Procardia XL] 60 mg PO DAILY #30 tab 10/06/16 [Rx] Folic Acid/Vit B Complex and C [Dialyvite Tablet] 1 each PO DAILY 07/01/18 [History] Furosemide [Lasix] 40 mg PO QPM 07/01/18 [History] Furosemide [Lasix] 80 mg PO QAM 07/01/18 [History] Insulin Glargine,Hum.rec.anlog [Basaglar Kwikpen U-100] 30 unit SQ HS 07/01/18 [History] Allergy/AdvReac Type Severity Reaction Status Date / Time No Known Allergies Allergy Verified 07/01/18 13:54 Review of Systems All Systems: reviewed and no additional remarkable complaints except as stated Exam - Vital Signs Vital signs: Initial Vital Signs Temp Pulse Resp BP Pulse Ox 98.3 F 78 20 130/88 84 07/01/18 14:48 07/01/18 14:48 07/01/18 14:48 07/01/18 14:48 07/01/18 14:48 Vital Signs - Last 8 Hours Temp Pulse Resp BP Pulse Ox 07/02/18 07:34 97.9 F 79 16 119/82 95 07/02/18 03:43 15 93 Intake and Output 07/01/18 07/02/18 07/02/18 23:59 07:59 15:59 Intake Total 0 / 0 0 / 0 Output Total 0 / 0 Balance 0 / 0 0 / 0 Intake: Oral 0 / 0 0 / 0 Output: Urine 0 / 0 Other: # Voids 1 Weight 75.1 kg Blood Glucose* 373 428 - General Appearance General appearance: well-developed (short), well-nourished, appears started age EENT: ATNC, PERRL, mucous membranes moist Neck: supple Respiratory: wheezing, rales, course breath sounds, rhonchi Cardiology: edema (trace nonpitting wrinkling pedeal edema bilaterally), regular rate, regular rhythm, normal S1, normal S2 - Dialysis Access Dialysis Vascular Access: Arteriovenous Fistula (left arm) thrill: Yes bruit: Yes Gastrointestinal: normoactive bowel sounds, no tenderness Integumentary: no rash, warm and dry Neurologic: no focal deficit, no asterixis, alert and oriented x3 Musculoskeletal: no deformities, no erythema, no cyanosis Psychiatric: mood/affect appropriate, cooperative Results - Lab Results 07/02/18 06:57 07/02/18 06:57 Most recent lab results ABG pH 7.45 pH Units (7.32-7.45) 07/01/18 19:12 ABG pCO2 37 mmHg (35-45) 07/01/18 19:12 ABG pO2 58 mmHg (85-104) L 07/01/18 19:12 ABG HCO3 25 mEq/L (21-27) 07/01/18 19:12 ABG O2 Saturation 91 % (95-98) L 07/01/18 19:12 Calcium 8.7 mg/dL (8.6-10.3) 07/02/18 06:57 Consult Discharge Plan - Plan Referrals: Abelardo Bowen MD [Primary Care Provider] -
[2018-07-02] MEDS: Artificial Tears SOLN 15 ML BOTTLE OP SCH ×2 (08:17→20:53)
[2018-07-02 08:51] LABS: Hematocrit 28.3 % (35.3-44.9); Hemoglobin 9.6 g/dL (11.5-15.4); Mean Corpuscular HGB Conc 33.9 g/dL (31.6-35.5); Mean Corpuscular Hemoglobin 30.6 pg (28.0-33.3); Mean Corpuscular Volume 90.1 fL (83.0-100.0); Mean Platelet Volume 10.5 fL (9.4-12.4); Platelet Count 181 K/mcL (140-400); Red Blood Count 3.14 M/mcL (3.82-4.97); Red Cell Distribution Width 13.3 % (11.5-14.5)
--- NOTE | 2018-07-02 09:31 | Internal Med Progress Note ---
Hospitalist Progress Note - Encounter Date of Encounter: 07/02/18 Time of Encounter: 11:00 - Subjective Interval History: Patient is a 67-year-old female with past medical history significant for ischemic cardiomyopathy, end-stage renal disease on hemodialysis and chronic anemia who presents from nephrology office due to productive cough and wheezing. Patient has been afebrile without leukocytosis and chest x-ray showed vascular congestion without any focal consolidation. However CT angiogram of the chest overnight was negative for PE but did show bilateral patchy groundglass opacity's with patchy confluent airspace disease; multifocal pneumonia suspected - Exam Vitals: Temp Pulse Resp BP Pulse Ox 97.9 F 79 16 119/82 95 07/02/18 07:34 07/02/18 07:34 07/02/18 07:34 07/02/18 07:34 07/02/18 07:34 Exam: Gen.: Nonacute distress, alert and oriented 3 ENT: Mucosal membranes moist Respiratory: Patient with diffuse bilateral expiratory wheezes Cardiovascular: Normal S1 and S2 regular rate rhythm no murmurs rubs or gallops Abdomen: Soft, nontender and nondistended with positive bowel sounds Extremities: No lower extremity edema Skin: Normal color - Assessment and Plan (1) Acute respiratory failure with hypoxia Current Visit: No Status: Acute Assessment and Plan: Patient was found to be hypoxic at urgent care with O2 saturation in the 80s Patient has been afebrile without leukocytosis and chest x-ray showed vascular congestion without any focal consolidation. However CT angiogram of the chest overnight was negative for PE but did show bilateral patchy groundglass opacity's with patchy confluent airspace disease; multifocal pneumonia suspected and management as below Continue O2 supplementation and wean as tolerates (2) Pneumonia Current Visit: Yes Status: Acute Assessment and Plan: Patient with CT angiogram chest findings as above Will start patient on IV Levaquin for concerns of multifocal pneumonia (3) CHF (congestive heart failure) Current Visit: No Status: Acute Assessment and Plan: Patient with acute hypoxic respiratory failure as above and vascular congested noted on chest x-ray above. Patient found to have a BNP of 759 Echocardiogram on 05/2016 showed LVEF of 55% with moderate left ventricular diastolic dysfunction in addition to moderate pulmonary hypertension. Repeat echocardiogram pending for further evaluation. (4) CAD (coronary artery disease) Current Visit: No Status: Chronic Assessment and Plan: [facility] 08/02/15: 99% stenosis of mid-RCA (small vessel not amenable to PCI), 30% prox LAD, 25% mid LCx, LVEF 60% Will continue home medications (5) ESRD (end stage renal disease) on dialysis Current Visit: Yes Status: Chronic Assessment and Plan: Patient on hemodialysis Wednesday and Wednesday managed by nephrology as an outpatient. Nephrology consult in case patient here on Wednesday for hemodialysis. (6) HTN (hypertension), benign Current Visit: Yes Status: Acute Assessment and Plan: Continue home medications (7) Anemia Current Visit: No Status: Chronic Assessment and Plan: Stable; continue to monitor (8) HLD (hyperlipidemia) Current Visit: Yes Status: Acute Assessment and Plan: Continue statin (9) Diabetes Current Visit: No Status: Chronic Assessment and Plan: Continue home dose of basal insulin DVT Prophylaxis: Subcutaneous heparin - Time Spent with Patient Total time spent is greater than 50% in coordination of care (as documented) at patient's floor/unit and/or counseling patient: Internal Medicine: Result - Labs CBC & Chem 7: 07/02/18 06:57 07/02/18 06:57 Labs: Short CBC 07/01/18 07/02/18 Range/Units 15:00 06:57 WBC 8.1 6.3 (4.3-11.1) K/mcL Hgb 10.3 L 9.6 L (11.5-15.4) g/dL Hct 30.0 L 28.3 L (35.3-44.9) % Plt Count 191 181 (140-400) K/mcL Neutrophils # 6.0 (1.6-8.9) K/mcL BMP 07/01/18 07/02/18 15:00 06:57 Sodium 134 L 131 L Potassium 3.1 L 3.7 Chloride 97 L 94 L Carbon Dioxide 25 22 L BUN 21 36 H Creatinine 2.77 H 4.07 H Glucose 238 H 478 H Calcium 7.9 L 8.7 - ABG Interpretation ABG results: ABG ABG pH 7.45 pH Units (7.32-7.45) 07/01/18 19:12 ABG pCO2 37 mmHg (35-45) 07/01/18 19:12 ABG pO2 58 mmHg (85-104) L 07/01/18 19:12 ABG O2 Saturation 91 % (95-98) L 07/01/18 19:12 - Impressions Impressions Chest X-Ray 07/01/18 15:01 IMPRESSION: Vascular congestion with suggestion of mild interstitial edema and trace amount of pleural fluid. Along with the cardiac enlargement CHF is considered. No focal consolidation D/ / Dharmesh Ponce MD / Dharmesh Ponce MD Interpreting Provider: Dharmesh Ponce MD Chest CTA 07/01/18 17:09 IMPRESSION: No evidence of an acute pulmonary embolus. There is bilateral patchy ground-glass opacity in both lungs. There is patchy confluent airspace disease in the left greater than right bilateral lower lobes. Multifocal pneumonia is suspected. Pulmonary edema is not excluded. Mildly enlarged mediastinal lymph nodes are likely reactive. RECOMMENDATIONS: No evidence D/ / Rodney Loomis MD / Rodney Loomis MD Interpreting Provider: Rodney Loomis MD Consult Discharge Plan - Plan Referrals: Abelardo Bowen MD [Primary Care Provider] - (3) CHF (congestive heart failure) Qualifiers: Heart failure chronicity: unspecified Qualified Code(s): I50.9 - Heart failure, unspecified (4) CAD (coronary artery disease) Qualifiers: Coronary Disease-Associated Artery/Lesion type: [place] artery [place] vs. transplanted heart: [place] heart Associated angina: without angina Qualified Code(s): I25.10 - Atherosclerotic heart disease of [place] coronary artery without angina pectoris (7) Anemia Qualifiers: Anemia type: due to chronic kidney disease Chronic kidney disease stage: on chronic dialysis (8) HLD (hyperlipidemia) Qualifiers: Hyperlipidemia type: unspecified Qualified Code(s): E78.5 - Hyperlipidemia, unspecified (9) Diabetes Qualifiers: Diabetes mellitus type: type 2 Diabetes mellitus assisted insulin use: with assisted use Diabetes mellitus complication status: with hyperglycemia Qualified Code(s): E11.65 - Type 2 diabetes mellitus with hyperglycemia; 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
[2018-07-02] MEDS ORDERED: Levofloxacin 750 MG/150 ML 750 MG/150 ML BAG IVPB ONE (09:45)
[2018-07-02] MEDS ORDERED: *HR* Dextrose 50 % in Water (Syg) 50 ML SYRINGE IVP PRN (12:37)
[2018-07-02] MEDS ORDERED: D5% in Water 1,000 ML IVC PRN (12:37)
[2018-07-02] MEDS ORDERED: Dextrose Gel 15 GM/37.5 ML TUBE PO PRN ×2 (12:37)
[2018-07-02 15:34] LABS: Hepatitis B Surface Antibody 84.66 mIU/mL
[2018-07-02 15:45] LABS: Hepatitis B Surface Antigen Nonreactive (Nonreactive)
[2018-07-02] MEDS: Insulin DETEMIR 100 UNIT/ML X5UNITS SQ SCH (20:53)
[2018-07-03] MEDS: methylPREDNISolone 125 MG/2 ML VIAL IVP SCH ×4 (00:08→23:52)
[2018-07-03] MEDS: Ipratropium/Albuterol Neb 3 ML IH SCH ×5 (04:24→20:23)
[2018-07-03] MEDS: *HR* Heparin 5,000 UNIT/ML VIAL SQ SCH ×2 (05:10→17:46)
[2018-07-03] MEDS: Renal Vitamin 1 CAP CAPSULE PO SCH (08:58)
[2018-07-03] MEDS: Furosemide 40 MG TABLET PO SCH ×2 (08:58→17:46)
[2018-07-03] MEDS: Aspirin 81 MG TAB.CHEW PO SCH (08:59)
[2018-07-03] MEDS: Artificial Tears SOLN 15 ML BOTTLE OP SCH ×2 (08:59→20:53)
[2018-07-03] MEDS: Magnesium Oxide 400 MG TABLET PO SCH ×2 (08:59→20:53)
[2018-07-03] MEDS: NIFEdipine XL (24 HR) 60 MG TAB.ER.24 PO SCH (08:59)
[2018-07-03] MEDS: Insulin LISPRO 300 UNITS/3 ML VIAL SQ SCH ×7 (08:59→20:54)
--- NOTE | 2018-07-03 09:01 | Internal Med Progress Note ---
Hospitalist Progress Note - Encounter Date of Encounter: 07/03/18 Time of Encounter: 11:00 - Subjective Interval History: Patient is a 67-year-old female with past medical history significant for ischemic cardiomyopathy, end-stage renal disease on hemodialysis and chronic anemia who presents from nephrology office due to productive cough and wheezing. Patient has been afebrile without leukocytosis and chest x-ray showed vascular congestion without any focal consolidation. However CT angiogram of the chest was negative for PE but did show bilateral patchy groundglass opacity's with patchy confluent airspace disease; multifocal pneumonia suspected. Patient continues to require supplemental oxygenation this morning at 2 L nasal cannula. - Exam Vitals: Temp Pulse Resp BP Pulse Ox 97.3 F L 72 20 121/50 93 07/03/18 07:52 07/03/18 07:52 07/03/18 07:52 07/03/18 07:52 07/03/18 08:51 Exam: Gen.: Nonacute distress, alert and oriented 3 ENT: Mucosal membranes moist Respiratory: Patient with decreased bilateral expiratory wheezes with good air movement Cardiovascular: Normal S1 and S2 regular rate rhythm no murmurs rubs or gallops Abdomen: Soft, nontender and nondistended with positive bowel sounds Extremities: No lower extremity edema Skin: Normal color - Assessment and Plan (1) Acute respiratory failure with hypoxia Current Visit: No Status: Acute Assessment and Plan: Patient was found to be hypoxic at urgent care with O2 saturation in the 80s Patient has been afebrile without leukocytosis and chest x-ray showed vascular congestion without any focal consolidation. However CT angiogram of the chest was negative for PE but did show bilateral patchy groundglass opacity's with patchy confluent airspace disease; multifocal pneumonia suspected. Patient continues to require supplemental oxygenation this morning at 2 L nasal cannula Will attempt to wean patient down to 1 L nasal cannula today and monitor (2) Pneumonia Current Visit: Yes Status: Acute Assessment and Plan: Patient with CT angiogram chest findings as above Will continue day 2 IV Levaquin for concerns of multifocal pneumonia (3) CHF (congestive heart failure) Current Visit: No Status: Acute Assessment and Plan: Patient with acute hypoxic respiratory failure as above and vascular congested noted on chest x-ray above. Patient found to have a BNP of 759 Echocardiogram on 05/2016 showed LVEF of 55% with moderate left ventricular diastolic dysfunction in addition to moderate pulmonary hypertension. Repeat echocardiogram pending for further evaluation. (4) CAD (coronary artery disease) Current Visit: No Status: Chronic Assessment and Plan: [facility] 08/02/15: 99% stenosis of mid-RCA (small vessel not amenable to PCI), 30% prox LAD, 25% mid LCx, LVEF 60% Will continue home medications (5) ESRD (end stage renal disease) on dialysis Current Visit: Yes Status: Chronic Assessment and Plan: Patient on hemodialysis Wednesday and Wednesday managed by nephrology as an outpatient. Nephrology consult in case patient here on Wednesday for hemodialysis. (6) HTN (hypertension), benign Current Visit: Yes Status: Acute Assessment and Plan: Continue home medications (7) Anemia Current Visit: No Status: Chronic Assessment and Plan: Stable; continue to monitor (8) HLD (hyperlipidemia) Current Visit: Yes Status: Acute Assessment and Plan: Continue statin (9) Diabetes Current Visit: No Status: Chronic Assessment and Plan: Continue home dose of basal insulin DVT Prophylaxis: Subcutaneous heparin - Time Spent with Patient Total time spent is greater than 50% in coordination of care (as documented) at patient's floor/unit and/or counseling patient: Internal Medicine: Result - Labs CBC & Chem 7: 07/03/18 09:35 07/03/18 08:15 - ABG Interpretation ABG results: ABG ABG pH 7.45 pH Units (7.32-7.45) 07/01/18 19:12 ABG pCO2 37 mmHg (35-45) 07/01/18 19:12 ABG pO2 58 mmHg (85-104) L 07/01/18 19:12 ABG O2 Saturation 91 % (95-98) L 07/01/18 19:12 Consult Discharge Plan - Plan Referrals: Abelardo Bowen MD [Primary Care Provider] - (3) CHF (congestive heart failure) Qualifiers: Heart failure chronicity: unspecified Qualified Code(s): I50.9 - Heart fa ilure, unspecified (4) CAD (coronary artery disease) Qualifiers: Coronary Disease-Associated Artery/Lesion type: [place] artery [place] vs. transplanted heart: [place] heart Associated angina: without angina Qualified Code(s): I25.10 - Atherosclerotic heart disease of [place] coronary artery wi thout angina pectoris (7) Anemia Qualifiers: Anemia type: due to chronic kidney disease Chronic kidney disease stage: on chronic dialysis Qualified Code(s): N18.6 - End stage renal disease; D63.1 - Anemia in chronic kidney disease; Z99.2 - Dependence on renal dialysis (8) HLD (hyperlipidemia) Qualifiers: Hyperlipidemia type: unspecified Qualified Code(s): E78.5 - Hyperlipidemia, unspecified (9) Diabetes Qualifiers: Diabetes mellitus type: type 2 Diabetes mellitus mcfp insulin use: with dedicated 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
[2018-07-03 09:27] LABS: Potassium 4.6 mEq/L (3.5-5.1)
[2018-07-03 09:51] LABS: Hematocrit 27.9 % (35.3-44.9); Hemoglobin 9.5 g/dL (11.5-15.4); Mean Corpuscular HGB Conc 34.1 g/dL (31.6-35.5); Mean Corpuscular Volume 91.2 fL (83.0-100.0); Mean Platelet Volume 11.2 fL (9.4-12.4); Platelet Count 216 K/mcL (140-400); Red Blood Count 3.06 M/mcL (3.82-4.97); Red Cell Distribution Width 13.2 % (11.5-14.5)
[2018-07-03 10:02] LABS: Calcium 8.7 mg/dL (8.6-10.3)
[2018-07-03] MEDS: Insulin DETEMIR 100 UNIT/ML X5UNITS SQ SCH (20:54)
[2018-07-04] MEDS: Ipratropium/Albuterol Neb 3 ML IH SCH ×7 (00:34→23:39)
[2018-07-04] MEDS: *HR* Heparin 5,000 UNIT/ML VIAL SQ SCH ×2 (04:59→16:35)
[2018-07-04 06:42] LABS: Basophils % 0.1 %; Hematocrit 27.6 % (35.3-44.9); Hemoglobin 9.3 g/dL (11.5-15.4); Immature Granulocytes % 0.6 % (0-4); Lymphocytes # 0.7 K/mcL (0.6-4.6); Lymphocytes % 6.1 %; Mean Corpuscular HGB Conc 33.7 g/dL (31.6-35.5); Mean Corpuscular Hemoglobin 30.9 pg (28.0-33.3); Mean Corpuscular Volume 91.7 fL (83.0-100.0); Mean Platelet Volume 10.5 fL (9.4-12.4); Monocytes # 0.2 K/mcL (0.0-1.3); Monocytes % 1.9 %; Neutrophils # 10.3 K/mcL (1.6-8.9); Platelet Count 247 K/mcL (140-400); Red Blood Count 3.01 M/mcL (3.82-4.97); Red Cell Distribution Width 13.3 % (11.5-14.5); Segmented Neutrophils % 91.3 %
[2018-07-04 07:00] LABS: Calcium 8.8 mg/dL (8.6-10.3); Potassium 4.8 mEq/L (3.5-5.1)
[2018-07-04] MEDS ORDERED: 0.9 % Sodium Chloride 250 ML IVC PRN (07:53)
[2018-07-04] MEDS ORDERED: 0.9 % Sodium Chloride 1,000 ML PRIME SCH (08:00)
[2018-07-04] MEDS: Aspirin 81 MG TAB.CHEW PO SCH (08:13)
[2018-07-04] MEDS: NIFEdipine XL (24 HR) 60 MG TAB.ER.24 PO SCH (08:13)
[2018-07-04] MEDS: Renal Vitamin 1 CAP CAPSULE PO SCH (08:14)
[2018-07-04] MEDS: Furosemide 40 MG TABLET PO SCH ×2 (08:14→16:35)
[2018-07-04] MEDS: Magnesium Oxide 400 MG TABLET PO SCH ×2 (08:15→23:02)
[2018-07-04] MEDS: methylPREDNISolone 125 MG/2 ML VIAL IVP SCH (08:16)
[2018-07-04] MEDS: Insulin LISPRO 300 UNITS/3 ML VIAL SQ SCH ×7 (08:16→23:02)
[2018-07-04] MEDS: Artificial Tears SOLN 15 ML BOTTLE OP SCH ×2 (08:19→23:02)
[2018-07-04] MEDS ORDERED: Levofloxacin 500 MG/100 ML 500 MG/100 ML BAG IVPB SCH (09:00)
--- NOTE | 2018-07-04 09:44 | Internal Med Progress Note ---
Hospitalist Progress Note - Encounter Date of Encounter: 07/04/18 Time of Encounter: 11:00 - Subjective Interval History: Patient is a 67-year-old female with past medical history significant for ischemic cardiomyopathy, end-stage renal disease on hemodialysis and chronic anemia who presents from nephrology office due to productive cough and wheezing. Patient has been afebrile without leukocytosis and chest x-ray showed vascular congestion without any focal consolidation. However CT angiogram of the chest was negative for PE but did show bilateral patchy groundglass opacity's with patchy confluent airspace disease; multifocal pneumonia suspected. Patient continues to require supplemental oxygenation this morning at 2 L nasal cannula. - Exam Vitals: Temp Pulse Resp BP Pulse Ox 97.4 F L 70 16 106/55 94 07/04/18 07:16 07/04/18 07:16 07/04/18 07:37 07/04/18 07:16 07/04/18 07:37 Exam: Gen.: Nonacute distress, alert and oriented 3 ENT: Mucosal membranes moist Respiratory: Patient with decreased bilateral expiratory wheezes with good air movement Cardiovascular: Normal S1 and S2 regular rate rhythm no murmurs rubs or gallops Abdomen: Soft, nontender and nondistended with positive bowel sounds Extremities: No lower extremity edema Skin: Normal color - Assessment and Plan (1) Acute respiratory failure with hypoxia Current Visit: No Status: Acute Assessment and Plan: Patient was found to be hypoxic at urgent care with O2 saturation in the 80s Patient has been afebrile without leukocytosis and chest x-ray showed vascular congestion without any focal consolidation. However CT angiogram of the chest was negative for PE but did show bilateral patchy groundglass opacity's with patchy confluent airspace disease; multifocal pneumonia suspected. Patient continues to require supplemental oxygenation this morning at 2 L nasal cannula Will again attempt today to wean patient down to 1 L nasal cannula; unsuccessful yesterday (2) Pneumonia Current Visit: Yes Status: Acute Assessment and Plan: Patient with CT angiogram chest findings as above Will continue day 3 IV Levaquin for concerns of multifocal pneumonia (3) CHF (congestive heart failure) Current Visit: No Status: Acute Assessment and Plan: Patient with acute hypoxic respiratory failure as above and vascular congested noted on chest x-ray above. Patient found to have a BNP of 759 Echocardiogram on 05/2016 showed LVEF of 55% with moderate left ventricular diastolic dysfunction in addition to moderate pulmonary hypertension. Repeat echocardiogram pending for further evaluation. (4) CAD (coronary artery disease) Current Visit: No Status: Chronic Assessment and Plan: [facility] 08/02/15: 99% stenosis of mid-RCA (small vessel not amenable to PCI), 30% prox LAD, 25% mid LCx, LVEF 60% Will continue home medications (5) ESRD (end stage renal disease) on dialysis Current Visit: Yes Status: Chronic Assessment and Plan: Patient on hemodialysis Wednesday and Wednesday managed by nephrology as an outpatient. Nephrology consult in case patient here on Wednesday for hemodialysis. (6) HTN (hypertension), benign Current Visit: Yes Status: Acute Assessment and Plan: Continue home medications (7) Anemia Current Visit: No Status: Chronic Assessment and Plan: Stable; continue to monitor (8) HLD (hyperlipidemia) Current Visit: Yes Status: Acute Assessment and Plan: Continue statin (9) Diabetes Current Visit: No Status: Chronic Assessment and Plan: Continue home dose of basal insulin DVT Prophylaxis: Subcutaneous heparin - Time Spent with Patient Total time spent is greater than 50% in coordination of care (as documented) at patient's floor/unit and/or counseling patient: Internal Medicine: Result - Labs CBC & Chem 7: 07/04/18 06:26 07/04/18 06:26 Labs: Short CBC 07/03/18 07/04/18 Range/Units 09:35 06:26 WBC 12.7 H D 11.2 H (4.3-11.1) K/mcL Hgb 9.5 L 9.3 L (11.5-15.4) g/dL Hct 27.9 L 27.6 L (35.3-44.9) % Plt Count 216 247 (140-400) K/mcL Neutrophils # 10.3 H (1.6-8.9) K/mcL BMP 07/03/18 07/04/18 08:15 06:26 Sodium 125 L Potassium 4.8 Chloride 88 L Carbon Dioxide 21 L BUN 92 H Creatinine 7.77 H Glucose 274 H Calcium 8.7 8.8 - ABG Interpretation ABG results: ABG ABG pH 7.45 pH Units (7.32-7.45) 07/01/18 19:12 ABG pCO2 37 mmHg (35-45) 07/01/18 19:12 ABG pO2 58 mmHg (85-104) L 07/01/18 19:12 ABG O2 Saturation 91 % (95-98) L 07/01/18 19:12 Consult Discharge Plan - Plan Referrals: Abelardo Bowen MD [Primary Care Provider] - (3) CHF (congestive heart failure) Qualifiers: Heart failure chronicity: unspecified Qualified Code(s): I50.9 - Heart failure, unspecified (4) CAD (coronary artery disease) Qualifiers: Coronary Disease-Associated Artery/Lesion type: [place] artery [place] vs. transplanted heart: [place] heart Associated angina: without angina Qualified Code(s): I25.10 - Atherosclerotic heart disease of [place] coronary artery without angina pectoris (7) Anemia Qualifiers: Anemia type: due to chronic kidney disease Chronic kidney disease stage: on chronic dialysis Qualified Code(s): N18.6 - End stage renal disease; D63.1 - Anemia in chronic kidney disease; Z99.2 - Dependence on renal dialysis (8) HLD (hyperlipidemia) Qualifiers: Hyperlipidemia type: unspecified Qualified Code(s): E78.5 - Hyperlipidemia, unspecified (9) Diabetes Qualifiers: Diabetes mellitus type: type 2 Diabetes mellitus mcfp insulin use: 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
--- NOTE | 2018-07-04 12:00 | Nephrology Progress Note ---
Date of Encounter: 07/04/18 Time of Encounter: 08:58 - Assessment and Plan (1) ESRD (end stage renal disease) on dialysis Current Visit: Yes Status: Chronic ESRD on HD M/F. I counseled her that she would be better maintained with three times per week HD on M//F, which is what I recommend going forward. Hyponatremia: agree with echo. HD planned for today (Wednesday). I reviewed the pt's vital sign and lab trends, meds, I/Os and progress notes, which I used to evaluate and then compose HD orders. Given her reported sudden decline of UOP, which could be post renal obstruction vs loss of residual renal function, just in case, I recommend checking a r etroperitoneal U/S. Thank you. (2) Acute exacerbation of chronic obstructive airways disease Current Visit: Yes Status: Acute (3) Anemia Current Visit: No Status: Chronic Qualifiers: Anemia type: due to chronic kidney disease Chronic kidney disease stage: on chronic dialysis Qualified Code(s): N18.6 - End stage renal disease; D63.1 - Anemia in chronic kidney disease; Z99.2 - Dependence on renal dialysis (4) Hyponatremia Current Visit: Yes Status: Acute Subjective Principal diagnosis: ESRD Interval history: Pt was s/e earlier today in her 2A room. She did not affirm N/V/D. She expressed concern of making less urine output over the last 24-48hr, which is new (she has continued to make urine, she reported even after started dialysis). She was accompanied by her spouse. Objective - Vital Signs Vital signs: Vital Signs Temp Pulse Resp BP Pulse Ox 07/04/18 11:29 18 99 07/04/18 07:37 16 94 07/04/18 07:16 97.4 F L 70 20 106/55 97 07/04/18 04:35 18 94 07/04/18 03:37 97.9 F 73 16 113/57 92 07/03/18 23:44 97.5 F L 71 16 109/68 92 07/03/18 20:26 16 94 07/03/18 19:21 97.5 F L 74 16 113/72 94 07/03/18 16:11 97.9 F 82 20 109/68 96 07/03/18 15:44 18 95 Intake and Output 0407/04/18 07/04/18 23:59 07:59 15:59 Intake Total 300 / 570 200 / 440 240 / 440 Output Total 0 / 0 0 / 0 Balance 300 / 570 200 / 440 240 / 440 Intake: Oral 300 / 570 200 / 440 240 / 440 Output: Urine 0 / 0 0 / 0 Other: Meal Breakfast Percent of Meal Consumed 100% Weight 75.8 kg Blood Glucose* 209 315 - General Appearance Exam: General appearance: well-developed (short), well-nourished, appears started age EENT: ATNC, PERRL, mucous membranes moist Neck: supple Respiratory: wheezing at end of exhalation with diffuse rhonchi bilaterally Cardiology: no edema, regular rate, regular rhythm, normal S1, normal S2 - Dialysis Access Dialysis Vascular Access: Arteriovenous Fistula (left arm) thrill: Yes bruit: Yes Gastrointestinal: normoactive bowel sounds, no tenderness Integumentary: no rash, warm and dry Neurologic: no focal deficit, no asterixis, alert and oriented x3 Musculoskeletal: no deformities, no erythema, no cyanosis Psychiatric: mood/affect appropriate, cooperative - Lab 07/04/18 06:26 07/04/18 06:26 Most recent lab results 07/04/18 06:26 Calcium 8.8 Consult Discharge Plan - Plan Referrals: Abelardo Bowen MD [Primary Care Provider] -
--- NOTE | 2018-07-04 12:04 | Electrocardiograph Report ---
[place] [id number] Test Date: 2018-07-01 Pat Name: Alida Becerril Department: [id number] Room: 2A Gender: F Sliver Former: : 1950 Requested By: Lázaro Li Order Number: [id number] Reading MD: Errol Dietrich Measurements Intervals [place] Rate: 74 P: -87 OK: 145 QRS: 67 QRSD: 99 T: 45 QT: 425 QTc: 472 Interpretive Statements Ectopic atrial rhythm Low voltage, precordial leads Electronically Signed On 07-04-2018 12:03:06 EDT by Errol Dietrich
[2018-07-04] MEDS: predniSONE 20 MG TABLET PO SCH (16:35)
[2018-07-04] MEDS: Insulin DETEMIR 100 UNIT/ML X5UNITS SQ SCH (23:02)
[2018-07-05 02:19] LABS: Basophils % 0.1 %; Hematocrit 28.8 % (35.3-44.9); Hemoglobin 9.8 g/dL (11.5-15.4); Immature Granulocytes % 1.1 % (0-4); Lymphocytes # 0.6 K/mcL (0.6-4.6); Lymphocytes % 6.1 %; Mean Corpuscular Hemoglobin 30.5 pg (28.0-33.3); Mean Corpuscular Volume 89.7 fL (83.0-100.0); Mean Platelet Volume 10.6 fL (9.4-12.4); Monocytes # 0.4 K/mcL (0.0-1.3); Monocytes % 3.7 %; Neutrophils # 8.8 K/mcL (1.6-8.9); Platelet Count 232 K/mcL (140-400); Red Blood Count 3.21 M/mcL (3.82-4.97); Red Cell Distribution Width 13.1 % (11.5-14.5)
[2018-07-05 02:38] LABS: Platelet Estimate Normal (Normal)
[2018-07-05 02:47] LABS: Calcium 8.6 mg/dL (8.6-10.3); Potassium 3.8 mEq/L (3.5-5.1)
[2018-07-05] MEDS: Ipratropium/Albuterol Neb 3 ML IH SCH ×6 (04:04→23:47)
[2018-07-05] MEDS: *HR* Heparin 5,000 UNIT/ML VIAL SQ SCH ×2 (06:11→16:53)
[2018-07-05] MEDS: Insulin LISPRO 300 UNITS/3 ML VIAL SQ SCH ×7 (07:58→20:18)
[2018-07-05] MEDS: Artificial Tears SOLN 15 ML BOTTLE OP SCH ×2 (07:59→20:18)
[2018-07-05] MEDS: Aspirin 81 MG TAB.CHEW PO SCH (08:01)
[2018-07-05] MEDS: Renal Vitamin 1 CAP CAPSULE PO SCH (08:01)
[2018-07-05] MEDS: Furosemide 40 MG TABLET PO SCH ×2 (08:01→16:53)
[2018-07-05] MEDS: predniSONE 20 MG TABLET PO SCH (08:01)
[2018-07-05] MEDS: Magnesium Oxide 400 MG TABLET PO SCH ×2 (08:01→20:18)
[2018-07-05] MEDS: NIFEdipine XL (24 HR) 60 MG TAB.ER.24 PO SCH (08:01)
--- NOTE | 2018-07-05 18:41 | Internal Med Progress Note ---
Hospitalist Progress Note - Encounter Date of Encounter: 07/05/18 Time of Encounter: 11:00 - Subjective Interval History: Patient is a 67-year-old female with past medical history significant for ischemic cardiomyopathy, end-stage renal disease on hemodialysis and chronic anemia who presents from nephrology office due to productive cough and wheezing. Patient has been afebrile without leukocytosis and chest x-ray showed vascular congestion without any focal consolidation. However CT angiogram of the chest was negative for PE but did show bilateral patchy groundglass opacity's with patchy confluent airspace disease; multifocal pneumonia suspected. Patient overnight required O2 supplementation and will need to do a nocturnal O2 tests to qualify - Exam Vitals: Temp Pulse Resp BP Pulse Ox 98.1 F 75 20 124/74 99 07/05/18 16:09 07/05/18 16:09 07/05/18 16:09 07/05/18 16:09 07/05/18 16:09 Exam: Gen.: Nonacute distress, alert and oriented 3 ENT: Mucosal membranes moist Respiratory: Patient with decreased bilateral expiratory wheezes with good air movement Cardiovascular: Normal S1 and S2 regular rate rhythm no murmurs rubs or gallops Abdomen: Soft, nontender and nondistended with positive bowel sounds Extremities: No lower extremity edema Skin: Normal color - Assessment and Plan (1) Acute respiratory failure with hypoxia Current Visit: No Status: Acute Assessment and Plan: Patient was found to be hypoxic at urgent care with O2 saturation in the 80s Patient has been afebrile without leukocytosis and chest x-ray showed vascular congestion without any focal consolidation. However CT angiogram of the chest was negative for PE but did show bilateral patchy groundglass opacity's with patchy confluent airspace disease; multifocal pneumonia suspected. Patient continues to require supplemental oxygenation this morning at 2 L nasal cannula Will again attempt today to wean patient off oxygen supplementation today (2) Pneumonia Current Visit: Yes Status: Acute Assessment and Plan: Patient with CT angiogram chest findings as above Will continue day4 IV Levaquin for concerns of multifocal pneumonia (3) CHF (congestive heart failure) Current Visit: No Status: Acute Assessment and Plan: Patient with acute hypoxic respiratory failure as above and vascular congested noted on chest x-ray above. Patient found to have a BNP of 759 Echocardiogram on 05/2016 showed LVEF of 55% with moderate left ventricular diastolic dysfunction in addition to moderate pulmonary hypertension. Repeat echocardiogram showed LVEF of 60-65% with moderate left ventricular diastolic dysfunction; unchanged from last echo (4) CAD (coronary artery disease) Current Visit: No Status: Chronic Assessment and Plan: [facility] 08/02/15: 99% stenosis of mid-RCA (small vessel not amenable to PCI), 30% prox LAD, 25% mid LCx, LVEF 60% Will continue home medications (5) ESRD (end stage renal disease) on dialysis Current Visit: Yes Status: Chronic Assessment and Plan: Patient on hemodialysis Wednesday and Wednesday managed by nephrology as an outpatient. Nephrology consult in case patient here on Wednesday for hemodialysis. (6) HTN (hypertension), benign Current Visit: Yes Status: Acute Assessment and Plan: Continue home medications (7) Anemia Current Visit: No Status: Chronic Assessment and Plan: Stable; continue to monitor (8) HLD (hyperlipidemia) Current Visit: Yes Status: Acute Assessment and Plan: Continue statin (9) Diabetes Current Visit: No Status: Chronic Assessment and Plan: Continue home dose of basal insulin DVT Prophylaxis: Subcutaneous heparin - Time Spent with Patient Total time spent is greater than 50% in coordination of care (as documented) at patient's floor/unit and/or counseling patient: Internal Medicine: Result - Labs CBC & Chem 7: 07/05/18 02:05 07/05/18 02:05 Labs: Short CBC 07/05/18 Range/Units 02:05 WBC 9.9 (4.3-11.1) K/mcL Hgb 9.8 L (11.5-15.4) g/dL Hct 28.8 L (35.3-44.9) % Plt Count 232 (140-400) K/mcL Neutrophils # 8.8 (1.6-8.9) K/mcL BMP 07/05/18 02:05 Sodium 135 L D Potassium 3.8 Chloride 92 L Carbon Dioxide 29 BUN 33 H Creatinine 3.45 H Glucose 163 H Calcium 8.6 Cardiac Enzymes 07/04/18 Range/Units 19:23 Troponin I 0.03 (< 0.04) ng/mL - ABG Interpretation ABG results: ABG ABG pH 7.45 pH Units (7.32-7.45) 07/01/18 19:12 ABG pCO2 37 mmHg (35-45) 07/01/18 19:12 ABG pO2 58 mmHg (85-104) L 07/01/18 19:12 ABG O2 Saturation 91 % (95-98) L 07/01/18 19:12 - Impressions Impressions Retroperitoneum Ultrasound 07/05/18 08:30 IMPRESSION: Unremarkable ultrasound of the kidneys and urinary bladder. D/ / Son Rosario MD / Son Rosario MD Interpreting Provider: Son Rosario MD Consult Discharge Plan - Plan Referrals: Abelardo Bowen MD [Primary Care Provider] - (3) CHF (congestive heart failure) Qualifiers: Heart failure chronicity: unspecified Qualified Code(s): I50.9 - Heart failure, unspecified (4) CAD (coronary artery disease) Qualifiers: Coronary Disease-Associated Artery/Lesion type: [place] artery [place] vs. transplanted heart: [place] heart Associated angina: without angina Qualified Code(s): I25.10 - Atherosclerotic heart disease of [place] coronary artery without angina pectoris (7) Anemia Qualifiers: Anemia type: due to chronic kidney disease Chronic kidney disease stage: on chronic dialysis Qualified Code(s): N18.6 - End stage renal disease; D63.1 - Anemia in chronic kidney disease; Z99.2 - Dependence on renal dialysis (8) HLD (hyperlipidemia) Qualifiers: Hyperlipidemia type: unspecified Qualified Code(s): E78.5 - Hyperlipidemia, unspecified (9) Diabetes Qualifiers: Diabetes mellitus type: type 2 Diabetes mellitus intermodal dispatcher insulin use: with intermodal dispatcher use Diabetes mellitus complication status: with hyperglycemia Qualified Code(s): E11.65 - Type 2 diabetes mellitus with hyperglycemia; Z79.4 - intermodal dispatcher (current) use of insulin
[2018-07-05] MEDS: Insulin DETEMIR 100 UNIT/ML X5UNITS SQ SCH (20:18)
[2018-07-06] MEDS: Ipratropium/Albuterol Neb 3 ML IH SCH ×3 (04:13→12:03)
[2018-07-06 04:15] LABS: Basophils % 0.1 %; Hematocrit 28.3 % (35.3-44.9); Hemoglobin 9.4 g/dL (11.5-15.4); Immature Granulocytes % 0.9 % (0-4); Lymphocytes # 0.6 K/mcL (0.6-4.6); Lymphocytes % 6.4 %; Mean Corpuscular HGB Conc 33.2 g/dL (31.6-35.5); Mean Corpuscular Hemoglobin 30.5 pg (28.0-33.3); Mean Corpuscular Volume 91.9 fL (83.0-100.0); Mean Platelet Volume 10.1 fL (9.4-12.4); Monocytes # 0.7 K/mcL (0.0-1.3); Monocytes % 8.5 %; Neutrophils # 7.3 K/mcL (1.6-8.9); Platelet Count 252 K/mcL (140-400); Red Blood Count 3.08 M/mcL (3.82-4.97); Red Cell Distribution Width 13.7 % (11.5-14.5); Segmented Neutrophils % 84.1 %
[2018-07-06 04:35] LABS: Calcium 8.6 mg/dL (8.6-10.3); Potassium 3.9 mEq/L (3.5-5.1)
[2018-07-06] MEDS: *HR* Heparin 5,000 UNIT/ML VIAL SQ SCH (05:34)
[2018-07-06] MEDS ORDERED: 0.9 % Sodium Chloride 250 ML IVC PRN (07:52)
--- NOTE | 2018-07-06 07:57 | Nephrology Progress Note ---
Date of Encounter: 07/06/18 Time of Encounter: 09:00 - Assessment and Plan (1) ESRD (end stage renal disease) on dialysis Status: Chronic HD planned for today (Wednesday). ESRD on HD M/F. Earlier this week, I counseled her that she would be better maintained with three times per week HD on M/W/F, which is what I recommend going forward. Hyponatremia: needs for frequent HD for fluid removal, as I suspect this a hypervolemic hyponatremia. I reviewed the pt's vital sign and lab trends, meds, I/Os and progress notes, which I used to evaluate and then compose HD orders. The retroperitoneal U/S did not show hydro or urinary retention. I will be available tomorrow, on , if needed. Thank you. (2) Acute exacerbation of chronic obstructive airways disease Status: Acute As per the primary team. (3) Anemia Status: Chronic Goal Hgb is 10-11. Will monitor need for IV iron and / or ANIBAL. Qualifiers: Anemia type: due to chronic kidney disease Chronic kidney disease stage: on chronic dialysis Qualified Code(s): N18.6 - End stage renal disease; D63.1 - Anemia in chronic kidney disease; Z99.2 - Dependence on renal dialysis (4) Hyponatremia Status: Acute Recommend a fluid restriction of <1.5L per day. Should avoid thiazide type diuretics. Subjective Principal diagnosis: ESRD Interval history: Pt was s/e earlier today in her 2A room. Her spouse was not present. She strongly requested to have the newly ordered [id number] dialysis plan start as an outpatient. She strongly requested discharge today (Wednesday). The floor RN and the hospitalist was present as well during my interview and exam with the patient she did not affirm chest pain, cramping, nausea, vomiting, diarrhea. She stated that her shortness of breath was improved. Objective - Vital Signs Vital signs: Vital Signs Temp Pulse Resp BP Pulse Ox 07/06/18 07:33 18 89 07/06/18 07:16 97.8 F 73 16 127/63 89 07/06/18 04:27 98.0 F 75 16 117/67 90 07/06/18 04:13 16 90 07/05/18 23:55 98.1 F 77 18 128/61 85 07/05/18 23:53 99 07/05/18 23:48 16 93 07/05/18 21:09 98.1 F 73 17 129/58 88 07/05/18 20:16 18 91 07/05/18 16:09 98.1 F 75 20 124/74 99 07/05/18 16:06 18 90 07/05/18 11:27 18 94 07/05/18 11:11 97.7 F 71 20 155/75 93 Intake and Output 07/05/18 07/05/18 07/06/18 15:59 23:59 07:59 Intake Total 480 / 480 100 / 100 Balance 480 / 480 100 / 100 Intake: Oral 480 / 480 100 / 100 Other: Meal Dinner Percent of Meal Consumed 100% # Voids 1 1 Blood Glucose* 160 227 205 - General Appearance Exam: General appearance: well-developed (short), well-nourished, appears started age EENT: ATNC, PERRL, mucous membranes moist Neck: supple Respiratory: wheezing at end of exhalation with diffuse rhonchi bilaterally Cardiology: no edema, regular rate, regular rhythm, normal S1, normal S2 - Dialysis Access Dialysis Vascular Access: Arteriovenous Fistula (left arm) thrill: Yes bruit: Yes Gastrointestinal: normoactive bowel sounds, no tenderness Integumentary: no rash, warm and dry Neurologic: no focal deficit, no asterixis, alert and oriented x3 Musculoskeletal: no deformities, no erythema, no cyanosis Psychiatric: mood/affect appropriate, cooperative - Lab 07/06/18 03:17 07/06/18 03:17 Most recent lab results 07/06/18 03:17 Calcium 8.6 Consult Discharge Plan - Plan Instructions: Dialysis Diet (GEN), Pneumonia (DC), End-Stage Kidney Disease (GEN) Referrals: Abelardo Bowen MD [Primary Care Provider] - 07/12/18 2:45 pm (Please follow up as schedule...) Prescriptions: Albuterol Sulfate [Albuterol Inhaler] 1 puff IH Q6HR 30 Days #2 hfa.aer.ad levoFLOXacin [Levaquin] 500 mg PO Q48H 6 Days #3 tablet
[2018-07-06] MEDS: Artificial Tears SOLN 15 ML BOTTLE OP SCH (08:14)
[2018-07-06] MEDS: Insulin LISPRO 300 UNITS/3 ML VIAL SQ SCH ×4 (08:15→11:31)
[2018-07-06] MEDS: Aspirin 81 MG TAB.CHEW PO SCH (08:16)
[2018-07-06] MEDS: Renal Vitamin 1 CAP CAPSULE PO SCH (08:16)
[2018-07-06] MEDS: predniSONE 20 MG TABLET PO SCH (08:16)
[2018-07-06] MEDS: Magnesium Oxide 400 MG TABLET PO SCH (08:17)
[2018-07-06] MEDS ORDERED: levoFLOXacin 500 MG TABLET PO SCH (09:00)
[2018-07-06] MEDS: Furosemide 40 MG TABLET PO SCH ×2 (09:14→10:41)
[2018-07-06] MEDS: NIFEdipine XL (24 HR) 60 MG TAB.ER.24 PO SCH ×2 (09:14→10:40)
--- NOTE | 2018-07-06 10:06 | Discharge Summary ---
Orders not resulted at time of discharge: Pending orders 07/03/18 09:03 Legionella Antigen [RM] Routine Streptococcal pneumoniae urin antigen [S. Pneumoniae Antigen] [RM] Routine 07/07/18 04:00 Basic Metabolic Panel AM 0400 CBC no Diff [Complete Blood Count w/o Diff] [HEME] AM 0400 07/08/18 04:00 Basic Metabolic Panel AM 0400 CBC no Diff [Complete Blood Count w/o Diff] [HEME] AM 0400 Date of Encounter: 07/06/18 Time of Encounter: 10:01 - Discharge Diagnosis (1) CHF (congestive heart failure) Priority: Secondary Status: Chronic Qualifiers: Heart failure type: diastolic Heart failure chronicity: unspecified Qualified Code(s): I50.30 - Unspecified diastolic (congestive) heart failure (2) Diabetes Priority: Secondary Status: Chronic Qualifiers: Diabetes mellitus type: type 2 Diabetes mellitus half-way insulin use: with half-way use Diabetes mellitus complication status: with hyperglycemia Qualified Code(s): E11.65 - Type 2 diabetes mellitus with hyperglycemia; Z79.4 - USP (current) use of insulin (3) Acute respiratory failure with hypoxia Priority: Primary Status: Resolved (4) Anemia Priority: Secondary Status: Chronic Qualifiers: Anemia type: due to chronic kidney disease Chronic kidney disease stage: on chronic dialysis Qualified Code(s): N18.6 - End stage renal disease; D63.1 - Anemia in chronic kidney disease; Z99.2 - Dependence on renal dialysis (5) CAD (coronary artery disease) Priority: Secondary Status: Chronic Qualifiers: Coronary Disease-Associated Artery/Lesion type: [place] artery [place] vs. transplanted heart: [place] heart Associated angina: without angina Qualified Code(s): I25.10 - Atherosclerotic heart disease of [place] coronary artery without angina pectoris (6) HTN (hypertension), benign Priority: Secondary Status: Chronic (7) HLD (hyperlipidemia) Priority: Secondary Status: Chronic Qualifiers: Hyperlipidemia type: unspecified Qualified Code(s): E78.5 - Hyperlipidemia, unspecified (8) ESRD (end stage renal disease) on dialysis Priority: Secondary Status: Chronic (9) Pneumonia Priority: Primary Status: Acute Qualifiers: Pneumonia type: due to unspecified organism Laterality: bilateral Lung location: unspecified part of lung Qualified Code(s): J18.9 - Pneumonia, unspecified organism Hospital course: Ms. Becerril is a 67 year old female past medical history of CHF, diabetes, hyperlipidemia, hypertension, ESRD (M,F). who presents from nephrology office due to productive cough and wheezing. Patient states that at urgent care she was found to be hypoxic and was sent to [facility] ER by EMS for further evaluation. As part of the work up a chest x-ray done: showed vascular congestion. Patient admitted to hospital and started on bronchodilators and IV steroids. A CTA of the chest done: o evidence of an acute pulmonary embolus. There is bilateral patchy ground-glass opacity in both lungs. There is patchy confluent airspace disease in the left greater than right bilateral lower lobes. Multifocal pneumonia is suspected. Pulmonary edema is not excluded. Mildly enlarged mediastinal lymph nodes are likely reactive. Patient started on broad spectrum antibiotics. Nephrology consulted for continuity of care recommended the patient to be on HD M,W,F, instead of only twice a week. Patient's acute symptoms have resolved and she is hemodynamically stable to be discharged on oral antibiotics and a Medrol Dosepak. Patient with nocturnal hypoxemia, qualifies for 2 litter of nocturnal O2. - Time Spent with Patient Total time spent providing and/or coordinating discharge services: Time spent: Greater than 30 minutes (35) - Discharge Medications Prescriptions: New levoFLOXacin [Levaquin] 500 mg PO Q48H 6 Days #3 tablet Albuterol Sulfate [Albuterol Inhaler] 1 puff IH Q6HR 30 Days #2 hfa.aer.ad Continued Insulin ASPART [NovoLOG] 15 unit SQ TIDWM Aspirin 81 mg PO DAILY Ergocalciferol (VITAMIN D2) [Vitamin D2] 50,000 unit PO WE Magnesium Oxide [Mag-Ox] 400 mg PO BID #60 tab Atorvastatin [Lipitor] 40 mg PO DAILY Carvedilol [Coreg] 12.5 mg PO BIDWM Cyclosporine [Restasis] 1 drop OP BID NIFEdipine XL (24 HR) [Procardia XL] 60 mg PO DAILY #30 tab Insulin Glargine,Hum.rec.anlog [Basaglar Kwikpen U-100] 30 unit SQ HS Folic Acid/Vit B Complex and C [Dialyvite Tablet] 1 each PO DAILY Furosemide [Lasix] 80 mg PO QAM Furosemide [Lasix] 40 mg PO QPM Home Medications: Aspirin 81 mg PO DAILY 08/02/15 [History] Insulin ASPART [NovoLOG] 15 unit SQ TIDWM 08/02/15 [History] Ergocalciferol (VITAMIN D2) [Vitamin D2] 50,000 unit PO WE 09/15/16 [History] Magnesium Oxide [Mag-Ox] 400 mg PO BID #60 tab 09/24/16 [Rx] Atorvastatin [Lipitor] 40 mg PO DAILY 09/27/16 [History] Carvedilol [Coreg] 12.5 mg PO BIDWM 09/27/16 [History] Cyclosporine [Restasis] 1 drop OP BID 09/27/16 [History] NIFEdipine XL (24 HR) [Procardia XL] 60 mg PO DAILY #30 tab 10/06/16 [Rx] Folic Acid/Vit B Complex and C [Dialyvite Tablet] 1 each PO DAILY 07/01/18 [History] Furosemide [Lasix] 40 mg PO QPM 07/01/18 [History] Furosemide [Lasix] 80 mg PO QAM 07/01/18 [History] Insulin Glargine,Hum.rec.anlog [Basaglar Kwikpen U-100] 30 unit SQ HS 07/01/18 [History] Albuterol Sulfate [Albuterol Inhaler] 1 puff IH Q6HR 30 Days #2 hfa.aer.ad 07/06/18 [Rx] levoFLOXacin [Levaquin] 500 mg PO Q48H 6 Days #3 tablet 07/06/18 [Rx] Allergies/Adverse Reactions: Allergy/AdvReac Type Severity Reaction Status Date / Time No Known Allergies Allergy Verified 07/01/18 13:54 Date of admission: 07/01/18 19:45 Primary care physician: Abelardo Bowen MD Consults: 07/01/18 18:32 Consult to Nephrology [CONS] Routine Consulting Provider: Kidney Aura/QASIM/DARION/FELIPE Reason for Consult: Hemodialysis management for end-stage renal disease (Mondays and Fridays) Call Completed: No 07/04/18 08:00 Consult to Dialysis [CONS] ONCE 07/04/18 09:42 Consult to Nurse Navigator [CONS] Routine Comment: chf 07/06/18 08:00 Consult to Dialysis [CONS] QMWF 07/08/18 08:00 Consult to Dialysis [CONS] QMWF - Constitutional Vitals: Temp Pulse Resp BP Pulse Ox 97.8 F 73 18 127/63 89 07/06/18 07:16 07/06/18 07:16 07/06/18 07:33 07/06/18 07:16 07/06/18 07:33 Exam: Vitals: Reviewed. General: Alert and oriented x4. in no acute distress. Skin: Normal color, no rash, no lesions. HEENT: EOM, pupils equal, round and reactive. Cardiovascular: RRR, normal S1 & S2, no rubs, murmurs or gallops. Lungs: CTA b/l, no wheezes or crackles. Abdomen: Obese, soft, non-tender, no rigidity. Extremities: No deformity, no edema or tenderness, no joint swelling or clubbing. Neurological: Normal cognition and motor skills. Rest of the physical exam is non contributory - Patient Status Disposition: Home, Self-Care Condition: Good Functional capacity at discharge: independent ambulation Overall status at discharge: patient is back to baseline - Discharge Instructions Instructions: Dialysis Diet (GEN), Pneumonia (DC), End-Stage Kidney Disease (GEN) Follow Up With: Abelardo Bowen MD [Primary Care Provider] - 07/12/18 2:45 pm (Please follow up as schedule...) - Diet and Activity Activity: wear oxygen at night (2 litters ) Diet: diabetic diet, low salt diet
[2018-07-06 11:21] VITALS: BP 109/63
== END 2018-07-06 12:56 | disposition home or self-care (01) | DRG 193 ==
LOC: 2ANU 14:45 → EMEROOARM 14:45 → SUATTDRO 19:45 → 2ANU 20:04
PROVIDERS: ADMIT Student in an Organized Health Care Education/Training Program; ATTEND Internal Medicine

== ENCOUNTER 2018-07-09 12:01 | Observation (INO) ==
[2018-07-09] MEDS ORDERED: Ondansetron 4 MG/2 ML VIAL IVP ONE (12:14)
[2018-07-09] MEDS ORDERED: 0.9 % Sodium Chloride 1,000 ML IVC ONE (12:14)
--- NOTE | 2018-07-09 12:35 | Emergency Department Note ---
Disposition Clinical Impression: Dehydration, Hyperglycemia CHF exacerbation Qualifiers: Heart failure type: unspecified Qualified Code(s): I50.9 - Heart failure, unspe cified Nausea & vomiting Qualifiers: Vomiting type: unspecified Vomiting Intractability: non-intractable Qualified Code(s): R11.2 - Nausea with vomiting, unspecified Disposition: Admitted As Inpatient Condition: Fair Referrals: Abelardo Bowen MD [Primary Care Provider] - Forms: ED Satisfaction Letter General Adult HPI - General Chief complaint: ED Nausea/Vomiting/Diarrhea Stated complaint: vomiting,diarrhea Time Seen by Provider: 07/09/18 12:13 Source: patient, EMS Limitations: no limitations Nursing Notes Reviewed: Yes Vital Signs Reviewed: Yes - History of Present Illness HPI Narrative: Chief complaints nausea diarrhea and not feeling well. This is a 67-year-old female who presents after being admitted last week for pneumonia. She is on antibiotic but she does not know what it is. She says since she has been having vomiting and then for the past 48 hours she has had diarrhea to come yet. Last episode of both for this morning. Denies chest pain or shortness of breath. She does use oxygen at night when she sleeps. She says she thinks her pneumonia is getting better. No one else is ill at home. She denies abdominal pain just some cramping. Denies any fevers rash or chills. Past medical history reviewed, nurse's notes reviewed, allergies reviewed, med list reviewed. Pain Scale: 3 - Related Data Home Medications Medication Instructions Recorded Confirmed Aspirin 81 mg PO DAILY 08/02/15 07/09/18 Insulin ASPART [NovoLOG] 15 unit SQ TIDWM 08/02/15 07/09/18 Ergocalciferol (VITAMIN D2) 50,000 unit PO WE 09/15/16 07/09/18 [Vitamin D2] Atorvastatin [Lipitor] 40 mg PO DAILY 09/27/16 07/09/18 Carvedilol [Coreg] 12.5 mg PO BIDWM 09/27/16 07/09/18 Cyclosporine [Restasis] 1 drop OP BID 09/27/16 07/09/18 Folic Acid/Vit B Complex and C 1 each PO DAILY 07/01/18 07/09/18 [Dialyvite Tablet] Furosemide [Lasix] 40 mg PO QPM 07/01/18 07/09/18 Furosemide [Lasix] 80 mg PO QAM 07/01/18 07/09/18 Insulin Glargine,Hum.rec.anlog 30 unit SQ HS 07/01/18 07/09/18 [Basaglar Kwikpen U-100] Calcium Acetate 667 mg PO TIDWM 07/09/18 07/09/18 Previous Rx's Medication Instructions Recorded Magnesium Oxide [Mag-Ox] 400 mg PO BID #60 tab 09/24/16 NIFEdipine XL (24 HR) [Procardia 60 mg PO DAILY #30 tab 10/06/16 XL] Albuterol Sulfate [Albuterol 1 puff IH Q6HR 30 Days #2 07/06/18 Inhaler] hfa.aer.ad levoFLOXacin [Levaquin] 500 mg PO Q48H 6 Days #3 tablet 07/06/18 Allergies Allergy/AdvReac Type Severity Reaction Status Date / Time No Known Allergies Allergy Verified 07/01/18 13:54 Review of Systems: Positive nausea, positive vomiting, positive diarrhea, positive "not feeling well". All systems ED: reviewed and negative except as stated. 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 She is alert cooperative nontoxic in appearance. HEENT: PERRL, mucous membranes are dry, neck is supple no nodes no meningeal signs. No scleral icterus. Cardiovascular is regular rate and rhythm without rubs or JVD Lungs are clear to auscultation bilaterally with good aeration just a faint wheeze in the base on the left. Abdomen soft nontender. Bowel sounds no masses Extremities are present 4 with good distal pulses, cap refill is brisk, no calf tenderness. Dermatologic skin is warm and dry no signs of acute rash petechiae or jaundice. She does have changes associated with age. Neurologic: Cranial nerves are intact she is alert person place and time, GCS is 15. She is ambulatory. - General Limitations: no limitations General appearance: alert, in no apparent distress Course Vital Signs Temperature 98.3 F 07/09/18 12:08 Pulse Rate 82 07/09/18 12:08 Respiratory Rate 18 07/09/18 12:08 Blood Pressure 196/72 07/09/18 12:08 O2 Sat by Pulse Oximetry 96 07/09/18 12:08 Temperature 98.3 F 07/09/18 12:08 Pulse Rate 89 07/09/18 14:27 Respiratory Rate 18 07/09/18 13:32 Blood Pressure 162/86 07/09/18 14:27 O2 Sat by Pulse Oximetry 94 07/09/18 14:27 Oxygen Delivery Oxygen Delivery Nasal Cannula Medical Decision Making - MDM Narrative Medical decision making narrative: We will do a workup on her, EKG, labs, C. difficile toxin, urinalysis, chest x- ray, fluids and something for nausea and reassess. She may need readmission. She is in agreement with plan. 1312 hrs.: Patient in EKG performed shows a sinus rhythm, rate is 83, QRS is 112, QTC is 406, no signs of acute ischemia, compare this to an EKG she had done a month ago shows no changes except for rate. Chest X-Ray 07/09/18 12:14 IMPRESSION: 1. Findings of congestive heart failure. 2. Left basilar consolidation and pleural effusion are presumably related to congestive heart failure, however, pneumonitis is a consideration as well. 3. Calcific atherosclerosis aorta. 4. Cardiomegaly. D/ / Carmelo Vang / Carmelo Vang Interpreting Provider: Carmelo Vang 1330 hrs.: We will add on a BMP to the patient's labs consistent with her chest x-ray. Patient is feeling better. Waiting on her labs. She says she only dialyzes twice a week but probably then she will go to 3 times a week. 1400 hrs.: She has a critical troponin 0.05 no chest pain. She has been feeling poorly. Also she started have CHF on her chest x-ray again. Her blood sugars also 600 but she is not acidotic according to her bicarbonate a formal VBG started on insulin. She has her had a liter of fluids and the plan will be for admission she is in agreement with this plan. 1428 hrs.: She is not acidotic on her VBG, waiting on BNP and then admit. 1517 hrs.: Hospitalist as accepted patient for admission. - Lab Data Result diagrams: 07/09/18 13:13 07/09/18 13:13 Lab Results 07/09/18 07/09/18 07/09/18 Range/Units 13:13 13:13 13:13 WBC 10.0 (4.3-11.1) K/mcL RBC 3.54 L (3.82-4.97) M/mcL Hgb 11.2 L D (11.5-15.4) g/dL Hct 34.3 L (35.3-44.9) % MCV 96.9 (83.0-100.0) fL MCH 31.6 (28.0-33.3) pg MCHC 32.7 (31.6-35.5) g/dL RDW 13.5 (11.5-14.5) % Plt Count 218 (140-400) K/mcL MPV 9.6 (9.4-12.4) fL Immature Gran % 1.2 (0-4) % Seg Neutrophils % 86.5 % Lymphocytes % 3.3 % Monocytes % 8.7 % Eosinophils % 0.1 % Basophils % 0.2 % Neutrophils # 8.6 (1.6-8.9) K/mcL Lymphocytes # 0.3 L (0.6-4.6) K/mcL Monocytes # 0.9 (0.0-1.3) K/mcL Eosinophils # 0.0 (0.0-0.6) K/mcL Basophils # 0.0 (0.0-0.2) K/mcL VBG pH (7.32-7.42) pH Units VBG pCO2 (41-51) mmHg VBG pO2 (25-50) mmHg VBG HCO3 (21-27) mEq/L Sodium 134 L (136-145) mEq/L Potassium 3.8 (3.5-5.1) mEq/L Chloride 96 L (98-107) mEq/L Carbon Dioxide 21 L (23-29) mEq/L BUN 63 H (8-23) mg/dL Creatinine 4.71 H (0.60-1.20) mg/dL Est GFR ( Amer) 11 L (> 60) Est GFR (Non-Af Amer) 9 L (> 60) BUN/Creatinine Ratio 13 (6-26) Glucose 614 H* (70-105) mg/dL Calculated Osmolality 325 H (280-300) Lactic Acid (0.5-2.2) mmol/L Calcium 9.0 (8.6-10.3) mg/dL Total Bilirubin 1.1 H (0.3-1.0) mg/dL AST 12 L (13-39) Units/L ALT 18 (7-52) Units/L Alkaline Phosphatase 72 (34-104) Units/L Troponin I 0.05 H* (< 0.04) ng/mL B-Natriuretic Peptide (Less than 100) pg/mL Serum Total Protein 6.2 L (6.4-8.9) g/dL Albumin 3.7 (3.5-5.7) g/dL Globulin 2.5 (2.4-3.5) g/dL Albumin/Globulin Ratio 1.5 (1.1-2.2) Lipase 341 H (11-82) Units/L Specimen Rejected Hemolyzed 07/09/18 07/09/18 07/09/18 Range/Units 14:17 14:17 14:18 WBC (4.3-11.1) K/mcL RBC (3.82-4.97) M/mcL Hgb (11.5-15.4) g/dL Hct (35.3-44.9) % MCV (83.0-100.0) fL MCH (28.0-33.3) pg MCHC (31.6-35.5) g/dL RDW (11.5-14.5) % Plt Count (140-400) K/mcL MPV (9.4-12.4) fL Immature Gran % (0-4) % Seg Neutrophils % % Lymphocytes % % Monocytes % % Eosinophils % % Basophils % % Neutrophils # (1.6-8.9) K/mcL Lymphocytes # (0.6-4.6) K/mcL Monocytes # (0.0-1.3) K/mcL Eosinophils # (0.0-0.6) K/mcL Basophils # (0.0-0.2) K/mcL VBG pH 7.51 H (7.32-7.42) pH Units VBG pCO2 25 L (41-51) mmHg VBG pO2 178 H (25-50) mmHg VBG HCO3 20 L (21-27) mEq/L Sodium (136-145) mEq/L Potassium (3.5-5.1) mEq/L Chloride (98-107) mEq/L Carbon Dioxide (23-29) mEq/L BUN (8-23) mg/dL Creatinine (0.60-1.20) mg/dL Est GFR ( Amer) (> 60) Est GFR (Non-Af Amer) (> 60) BUN/Creatinine Ratio (6-26) Glucose (70-105) mg/dL Calculated Osmolality (280-300) Lactic Acid 1.0 (0.5-2.2) mmol/L Calcium (8.6-10.3) mg/dL Total Bilirubin (0.3-1.0) mg/dL AST (13-39) Units/L ALT (7-52) Units/L Alkaline Phosphatase (34-104) Units/L Troponin I (< 0.04) ng/mL B-Natriuretic Peptide 569 H (Less than 100) pg/mL Serum Total Protein (6.4-8.9) g/dL Albumin (3.5-5.7) g/dL Globulin (2.4-3.5) g/dL Albumin/Globulin Ratio (1.1-2.2) Lipase (11-82) Units/L Specimen Rejected
[2018-07-09 13:23] LABS: Basophils % 0.2 %; Eosinophils % 0.1 %; Hematocrit 34.3 % (35.3-44.9); Immature Granulocytes % 1.2 % (0-4); Lymphocytes # 0.3 K/mcL (0.6-4.6); Lymphocytes % 3.3 %; Mean Corpuscular HGB Conc 32.7 g/dL (31.6-35.5); Mean Corpuscular Hemoglobin 31.6 pg (28.0-33.3); Mean Corpuscular Volume 96.9 fL (83.0-100.0); Mean Platelet Volume 9.6 fL (9.4-12.4); Monocytes # 0.9 K/mcL (0.0-1.3); Monocytes % 8.7 %; Neutrophils # 8.6 K/mcL (1.6-8.9); Platelet Count 218 K/mcL (140-400); Red Blood Count 3.54 M/mcL (3.82-4.97); Red Cell Distribution Width 13.5 % (11.5-14.5); Segmented Neutrophils % 86.5 %
[2018-07-09 13:24] LABS: Hemoglobin 11.2 g/dL (11.5-15.4)
[2018-07-09 13:50] LABS: Albumin 3.7 g/dL (3.5-5.7); Albumin/Globulin Ratio 1.5 (1.1-2.2); Bilirubin,Total 1.1 mg/dL (0.3-1.0); Globulin 2.5 g/dL (2.4-3.5); Potassium 3.8 mEq/L (3.5-5.1); Total Protein 6.2 g/dL (6.4-8.9); Troponin I 0.05 ng/mL (< 0.04)
[2018-07-09] MEDS ORDERED: Insulin Regular, Human 100 UNIT/ML SQ ONE (13:52)
[2018-07-09 14:20] LABS: VBG HCO3 20 mEq/L (21-27); VBG PCO2 25 mmHg (41-51); VBG PH 7.51 pH Units (7.32-7.42); VBG PO2 178 mmHg (25-50)
[2018-07-09] MEDS ORDERED: Ondansetron 4 MG/2 ML VIAL IVP PRN (15:11)
[2018-07-09] MEDS ORDERED: Naloxone 0.4 MG/ML INJ IVP PRN (15:11)
[2018-07-09] MEDS ORDERED: traMADol 50 MG TABLET PO PRN (15:11)
[2018-07-09] MEDS ORDERED: *HR* Dextrose 50 % in Water (Syg) 50 ML SYRINGE IVP PRN ×2 (15:15→15:22)
[2018-07-09] MEDS ORDERED: D5% in Water 1,000 ML IVC PRN (15:15)
[2018-07-09] MEDS ORDERED: Dextrose Gel 15 GM/37.5 ML TUBE PO PRN ×2 (15:15)
[2018-07-09] MEDS ORDERED: Insulin Human Regular 100 UNIT in 0.9 % Sodium Chloride 100 ML IVC SCH (15:30)
--- NOTE | 2018-07-09 15:57 | Internal Med History&Physical ---
Date of Encounter: 07/09/18 Time of Encounter: 15:52 Internal Medicine - H&P: HPI Chief complaint: nausea, vomiting and dirrhea Plans for Post Hospital Care: Home History of present illness: Ms. Becerril is a 67 year old female past medical history of CHF, diabetes, hyperlipidemia, hypertension, ESRD (M,W,F). Patient discharged from the hospital 3 days ago after being admitted for acute bronchitis and pneumonia. Today patient presents to the ED due to nausea, vomiting and diarrhea. Patient reports that for the past 3 days after she was discharged from the hospital she has not been able to tolerate anything PO due to nausea and non-bilious, non-bloody vomiting, she reports that she has had more that 20 vomiting episodes. Reports that her blood sugar despite the fact that she has not been able to eat anything keep trending up. She also reports loose stool and increase frequency on her BM for the past 2 days, reports that she is having 4-5 bowel movements a day and that she is normally constipated. She denies abdominal pain, shortness of breath, fever, chills or urinary symptoms. Past Med Surg Social Fam HX - Past Medical History Medical history: CHF, diabetes, dialysis, hyperlipidemia, hypertension, renal disease Additional medical history: Acute respiratory failure. Home O2 3 LPM Psychiatric history: no psych history - Past Surgical History Surgical History: cataract, cholecystectomy Additional surgical history: Left foot compound fracture. Bilateral cataract surgery - Social History Smoking Status: Never smoker Smokeless Tobacco Status: No Alcohol use: none Drug use: none - Family History Mother Living Status: Hx Family Cardiac Disorders: Yes Hx Family Respiratory Disorders: No Hx Family Cancer: Yes Hx Family GI Disorders: No Hx Family Endocrine Disorder: Yes Hx Family Neuromuscular Disorders: No Hx Family Neurologic Disorders: Yes Hx Family HEENT Disorders: No Hx Family Autoimmune Disorders: No Father Living Status: Internal Medicine - H&P: Meds Aspirin 81 mg PO DAILY 08/02/15 [History] Insulin ASPART [NovoLOG] 15 unit SQ TIDWM 08/02/15 [History] Ergocalciferol (VITAMIN D2) [Vitamin D2] 50,000 unit PO WE 09/15/16 [History] Magnesium Oxide [Mag-Ox] 400 mg PO BID #60 tab 09/24/16 [Rx] Atorvastatin [Lipitor] 40 mg PO DAILY 09/27/16 [History] Carvedilol [Coreg] 12.5 mg PO BIDWM 09/27/16 [History] Cyclosporine [Restasis] 1 drop OP BID 09/27/16 [History] NIFEdipine XL (24 HR) [Procardia XL] 60 mg PO DAILY #30 tab 10/06/16 [Rx] Folic Acid/Vit B Complex and C [Dialyvite Tablet] 1 each PO DAILY 07/01/18 [History] Furosemide [Lasix] 40 mg PO QPM 07/01/18 [History] Furosemide [Lasix] 80 mg PO QAM 07/01/18 [History] Insulin Glargine,Hum.rec.anlog [Basaglar Kwikpen U-100] 30 unit SQ HS 07/01/18 [History] Albuterol Sulfate [Albuterol Inhaler] 1 puff IH Q6HR 30 Days #2 hfa.aer.ad 07/06/18 [Rx] levoFLOXacin [Levaquin] 500 mg PO Q48H 6 Days #3 tablet 07/06/18 [Rx] Calcium Acetate 667 mg PO TIDWM 07/09/18 [History] Allergy/AdvReac Type Severity Reaction Status Date / Time No Known Allergies Allergy Verified 07/01/18 13:54 All Systems PM: A 10-system review of systems was performed and is negative for pertinent findings except as documented above in the HPI. - Constitutional Constitutional: anorexia, malaise, weakness, no chills, no fever(s) - EENT Eyes: no floaters, no pain, no spots in vision Nose, mouth and throat: no dry mouth, no dysphagia, no mouth pain - Cardiovascular Cardiovascular ROS IM: no chest pain, no dyspnea on exertion, no lightheadedness, no orthopnea - Respiratory Respiratory: no cough, no dyspnea, no wheezing, no chest congestion - Gastrointestinal Gastrointestinal: diarrhea, loose stools, nausea, vomiting, no abdominal pain - Genitourinary Genitourinary: no dysuria, no urinary frequency, no urinary urgency - Musculoskeletal Musculoskeletal ROS IM: no back pain, no muscle weakness - Integumentary Integumentary IM: no erythema - Neurological Neurological ROS: no headache(s), no tremor(s), no weakness - Psychiatric Psychiatric: no anxiety, no irritability - Endocrine Endocrine IM: no cold intolerance, no excessive sweating - Hematologic/Lymphatic Hematologic/Lymphatic: no lymphadenopathy - Allergic/Immunologic Allergic/Immunologic: no GI upset with certain foods - Constitutional Vitals: Temp Pulse Resp BP Pulse Ox 98.3 F 89 18 162/86 94 07/09/18 12:08 07/09/18 14:27 07/09/18 13:32 07/09/18 14:27 07/09/18 14:27 Exam: Vitals: Reviewed General: Alert and oriented x4. In mild distress due to nausea and vomiting, generalized weakness Skin: Normal color, no rash, no lesions. HEENT: Dry mucus membrane, EOM, pupils equal, round and reactive. Cardiovascular: RRR, normal S1 & S2, no rubs, murmurs or gallops. No JVD. Pulse regular. Lungs: CTA b/l, no wheezes or crackles. Abdomen: Obese, soft, non-tender, no rigidity. Extremities: No deformity, no edema or tenderness, no joint swelling or clubbing. Neurological: Normal cognition and motor skills. Rest of the physical exam is non contributory Internal Med - H&P Results - Labs CBC & Chem 7: 07/09/18 13:13 07/09/18 13:13 Labs: Short CBC 07/09/18 Range/Units 13:13 WBC 10.0 (4.3-11.1) K/mcL Hgb 11.2 L D (11.5-15.4) g/dL Hct 34.3 L (35.3-44.9) % Plt Count 218 (140-400) K/mcL Neutrophils # 8.6 (1.6-8.9) K/mcL BMP 07/09/18 13:13 Sodium 134 L Potassium 3.8 Chloride 96 L Carbon Dioxide 21 L BUN 63 H Creatinine 4.71 H Glucose 614 H* Calcium 9.0 Cardiac Enzymes 07/09/18 Range/Units 13:13 Troponin I 0.05 H* (< 0.04) ng/mL Liver Function 07/09/18 Range/Units 13:13 Total Bilirubin 1.1 H (0.3-1.0) mg/dL AST 12 L (13-39) Units/L ALT 18 (7-52) Units/L Alkaline Phosphatase 72 (34-104) Units/L Albumin 3.7 (3.5-5.7) g/dL - ABG Interpretation ABG results: 07/09/18 14:18 VBG pH 7.51 H VBG pCO2 25 L VBG pO2 178 H VBG HCO3 20 L - Impressions ITS Impressions Chest X-Ray 07/09/18 12:14 IMPRESSION: 1. Findings of congestive heart failure. 2. Left basilar consolidation and pleural effusion are presumably related to congestive heart failure, however, pneumonitis is a consideration as well. 3. Calcific atherosclerosis aorta. 4. Cardiomegaly. D/ / Carmelo Vang / Carmelo Vang Interpreting Provider: Carmelo Vang - Diagnostic Studies Chest x-ray Status: image reviewed by me (pulmonary vascular congestion. better when compared with last admission) - Assessment and Plan (1) DKA, type 2 Current Visit: Yes Status: Acute Assessment and plan: patient with metabolic acidosis. elevated Beta hydroxybutyric acid and anion gap of 17. patient with moderate dehydration due to nausea and vomiting and DKA. ABG: Primary Respiratory Alkalosis, Acute, with: Secondary Metabolic Acidosis and Additional Metabolic Alkalosis. 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 on O2 by nasal cannula, titrate for O2sat >92%. bronchodilators Q4RT PRN Qualifiers: COPD type: unspecified COPD Qualified Code(s): J44.9 - Chronic obstructive pulmonary disease, unspecified (3) Dehydration Current Visit: Yes Status: Acute Assessment and plan: due to nausea, vomiting and diarrhea plan of care as per problem #1 (4) Nausea & vomiting Current Visit: Yes Status: Acute Assessment and plan: plan of care per problem #1 Qualifiers: Qualified Code(s): R11.2 - Nausea with vomiting, unspecified (5) DVT prophylaxis Current Visit: No Status: Acute Assessment and plan: heparin subq BID (6) CAD (coronary artery disease) Current Visit: No Status: Chronic Assessment and plan: will resume aspirin 81mg/PO daily when patient starts tolerating PO diet Qualifiers: Coronary Disease-Associated Artery/Lesion type: [place] artery [place] vs. transplanted heart: [place] heart Associated angina: without angina Qualified Code(s): I25.10 - Atherosclerotic heart disease of [place] coronary artery without angina pectoris (7) CHF (congestive heart failure) Current Visit: No Status: Chronic Assessment and plan: patient not on acute exacerbation. dehydrated due to nausea and vomiting will hold furosemide strict intake and output daily weight Qualifiers: Heart failure type: diastolic Heart failure chronicity: unspecified Qualified Code(s): I50.30 - Unspecified diastolic (congestive) heart failure (8) ESRD (end stage renal disease) on dialysis Current Visit: No Status: Chronic Assessment and plan: patient admits being compliant with her HD schedule. last HD on Wednesday nephrology consulted for continuity of care (9) HLD (hyperlipidemia) Current Visit: No Status: Chronic Assessment and plan: resume statin when patient starts tolerating PO diet Qualifiers: Hyperlipidemia type: unspecified Qualified Code(s): E78.5 - Hyperlipidemia, unspecified (10) HTN (hypertension), benign Current Visit: No Status: Chronic Assessment and plan: will resume carvedilol. furosemide held. started on hydralazine 5mg/IV Q6HR PRN for SBP >180 (11) Diarrhea Current Visit: Yes Status: Acute Assessment and plan: patient recently on antibiotics due to pneumonia/acute bronchitis. C.diff panel ordered. Qualifiers: Diarrhea type: unspecified type Qualified Code(s): R19.7 - Diarrhea, unspecified - Time Spent With Patient Total time spent is greater than 50% in coordination of care (as documented) at patient's floor/unit and/or counseling patient: Greater than 35 minutes (45)
[2018-07-09] MEDS ORDERED: Insulin LISPRO 300 UNITS/3 ML VIAL SQ SCH (16:00)
[2018-07-09] MEDS ORDERED: Ipratropium/Albuterol Neb 3 ML IH PRN (16:01)
[2018-07-09] MEDS ORDERED: D5% in 0.45% NACL 1,000 ML IVC PRN (16:29)
[2018-07-09] MEDS ORDERED: D5% in 0.45% NACL w KCl 20 MEQ/1,000 ML MLS IVC PRN (16:29)
[2018-07-09] MEDS ORDERED: 0.45 % Sodium Chloride w/KCl 20 MEQ/1,000 ML MLS IVC SCH (16:30)
[2018-07-09] MEDS ORDERED: Furosemide 40 MG/4 ML VIAL IVP SCH (17:00)
[2018-07-09 19:30] LABS: Potassium 3.5 mEq/L (3.5-5.1); Troponin I 0.07 ng/mL (< 0.04)
[2018-07-09] MEDS: *HR* Heparin 5,000 UNIT/ML VIAL SQ SCH (21:33)
[2018-07-09] MEDS ORDERED: Insulin DETEMIR 100 UNIT/ML X5UNITS SQ ONE (21:52)
[2018-07-10] MEDS ORDERED: Acetaminophen 325 MG TABLET PO PRN (04:04)
[2018-07-10 04:06] LABS: Basophils % 0.1 %; Eosinophils # 0.1 K/mcL (0.0-0.6); Eosinophils % 0.8 %; Hematocrit 28.7 % (35.3-44.9); Immature Granulocytes % 0.7 % (0-4); Lymphocytes # 0.9 K/mcL (0.6-4.6); Lymphocytes % 6.9 %; Mean Corpuscular HGB Conc 33.4 g/dL (31.6-35.5); Mean Corpuscular Hemoglobin 31.1 pg (28.0-33.3); Mean Corpuscular Volume 92.9 fL (83.0-100.0); Mean Platelet Volume 9.5 fL (9.4-12.4); Monocytes % 7.9 %; Neutrophils # 10.8 K/mcL (1.6-8.9); Platelet Count 220 K/mcL (140-400); Red Blood Count 3.09 M/mcL (3.82-4.97); Red Cell Distribution Width 13.8 % (11.5-14.5); Segmented Neutrophils % 83.6 %
[2018-07-10 04:08] LABS: Hemoglobin 9.6 g/dL (11.5-15.4)
[2018-07-10 04:23] LABS: Magnesium 1.9 mg/dL (1.6-2.6); Phosphorous 5.1 mg/dL (2.7-4.5)
[2018-07-10 04:25] LABS: Calcium 8.4 mg/dL (8.6-10.3); Potassium 3.3 mEq/L (3.5-5.1)
[2018-07-10] MEDS: *HR* Heparin 5,000 UNIT/ML VIAL SQ SCH ×2 (05:31→17:21)
[2018-07-10] MEDS: Aspirin Enteric Coated 81 MG Tablet PO SCH (08:45)
[2018-07-10] MEDS: Insulin LISPRO 300 UNITS/3 ML VIAL SQ SCH ×3 (08:45→17:24)
[2018-07-10] MEDS: Pantoprazole 40 MG VIAL IVP SCH (08:46)
--- NOTE | 2018-07-10 10:22 | Internal Med Progress Note ---
Hospitalist Progress Note - Encounter Date of Encounter: 07/10/18 Time of Encounter: 10:22 - Subjective Interval History: I have seen and evaluated the patient at bedside. patient reports feeling better today, nausea and vomiting stopped. reports one episode of loose stool today. denies abdominal pain, shortness of breath or chest pain. - Exam Vitals: Temp Pulse Resp BP Pulse Ox 99.0 F 83 18 169/74 94 07/10/18 07:21 07/10/18 07:21 07/10/18 07:21 07/10/18 07:21 07/10/18 07:21 Exam: Vitals: Reviewed General: Alert and oriented x4. In mild distress due to generalized weakness HEENT: Mucus membrane moist, EOM, pupils equal, round and reactive. Cardiovascular: RRR, normal S1 & S2, no rubs, murmurs or gallops. No JVD. Pulse regular. Lungs: CTA b/l, no wheezes or crackles. Abdomen: Obese, soft, non-tender, no rigidity. NABS in all 4 quadrants Extremities: No edema Neurological: No focal neurological deficits Rest of the physical exam is non contributory - Assessment and Plan (1) DKA, type 2 Current Visit: Yes Status: Resolved Assessment and Plan: Gap closed, nausea and vomiting stopped. patient tolerating oral diet. Plan encourage PO intake started on short and long acting insulin coverage carbs controlled diet (2) COPD (chronic obstructive pulmonary disease) Current Visit: Yes Status: Chronic Assessment and Plan: patient in no acute exacerbation, patient recently completed treatment for bronchitis/pneumonia. continue O2 by nasal cannula, titrate for O2sat >92 % bronchodilators Q4RT PRN incentive spirometry (3) Dehydration Current Visit: Yes Status: Resolved Assessment and Plan: oral mucus membrame moist. patient encourage to have good PO intake. (4) Nausea & vomiting Current Visit: Yes Status: Resolved Assessment and Plan: will continue PPI and anti-emetics PRN (5) CAD (coronary artery disease) Current Visit: No Status: Chronic Assessment and Plan: On aspirin 81 mg by mouth daily. (6) CHF (congestive heart failure) Current Visit: No Status: Chronic Assessment and Plan: Patient is euvolemic. Will hold fusoremide. continue bb daily weight, plus strict intake and output (7) ESRD (end stage renal disease) on dialysis Current Visit: No Status: Chronic Assessment and Plan: nephrology has been consulted. renal replacement therapy per nephrology recommendations (8) HLD (hyperlipidemia) Current Visit: No Status: Chronic Assessment and Plan: on atorvastatin 40mg/PO daily (9) HTN (hypertension), benign Current Visit: No Status: Chronic Assessment and Plan: BP sub-optimally controlled. on carvedilol 12.5mg/PO daily. furosemide held, due to patient still being mildly dehydrated and with poor oral intake. hydralazine 5mg/IV Q6HR PRN for SBP >180 (10) Diarrhea Current Visit: Yes Status: Acute Assessment and Plan: patient reports 1 episode of loose stool today. C.diff negative. (11) Hypokalemia Current Visit: Yes Status: Acute Assessment and Plan: electrolyte replaced DVT Prophylaxis: On heparin subQ - Summary of Assessment and Plan Summary of Assessment and Plan: patient to remain in the hospital due to DKA, generalized weakness and mild dehydration. Potential discharge tomorrow - Time Spent with Patient Total time spent is greater than 50% in coordination of care (as documented) at patient's floor/unit and/or counseling patient: Greater than 35 minutes (40) Plan of Care Discussed with: patient (her and the nurse.) Internal Medicine: Result - Labs CBC & Chem 7: 07/10/18 03:43 07/10/18 03:43 Labs: Short CBC 07/09/18 07/10/18 Range/Units 13:13 03:43 WBC 10.0 13.0 H (4.3-11.1) K/mcL Hgb 11.2 L D 9.6 L D (11.5-15.4) g/dL Hct 34.3 L 28.7 L (35.3-44.9) % Plt Count 218 220 (140-400) K/mcL Neutrophils # 8.6 10.8 H (1.6-8.9) K/mcL BMP 07/09/18 07/09/18 07/10/18 13:13 18:12 03:43 Sodium 134 L 137 137 Potassium 3.8 3.5 3.3 L Chloride 96 L 99 100 Carbon Dioxide 21 L 26 23 BUN 63 H 65 H 65 H Creatinine 4.71 H 4.71 H 4.66 H Glucose 614 H* 471 H 224 H Calcium 9.0 9.0 8.4 L Cardiac Enzymes 05/04/19 05/04/19 05/04/19 Range/Units 13:13 18:12 21:04 Troponin I 0.05 H* 0.07 H* 0.08 H* (< 0.04) ng/mL 07/10/18 Range/Units 03:43 Troponin I 0.09 H* (< 0.04) ng/mL Liver Function 07/09/18 Range/Units 13:13 Total Bilirubin 1.1 H (0.3-1.0) mg/dL AST 12 L (13-39) Units/L ALT 18 (7-52) Units/L Alkaline Phosphatase 72 (34-104) Units/L Albumin 3.7 (3.5-5.7) g/dL - Impressions Impressions Chest X-Ray 07/09/18 12:14 IMPRESSION: 1. Findings of congestive heart failure. 2. Left basilar consolidation and pleural effusion are presumably related to congestive heart failure, however, pneumonitis is a consideration as well. 3. Calcific atherosclerosis aorta. 4. Cardiomegaly. D/ / Carmelo Vang / Carmelo Vang Interpreting Provider: Carmelo Vang Consult Discharge Plan - Plan Referrals: Abelardo Bowen MD [Primary Care Provider] - (1) DKA, type 2 Qualifiers: Diabetes mellitus custodial insulin use: with custodial use Diabetes mellitus complication detail: without coma Qualified Code(s): E11.10 - Type 2 diabetes mellitus with ketoacidosis without coma; Z79.4 - terminologist (current) use of insulin (2) COPD (chronic obstructive pulmonary disease) Qualifiers: COPD type: unspecified COPD Qualified Code(s): J44.9 - Chronic obstructive pulmonary disease, unspecified (4) Nausea & vomiting Qualifiers: Qualified Code(s): R11.2 - Nausea with vomiting, unspecified (5) CAD (coronary artery disease) Qualifiers: Coronary Disease-Associated Artery/Lesion type: [place] artery [place] vs. transplanted heart: [place] heart Associated angina: without angina Qualified Code(s): I25.10 - Atherosclerotic heart disease of [place] coronary artery without angina pectoris (6) CHF (congestive heart failure) Qualifiers: Heart failure type: diastolic Heart failure chronicity: unspecified Qualified Code(s): I50.30 - Unspecified diastolic (congestive) heart failure (8) HLD (hyperlipidemia) Qualifiers: Hyperlipidemia type: unspecified Qualified Code(s): E78.5 - Hyperlipidemia, unspecified (10) Diarrhea Qualifiers: Diarrhea type: unspecified type Qualified Code(s): R19.7 - Diarrhea, unspecified
--- NOTE | 2018-07-10 19:38 | Nephrology Consult Note ---
Date of Encounter: 07/10/18 Time of Encounter: 15:00 Assessment and Plan (1) ESRD (end stage renal disease) on dialysis Current Visit: No Status: Chronic No acute indication for COATING OPERATOR today but will plan tentatively for tomorrow Limit obligate fluids if possible Renal diet if able to eat Will add nepro with meals (2) Diarrhea Current Visit: Yes Status: Acute per primary team Qualifiers: Diarrhea type: unspecified type Qualified Code(s): R19.7 - Diarrhea, unspecified (3) Nausea & vomiting Current Visit: Yes Status: Resolved per primary team Qualifiers: Qualified Code(s): R11.2 - Nausea with vomiting, unspecified (4) Hypokalemia Current Visit: Yes Status: Acute Gentle repletion only (5) DKA, type 2 Current Visit: Yes Status: Resolved Per primary Qualifiers: Diabetes mellitus group home insulin use: with oil heaterman use Diabetes mellitus complication detail: without coma Qualified Code(s): E11.10 - Type 2 diabetes mellitus with ketoacidosis without coma; Z79.4 - [facility] (current) use of insulin History of Present Illness - Reason for Consult Consult date: 07/10/18 end stage renal disease - History of Present Illness 67 y o female with PMH of DM, HTN, CHF and ESRD on HD admitted with N/V/D after being discharged 3 days ago with acute bronchitis and PNA. Pt reports being unable to hold much food down. Potassium noted on the low side at 3.5 dropping to 3.3 with hyperglycemia for which she is being treated for DKA type 2. Pt seen and examined feeling very week. at bedside. Past Med Surg Social Fam HX - Past Medical History Medical history: CHF, diabetes, dialysis, hyperlipidemia, hypertension, renal disease Additional medical history: Acute respiratory failure. Home O2 3 LPM Psychiatric history: no psych history - Past Surgical History Surgical History: cataract, cholecystectomy Additional surgical history: Left foot compound fracture. Bilateral cataract surgery - Social History Smoking Status: Never smoker Smokeless Tobacco Status: No Alcohol use: none Drug use: none - Family History Mother Living Status: Hx Family Cardiac Disorders: Yes Hx Family Respiratory Disorders: No Hx Family Cancer: Yes Hx Family GI Disorders: No Hx Family Endocrine Disorder: Yes Hx Family Neuromuscular Disorders: No Hx Family Neurologic Disorders: Yes Hx Family HEENT Disorders: No Hx Family Autoimmune Disorders: No Father Living Status: Medications and Allergies Aspirin 81 mg PO DAILY 08/02/15 [History] Insulin ASPART [NovoLOG] 10 - 15 unit SQ TIDAC 08/02/15 [History] Ergocalciferol (VITAMIN D2) [Vitamin D2] 50,000 unit PO WE 09/15/16 [History] Magnesium Oxide [Mag-Ox] 400 mg PO BID #60 tab 09/24/16 [Rx] Atorvastatin [Lipitor] 40 mg PO DAILY 09/27/16 [History] Cyclosporine [Restasis] 1 drop BOTH EYES HS 09/27/16 [History] NIFEdipine XL (24 HR) [Procardia XL] 60 mg PO DAILY #30 tab 10/06/16 [Rx] Folic Acid/Vit B Complex and C [Dialyvite Tablet] 1 tab PO DAILY 07/01/18 [History] Furosemide [Lasix] 40 mg PO QPM 07/01/18 [History] Furosemide [Lasix] 80 mg PO QAM 07/01/18 [History] Insulin Glargine,Hum.rec.anlog [Basaglar Kwikpen U-100] 28 - 30 unit SQ HS 07/01/18 [History] Albuterol Sulfate [Albuterol Inhaler] 1 puff IH Q6HR 30 Days #2 hfa.aer.ad 07/06/18 [Rx] levoFLOXacin [Levaquin] 500 mg PO Q48H 6 Days #3 tablet 07/06/18 [Rx] Calcium Acetate 667 mg PO BIDWM 07/09/18 [History] Carvedilol 12.5 mg PO BIDWM 07/10/18 [History] MethylPREDNISolone [MethylPREDNISolone Dose Pack] 4 mg PO AD 07/10/18 [History] Allergy/AdvReac Type Severity Reaction Status Date / Time No Known Allergies Allergy Verified 07/10/18 14:23 Review of Systems All Systems review (narrative): The rest of the systems are negative Constitutional: anorexia (admits), fatigue (admits) Cardiovascular: chest pain (denies), edema (denies) Respiratory: dyspnea (admits) Gastrointestinal: diarrhea (admits), nausea (admits), vomiting (admits) Exam - Vital Signs Vital signs: Initial Vital Signs Temp Pulse Resp BP Pulse Ox 98.3 F 82 18 196/72 96 07/09/18 12:08 07/09/18 12:08 07/09/18 12:08 07/09/18 12:08 07/09/18 12:08 Vital Signs - Last 8 Hours Temp Pulse Resp BP Pulse Ox 07/10/18 17:55 77 18 98 07/10/18 16:40 78 17 98 07/10/18 16:20 99.0 F 75 18 164/69 95 07/10/18 14:05 79 18 95 07/10/18 11:40 74 18 94 Intake and Output 07/10/18 07/10/18 07/10/18 07:59 15:59 23:59 Intake Total 150 / 930 540 / 930 240 / 930 Output Total 100 / 100 Balance 50 / 830 540 / 830 240 / 830 Intake: IV Fluids 300 / 300 Potassium Chloride 10 mEq/100mL 300 / 300 10 meq In 100 ml @ 100 mls/hr IVPB Q1H PRN Rx#:[id number] Oral 150 / 630 240 / 630 240 / 630 Output: Urine/Stool Mix 100 / 100 Other: Meal Lunch Dinner Percent of Meal Consumed 25% 50% Stool Size Moderate Moderate Stool Consistency loose loose liquid Stool Characteristics Normal for Patient Stool Color Brown Brown Yellow # Voids 1 # Bowel Movements 1 1 # Bowel Movement Diapers 1 Weight 76.2 kg Blood Glucose* 199 176 239 Patient Weight 07/10/18 23:59 Weight 76.2 kg - General Appearance General appearance: chronically ill, fatigue EENT: ATNC, mucous membranes dry Neck: no JVD, supple Respiratory: clear (ant bilat) Cardiology: no edema, normal S1, normal S2 - Dialysis Access Dialysis Vascular Access: Arteriovenous Fistula thrill: Yes bruit: Yes Gastrointestinal: no tenderness, no guarding Integumentary: warm and dry Neurologic: no focal deficit Musculoskeletal: no deformities Psychiatric: mood/affect appropriate, cooperative Results - Lab Results 07/10/18 03:43 07/10/18 03:43 Consult Discharge Plan - Plan Referrals: Abelardo Bowen MD [Primary Care Provider] -
[2018-07-10] MEDS ORDERED: Insulin LISPRO 300 UNITS/3 ML VIAL SQ SCH (21:00)
[2018-07-10] MEDS: Insulin DETEMIR 100 UNIT/ML X5UNITS SQ SCH (21:06)
[2018-07-11 03:00] LABS: Hematocrit 26.5 % (35.3-44.9); Hemoglobin 8.8 g/dL (11.5-15.4); Mean Corpuscular HGB Conc 33.2 g/dL (31.6-35.5); Mean Corpuscular Hemoglobin 30.9 pg (28.0-33.3); Mean Platelet Volume 9.4 fL (9.4-12.4); Platelet Count 173 K/mcL (140-400); Red Blood Count 2.85 M/mcL (3.82-4.97); Red Cell Distribution Width 13.6 % (11.5-14.5)
[2018-07-11 03:22] LABS: Calcium 8.2 mg/dL (8.6-10.3); Potassium 3.5 mEq/L (3.5-5.1)
[2018-07-11 03:23] LABS: Magnesium 1.6 mg/dL (1.6-2.6); Phosphorous 4.1 mg/dL (2.7-4.5)
[2018-07-11] MEDS: *HR* Heparin 5,000 UNIT/ML VIAL SQ SCH ×2 (05:10→19:35)
[2018-07-11] MEDS: Insulin DETEMIR 100 UNIT/ML X5UNITS SQ SCH (08:24)
[2018-07-11] MEDS: Aspirin Enteric Coated 81 MG Tablet PO SCH (08:24)
[2018-07-11] MEDS: Pantoprazole 40 MG VIAL IVP SCH (08:25)
[2018-07-11] MEDS: Insulin LISPRO 300 UNITS/3 ML VIAL SQ SCH ×4 (08:25→19:35)
[2018-07-11] MEDS ORDERED: 0.9 % Sodium Chloride 2,000 ML ONE (08:37)
[2018-07-11] MEDS ORDERED: Acetaminophen 325 MG TABLET PO PRN (09:03)
--- NOTE | 2018-07-11 10:46 | Electrocardiograph Report ---
[address] [address] Test Date: 2018-07-10 Pat Name: Alida Becerril Department: 110 Room: 2A Gender: F Senior Telecommunications Specialist: Lele : 1950 Requested By: [id number] Order Number: [id number] Reading MD: Park Ramirez Measurements Intervals [place] Rate: 81 P: 63 AR: 157 QRS: 49 QRSD: 114 T: 73 QT: 405 QTc: 443 Interpretive Statements SINUS RHYTHM MODERATE INTRAVENTRICULAR CONDUCTION DELAY [110+ ms QRS DURATION] NONSPECIFIC T-WAVE ABNORMALITY Electronically Signed On 07-11-2018 10:44:35 EDT by Park Ramirez
--- NOTE | 2018-07-11 10:48 | Electrocardiograph Report ---
[place] [address] Test Date: 2018-07-09 Pat Name: Alida Becerril Department: [id number] Room: 2A Gender: F Configuration Management Architect: : 1950 Requested By: Barry Terrazas Order Number: [id number] Reading MD: Park Ramirez Measurements Intervals [place] Rate: 83 P: 67 SD: 172 QRS: 55 QRSD: 112 T: 58 QT: 406 QTc: 478 Interpretive Statements Sinus rhythm Borderline intraventricular conduction delay Electronically Signed On 07-11-2018 10:46:55 EDT by Park Ramirez
--- NOTE | 2018-07-11 11:10 | Internal Med Progress Note ---
Hospitalist Progress Note - Encounter Date of Encounter: 07/11/18 Time of Encounter: 11:08 - Subjective Interval History: I have seen and evaluated the patient at bedside. Patient reports she is still having PO intake intake, stated that the nausea and the vomiting stopped. continues to have 1-2 loose BM a day. denies abdominal pain. reports she is feeling a little stronger than yesterday. - Exam Vitals: Temp Pulse Resp BP Pulse Ox 97.8 F 78 16 163/74 95 07/11/18 07:23 07/11/18 07:23 07/11/18 07:23 07/11/18 07:23 07/11/18 07:23 Exam: Vitals: Reviewed General: Alert and oriented x4. Still in mild distress due to generalized weakness Cardiovascular: RRR, normal S1 & S2, no rubs, murmurs or gallops. No JVD. Pulse regular. Lungs: CTA b/l, no wheezes or crackles. Abdomen: Obese, soft, non-tender, no rigidity. NABS in all 4 quadrants Extremities: No edema Neurological: No focal neurological deficits Rest of the physical exam is non contributory - Assessment and Plan (1) DKA, type 2 Current Visit: Yes Status: Resolved Assessment and Plan: blood sugar sub-optimally controlled. increase levemir to 13 units bid, continue lispro low dose sliding scale. carb controlled diet. (2) COPD (chronic obstructive pulmonary disease) Current Visit: Yes Status: Chronic Assessment and Plan: no wheezing. in no exacerbation. continue bronchodilators Q4RT scheduled. incentive spirometry (3) CAD (coronary artery disease) Current Visit: No Status: Chronic Assessment and Plan: on aspirin 81mg/PO daily (4) CHF (congestive heart failure) Current Visit: No Status: Chronic Assessment and Plan: patient on fluids restrictive diet. furosemide 40mg/PO daily resumed. continue strict intake and output (5) ESRD (end stage renal disease) on dialysis Current Visit: No Status: Chronic Assessment and Plan: avoid nephrotoxic medications. renal replacement therapy per nephrology protocol. fluids restriction to 1.5 litters a day. (6) HLD (hyperlipidemia) Current Visit: No Status: Chronic Assessment and Plan: on Atorvastatin 40mg/PO HS (7) HTN (hypertension), benign Current Visit: No Status: Chronic Assessment and Plan: BP sub-optimally controlled. will re-start furosemide 40mg/PO daily. continue carvedilol 12.5mg/PO daily (8) Diarrhea Current Visit: Yes Status: Acute Assessment and Plan: patient still reports loose stool but denies increase BM frequency. c.diff negative. will monitor (9) Hypokalemia Current Visit: Yes Status: Resolved (10) Dehydration Current Visit: Yes Status: Resolved (11) Nausea & vomiting Current Visit: Yes Status: Resolved DVT Prophylaxis: On heparin SubQ. - Summary of Assessment and Plan Summary of Assessment and Plan: Patient to remain in the hospital due to poor PO intake, generalized weakness and diarrhea. will keep in the hospital for 24 more hours. potential discharge tomorrow morning. - Time Spent with Patient Total time spent is greater than 50% in coordination of care (as documented) at patient's floor/unit and/or counseling patient: Greater than 35 minutes (40) Plan of Care Discussed with: patient (and the nurse.) Internal Medicine: Result - Labs CBC & Chem 7: 07/11/18 02:45 07/11/18 02:45 Labs: Short CBC 07/11/18 Range/Units 02:45 WBC 7.9 (4.3-11.1) K/mcL Hgb 8.8 L (11.5-15.4) g/dL Hct 26.5 L (35.3-44.9) % Plt Count 173 (140-400) K/mcL BMP 07/11/18 02:45 Sodium 137 Potassium 3.5 Chloride 102 Carbon Dioxide 24 BUN 67 H Creatinine 5.21 H Glucose 208 H Calcium 8.2 L Consult Discharge Plan - Plan Referrals: Abelardo Bowen MD [Primary Care Provider] - (1) DKA, type 2 Qualifiers: Diabetes mellitus jail insulin use: with jail use Diabetes mellitus complication detail: without coma Qualified Code(s): E11.10 - Type 2 diabetes mellitus with ketoacidosis without coma; Z79.4 - terminal press operator (current) use of insulin (2) COPD (chronic obstructive pulmonary disease) Qualifiers: COPD type: unspecified COPD Qualified Code(s): J44.9 - Chronic obstructive pulmonary disease, unspecified (3) CAD (coronary artery disease) Qualifiers: Coronary Disease-Associated Artery/Lesion type: [place] artery [place] vs. transplanted heart: [place] heart Associated angina: without angina Qualified Code(s): I25.10 - Atherosclerotic heart disease of [place] coronary artery without angina pectoris (4) CHF (congestive heart failure) Qualifiers: Heart failure type: diastolic Heart failure chronicity: unspecified Qualified Code(s): I50.30 - Unspecified diastolic (congestive) heart failure (6) HLD (hyperlipidemia) Qualifiers: Hyperlipidemia type: unspecified Qualified Code(s): E78.5 - Hyperlipidemia, unspecified (8) Diarrhea Qualifiers: Diarrhea type: unspecified type Qualified Code(s): R19.7 - Diarrhea, unspecified (11) Nausea & vomiting Qualifiers: Qualified Code(s): R11.2 - Nausea with vomiting, unspecified
[2018-07-11] MEDS: Furosemide 40 MG TABLET PO SCH (11:57)
[2018-07-11] MEDS ORDERED: 0.9 % Sodium Chloride 250 ML IVC PRN (12:15)
[2018-07-11] MEDS ORDERED: 0.9 % Sodium Chloride 1,000 ML PRIME SCH (12:15)
[2018-07-11] MEDS ORDERED: *HR* Heparin 10,000 UNIT/10 ML VIAL IV PRN (12:15)
--- NOTE | 2018-07-11 17:28 | Nephrology Progress Note ---
Date of Encounter: 07/11/18 Time of Encounter: 14:00 - Assessment and Plan (1) ESRD (end stage renal disease) on dialysis Current Visit: No Status: Chronic (2) Diarrhea Current Visit: Yes Status: Acute Qualifiers: Diarrhea type: unspecified type Qualified Code(s): R19.7 - Diarrhea, unspecified (3) Nausea & vomiting Current Visit: Yes Status: Resolved Qualifiers: Qualified Code(s): R11.2 - Nausea with vomiting, unspecified (4) Hypokalemia Current Visit: Yes Status: Resolved (5) DKA, type 2 Current Visit: Yes Status: Resolved Qualifiers: Diabetes mellitus nursing home insulin use: with nursing home use Diabetes mellitus complication detail: without coma Qualified Code(s): E11.10 - Type 2 diabetes mellitus with ketoacidosis without coma; Z79.4 - technician terminal and repeater (current) use of insulin Subjective Interval history: Pt seen and examined on HD Objective - Vital Signs Vital signs: Vital Signs Temp Pulse Resp BP Pulse Ox 07/11/18 15:50 97.8 F 16 174/77 07/11/18 11:29 98.1 F 86 16 152/73 92 07/11/18 07:23 97.8 F 78 16 163/74 95 07/11/18 04:16 99.1 F 81 14 153/63 94 07/11/18 00:19 98.7 F 78 15 150/62 96 07/10/18 20:41 98.1 F 73 17 159/76 99 07/10/18 17:55 77 18 98 Intake and Output 07/11/18 07/11/18 07/11/18 07:59 15:59 23:59 Intake Total 0 / 800 800 / 800 Output Total 300 / 300 Balance 0 / 500 800 / 500 -300 / 500 Intake: Oral 0 / 200 200 / 200 Intake, Rinseback and Flushes 600 / 600 Output: Urine 300 / 300 Other: Meal Lunch Percent of Meal Consumed 40% # Voids 1 Weight 75.9 kg Blood Glucose* 161 220 Hemodialysis Net Fluid Removed 0 (mL) Patient Weight 07/11/18 23:59 Weight 75.9 kg - Lab 07/11/18 02:45 07/11/18 02:45 Consult Discharge Plan - Plan Referrals: Abelardo Bowen MD [Primary Care Provider] -
[2018-07-11] MEDS ORDERED: Insulin DETEMIR 100 UNIT/ML X5UNITS SQ SCH (21:00)
[2018-07-12] MEDS: *HR* Heparin 5,000 UNIT/ML VIAL SQ SCH (05:49)
[2018-07-12 07:28] VITALS: BP 163/69
[2018-07-12] MEDS: Aspirin Enteric Coated 81 MG Tablet PO SCH (08:38)
[2018-07-12] MEDS: Furosemide 40 MG TABLET PO SCH (08:38)
[2018-07-12] MEDS: Insulin LISPRO 300 UNITS/3 ML VIAL SQ SCH (08:40)
[2018-07-12] MEDS ORDERED: Insulin DETEMIR 100 UNIT/ML X5UNITS SQ SCH (09:00)
[2018-07-12 09:04] LABS: Hematocrit 31.2 % (35.3-44.9); Hemoglobin 10.5 g/dL (11.5-15.4); Mean Corpuscular HGB Conc 33.7 g/dL (31.6-35.5); Mean Corpuscular Hemoglobin 31.1 pg (28.0-33.3); Mean Corpuscular Volume 92.3 fL (83.0-100.0); Mean Platelet Volume 9.5 fL (9.4-12.4); Platelet Count 201 K/mcL (140-400); Red Blood Count 3.38 M/mcL (3.82-4.97); Red Cell Distribution Width 13.2 % (11.5-14.5)
[2018-07-12 09:17] LABS: Calcium 8.8 mg/dL (8.6-10.3); Potassium 3.9 mEq/L (3.5-5.1)
--- NOTE | 2018-07-12 09:25 | Discharge Summary ---
Orders not resulted at time of discharge: Pending orders 07/13/18 04:00 Basic Metabolic Panel AM 0400 CBC no Diff [Complete Blood Count w/o Diff] [HEME] AM 04007/14/18 04:00 Basic Metabolic Panel AM 0400 CBC no Diff [Complete Blood Count w/o Diff] [HEME] AM 04007/15/18 04:00 Basic Metabolic Panel AM 0400 CBC no Diff [Complete Blood Count w/o Diff] [HEME] AM 04007/16/18 04:00 Basic Metabolic Panel AM 0400 CBC no Diff [Complete Blood Count w/o Diff] [HEME] AM 04007/17/18 04:00 Basic Metabolic Panel AM 0400 CBC no Diff [Complete Blood Count w/o Diff] [HEME] AM 39907/18/18 04:00 Basic Metabolic Panel AM 0400 CBC no Diff [Complete Blood Count w/o Diff] [HEME] AM 04007/19/18 04:00 Basic Metabolic Panel AM 0400 CBC no Diff [Complete Blood Count w/o Diff] [HEME] AM 040 Date of Encounter: 07/12/18 Time of Encounter: 09:22 - Discharge Diagnosis (1) DKA, type 2 Priority: Primary Status: Resolved Qualifiers: Diabetes mellitus parts counterman insulin use: with snf use Diabetes mellitus complication detail: without coma Qualified Code(s): E11.10 - Type 2 diabetes mellitus with ketoacidosis without coma; Z79.4 - lobsterman (current) use of insulin (2) COPD (chronic obstructive pulmonary disease) Priority: Secondary Status: Chronic Qualifiers: COPD type: unspecified COPD Qualified Code(s): J44.9 - Chronic obstructive pulmonary disease, unspecified (3) CAD (coronary artery disease) Priority: Secondary Status: Chronic Qualifiers: Coronary Disease-Associated Artery/Lesion type: [place] artery [place] vs. transplanted heart: [place] heart Associated angina: without angina Qualified Code(s): I25.10 - Atherosclerotic heart disease of [place] coronary artery without angina pectoris (4) CHF (congestive heart failure) Priority: Secondary Status: Chronic Qualifiers: Heart failure type: diastolic Heart failure chronicity: unspecified Qualified Code(s): I50.30 - Unspecified diastolic (congestive) heart failure (5) ESRD (end stage renal disease) on dialysis Priority: Secondary Status: Chronic (6) HLD (hyperlipidemia) Priority: Secondary Status: Chronic Qualifiers: Hyperlipidemia type: unspecified Qualified Code(s): E78.5 - Hyperlipidemia, unspecified (7) HTN (hypertension), benign Priority: Secondary Status: Chronic (8) Diarrhea Priority: Secondary Status: Resolved Qualifiers: Diarrhea type: unspecified type Qualified Code(s): R19.7 - Diarrhea, unspecified (9) Hypokalemia Priority: Secondary Status: Resolved (10) Dehydration Priority: Secondary Status: Resolved (11) Nausea & vomiting Priority: Secondary Status: Resolved Qualifiers: Qualified Code(s): R11.2 - Nausea with vomiting, unspecified Hospital course: Ms. Becerril is a 67 year old female CHF, diabetes, hyperlipidemia, hypertension, ESRD (M,W,F). Patient discharged from the hospital 3 days ago after being admitted for acute bronchitis and pneumonia. Patient presents to the ED due to nausea, vomiting and diarrhea. Patient was found to be on DKA, dehydrated, as reported nausea and vomiting. Admitted to the hospital and is started on a DKA protocol, gently resuscitated with IV fluids, and PPI and antiemetic administer when necessary. DKA resolved. And an old her acute symptoms on presentation have also resolved. She is hemodynamically stable to be discharged home. PT/OT evaluated the patient and no skilled OT needed. - Time Spent with Patient Total time spent providing and/or coordinating discharge services: Time spent: Greater than 30 minutes (40) - Discharge Medications Prescriptions: Continued Insulin ASPART [NovoLOG] 10 - 15 unit SQ TIDAC Aspirin 81 mg PO DAILY Ergocalciferol (VITAMIN D2) [Vitamin D2] 50,000 unit PO WE Magnesium Oxide [Mag-Ox] 400 mg PO BID #60 tab Atorvastatin [Lipitor] 40 mg PO DAILY Cyclosporine [Restasis] 1 drop BOTH EYES HS NIFEdipine XL (24 HR) [Procardia XL] 60 mg PO DAILY #30 tab Insulin Glargine,Hum.rec.anlog [Basaglar Kwikpen U-100] 28 - 30 unit SQ HS Folic Acid/Vit B Complex and C [Dialyvite Tablet] 1 tab PO DAILY Furosemide [Lasix] 80 mg PO QAM Furosemide [Lasix] 40 mg PO QPM Albuterol Sulfate [Albuterol Inhaler] 1 puff IH Q6HR 30 Days #2 hfa.aer.ad Calcium Acetate 667 mg PO BIDWM Carvedilol 12.5 mg PO BIDWM Discontinued MethylPREDNISolone [MethylPREDNISolone Dose Pack] 4 mg PO AD Home Medications: Aspirin 81 mg PO DAILY 08/02/15 [History] Insulin ASPART [NovoLOG] 10 - 15 unit SQ TIDAC 08/02/15 [History] Ergocalciferol (VITAMIN D2) [Vitamin D2] 50,000 unit PO WE 09/15/16 [History] Magnesium Oxide [Mag-Ox] 400 mg PO BID #60 tab 09/24/16 [Rx] Atorvastatin [Lipitor] 40 mg PO DAILY 09/27/16 [History] Cyclosporine [Restasis] 1 drop BOTH EYES HS 09/27/16 [History] NIFEdipine XL (24 HR) [Procardia XL] 60 mg PO DAILY #30 tab 10/06/16 [Rx] Folic Acid/Vit B Complex and C [Dialyvite Tablet] 1 tab PO DAILY 07/01/18 [History] Furosemide [Lasix] 40 mg PO QPM 07/01/18 [History] Furosemide [Lasix] 80 mg PO QAM 07/01/18 [History] Insulin Glargine,Hum.rec.anlog [Basaglar Kwikpen U-100] 28 - 30 unit SQ HS 07/01/18 [History] Albuterol Sulfate [Albuterol Inhaler] 1 puff IH Q6HR 30 Days #2 hfa.aer.ad 07/06/18 [Rx] Calcium Acetate 667 mg PO BIDWM 07/09/18 [History] Carvedilol 12.5 mg PO BIDWM 07/10/18 [History] Allergies/Adverse Reactions: Allergy/AdvReac Type Severity Reaction Status Date / Time No Known Allergies Allergy Verified 07/10/18 14:23 Date of admission: 07/09/18 16:13 Primary care physician: Abelardo Bowen MD Consults: 07/09/18 15:16 Consult to Nephrology [CONS] Routine Consulting Provider: Kidney Aura/QASIM/DARION/FELIPE Reason for Consult: ESRD Call Completed: No 07/11/18 12:15 Consult to Dialysis [CONS] ONCE - Constitutional Vitals: Temp Pulse Resp BP Pulse Ox 97.5 F L 75 18 163/69 91 07/12/18 07:20 07/12/18 07:20 07/12/18 07:20 07/12/18 07:20 07/12/18 07:20 Exam: Vitals: Reviewed General: Alert and oriented x4. In no acute distress. Cardiovascular: RRR, normal S1 & S2, no rubs, murmurs or gallops. No JVD. Pulse regular. Lungs: CTA b/l, no wheezes or crackles. Abdomen: Obese, soft, non-tender, no rigidity. NABS in all 4 quadrants Extremities: No edema Neurological: No focal neurological deficits Rest of the physical exam is non contributory - Patient Status Disposition: Home, Self-Care Condition: Good Functional capacity at discharge: independent ambulation Overall status at discharge: patient is back to baseline - Discharge Instructions Follow Up With: Abelardo Bowen MD [Primary Care Provider] - - Diet and Activity Activity: resume usual activities as tolerated, wear oxygen at all times (2 L of oxygen at night.) Diet: diabetic diet
[2018-07-12] MEDS ORDERED: Insulin LISPRO 300 UNITS/3 ML VIAL SQ SCH (11:30)
== END 2018-07-12 12:00 | disposition home or self-care (01) ==
LOC: EMEROOARM 12:01 → 2ANU 12:01 → SUATTDRO 16:13 → 2NNU 17:14 → 2ANU 07-11 04:48
PROVIDERS: ADMIT Internal Medicine; ATTEND Internal Medicine